=== PATIENT | male | born 1935 | race Caucasian/White ===

== ENCOUNTER 2019-08-10 08:01 | Emergency (ER) | payer OTHER, SELFPAY ==
[2019-08-10] VITALS (13 sets, daily range): BP systolic 74–208; BP diastolic 51–96; PULSE 42–55; RESP 8–20; TEMP 36.7; O2SAT 94–97; BMI 29.5
[2019-08-10 08:16] LABS: Glucose Point of Care 94 mg/dL (70-110)
--- NOTE | 2019-08-10 08:27 | ED_ITS ---
HPI - Syncope General: Chief Complaint: Syncope Stated Complaint: NEAR SYNCOPE Time Seen by Provider: 08/10/19 08:07 History of Present Illness: HPI narrative: 84-year-old male presents emergency room for near syncopal episode. Blood pressure is markedly elevated. 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 This morning he was giving himself a shot of insulin and suddenly felt lightheaded and dizzy and laid down with his head on his desk. All of these episodes happened while he was sitting. He denies any chest pain or dyspnea associated with him he not had any lateralizing symptoms no visual or speech symptoms they seem to last just a few seconds. He is not had any recent medication changes he does have a known history of coronary artery disease and he has previously had a stroke. MD complaint: almost passed out Onset (ago): minute(s) Duration of episode: 30 -: second(s) Prodromal symptoms: lightheaded Witnessed: No Context: at rest Injuries sustained associated with event: none Associated symptoms: Reports weakness; Deny abdominal pain, chest pain, fever(s) or nausea History: other (History of stroke known coronary artery disease he is on a beta- sallie) Treatments prior to arrival: none Review of Systems Const: Denies: fever(s), chills, body aches, change in appetite, fatigue or malaise ENMT: Denies: throat pain, ear or mastoid pain, nasal discharge or nasal congestion Card: Denies: chest pain, edema, dyspnea on exertion or orthopnea Resp: Denies: dyspnea, productive cough or non-productive cough GI: Denies: abdominal pain, nausea, vomiting, hematemesis, coffee ground emesis, diarrhea, constipation, bloating, hematochezia or melena : Denies: flank pain, dysuria, urinary frequency or urinary urgency Skin/Breast: Denies: rash or pruritus PFSH ED PFSH: Medical History (Updated 08/10/19 @ 12:27 by Milton Beach DO) Coronary artery disease CVA (cerebral vascular accident) Diabetes mellitus Hypertension Intermittent claudication Percutaneous transluminal coronary angioplasty (PTCA) within last 14 to 24 months Salivary gland calculus Social History (Updated 06/20/20 @ 08:31 by SIDNEY Cobos Smoking and tobacco status: former smoker Alcohol intake: former 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 Physical Exam Const: COMMON NORMALS: no acute distress GENERAL APPEARANCE: cooperative and comfortable ORIENTATION/CONSCIOUSNESS: Yes awake, Yes oriented to person, Yes oriented to place and Yes oriented to time HENMT: COMMON NORMALS: normocephalic, atraumatic, hearing grossly normal bilaterally, external ears normal, EAC's normal, TM's normal bilaterally, Normal nasal mucous membranes and turbinates present, moist oral mucous membranes and oropharynx normal HEAD & SCALP: normocephalic and atraumatic NOSE: Normal nasal mucous membranes and turbinates present EXTERNAL EAR: Yes external ears normal EXTERNAL AUDITORY CANAL: EAC's normal TYMPANIC MEMBRANE: TM's normal bilaterally Eye: COMMON NORMALS: Equal, round and reactive pupils present, EOMs intact bilaterally, conjunctivae normal and no scleral icterus CONJUNCTIVA: Yes conjunctivae normal PUPIL: Yes Equal, round and reactive pupils present Neck/C-Spine: COMMON NORMALS: full ROM, no lymphadenopathy, supple and no JVD Lymph: LYMPHATIC: no lymphadenopathy noted and no lymphedema noted Resp: COMMON NORMALS: normal respiratory effort, No retractions, No use of accessory muscles and clear to auscultation bilaterally AUSCULTATION: clear to auscultation bilaterally Cardio: COMMON NORMALS: no JVD, regular rhythm and No murmurs present (Cardio) RATE: bradycardic RHYTHM: regular rhythm GI: COMMON NORMALS: Soft to palpation and No hepatosplenomegaly present AUSCULTATION: Yes normoactive bowel sounds PALPATION: Yes Soft to palpation, No Tenderness to palpation present (GI), No Guarding due to palpation present (GI) and Yes No hepatosplenomegaly present Extremity: COMMON NORMALS: normal to inspection, capillary refill normal, no clubbing, cyanosis or edema, no calf tenderness and no pedal edema Neuro: SENSORIUM/ORIENTATION: Yes oriented to person, Yes oriented to place and Yes oriented to time Skin: COMMON NORMALS: no rashes or lesions noted GENERAL SKIN EXAM: no rashes or lesions noted Course Vital Signs: Vital signs: Vital Signs Temperature 98.0 F 08/10/19 08:08 Pulse Rate 47 L 08/10/19 12:51 Respiratory Rate 20 H 08/10/19 12:51 Blood Pressure 103/58 08/10/19 12:51 Pulse Oximetry 96 08/10/19 12:51 MDM - Syncope MDM Narrative: Medical decision making narrative: Patient is feeling better at this point reviewed his old chart we did give him some antihypertensives he actually got a little bit hypotensive for a time. He is extremely bradycardic patient relates that they said that that was a result of some denting that he had recently. 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 Lab Data: Labs: Lab Results 08/10/19 08/10/19 08/10/19 Range/Units 08:12 08:46 08:46 WBC 3.6 L (4.0-10.0) 10^3/ uL RBC 4.11 (4.1-5.3) 10^6/u L Hgb 11.0 L (11.7-16.6) g/dL Hct 35.0 L (42.0-52.0) % MCV 85.2 (80-94) fL MCH 26.8 L (28.0-34.0) pg MCHC 31.4 (30.0-36.0) g/dL RDW 15.0 (12.1-15.1) % Plt Count 213 (130-400) 10^3/c mm MPV 9.8 (7.4-10.4) fL Neut % (Auto) 56.5 % Lymph % (Auto) 24.8 % [place] % (Auto) 11.8 % Eos % (Auto) 5.8 % Baso % (Auto) 1.1 % Neut # (Auto) 2.1 (1.8-7.7) 10^3/u L Lymph # (Auto) 0.9 (0.8-4.8) 10^3/u L [place] # (Auto) 0.4 (0.2-0.9) 10^3/u L Eos # (Auto) 0.2 (0.0-0.8) 10^3/u L Baso # (Auto) 0.0 (0.0-0.1) 10^3/u L Nucleated RBC % (a uto) 0 % Nucleated RBCs # 0.0 /100WBC Sodium 140 (136-145) mmol/L Potassium 4.3 (3.5-5.1) mmol/L Chloride 105 (98-107) mmol/L Carbon Dioxide 23 (22-29) mmol/L Anion Gap 15.2 (5-19) BUN 24 H (8-23) mg/dL Creatinine 1.4 H (0.7-1.2) mg/dL Glucose 96 (65-115) mg/dL POC Glucose 94 (70-110) mg/dL Calculated Osmolal ity 283 L (285-295) mOsm/k g Calcium 9.7 (8.5-10.5) mg/dL Total Bilirubin 0.4 (0.15-1.2) mg/dL AST 10 (0-40) U/L ALT 6 (0-41) U/L Alkaline Phosphata se 54 (40-130) IU/L Troponin T Baselin e (0-15) ng/L Troponin T 120 Min [place] (0-15) ng/L Delta Troponin T (0-10) ABS# Total Protein 6.7 (6.6-8.7) g/dL Albumin 4.5 (3.5-5.2) g/dL Globulin 2.5 (1.3-4.6) g/dL Urine Color (Yellow) Urine Appearance (CLEAR) Urine pH (5-7) Ur Specific Gravit y (1.005-1.030) Urine Protein (Negative) Urine Glucose (UA) (Normal) Urine Ketones (Negative) Urine Blood (Negative) Urine Nitrate (Negative) Urine Bilirubin (NEGATIVE) Prot Sulfosalicyli c Acd (Negative) Urine Urobilinogen (Negative) mg/dL Ur Leukocyte Rita ase (Negative) Urine RBC (0-2) /hpf Urine WBC (0-5) /hpf Ur Squamous Epith Cells (0-5) Urine Bacteria (NONE) 08/10/19 08/10/19 08/10/19 Range/Units 08:46 09:15 10:54 WBC (4.0-10.0) 10^3/ uL RBC (4.1-5.3) 10^6/u L Hgb (11.7-16.6) g/dL Hct (42.0-52.0) % MCV (80-94) fL MCH (28.0-34.0) pg MCHC (30.0-36.0) g/dL RDW (12.1-15.1) % Plt Count (130-400) 10^3/c mm MPV (7.4-10.4) fL Neut % (Auto) % Lymph % (Auto) % [place] % (Auto) % Eos % (Auto) % Baso % (Auto) % Neut # (Auto) (1.8-7.7) 10^3/u L Lymph # (Auto) (0.8-4.8) 10^3/u L [place] # (Auto) (0.2-0.9) 10^3/u L Eos # (Auto) (0.0-0.8) 10^3/u L Baso # (Auto) (0.0-0.1) 10^3/u L Nucleated RBC % (a uto) % Nucleated RBCs # /100WBC Sodium (136-145) mmol/L Potassium (3.5-5.1) mmol/L Chloride (98-107) mmol/L Carbon Dioxide (22-29) mmol/L Anion Gap (5-19) BUN (8-23) mg/dL Creatinine (0.7-1.2) mg/dL Glucose (65-115) mg/dL POC Glucose (70-110) mg/dL Calculated Osmolal ity (285-295) mOsm/k g Calcium (8.5-10.5) mg/dL Total Bilirubin (0.15-1.2) mg/dL AST (0-40) U/L ALT (0-41) U/L Alkaline Phosphata se (40-130) IU/L Troponin T Baselin e 24 H (0-15) ng/L Troponin T 120 Min [place] 20.21 H (0-15) ng/L Delta Troponin T -3.79 L (0-10) ABS# Total Protein (6.6-8.7) g/dL Albumin (3.5-5.2) g/dL Globulin (1.3-4.6) g/dL Urine Color Yellow (Yellow) Urine Appearance Clear (CLEAR) Urine pH 7 (5-7) Ur Specific Gravit y 1.005 (1.005-1.030) Urine Protein Trace (Negative) Urine Glucose (UA) Norm (Normal) Urine Ketones Negative (Negative) Urine Blood Neg (Negative) Urine Nitrate Negative (Negative) Urine Bilirubin Neg (NEGATIVE) Prot Sulfosalicyli c Acd Negative (Negative) Urine Urobilinogen Norm (Negative) mg/dL Ur Leukocyte Rita ase Negative (Negative) Urine RBC None (0-2) /hpf Urine WBC None (0-5) /hpf Ur Squamous Epith Cells None (0-5) Urine Bacteria Trace (NONE) Discharge Plan Discharge Patient Disposition: Home, Self-Care Clinical Impression: Near syncope, Bradycardia, Coronary artery disease, Intermittent claudication, Diabetes mellitus, Hypertension Condition: Stable Prescriptions: New hydralazine 25 mg tablet 25 mg PO TID Qty: 30 RF: 0 Held carvedilol 6.25 mg Tablet 3.125 mg PO BID RF: 0 Hold Instructions: Resume on 08/24/19. Hold until instructed by your product manufacturing professional whether or not to resume No Action atorvastatin 40 mg Tablet See Rx Instructions .ROUTE .COMPLEX RF: 0 clopidogrel 75 mg Tablet 75 mg PO DAILY RF: 0 aspirin 81 mg Tablet,Delayed Release (Dr/Ec) 81 mg PO DAILY RF: 0 amlodipine 10 mg Tablet 10 mg PO DAILY RF: 0 albuterol sulfate 90 mcg/actuation Hfa Aerosol Inhaler 2 puff INHALATION Q6H PRN (Reason: Shortness Of Breath) RF: 0 glipizide 5 mg Tablet 5 mg PO BID RF: 0 insulin glulisine U-100 100 unit/mL Solution See Rx Instructions .ROUTE .COMPLEX RF: 0 hydrochlorothiazide 12.5 mg Tablet 12.5 mg PO DAILY RF: 0 Tylenol 325 mg Tablet 325 mg PO QID PRN (Reason: pain/headache) RF: 0 Discharge Orders: Discharge Order (Routine); Ordered 08/10/19 Ordered By: Milton Beach Referrals: [facility] [Primary Care Provider] - Discharge Diet: Usual diet Discharge Activity: Limit activity as instructed Activity Restrictions/Additional Instructions: Follow-up with your product manufacturing professional within the next 7 to 10 days to reevaluate her blood pressure and discuss the carvedilol, hold carvedilol until you see your product manufacturing professional. Discharge Date/Time: 08/10/19 12:53 Coding Level of Care Code ED Supervisor Roving Department for Chg Fwd Exam Comprehensive
--- NOTE | 2019-08-10 08:38 | CTR_ITS ---
PROCEDURE INFORMATION: Exam: CT Head Without Contrast Exam date and time: 08/10/2019 8:44 AM Age: 84 years old Clinical indication: Dizziness; Additional info: Near syncope TECHNIQUE: Imaging protocol: Computed tomography of the head without contrast. Radiation optimization: All CT scans at this facility use at least one of these dose optimization techniques: automated exposure control; mA and/or kV adjustment per patient size (includes targeted exams where dose is matched to clinical indication); or iterative reconstruction. COMPARISON: No relevant prior studies available. RADIATION DOSE METRICS: Total DLP (mGy-cm): 762.25 FINDINGS: Brain: Symmetric prominence of the cortical and cerebellar sulci. Small bilateral subdural hygromas. Small-vessel ischemic change, without an acute cortical infarct. No space-occupying lesion, mass effect, or intracranial hemorrhage. Ventricles: Age appropriate caliber of the ventricles. Bones/joints: No acute calvarial pathology prior Sinuses: No sinus fluid. Mastoid air cells: No mastoid effusion. Vasculature: Vascular and dural calcification. Soft tissues: Unremarkable soft tissues. CT/CT head wo con* [id number] IMPRESSION: Atrophy , without acute intracranial pathology . Radiation Dose CTDIVOL = (mGy): DLP = 762.25 (mGy-cm)
--- NOTE | 2019-08-10 08:38 | XRR_ITS ---
PROCEDURE INFORMATION: Exam: XR Chest, 1 View Exam date and time: 08/10/2019 9:05 AM Age: 84 years old Clinical indication: Cough and dyspnea; Additional info: Dyspnea/cough TECHNIQUE: Imaging protocol: XR of the chest Views: 1 view. COMPARISON: No relevant prior studies available. FINDINGS: Lungs: Emphysematous change and mild interstitial prominence. Pleural space: No significant pleural effusion. Heart/Mediastinum: No cardiomegaly. Vasculature: Calcification and ectasia of the thoracic aorta. Bones/joints: Osteopenia and degenerative change . XR/XR chest 1V portable [id number] IMPRESSION: Emphysematous change and mild interstitial prominence.
--- NOTE | 2019-08-10 08:38 | ECG_ITS ---
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 Measurements Intervals [place] Rate: 50 P: 91 ND: 177 QRS: -46 QRSD: 94 T: 68 QT: 416 QTc: 380 Interpretive Statements SINUS BRADYCARDIA LEFT ANTERIOR FASCICULAR BLOCK [QRS AXIS <= -45, QR IN I, RS IN II] No previous ECG available for comparison Electronically Signed On 08-10-2019 22:45:54 CDT by Sheba Lawson M.D. [id number]
[2019-08-10 08:55] LABS: Basophils % 1.1 %; Eosinophils # 0.2 10^3/uL (0.0-0.8); Eosinophils % 5.8 %; Lymphocytes # 0.9 10^3/uL (0.8-4.8); Lymphocytes % 24.8 %; Mean Corpuscular HGB Conc 31.4 g/dL (30.0-36.0); Mean Corpuscular Hemoglobin 26.8 pg (28.0-34.0); Mean Corpuscular Volume 85.2 fL (80-94); Mean Platelet Volume 9.8 fL (7.4-10.4); Monocytes # 0.4 10^3/uL (0.2-0.9); Monocytes % 11.8 %; Neutrophils # 2.1 10^3/uL (1.8-7.7); Neutrophils % 56.5 %; Nucleated Red Blood Cells % 0 %; Platelet Count 213 10^3/cmm (130-400); Red Blood Count 4.11 10^6/uL (4.1-5.3); White Blood Count 3.6 10^3/uL (4.0-10.0)
[2019-08-10 09:15] LABS: Alanine Aminotransferase 6 U/L (0-41); Albumin Level 4.5 g/dL (3.5-5.2); Alkaline Phosphatase 54 IU/L (40-130); Aspartate Amino Transferase 10 U/L (0-40); Chloride 105 mmol/L (98-107); Potassium 4.3 mmol/L (3.5-5.1); Sodium 140 mmol/L (136-145)
[2019-08-10 09:17] LABS: Troponin(5th) Baseline 24 ng/L (0-15)
[2019-08-10] MEDS: amlodipine 5 mg Tablet 10 MG PO (09:19)
[2019-08-10] MEDS: hyDRALAzine 20 mg/mL INJ 1 mL 10 MG IVP (09:19)
[2019-08-10 09:47] LABS: Add Urine Microscopic? YES; Bilirubin Urine Neg (NEGATIVE); Blood Urine Neg (Negative); Glucose Urine UA Norm (Normal); Ketones Urine Negative (Negative); Leukocyte Esterase Urine Negative (Negative); Nitrate Urine Negative (Negative); Protein Urine Trace (Negative); Specific Gravity, Urine 1.005 (1.005-1.030); Sulfosalicylic Acid Urine Negative (Negative); Urine Appearance Clear (CLEAR); Urine Color Yellow (Yellow); Urobilinogen Urine Norm (Negative); pH Urine 7 (5-7)
[2019-08-10 09:51] LABS: Anion Gap 15.2 (5-19); Blood Urea Nitrogen 24 mg/dL (8-23); Calcium 9.7 mg/dL (8.5-10.5); Carbon Dioxide 23 mmol/L (22-29); Globulin 2.5 g/dL (1.3-4.6); Glucose 96 mg/dL (65-115); Osmolality Calculated 283 mOsm/kg (285-295); Total Bilirubin 0.4 mg/dL (0.15-1.2); Total Protein 6.7 g/dL (6.6-8.7)
[2019-08-10 09:56] LABS: Add Urine Culture? No; Bacteria Urine TRACE
[2019-08-10] MEDS: cloNIDine 0.1 mg Tablet PO (10:15)
--- NOTE | 2019-08-10 10:38 | ECG_ITS ---
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 Measurements Intervals [place] Rate: 51 P: 31 WI: 176 QRS: -42 QRSD: 87 T: 63 QT: 423 QTc: 391 Interpretive Statements SINUS BRADYCARDIA MARKED LEFT AXIS DEVIATION [QRS AXIS < -30] Compared to ECG 08/10/2019 08:10:15 Left-axis deviation now present Left anterior fascicular block no longer present Electronically Signed On 08-10-2019 22:57:28 CDT by Sheba Lawson M.D. [id number]
[2019-08-10 11:17] LABS: Troponin 5 2HR 20.21 ng/L (0-15)
[2019-08-10] MEDS: sodium chloride 0.9% 500 ML 999 ML IV (11:18)
[2019-08-10 11:29] LABS: Troponin 5 2HR Delta -3.79 ABS# (0-10)
== END 2019-08-10 12:53 | disposition home or self-care (01) ==
PROVIDERS: Emergency Provider Family Medicine
DX: R55 Syncope and collapse (principal); R00.1 Bradycardia, unspecified; I25.10 Atherosclerotic heart disease of native coronary artery without angina pectoris; I73.9 Peripheral vascular disease, unspecified; E11.9 Type 2 diabetes mellitus without complications; I10 Essential (primary) hypertension; Z79.02 Long term (current) use of antithrombotics/antiplatelets; Z79.82 Long term (current) use of aspirin; Z79.4 Long term (current) use of insulin; Z86.73 Personal history of transient ischemic attack (TIA), and cerebral infarction without residual deficits; Z87.891 Personal history of nicotine dependence
CPT/HCPCS: 12345; 36415; 36416; 70450; 71045; 80053; 81001; 82962; 84484; 85025; 93005; 96374; 96375; 99284; J0360; J7030

== ENCOUNTER 2019-11-27 10:52 | Outpatient (CLI) | payer OTHER, SELFPAY ==
--- NOTE | 2019-11-27 11:02 | US_ITS ---
WS: [id number] ULTRASOUND RENAL TECHNIQUE: Ultrasound examination of both kidneys. CLINICAL INFORMATION: CHRONIC KIDNEY DZ STAGE 3 COMPARISON: Ultrasound and CT FINDINGS: Technically difficult examination. Bilateral renal cysts. Largest right renal cyst measures 3.3 x 3.3 x 2.8 cm in the mid right kidney. Largest renal cyst lef t kidney measures 3.2 x 3.7 x 5.5 CCM. RIGHT: Right kidney is normal in size and appearance. Echogenicity: Normal. Cortical thickness: 1.2 cm; Normal. Hydronephrosis: None. Perinephric fluid: None. Right kidney measures: 11.3 cm x 4.7 cm x 5.6 cm. LEFT: Left kidney is normal in size and appearance. Echogenicity: Normal. Cortical thickness: 1.1 cm; Normal. Hydronephrosis: None. Perinephric fluid: None. Right kidney measures Left kidney measures: 10.3 cm x 5.5 cm x 7.7 cm. Infrarenal abdominal aortic aneurysm measuring 5.4 x 5.7 cm AP by transverse. Recommend further evalu ation with CTA abdomen pelvis. Normal bladder. US/US renal BI* [id number] IMPRESSION: 1. Infrarenal abdominal aortic aneurysm measuring 5.4 x 5.7 CM. Recommend furt her evaluation with CTA abdomen pelvis. 2. No hydronephrosis in right kidney. 3. Bilateral renal cysts as described above.
== END 2019-11-27 10:53 | disposition home or self-care (01) ==
LOC: RAD 11:00
PROVIDERS: Visit Provider Internal Medicine Nephrology
DX: N18.30 Chronic kidney disease, stage 3 unspecified (principal); I71.4 Abdominal aortic aneurysm, without rupture; Q61.02 Congenital multiple renal cysts
CPT/HCPCS: 76770

== ENCOUNTER 2020-09-25 11:48 | Inpatient (IN) | payer OTHER, MEDICARE, SELFPAY ==
[2020-09-25] VITALS (13 sets, daily range): BP systolic 98–168; BP diastolic 43–90; PULSE 47–132; RESP 17–96; TEMP 38.1; O2SAT 90–100; BMI 29.4
--- NOTE | 2020-09-25 12:09 | W.ED.FEVER ---
HPI - Fever General: Chief Complaint: ER Hold Stated Complaint: HYPOTENSION/ AFIB/ TEMP Time Seen by Provider: 09/25/20 11:51 Source: patient History of Present Illness: HPI Narrative: Mr. Castorena is a 85-year-old gentleman with significant past medical history of hypertension, hyperlipidemia, diabetes, CAD status post PCI presents emergency department due to generalized medical complaint. Symptom onset was gradual approximately 8 days ago. He endorses cough which is occasionally been productive and nasal drip. Additionally he has had generalized malaise fatigue and muscle aches. He was seen by his primary care provider and tested negative for Covid however his symptoms have continued to worsen and now moderate to severe in intensity. Today he endorses feeling worse and so he tried to go to his primary care provider at the [place]. While driving he had an episode of confusion and had difficulty seeing the stoplight. He was found to have dysarthric speech, confusion, and blood pressure as low as 60 systolic and was subsequently referred to the emergency department. He endorses continued infectious symptoms but complete resolution of his neurologic complaints. The intensity of these were moderate to severe. He has not had frequent episodes in the past. He cannot think of any other specific exacerbating or relieving factors. He has been compliant with his medication regimen. Associated symptoms: Reports chills, confusion, nasal congestion and nausea; Deny abdominal pain, chest pain, extremity pain, headache(s) or vomiting Review of Systems General: Reports: 10 or more systems reviewed and unremarkable except in HPI and below Const: Reports: fever(s), chills, body aches, change in appetite, fatigue and malaise Eyes: Reports: change in vision (See HPI); Denies: eye discharge, eye redness, floaters or seeing flashes ENMT: Reports: nasal discharge and nasal congestion; Denies: throat pain Card: Reports: irregular heart rhythm and dyspnea on exertion; Denies: chest pain Resp: Reports: dyspnea and productive cough GI: Reports: nausea; Denies: abdominal pain or vomiting : Denies: difficulty urinating Musc: Denies: extremity pain, extremity swelling or joint swelling Skin/Breast: Denies: rash or pruritus Neuro: Reports: confusion, Slurred speech present and difficulty communicating thoughts; Denies: headache(s), numbness in extremities or weakness in extremities Endo: Denies: polyuria or polydipsia Cody/Lymph: Denies: easy bruising PFSH ED PFSH: Medical History Abdominal aortic aneurysm Coronary artery disease CVA (cerebral vascular accident) Diabetes mellitus Hypertension Intermittent claudication Percutaneous transluminal coronary angioplasty (PTCA) within last 14 to 24 months Salivary gland calculus Surgical History History of right common carotid artery stent placement History of tonsillectomy Family History Mother Polycystic kidney disease Brother CAD (coronary artery disease) Social History Smoking and tobacco status: former smoker Alcohol intake: former 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 Substance/Drug Use: never Lives independently: Yes Household members: family Marital status: / Current occupational status: retired Physical Exam Const: COMMON NORMALS: no acute distress and patient oriented x3 EXAM LIMITATIONS: no altered mental status GENERAL APPEARANCE: cooperative and comfortable ORIENTATION/CONSCIOUSNESS: Yes awake, Yes oriented to person, Yes oriented to place and Yes oriented to time; not confused HENMT: COMMON NORMALS: normocephalic, external ears normal, Normal external nose present and Normal nasal mucous membranes and turbinates present HEAD & SCALP: normocephalic NOSE: Normal external nose present and Normal nasal mucous membranes and turbinates present EXTERNAL EAR: Yes external ears normal MOUTH: Normal oral and palatal mucosa present, lip normal and tongue normal THROAT: posterior oropharynx normal Eye: COMMON NORMALS: Equal, round and reactive pupils present, EOMs intact bilaterally and conjunctivae normal CONJUNCTIVA: Yes conjunctivae normal PUPIL: Yes Equal, round and reactive pupils present Neck/C-Spine: COMMON NORMALS: no JVD Chest: COMMONS NORMALS: normal inspection of the chest Resp: COMMON NORMALS: normal respiratory effort AUSCULTATION: diminished lung sounds bilateral in the lower lung white Cardio: COMMON NORMALS: no JVD RHYTHM: abnormal rhythm (frequent PVCs) GI: COMMON NORMALS: Soft to palpation and non-tender PALPATION: Yes Soft to palpation Extremity: COMMON NORMALS: normal to inspection, capillary refill normal and no pedal edema Neuro: COMMON NORMALS: patient oriented x3, CN's II-XII intact bilaterally, moves all extremities, no focal motor deficits and no sensory deficits noted SENSORIUM/ORIENTATION: Yes oriented to person, Yes oriented to place and Yes oriented to time SPEECH: speech normal GAIT: Yes Normal gait present Skin: COMMON NORMALS: no rashes or lesions noted GENERAL SKIN EXAM: no rashes or lesions noted Course ED course: - Patient seen and evaluated at bedside. - air sampling and monitoring attached and IV access obtained - Initial evaluation notable for no acute distress, nontoxic appearance. There is no neurologic deficits appreciated on exam. Patient does have mildly decreased breath sounds but no melita respiratory distress. -Labs and imaging ordered and obtained -Labs notable for no leukocytosis, microcytic anemia present which appears similar to baseline and there is no obvious evidence of bleeding.. Limited historical records present however creatinine appears greater than baseline. No obvious other causes of reported symptoms or mental status change. CRP elevated however procalcitonin negative. - ED interpretation of chest x-ray with possible increased hazy opacities on the right. Head CT negative for acute intracranial hemorrhage. - Given clinical description of symptoms IV antibiotics were given for coverage of pneumonia - The patient presents with tachycardia, fever meeting 2/4 SIRS criteria with suspected source of infection. - Results of ED evaluation discussed with patient including need for inpatient evaluation of his condition. Patient was agreeable for admission. - Dr Guerra of the internal medicine hospitalist team was contacted and agreed to admit the patient. -Upon for serial reexamination of the patient overall patient's condition remained satisfactory. There was no recurrence of neurologic symptoms which may have been secondary to hypotension in the context of illness. -Subsequent to admission teleradiology contacted me regarding findings on CT abdomen and pelvis. These were passed on to Dr. Braun of the hospitalist team. Vital Signs: Vital signs: Vital Signs Temperature 97.7 F 09/26/20 14:13 Pulse Rate 82 09/26/20 14:13 Respiratory Rate 16 09/26/20 14:13 Blood Pressure 78/43 09/26/20 14:15 Pulse Oximetry 97 09/26/20 14:13 MDM - Fever Medical Records: Attestation: I reviewed the patient's medical records. Lab Data: Attestation: I reviewed the patient's lab results. Labs: Lab Results 09/25/20 09/25/20 09/25/20 Range/Units 11:35 11:35 11:35 WBC 6.7 (4.0-10.0) 10^3/ uL RBC 3.67 L (4.1-5.3) 10^6/u L Hgb 7.9 L (11.7-16.6) g/dL Hct 26.9 L (42.0-52.0) % MCV 73.3 L (80-94) fL MCH 21.5 L (28.0-34.0) pg MCHC 29.4 L (30.0-36.0) g/dL RDW 19.0 H (12.1-15.1) % Plt Count 291 (130-400) 10^3/c mm MPV 10.6 H (7.4-10.4) fL Neut % (Auto) 76.4 % Lymph % (Auto) 12.9 % Humphreys % (Auto) 8.5 % Eos % (Auto) 1.3 % Baso % (Auto) 0.6 % Neut # (Auto) 5.10 (1.8-7.7) 10^3/u L Lymph # (Auto) 0.9 (0.8-4.8) 10^3/u L Humphreys # (Auto) 0.6 (0.2-0.9) 10^3/u L Eos # (Auto) 0.1 (0.0-0.8) 10^3/u L Baso # (Auto) 0.0 (0.0-0.1) 10^3/u L Nucleated RBC % (a uto) 0 % Nucleated RBCs # 0.0 /100WBC Sodium 135 L (136-145) mmol/L Potassium 4.0 (3.5-5.1) mmol/L Chloride 101 (98-107) mmol/L Carbon Dioxide 18 L (22-29) mmol/L Anion Gap 20.0 H (5-19) BUN 42 H (8-23) mg/dL Creatinine 2.7 H (0.7-1.2) mg/dL GFR Calculation Not Reportable Glucose 67 (65-115) mg/dL POC Glucose (70-110) mg/dL Calculated Osmolal ity 289 (285-295) mOsm/k g Lactate (0.5-2.2) mmol/L Calcium 8.2 L (8.5-10.5) mg/dL Iron (59-158) ug/dL TIBC mcg/dl % Saturation (20-50) % Unsat Iron Binding (112-347) ug/dL Ferritin (30-400) ng/mL Total Bilirubin 0.3 (0.15-1.2) mg/dL Direct Bilirubin 0.20 (0.00-0.30) mg/d L AST 37 (0-40) U/L ALT 26 (0-41) U/L Alkaline Phosphata se 43 (40-130) IU/L C-Reactive Protein 160.5 H (0.0-4.9) mg/L Total Protein 5.5 L (6.6-8.7) g/dL Albumin 3.2 L (3.5-5.2) g/dL Globulin 2.3 (1.3-4.6) g/dL Procalcitonin 0.41 (0-0.5) ng/mL TSH 1.12 (0.27-4.20) uIU/ mL Serum Ketones (Negative) Nasal/Oral COVID-1 9 PCR SARS-CoV-2 Ag (Rap id) (Negative) 09/25/20 09/25/20 09/25/20 Range/Units 11:35 11:35 12:42 WBC (4.0-10.0) 10^3/ uL RBC (4.1-5.3) 10^6/u L Hgb (11.7-16.6) g/dL Hct (42.0-52.0) % MCV (80-94) fL MCH (28.0-34.0) pg MCHC (30.0-36.0) g/dL RDW (12.1-15.1) % Plt Count (130-400) 10^3/c mm MPV (7.4-10.4) fL Neut % (Auto) % Lymph % (Auto) % Humphreys % (Auto) % Eos % (Auto) % Baso % (Auto) % Neut # (Auto) (1.8-7.7) 10^3/u L Lymph # (Auto) (0.8-4.8) 10^3/u L Humphreys # (Auto) (0.2-0.9) 10^3/u L Eos # (Auto) (0.0-0.8) 10^3/u L Baso # (Auto) (0.0-0.1) 10^3/u L Nucleated RBC % (a uto) % Nucleated RBCs # /100WBC Sodium (136-145) mmol/L Potassium (3.5-5.1) mmol/L Chloride (98-107) mmol/L Carbon Dioxide (22-29) mmol/L Anion Gap (5-19) BUN (8-23) mg/dL Creatinine (0.7-1.2) mg/dL GFR Calculation Glucose (65-115) mg/dL POC Glucose 79 (70-110) mg/dL Calculated Osmolal ity (285-295) mOsm/k g Lactate (0.5-2.2) mmol/L Calcium (8.5-10.5) mg/dL Iron 8 L (59-158) ug/dL TIBC 224 mcg/dl % Saturation 3.5 L (20-50) % Unsat Iron Binding 216 (112-347) ug/dL Ferritin 71 (30-400) ng/mL Total Bilirubin (0.15-1.2) mg/dL Direct Bilirubin (0.00-0.30) mg/d L AST (0-40) U/L ALT (0-41) U/L Alkaline Phosphata se (40-130) IU/L C-Reactive Protein (0.0-4.9) mg/L Total Protein (6.6-8.7) g/dL Albumin (3.5-5.2) g/dL Globulin (1.3-4.6) g/dL Procalcitonin (0-0.5) ng/mL TSH (0.27-4.20) uIU/ mL Serum Ketones Negative (Negative) Nasal/Oral COVID-1 9 PCR SARS-CoV-2 Ag (Rap id) (Negative) 09/25/20 09/25/20 09/25/20 Range/Units 12:45 18:01 18:01 WBC (4.0-10.0) 10^3/ uL RBC (4.1-5.3) 10^6/u L Hgb (11.7-16.6) g/dL Hct (42.0-52.0) % MCV (80-94) fL MCH (28.0-34.0) pg MCHC (30.0-36.0) g/dL RDW (12.1-15.1) % Plt Count (130-400) 10^3/c mm MPV (7.4-10.4) fL Neut % (Auto) % Lymph % (Auto) % Humphreys % (Auto) % Eos % (Auto) % Baso % (Auto) % Neut # (Auto) (1.8-7.7) 10^3/u L Lymph # (Auto) (0.8-4.8) 10^3/u L Humphreys # (Auto) (0.2-0.9) 10^3/u L Eos # (Auto) (0.0-0.8) 10^3/u L Baso # (Auto) (0.0-0.1) 10^3/u L Nucleated RBC % (a uto) % Nucleated RBCs # /100WBC Sodium (136-145) mmol/L Potassium (3.5-5.1) mmol/L Chloride (98-107) mmol/L Carbon Dioxide (22-29) mmol/L Anion Gap (5-19) BUN (8-23) mg/dL Creatinine (0.7-1.2) mg/dL GFR Calculation Glucose (65-115) mg/dL POC Glucose (70-110) mg/dL Calculated Osmolal ity (285-295) mOsm/k g Lactate 1.2 (0.5-2.2) mmol/L Calcium (8.5-10.5) mg/dL Iron (59-158) ug/dL TIBC mcg/dl % Saturation (20-50) % Unsat Iron Binding (112-347) ug/dL Ferritin (30-400) ng/mL Total Bilirubin (0.15-1.2) mg/dL Direct Bilirubin (0.00-0.30) mg/d L AST (0-40) U/L ALT (0-41) U/L Alkaline Phosphata se (40-130) IU/L C-Reactive Protein (0.0-4.9) mg/L Total Protein (6.6-8.7) g/dL Albumin (3.5-5.2) g/dL Globulin (1.3-4.6) g/dL Procalcitonin (0-0.5) ng/mL TSH (0.27-4.20) uIU/ mL Serum Ketones (Negative) Nasal/Oral COVID-1 9 PCR Cancelled SARS-CoV-2 Ag (Rap id) Negative (Negative) Imaging Data^: CXR: Attestation: I personally reviewed and interpreted this imaging study as follows: My impression: Questionable increased right-sided opacities Radiologist's impression: No focal consolidation EKG Data^: EKG 1: Attestation: I personally reviewed and interpreted this EKG as follows: EKG interpretation date: 09/25/20 Prior EKG tracings: available for review Ischemic changes: non-specific ST-T wave changes Interpretation: Twelve-lead EKG shows a sinus rhythm with occasional premature complexes. Rate 124. CT interval 176. QRS duration 84. QTc 355. Nonspecific ST segment abnormalities. Interpretation: Sinus rhythm. Tachycardia. Discharge Plan Discharge Patient Disposition: Admitted As Inpatient Admit Provider: Pito Guerra Clinical Impression: Pneumonia, Sepsis Condition: Stable Coding Level of Care Code ED Crushing Foreman for Chg Fwd Exam Comprehensive
--- NOTE | 2020-09-25 12:10 | CT_ITS ---
WS: [id number] CT HEAD NONCONTRAST HISTORY: Stroke like symptoms-resolved TECHNIQUE: Contiguous axial imaging performed through the brain in 2.5 mm imaging. Bone and soft tiss ue windows. Sagittal and coronal reformats reviewed. All CT scans at [facility] use at le ast one of these dose optimization techniques: automated exposure control; mA and/or kV adjustment pe r patient size (includes targeted exams where dose is matched to clinical indication); or iterative r econstruction. DLP: 815.14 mGy.cm COMPARISON: None available. No acute intracranial hemorrhage, midline shift or mass effect. Mild bilateral symmetric atrophy and chronic microvascular ischemic disease. No prior infarct. Ventricles: Normal size with no hydrocephalus. Paranasal sinuses: Mucoperiosteal thickening in the RIGHT maxillary sinus. Mild mucoperiosteal thicke norma in the ethmoid air cells. Mastoid air cells: Well pneumatized. Calvarium and scalp: Skull is intact with no soft tissue edema or swelling. CT/CT head wo con* [id number] IMPRESSION: 1. No acute intracranial hemorrhage or edema. 2. Mild cerebral atrophy and chronic microvascular ischemic disease.
--- NOTE | 2020-09-25 12:11 | XRR_ITS ---
PROCEDURE INFORMATION: Exam: XR Chest Exam date and time: 09/25/2020 12:11 PM Age: 85 years old Clinical indication: Cough; Patient HX: Afib hypotension TECHNIQUE: Imaging protocol: XR of the chest. Views: 1 view. COMPARISON: CR XR chest 1V portable [id number] 08/10/2019 8:55 AM FINDINGS: Lungs: Unremarkable. No consolidation. Pleural spaces: Unremarkable. No pleural effusion. No pneumothorax. Heart/Mediastinum: Unremarkable. No cardiomegaly. Bones/joints: Unremarkable. There has been no interval change comparing to prior examination. XR/XR chest 1V [id number] IMPRESSION: No acute findings.
[2020-09-25 12:23] LABS: Basophils % 0.6 %; Eosinophils # 0.1 10^3/uL (0.0-0.8); Eosinophils % 1.3 %; Hematocrit 26.9 % (42.0-52.0); Hemoglobin 7.9 g/dL (11.7-16.6); Lymphocytes # 0.9 10^3/uL (0.8-4.8); Lymphocytes % 12.9 %; Mean Corpuscular HGB Conc 29.4 g/dL (30.0-36.0); Mean Corpuscular Hemoglobin 21.5 pg (28.0-34.0); Mean Corpuscular Volume 73.3 fL (80-94); Mean Platelet Volume 10.6 fL (7.4-10.4); Monocytes # 0.6 10^3/uL (0.2-0.9); Monocytes % 8.5 %; Neutrophils % 76.4 %; Nucleated Red Blood Cells % 0 %; Platelet Count 291 10^3/cmm (130-400); Red Blood Count 3.67 10^6/uL (4.1-5.3); White Blood Count 6.7 10^3/uL (4.0-10.0)
[2020-09-25 12:45] LABS: Procalcitonin 0.41 ng/mL (0-0.5); Thyroid Stimulating Hormone 1.12 uIU/mL (0.27-4.20)
[2020-09-25 12:48] LABS: Glucose Point of Care 79 mg/dL (70-110)
[2020-09-25 12:57] LABS: Blood Urea Nitrogen 42 mg/dL (8-23); C Reactive Protein 160.5 mg/L (0.0-4.9); Calcium 8.2 mg/dL (8.5-10.5); Carbon Dioxide 18 mmol/L (22-29); Chloride 101 mmol/L (98-107); Glucose 67 mg/dL (65-115); Osmolality Calculated 289 mOsm/kg (285-295); Sodium 135 mmol/L (136-145)
[2020-09-25] MEDS: sodium chloride 0.9% 500 ML IV (13:11)
[2020-09-25] MEDS: cefepime 2,000 MG in sodium chloride 0.9% (plus) 50 ML 100 MG IV (13:11)
[2020-09-25 13:18] LABS: Lactate (Lactic Acid level) 1.2 mmol/L (0.5-2.2)
[2020-09-25] MEDS: vancomycin 1,500 MG/300 ML PIGGYBACK 200 MG IV (13:36)
--- NOTE | 2020-09-25 13:47 | PC.NURSE ---
patient has refused covid testing. aware
--- NOTE | 2020-09-25 16:43 | PC.NURSE ---
family member has called and stated that he does not see eye to eye with the nurse. I talked to him one time and conversation was amicable. he has talked to several other staff members.
--- NOTE | 2020-09-25 18:27 | PM.HP ---
Providers/Chief Complaint Admitting Physician: Pito Guerra Primary Care Provider: [facility] Chief Complaint: HYPOTENSION/ AFIB/ TEMP History of Present Illness Pleasant 85-year-old gentleman with history of CAD, several coronary stents, PAD, with carotid artery stent, history of CVA, DM2, HTN, intermittent claudication, denies any past medical history of known lung disease, former smoker, presented due to 8-9 days of progressive malaise, chills, productive cough, does not know if any color change to sputum, dyspnea, low-grade fever. He is also having nonbloody, nonmelanotic diarrhea. Temp noted in ER, 100.5. Sinus tachycardia 107. With noted sepsis, suspected pulmonary origin. Chest x-ray unremarkable, however. Lactate is 1.2. Acute kidney injury with creatinine 2.7. Blood cultures collected, received 30 cc/kg fluid bolus, empirically started on cefepime, vancomycin. He is not vaccinated for COVID-19. Coronavirus done at PCPs office a week ago was negative, unknown type of test. He states the son that lives with him, his oldest, is also feeling unwell. CRP in ER is 160. UA is requested, not yet obtained. LFTs, COVID-19 testing requested. Discussing with him again with his nurse present, he is agreeable to proceed. He is currently requiring 4 L of oxygen by nasal cannula to maintain saturation in the 90s. Review of Systems Const: Reports: fever(s), chills, body aches and malaise Eyes: Denies: change in vision or eye redness ENMT: Denies: throat pain, oral sores or ear or mastoid pain Card: Reports: dyspnea on exertion; Denies: chest pain, edema or pre-syncope Resp: Reports: dyspnea and productive cough; Denies: change in phlegm color or hemoptysis GI: Reports: diarrhea; Denies: abdominal pain, nausea, vomiting, constipation, hematochezia or melena : Denies: flank pain, difficulty urinating, urinary frequency or hematuria Musc: Denies: back pain, joint swelling or joint redness Skin/Breast: Denies: rash, sores or new lesions Neuro: Denies: headache(s), numbness in extremities, weakness in extremities, dizziness, confusion or seizure-like activity Endo: Denies: polyuria or polydipsia Cody/Lymph: Denies: easy bleeding or purpura All/Imm: Denies: urticaria, throat swelling or tongue swelling Medications/Allergies Home Medications Medication Instructions Recorded Confirmed Last Taken Type acetaminophen [Tylenol] 325 mg PO QID PRN 08/10/19 09/25/20 Unknown History albuterol sulfate 2 puff INHALATION Q6H PRN 08/10/19 09/25/20 08/10/19 History amlodipine 10 mg PO DAILY 08/10/19 09/25/20 08/10/19 History aspirin 81 mg PO DAILY 08/10/19 09/25/20 09/25/20 History atorvastatin See Rx Instructions .ROUTE .COMPLEX 08/10/19 09/25/20 08/09/19 History carvedilol 6.25 mg PO BID 08/10/19 09/25/20 09/25/20 History clopidogrel 75 mg PO DAILY 08/10/19 09/25/20 09/25/20 History glipizide 5 mg PO DAILY 08/10/19 09/25/20 09/25/20 History insulin glulisine U-100 See Rx Instructions .ROUTE .COMPLEX 08/10/19 09/25/20 09/25/20 History amlodipine 2.5 mg PO DAILY 09/25/20 09/25/20 09/25/20 History benzonatate 100 mg PO TID 09/25/20 09/25/20 Unknown History cilostazol 100 mg PO BID 09/25/20 09/25/20 Unknown History hydralazine 25 mg PO DAILY 09/25/20 09/25/20 09/25/20 History meclizine 25 mg PO TID PRN 09/25/20 09/25/20 Unknown History valsartan 80 mg PO DAILY 09/25/20 09/25/20 09/25/20 History Allergies Allergy/AdvReac Type Severity Reaction Status Date / Time egg Allergy ADR-Flatule Verified 11/18/19 14:12 nce sulfamethoxazole Allergy Unknown Verified 11/18/19 14:12 [From Bactrim] trimethoprim [From Bactrim] Allergy Unknown Verified 11/18/19 14:12 PFSH Acute PFSH: Medical History (Updated 09/25/20 @ 19:18 by Pito Guerra MD) Abdominal aortic aneurysm Coronary artery disease CVA (cerebral vascular accident) Diabetes mellitus Hypertension Intermittent claudication Percutaneous transluminal coronary angioplasty (PTCA) within last 14 to 24 months Salivary gland calculus Surgical History (Updated 09/25/20 @ 18:45 by Pito Guerra MD) History of right common carotid artery stent placement History of tonsillectomy Family History Mother Polycystic kidney disease Brother CAD (coronary artery disease) Social History Smoking and tobacco status: former smoker Alcohol intake: former 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 Substance/Drug Use: never Lives independently: Yes Household members: family Marital status: / Current occupational status: retired Vitals/I&O/Wt Last Vital Signs Temp 100.5 F H 09/25/20 11:57 Pulse 115 H 09/25/20 18:00 Resp 26 H 09/25/20 18:00 BP 155/90 09/25/20 18:00 Pulse Ox 100 09/25/20 18:00 09/25/20 09/25/20 09/25/20 06:59 14:59 22:59 Intake Total 50 / 50 Balance 50 / 50 Weight last 48 hrs Weight 92.986 kg Physical Exam Narrative: EXAM NARRATIVE: Covered with multiple blankets. Const: COMMON NORMALS: no acute distress, patient oriented x3 and alert GENERAL APPEARANCE: cooperative; not comfortable (Chills) ORIENTATION/CONSCIOUSNESS: Yes awake HENMT: COMMON NORMALS: oropharynx normal Neck/C-Spine: COMMON NORMALS: no JVD Resp: COMMON NORMALS: normal respiratory effort and clear to auscultation bilaterally AUSCULTATION: clear to auscultation bilaterally Cardio: COMMON NORMALS: no JVD, regular rhythm, S1 normal heart sound present, S2 normal heart sound present and No murmurs present (Cardio) RHYTHM: regular rhythm HEART SOUNDS: S1 normal heart sound present and S2 normal heart sound present GI: COMMON NORMALS: Normal to inspection, nondistended, normoactive bowel sounds present, Soft to palpation and non-tender PALPATION: Yes Soft to palpation Extremity: COMMON NORMALS: no joint enlargement and no pedal edema Neuro: COMMON NORMALS: patient oriented x3 and moves all extremities Skin: COMMON NORMALS: no rashes or lesions noted GENERAL SKIN EXAM: no rashes or lesions noted Data : 09/25/20 11:35 09/25/20 11:35 Micro: Microbiology 09/25/20 12:59 Blood Culture - Preliminary Blood SPECIMEN COLLECTED 09/25/20 13:07 Blood Culture - Preliminary Blood SPECIMEN COLLECTED A&P Assessment and plan (1) Sepsis: Noted symptoms of presentation, with sinus tachycardia 107, tachypnea 26-29. With acute kidney injury, creatinine 2.7. Metabolic acidosis, bicarb 18, anion gap 20. Lactic acid 1.2. Due to symptoms of dyspnea, productive cough thought to be secondary to pneumonia, although chest x-ray really unremarkable. Empirically started on cefepime, vancomycin. With acute kidney injury UA is requested. Follow-up. With metabolic acidosis requested also serum ketones, follow-up urine ketones. Metabolic acidosis may be secondary to diarrhea. Possibly OCTAVIA on CKD. With fever, chills, malaise, generalized weakness, cough, diarrhea requested COVID-19. Rapid is negative. Follow blood cultures. Continue cefepime, Vanco. Status: Acute (2) OCTAVIA (acute kidney injury): Hold valsartan. Bladder scan appears to show about 500 cc. He so far has not yet urinated. Tells RN he is going to try to pee. For now declined straight cath. With sepsis, acute kidney injury on chronic kidney disease would like to exclude obstruction. Ultrasound no longer available this evening, will assess with CT renal stone protocol. Received fluid challenge in ER. Hold off additional fluids for now. Status: Acute (3) Hypoxia: Initially not requiring oxygen, currently requiring 4 L by nasal cannula to maintain saturation in the 90s. As discussed with him possible atypical or viral pneumonia. Does not appear to have focal consolidation on chest x-ray. Empirically covered with antibiotics as above. Rapid COVID-19 assessed and negative. PCR requested and pending. History of CAD. Assess TTE. Reports also productive cough, but does not know what kind of sputum he is producing. Not a current smoker, but used to smoke in the past. Denies of being aware of having COPD or emphysema. I do not hear that he sounds tight or wheezy. Possible underlying obstructive lung disease may benefit from evaluation after he is done with acute issues. Status: Acute Additional A&P Information Mild hyponatremia Elevated CRP Microcytic anemia: Check Hemoccult, iron studies. DM2: Continue insulin, consistent carb. SSI HTN: Continue carvedilol. Monitor blood pressure. Hold valsartan. For now hold amlodipine, hydralazine, but resume if blood pressure is elevated. CAD, history of stenting, PAD, carotid artery stenting: Continue aspirin, Plavix, statin, beta-sallie History of CVA CKD Noted prior abdominal aortic aneurysm, infrarenal, 3.9 cm in 2010 Attestations Medical Necessity Statement*: Place in observation for now secondary to sepsis requiring additional investigation regarding other possible source other than pulmonary, at the moment started on empiric therapy, with concomitant acute kidney injury on chronic kidney disease in a gentleman with underlying CAD and a number of additional comorbidities. Coding Level of Care Code Acute Tableau Developer for [facility] Fwd Diagnoses Sepsis A41.9 OCTAVIA (acute kidney injury) N17.9 Hypoxia R09.02
[2020-09-25 18:35] LABS: SARS Covid-2 Antigen Negative (Negative)
[2020-09-25 18:42] LABS: Alanine Aminotransferase 26 U/L (0-41); Albumin Level 3.2 g/dL (3.5-5.2); Alkaline Phosphatase 43 IU/L (40-130); Aspartate Amino Transferase 37 U/L (0-40); Globulin 2.3 g/dL (1.3-4.6); Total Bilirubin 0.3 mg/dL (0.15-1.2); Total Protein 5.5 g/dL (6.6-8.7)
--- NOTE | 2020-09-25 19:15 | CTR_ITS ---
PROCEDURE INFORMATION: Exam: CT Abdomen And Pelvis Without Contrast Exam date and time: 09/25/2020 7:15 PM Age: 85 years old Clinical indication: Other: Urinary retention; Additional info: Sepsis, luz on ckd, urinary retention, assess for hydro TECHNIQUE: Imaging protocol: Computed tomography of the abdomen and pelvis without contrast. Radiation optimization: All CT scans at this facility use at least one of these dose optimization techniques: automated exposure control; mA and/or kV adjustment per patient size (includes targeted exams where dose is matched to clinical indication); or iterative reconstruction. COMPARISON: US renal BI* [id number] 11/27/2019 11:20 AM RADIATION DOSE METRICS: Total DLP (mGy-cm): 1833.19 FINDINGS: Chest: Bilateral lower lobe parenchymal densities likely pneumonia. Hiatal hernia is present. Liver: Normal. No mass. Gallbladder and bile ducts: Normal. No calcified stones. No ductal dilation. Pancreas: Normal. No ductal dilation. Spleen: Normal. No splenomegaly. Adrenal glands: Normal. No mass. Kidneys and ureters: Multiple bilateral renal cyst. Largest is lower pole left kidney 34 mm x 40 mm. No hydronephrosis. Stomach and bowel: Unremarkable. No obstruction. No mucosal thickening. Appendix: No evidence of appendicitis. Intraperitoneal space: Unremarkable. No free air. No significant fluid collection. Vasculature: Calcified ectatic abdominal aorta with abdominal aortic aneurysm having AP measurement of 5.3 cm at the L4 level. Lymph nodes: Unremarkable. No enlarged lymph nodes. Urinary bladder: Unremarkable as visualized. Reproductive: Unremarkable as visualized. Bones/joints: Lumbar spine osteoarthritis. No acute fracture. Soft tissues: Unremarkable. CT/CT kidney stone [id number] IMPRESSION: 1. Calcified aorta with abdominal aortic aneurysm (5.3 cm). 2. Multiple bilateral renal cyst 3. Bilateral lower lobe pneumonia 4. Hiatal hernia Radiation Dose CTDIVOL = (mGy): DLP = 1833.19 (mGy-cm)
[2020-09-25 19:35] LABS: Ketone (Acetest) Serum Negative (Negative)
[2020-09-25 20:10] LABS: Ferritin 71 ng/mL (30-400); Iron 8 ug/dL (59-158); Percent Saturation 3.5 % (20-50); Total Iron Binding Capacity 224 mcg/dl; Unsaturated Iron Binding 216 ug/dL (112-347)
[2020-09-25] MEDS: sodium chloride 0.9% 250 ML 500 ML IV (20:34)
[2020-09-25] MEDS: enoxaparin 40 mg/0.4 mL Syringe SUBCUT (21:40)
[2020-09-25] MEDS: atorvastatin 40 mg Tablet 20 MG PO (21:40)
[2020-09-25] MEDS: benzonatate 100 mg Capsule PO (21:40)
[2020-09-25 23:52] LABS: Add Urine Microscopic? YES; Bilirubin Urine Neg (Negative); Blood Urine 3+ (Negative); Glucose Urine UA Norm (Normal); Ketones Urine 1+ (Negative); Leukocyte Esterase Urine Negative (Negative); Nitrate Urine Negative (Negative); Protein Urine 1+ (Negative); Specific Gravity, Urine 1.015 (1.005-1.030); Urine Appearance Clear (CLEAR); Urine Color Yellow (Yellow); Urobilinogen Urine Norm (Negative); pH Urine 5 (5-7)
[2020-09-25 23:53] LABS: Amorphous Sediment Urine 2+ /hpf; Bacteria Urine 1+ /hpf; Hyaline Casts Urine 0-4 /lpf; Squamous Epithelial Cell Urine 0-4 /hpf (0-5); WBC Urine 0-4 /hpf (0-5)
[2020-09-25 23:54] LABS: Add Urine Culture? No
[2020-09-26] VITALS (20 sets, daily range): BP systolic 78–123; BP diastolic 43–69; PULSE 65–115; RESP 16–30; TEMP 36.5–37.2; O2SAT 92–99; BMI 28.5
--- NOTE | 2020-09-26 00:11 | PC.NURSE ---
I assumed care of this patient at 09/26/20 0005.
--- NOTE | 2020-09-26 04:37 | PC.NURSE ---
patient had accidental bowel movement while in bed. Patient cleaned and linens changed. Patient requesting warmed blankets and was given. No other needs voiced at this time.
[2020-09-26 05:12] LABS: Basophils % 0.4 %; Eosinophils % 0.1 %; Lymphocytes # 0.8 10^3/uL (0.8-4.8); Lymphocytes % 10.4 %; Mean Corpuscular Hemoglobin 21.8 pg (28.0-34.0); Mean Corpuscular Volume 77.9 fL (80-94); Mean Platelet Volume 10.3 fL (7.4-10.4); Monocytes # 0.6 10^3/uL (0.2-0.9); Neutrophils # 6.34 10^3/uL (1.8-7.7); Neutrophils % 80.7 %; Nucleated Red Blood Cells % 0 %; Platelet Count 267 10^3/cmm (130-400); Red Blood Count 3.21 10^6/uL (4.1-5.3); Red Cell Distribution Width 19.4 % (12.1-15.1); White Blood Count 7.9 10^3/uL (4.0-10.0)
[2020-09-26 05:36] LABS: Alanine Aminotransferase 32 U/L (0-41); Albumin Level 3.2 g/dL (3.5-5.2); Alkaline Phosphatase 42 IU/L (40-130); Anion Gap 20.2 (5-19); Aspartate Amino Transferase 73 U/L (0-40); Blood Urea Nitrogen 40 mg/dL (8-23); Calcium 7.9 mg/dL (8.5-10.5); Carbon Dioxide 14 mmol/L (22-29); Chloride 107 mmol/L (98-107); Globulin 3.1 g/dL (1.3-4.6); Glucose 89 mg/dL (65-115); Osmolality Calculated 293 mOsm/kg (285-295); Potassium 4.2 mmol/L (3.5-5.1); Sodium 137 mmol/L (136-145); Total Bilirubin 0.4 mg/dL (0.15-1.2); Total Protein 6.3 g/dL (6.6-8.7)
[2020-09-26 08:24] LABS: Glucose Point of Care 99 mg/dL (70-110)
[2020-09-26] MEDS: aspirin 81 mg EC Tablet PO (08:44)
[2020-09-26] MEDS: benzonatate 100 mg Capsule PO ×3 (08:45→21:13)
[2020-09-26] MEDS: clopidogrel 75 mg Tablet PO (08:48)
[2020-09-26] MEDS: famotidine 20 mg Tablet PO ×2 (08:48→17:04)
[2020-09-26] MEDS: carvedilol 6.25 mg Tablet PO (09:37)
[2020-09-26] MEDS: cilostazol 100 mg Tablet PO ×2 (09:37→17:04)
[2020-09-26] MEDS: insulin glargine 100 units/1 mL 10 UNIT SUBCUT (09:40)
[2020-09-26 12:02] LABS: Glucose Point of Care 149 mg/dL (70-110)
[2020-09-26] MEDS: vancomycin 1,250 MG/250 ML PIGGYBACK 250 MG IV (14:22)
[2020-09-26] MEDS: sodium chloride 0.9% 500 ML 999 ML IV (14:51)
[2020-09-26 16:15] LABS: Hemoglobin 6.4 g/dL (11.7-16.6)
--- NOTE | 2020-09-26 16:25 | P.PN_ITS ---
Subjective Subjective: Interval history: He overall is feeling better. Chills have let up. He denies pain or discomfort. Incidentally blood pressure is noted low, although he did not appear to be bothered by it. Mean arterial pressure 52. Discussed with him. Discussed giving a bolus. Discussed also with him regarding anemia. Will recheck hemoglobin. Vitals/I&O/Wt Last Vital Signs Temp 97.7 F 09/26/20 14:13 Pulse 82 09/26/20 14:13 Resp 16 09/26/20 14:13 BP 93/48 09/26/20 15:32 Pulse Ox 97 09/26/20 14:13 09/26/20 09/26/20 09/26/20 06:59 14:59 22:59 Intake Total 354 / 354 750 / 1104 Balance 354 / 354 750 / 1104 Weight last 48 hrs Weight 92.986 kg Weight 92.986 kg Physical Exam Narrative: EXAM NARRATIVE: Covered with multiple blankets. Const: COMMON NORMALS: no acute distress, patient oriented x3 and alert GENERAL APPEARANCE: cooperative, comfortable and frail appearing ORIENTATION/CONSCIOUSNESS: Yes awake HENMT: COMMON NORMALS: oropharynx normal Neck/C-Spine: COMMON NORMALS: no JVD Resp: COMMON NORMALS: normal respiratory effort and clear to auscultation bilaterally AUSCULTATION: clear to auscultation bilaterally Cardio: COMMON NORMALS: no JVD, regular rhythm, S1 normal heart sound present, S2 normal heart sound present and No murmurs present (Cardio) RHYTHM: regular rhythm HEART SOUNDS: S1 normal heart sound present and S2 normal heart sound present GI: COMMON NORMALS: Normal to inspection, nondistended, normoactive bowel sounds present, Soft to palpation and non-tender PALPATION: Yes Soft to palpation Extremity: COMMON NORMALS: no joint enlargement and no pedal edema Neuro: COMMON NORMALS: patient oriented x3 and moves all extremities SENSORIUM/ORIENTATION: Yes alert Skin: COMMON NORMALS: no rashes or lesions noted GENERAL SKIN EXAM: no rashes or lesions noted Data : 09/26/20 15:37 09/26/20 04:50 Micro: Microbiology 09/25/20 12:59 Blood Culture - Preliminary Blood NEGATIVE TO DATE 09/25/20 13:07 Blood Culture - Preliminary Blood NEGATIVE TO DATE 09/25/20 23:02 Occult Blood (FIT) - Final Stool Routine Collection A&P Assessment and plan (1) Sepsis: Sepsis today with possible septic shock, mean arterial pressure down to 52. No beds available currently in ICU, however, he appears to responded well to 500 mL bolus. Last night received 30 mL/kg fluid resuscitation. Monitor blood pressures, repeat bolus as tolerating/needed. Hold carvedilol. Hold antihypertensives. Recheck hemoglobin also noted low 6.4. Requested 1 unit PRBC transfusion. With noted bilateral lower lobe pneumonia on abdominal CT. Continue empiric antibiotic coverage with cefepime, vancomycin. Rapid COVID-19 was negative. PCR pending. UA not suggestive of UTI. No obstruction/hydronephrosis noted on CT renal protocol. Serum ketones negative. Urine ketones 1+. I am not convinced that he has ketoacidosis with normal glucose, DM 2, however, continue insulin. Metabolic acidosis may be secondary to diarrhea. Possibly OCTAVIA on CKD. Stool studies requested, pending. Follow blood cultures. Check cardiac studies. Status: Acute (2) Anemia: Acute on chronic anemia, possibly also with delusional component. Hemoglobin down to 6.4. Transfuse 1 unit PRBC given blood pressure is also soft. History of CAD. Reassess. Negative Hemoccult. Noted iron deficiency anemia. Check reticulocyte count. Status: Acute (3) OCTAVIA (acute kidney injury): Mild improvement, creatinine down to 2.5. Hold valsartan. No obstruction noted on CT renal protocol. Received fluid challenge in ER. Boluses above for hypotension. Monitor blood pressure. Bilateral renal cysts. Should follow-up with nephrology after discharge. Status: Acute (4) Hypoxia: Bilateral pneumonia as above. Possibly atypical. Pending COVID-19 PCR. Continue antibiotics as above. Oxygen support. Pending TTE. Reports also productive cough, but does not know what kind of sputum he is producing. Not a current smoker, but used to smoke in the past. Denies of being aware of having COPD or emphysema. I do not hear that he sounds tight or wheezy. Possible underlying obstructive lung disease may benefit from evaluation after he is done with acute issues. Status: Acute Additional A&P Information Mild hyponatremia Elevated CRP Microcytic anemia: Check Hemoccult, iron studies. DM2: Continue insulin, consistent carb. SSI HTN: Hold carvedilol. Monitor blood pressure. Hold valsartan. For now hold amlodipine, hydralazine, but resume if blood pressure is elevated. CAD, history of stenting, PAD, carotid artery stenting: Continue aspirin, Plavix, statin, beta-sallie History of CVA CKD Noted prior abdominal aortic aneurysm, infrarenal, 3.9 cm in 2009. Discussed with him incidentally noted increased size of abdominal aortic aneurysm. Discussed with him to follow-up with primary provider, current size is 5.3 cm. Will need regular monitoring. He verbalized understanding. Hiatal hernia: Incidentally noted on CT Multiple bilateral renal cysts: Incidentally noted on CT Attestations Medical Necessity Statement*: Continue admission for assessment of management of sepsis, pneumonia, acute on chronic anemia, OCTAVIA. Coding Level of Care Code Acute Box Toe Cementer for livan Morales Diagnoses Sepsis A41.9 Anemia D64.9 OCTAVIA (acute kidney injury) N17.9 Hypoxia R09.02
[2020-09-26] MEDS: cefepime 1,000 MG in sodium chloride 0.9% (plus) 50 ML 100 MG IV (16:53)
[2020-09-26] MEDS: enoxaparin 40 mg/0.4 mL Syringe SUBCUT (17:04)
[2020-09-26 17:24] LABS: Glucose Point of Care 125 mg/dL (70-110)
--- NOTE | 2020-09-26 18:36 | ECG_ITS ---
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 Measurements Intervals [place] Rate: 82 P: 93 OR: 170 QRS: -43 QRSD: 97 T: 61 QT: 381 QTc: 448 Interpretive Statements SINUS RHYTHM WITH FREQUENT SUPRAVENTRICULAR PREMATURE COMPLEXES MARKED LEFT AXIS DEVIATION [QRS AXIS < -30] NONSPECIFIC ST & T-WAVE ABNORMALITY No previous ECG available for comparison Electronically Signed On 09-27-2020 12:23:07 CDT by Jason Rivas M.D. [id number]
[2020-09-26] MEDS: sodium chloride 0.9% (100 ml) 100 ML (18:37)
[2020-09-26 18:45] LABS: Hematocrit 21.6 % (42.0-52.0); Retic Production Index 0.32; Reticulocyte % 0.6 % (0.5-2.0)
--- NOTE | 2020-09-26 19:16 | USCV_ITS ---
Kwaku Castorena Age: 85 Gender: M : 1935 Exam Date: 09/26/2020 15:00 Ordering Phys: Pito Guerra MD Technologist: Amada Archibald Exam Location: [facility] [place] Indication: Hypoxia, History of CAd BP: 113 / 46 HR: Rhythm: Sinus Technical Quality: Very technically difficult study MEASUREMENTS (Male / Female) Normal Values 2D ECHO LV Chamber Size 5.5 cm RV Chamber Size 2.9 cm LVOT Diameter 2.0 cm LA Diameter 2.4 cm LA Width 4.1 cm LA Height 6.4 cm RA Width 3.9 cm RA Height 5.8 cm Aorta at Sinotubular Diameter 2.1 cm M-MODE LV Diastolic Diameter MM 6.4 cm 4.2 - 5.9 / 3.9 - 5.3 cm LV Systolic Diameter MM 4.6 cm LV Ejection Fraction MM Teich 53.4 % IVS Diastolic Thickness MM 1.3 cm 0.6 - 1.0 / 0.6 - 0.9 cm IVS Systolic Thickness MM 1.7 cm LVPW Diastolic Thickness MM 1.8 cm 0.6 - 1.0 / 0.6 - 0.9 cm LVPW Systolic Thickness MM 1.7 cm RV Diastolic Diameter MM 2.0 cm MV E Point Septal Separation 0.6 cm DOPPLER AV Peak Velocity 161.0 cm/s LVOT Peak Velocity 95.0 cm/s AV Area Cont Eq vti 1.9 cm squared AV Area Cont Eq pk 1.9 cm squared MV Area PHT 4.3 cm squared Mitral E to A Ratio 1.3 MV E' Velocity 51.8 cm/s Mitral E to MV E' Ratio 13.2 Mitral E to LV E' Lateral Ratio 11.0 Mitral E to LV E' Septal Ratio 16.8 TV Peak E Velocity 44.0 cm/s Right Atrial Pressure 15.0 mmHg PV Peak Velocity 78.0 cm/s RV Acceleration Time 0.1 s RV Ejection Time 0.3 s RV AcT/ET 0.4 FINDINGS Left Ventricle Normal left ventricular size. LV systolic function is borderline low with EF of 45-50%. Mild global hypokinesis. Diastolic function is abnormal Right Ventricle The right ventricle is normal in size and function. Right Atrium The right atrium is normal in size. Left Atrium The left atrium is dilated Mitral Valve Structurally normal mitral valve without significant stenosis or prolapse. There is no mitral regurgitation. Aortic Valve Structurally normal aortic valve without significant sclerosis or stenosis. There is no aortic regurgitation. Tricuspid Valve Structurally normal tricuspid valve without significant stenosis. Trace tricuspid regurgitation. Insufficient TR jet to calculate RVSP Pulmonic Valve Structurally normal pulmonic valve without significant stenosis. There is no pulmonic regurgitation. Pericardium Normal pericardium without effusion. Aorta Normal ascending aorta dimension. CONCLUSIONS LV systolic function is borderline low with EF of 45-50% Diastolic function is abnormal Left atrium is dilated Trace tricuspid regurgitation No comparison studies are available Jason Rivas MD (Electronically Signed) Final Date: 26 September 2020 20:42 S
[2020-09-26 19:37] LABS: Troponin(5th) Baseline 3556 ng/L (0-15)
[2020-09-26] MEDS: aspirin 325 mg Tablet PO (21:13)
[2020-09-26] MEDS: atorvastatin 40 mg Tablet PO (21:13)
[2020-09-26 22:06] LABS: Glucose Point of Care 138 mg/dL (70-110)
--- NOTE | 2020-09-26 22:23 | P.CONIM_ITS ---
Providers/Reason For Consult Consulting Physician/Specialty*: Jason Rivas MD/ Cardiology Reason for Consult*: Troponin elevation Requesting Physician: Dr Guerra Attending Physician: Pito Guerra Primary Care Provider: [facility] History of Present Illness History of Present Illness Kwaku Castorena is a 85 year old male with PMH of CAD, several coronary stents, PAD, with carotid artery stent, history of CVA, DM2, HTN, intermittent claudication, denies any past medical history of known lung disease, former smoker, presented with about 1 week symptoms of malaise, fatigue, productive cough, dyspnea and low-grade fever. He was also having diarrhea. He was febrile in the ER. Cardiology was consulted as his troponins were elevated to more than 3000. He denies any chest pain. Main complaint is significant shortness of breath. He is requiring 4 L of oxygen. Denies any orthopnea. His breathing gets worse when he tries to sit up. Echocardiogram performed today showed borderline reduced LV systolic function with EF of 45 to 50% and mild global hypokinesis. Patient also found to have severe anemia with hemoglobin of 6.4. Getting blood transfusion. Review of Systems Const: Reports: fever(s), chills, body aches and malaise Eyes: Denies: change in vision or eye redness ENMT: Denies: throat pain, oral sores or ear or mastoid pain Card: Reports: dyspnea on exertion; Denies: chest pain, edema or pre-syncope Resp: Reports: dyspnea and productive cough; Denies: change in phlegm color or hemoptysis GI: Reports: diarrhea; Denies: abdominal pain, nausea, vomiting, constipation, hematochezia or melena : Denies: flank pain, difficulty urinating, urinary frequency or hematuria Musc: Denies: back pain, joint swelling or joint redness Skin/Breast: Denies: rash, sores or new lesions Neuro: Denies: headache(s), numbness in extremities, weakness in extremities, dizziness, confusion or seizure-like activity Endo: Denies: polyuria or polydipsia Cody/Lymph: Denies: easy bleeding or purpura All/Imm: Denies: urticaria, throat swelling or tongue swelling Meds/Allergies Home Medications and Allergies Home Medications Medication Instructions Recorded Confirmed Last Taken Type acetaminophen [Tylenol] 325 mg PO QID PRN 08/10/19 09/25/20 Unknown History albuterol sulfate 2 puff INHALATION Q6H PRN 08/10/19 09/25/20 08/10/19 History amlodipine 10 mg PO DAILY 08/10/19 09/25/20 08/10/19 History aspirin 81 mg PO DAILY 08/10/19 09/25/20 09/25/20 History atorvastatin See Rx Instructions .ROUTE .COMPLEX 08/10/19 09/25/20 08/09/19 History carvedilol 6.25 mg PO BID 08/10/19 09/25/20 09/25/20 History clopidogrel 75 mg PO DAILY 08/10/19 09/25/20 09/25/20 History glipizide 5 mg PO DAILY 08/10/19 09/25/20 09/25/20 History insulin glulisine U-100 See Rx Instructions .ROUTE .COMPLEX 08/10/19 09/25/20 09/25/20 History amlodipine 2.5 mg PO DAILY 09/25/20 09/25/20 09/25/20 History benzonatate 100 mg PO TID 09/25/20 09/25/20 Unknown History cilostazol 100 mg PO BID 09/25/20 09/25/20 Unknown History hydralazine 25 mg PO DAILY 09/25/20 09/25/20 09/25/20 History meclizine 25 mg PO TID PRN 09/25/20 09/25/20 Unknown History valsartan 80 mg PO DAILY 09/25/20 09/25/20 09/25/20 History Allergies Allergy/AdvReac Type Severity Reaction Status Date / Time egg Allergy ADR-Flatule Verified 11/18/19 14:12 nce sulfamethoxazole Allergy Unknown Verified 11/18/19 14:12 [From Bactrim] trimethoprim [From Bactrim] Allergy Unknown Verified 11/18/19 14:12 Current Medications Current Medications Generic Name Dose Route Start Last Admin Trade Name Freq PRN Reason Stop Dose Admin Aspirin 325 mg 09/26/20 19:55 09/26/20 21:13 Aspirin 325 Mg Tablet PO 325 mg DAILY URIEL Administration Atorvastatin Calcium 40 mg 09/26/20 21:00 09/26/20 21:13 Atorvastatin 40 Mg Tablet PO 40 mg BEDTIME URIEL Administration Benzonatate 100 mg 09/25/20 21:00 09/26/20 21:13 Benzonatate 100 Mg Capsule PO 100 mg TID URIEL Administration Carvedilol 6.25 mg 09/26/20 09:00 09/26/20 09:37 Carvedilol 6.25 Mg Tablet PO 6.25 mg BID URIEL Administration Cilostazol 100 mg 09/26/20 09:00 09/26/20 17:04 Cilostazol 100 Mg Tablet PO 100 mg BID URIEL Administration Clopidogrel Bisulfate 75 mg 09/26/20 09:00 09/26/20 08:48 Clopidogrel 75 Mg Tablet PO 75 mg DAILY URIEL Administration Enoxaparin Sodium 40 mg 09/25/20 19:30 09/26/20 17:04 Enoxaparin 40 Mg/0.4 Ml Syringe SUBCUT 40 mg Q24H URIEL Administration Famotidine 20 mg 09/26/20 09:00 09/26/20 17:04 Famotidine 20 Mg Tablet PO 20 mg BID URIEL Administration Cefepime HCl 1,000 mg/ Sodium 50 mls @ 100 mls/hr 09/26/20 13:00 09/26/20 17:23 Chloride IV Infused Q24H URIEL Infusion Protocol Vancomycin/PEG/NADA/Lysine/Water 1,250 mg in 250 mls @ 250 mls/hr 09/26/20 14:00 09/26/20 15:22 Vancocin IV Infused Q36H URIEL Infusion Insulin Aspart 0 unit 09/26/20 08:00 09/26/20 17:15 Insulin Aspart 100 Unit/1 Ml SUBCUT Not Given [facility] Protocol Insulin Glargine 10 unit 09/26/20 09:00 09/26/20 09:40 Insulin Glargine 100 Units/1 Ml SUBCUT 10 unit DAILY URIEL Administration PFSH Acute PFSH: Medical History Abdominal aortic aneurysm Coronary artery disease CVA (cerebral vascular accident) Diabetes mellitus Hypertension Intermittent claudication Percutaneous transluminal coronary angioplasty (PTCA) within last 14 to 24 months Salivary gland calculus Surgical History History of right common carotid artery stent placement History of tonsillectomy Family History Mother Polycystic kidney disease Brother CAD (coronary artery disease) Social History Smoking and tobacco status: former smoker Alcohol intake: former 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 [] NECK: No jugular vein distension. [] HEENT: No cyanosis. No icterus. No pallor. [] HEART: Regular S1 and S2. No murmur, rub or gallop. [] LUNGS: Has mild wheezing bilaterally ABDOMEN: Soft, nontender and nondistended. Positive bowel sounds. No guarding, rebound or tenderness. [] CENTRAL NERVOUS SYSTEM: Grossly nonfocal. [] EXTREMITIES: Lower extremities with 1+ edema bilaterally. Pulses palpable in the lower extremities, both dorsalis pedis and posterior tibial. [] Data Micro: Micro: Microbiology 09/25/20 23:02 C.difficile Toxin B Gene (PCR) - Fin al Stool Routine Col lection 09/25/20 12:59 Blood Culture - Pr eliminary Blood NEGATIVE TO AVTAR E 09/25/20 13:07 Blood Culture - Pr eliminary Blood NEGATIVE TO AVTAR E 09/25/20 23:02 Occult Blood (FIT) - Final Stool Routine Col lection A&P Assessment and plan (1) Anemia: Status: Acute (2) OCTAVIA (acute kidney injury): Status: Acute (3) Sepsis: Status: Acute (4) Diabetes mellitus: Status: Acute (5) Hypertension: Status: Acute (6) Coronary artery disease: Status: Acute (7) Intermittent claudication: Status: Acute (8) Pneumonia: Status: Acute (9) Hypoxia: Status: Acute (10) Troponin level elevated: Status: Acute Patient has presented with respiratory distress. Also had low-grade fe vielka. Likely respiratory infection. Cardiology was consulted for troponin elevation which is significant. He is denying chest pain. Echocardiogram shows borderline low cardiac function. Likely demand ischemia in the setting of OCTAVIA and severe anemia. However given this degree of troponin elevation and prior significant coronary artery disease history, we will recommend nuclear stress test once his breathing improves. EKG does not show acute ST changes. We will hold off on anticoagulation at this time given hemoglobin of 6.4. Transfuse blood. Continue aspirin. Rapid covid test was negative, PCR pending Thank you for involving us with the care of this patient. We will continue to follow. Please call with questions. Coding Level of Care Code Acute Descriptive Catalog Librarian for g Fwd Diagnoses Anemia D64.9 OCTAVIA (acute kidney injury) N17.9 Sepsis A41.9 Diabetes mellitus E11.9 Hypertension I10 Coronary artery disease I25.10 Intermittent claudication I73.9 Pneumonia J18.9 Hypoxia R09.02 Troponin level elevated R77.8
--- NOTE | 2020-09-26 22:36 | ECG_ITS ---
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 Measurements Intervals [place] Rate: P: [place]: QRS: 0 QRSD: T: 0 QT: QTc: Interpretive Statements SINUS RHYTHM INDETERMINATE AXIS Compared to ECG 09/26/2020 20:03:56 Indeterminate axis now present Sinus rhythm no longer present Left-axis deviation no longer present T-wave abnormality no longer present Electronically Signed On 09-27-2020 12:21:15 CDT by Jason Rivas M.D. [id number]
[2020-09-27] VITALS (15 sets, daily range): BP systolic 94–131; BP diastolic 57–76; PULSE 67–117; RESP 17–98; TEMP 36.7–37.2; O2SAT 93–98
[2020-09-27] MEDS: sodium chloride 0.9% (100 ml) 100 ML 150 ML (03:08)
[2020-09-27 06:46] LABS: Glucose Point of Care 114 mg/dL (70-110)
[2020-09-27] MEDS: famotidine 20 mg Tablet PO ×2 (09:46→17:51)
[2020-09-27] MEDS: clopidogrel 75 mg Tablet PO (09:46)
[2020-09-27] MEDS: benzonatate 100 mg Capsule PO ×3 (09:46→21:25)
[2020-09-27] MEDS: aspirin 325 mg Tablet PO (09:46)
[2020-09-27] MEDS: cilostazol 100 mg Tablet PO ×2 (09:46→17:51)
[2020-09-27 10:19] LABS: Basophils # 0.1 10^3/uL (0.0-0.1); Basophils % 0.6 %; Eosinophils # 0.1 10^3/uL (0.0-0.8); Eosinophils % 0.9 %; Hematocrit 29.8 % (42.0-52.0); Hemoglobin 8.8 g/dL (11.7-16.6); Lymphocytes # 0.7 10^3/uL (0.8-4.8); Lymphocytes % 7.3 %; Mean Corpuscular HGB Conc 29.5 g/dL (30.0-36.0); Mean Corpuscular Hemoglobin 22.5 pg (28.0-34.0); Mean Corpuscular Volume 76.2 fL (80-94); Mean Platelet Volume 11.1 fL (7.4-10.4); Monocytes # 0.6 10^3/uL (0.2-0.9); Monocytes % 6.5 %; Neutrophils # 7.46 10^3/uL (1.8-7.7); Neutrophils % 84.1 %; Nucleated Red Blood Cells % 0 %; Platelet Count 300 10^3/cmm (130-400); Red Blood Count 3.91 10^6/uL (4.1-5.3); White Blood Count 8.9 10^3/uL (4.0-10.0)
[2020-09-27] MEDS: insulin glargine 100 units/1 mL 10 UNIT SUBCUT (10:20)
[2020-09-27] MEDS: cetylpyridinium Lozenge 1 EACH MUCOUS MEM ×2 (10:20→21:25)
--- NOTE | 2020-09-27 10:25 | P.PN_ITS ---
Subjective Subjective: Interval history: He had a rough night. He has been coughing quite a bit. Feels dyspneic. No chest pain. Denies breathing getting worse when laying back flat, or other laying flat was comfortable. No swelling. No new pain. Request for cough drops. No nausea or vomiting. So far no further stool. Vitals/I&O/Wt Last Vital Signs Temp 98.9 F 09/27/20 08:00 Pulse 78 09/27/20 08:09 Resp 18 09/27/20 08:09 BP 101/62 09/27/20 08:00 Pulse Ox 96 09/27/20 08:09 09/26/20 09/27/20 09/27/20 22:59 06:59 14:59 Intake Total 1020 / 1374 1000 / 2374 Output Total 0 / 0 Balance 1020 / 1374 1000 / 2374 Weight last 48 hrs Weight 92.442 kg Weight 92.986 kg Weight 92.986 kg Physical Exam Narrative: EXAM NARRATIVE: Sitting up at bedside. Coughing. Const: COMMON NORMALS: no acute distress, patient oriented x3 and alert GENERAL APPEARANCE: cooperative, comfortable and frail appearing ORIENTATION/CONSCIOUSNESS: Yes awake HENMT: COMMON NORMALS: oropharynx normal Neck/C-Spine: COMMON NORMALS: no JVD Resp: COMMON NORMALS: normal respiratory effort AUSCULTATION: diminished lung sounds Cardio: COMMON NORMALS: no JVD, regular rhythm, S1 normal heart sound present, S2 normal heart sound present and No murmurs present (Cardio) RHYTHM: regular rhythm HEART SOUNDS: S1 normal heart sound present and S2 normal heart sound present GI: COMMON NORMALS: Normal to inspection, nondistended, normoactive bowel sounds present, Soft to palpation and non-tender PALPATION: Yes Soft to palpation Extremity: COMMON NORMALS: no joint enlargement and no pedal edema Neuro: COMMON NORMALS: patient oriented x3 and moves all extremities SENSORIUM/ORIENTATION: Yes alert Skin: COMMON NORMALS: no rashes or lesions noted GENERAL SKIN EXAM: no rashes or lesions noted Data : 09/27/20 09:41 09/26/20 04:50 Micro: Microbiology 09/25/20 23:32 Legionella Urinary Antigen - Final Urine,Voided Bacterial Antigens - Final 09/25/20 23:02 C.difficile Toxin B Gene (PCR) - Final Stool Routine Collection 09/25/20 12:59 Blood Culture - Preliminary Blood NEGATIVE TO DATE 09/25/20 13:07 Blood Culture - Preliminary Blood NEGATIVE TO DATE A&P Assessment and plan (1) Hypoxia: Had a rough night with dyspnea, lots of cough. Sounds tight on exam. Discussed with him, discussed with cardiology. Does not appear to be fluid overloaded. No signs of orthopnea. Discussed with him results of echocardiogram with mild depression of EF, 45-50%. Does not appear to be in CHF exacerbation currently. We are suspecting most of this is pulmonary. Adding neb treatments. Budesonide. Mucinex. Cough drops, lozenges. Continue cefepime, vancomycin empirically for possible bacterial pneumonia. Sputum cultures requested. Urine bacterial antigens are negative. COVID-19 PCR is pending. Try to call and see if result from [place] could be accessed, but today on Monday the clinic is closed and our lab has no access to either the records or direct access to [facility] which is closed today as well. Will need to wait for final results of the test. Discussed with cardiology. He also remains chest pain-free. In the setting of acute kidney injury, troponin elevation will benefit from further investigation, but once he is feeling a bit better. Suspected multifactorial with underlying CAD, with demand ischemia secondary to sepsis on admission, with poor clearance with acute kidney injury. Discussed with nursing staff, for some reason the laboratory studies were not completed, they were not sure if there were technical difficulties. Requested for the ordered labs to be drawn. Sounds like he may have underlying obstructive lung disease may benefit from evaluation with pulmonary function testing after he is done with acute issues. Status: Acute (2) Sepsis: Sepsis resolved. So far remains afebrile. No leukocytosis. Tachycardia resolved. Chills resolved. Currently dealing with respiratory symptoms. Episode of hypotension yesterday responded well to small fluid bolus. Antihypertensives held including beta-sallie. Today blood pressures are better. With noted bilateral lower lobe pneumonia on abdominal CT. Continue empiric antibiotic coverage with cefepime, vancomycin. Rapid COVID-19 was negative. PCR pending. UA not suggestive of UTI. No obstruction/hydronephrosis noted on CT renal protocol. Serum ketones negative. Urine ketones 1+. I am not convinced that he has ketoacidosis with normal glucose, DM 2, however, continue insulin. Metabolic acidosis may be secondary to diarrhea. Possibly OCTAVIA on CKD. Stool studies requested, pending. Follow blood cultures. Check cardiac studies. Status: Acute (3) Anemia: Hemoglobin responded well to PRBC transfusion from 6.4 appropriately up to 8.8 after 2 units. Acute on chronic anemia, possibly also with delusional component. Hemoglobin down to 6.4. Transfuse 1 unit PRBC given blood pressure is also soft. History of CAD. Reassess. Negative Hemoccult. Noted iron deficiency anemia. RPI suggestive of hypoproliferation. Possibly combination also with anemia chronic disease, anemia of renal disease. May benefit from iron supplementation once he is recovering from acute infection. Subsequently follow-up with nephrology. Further assessments in case concerns of bone marrow dysfunction. Status: Acute (4) OCTAVIA (acute kidney injury): Son confirms he has chronic kidney disease. Appears to be OCTAVIA on CKD. Creatinine has been showing gradual improvement. This morning's labs are pending. Hold valsartan. No obstruction noted on CT renal protocol. Received fluid challenge at presentation. Anemia. Would benefit from iron supplementation once recovering from acute infection. Bilateral renal cysts. Should follow-up with nephrology after discharge. Status: Acute Additional A&P Information Mild hyponatremia Elevated CRP DM2: Continue insulin, consistent carb. SSI HTN: Hold carvedilol. Hold valsartan. For now hold amlodipine, hydralazine, but resume if blood pressure is elevated. CAD, history of stenting, PAD, carotid artery stenting: Continue aspirin, Plavix, statin, beta-sallie History of CVA CKD Noted prior abdominal aortic aneurysm, infrarenal, 3.9 cm in 2009. Discussed with him incidentally noted increased size of abdominal aortic aneurysm. Discussed with him to follow-up with primary provider, current size is 5.3 cm. Will need regular monitoring. He verbalized understanding. Hiatal hernia: Incidentally noted on CT Multiple bilateral renal cysts: Incidentally noted on CT Attestations Medical Necessity Statement*: Continue admission for assessment management of pneumonia, hypoxia with possible underlying undiagnosed obstructive lung disease. 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
[2020-09-27 11:36] LABS: Alanine Aminotransferase 37 U/L (0-41); Albumin Level 3.4 g/dL (3.5-5.2); Alkaline Phosphatase 61 IU/L (40-130); Anion Gap 20.9 (5-19); Aspartate Amino Transferase 81 U/L (0-40); Blood Urea Nitrogen 40 mg/dL (8-23); Calcium 8.1 mg/dL (8.5-10.5); Carbon Dioxide 14 mmol/L (22-29); Chloride 106 mmol/L (98-107); Globulin 3.2 g/dL (1.3-4.6); Glucose 120 mg/dL (65-115); Osmolality Calculated 295 mOsm/kg (285-295); Potassium 3.9 mmol/L (3.5-5.1); Sodium 137 mmol/L (136-145); Total Bilirubin 0.7 mg/dL (0.15-1.2); Total Protein 6.6 g/dL (6.6-8.7)
[2020-09-27 12:30] LABS: Glucose Point of Care 179 mg/dL (70-110)
[2020-09-27] MEDS: guaiFENesin 600 mg Tablet 1200 MG PO ×2 (13:28→17:51)
[2020-09-27 15:12] LABS: Troponin T (5th) Once 4130 ng/L (0-15)
--- NOTE | 2020-09-27 15:36 | ECG_ITS ---
[facility] Test Date: 2020-09-27 Pat Name: Kwaku Castorena Department: Room: 278 Gender: Male Visc[employer] Department Worker: : [id number] Requested By: Pito Guerra Order Number: [id number] Charbel MD: Jason Rivas M.D. Measurements Intervals [place] Rate: 116 P: 56 [place]: 151 QRS: -44 QRSD: 94 T: 89 QT: 316 QTc: 440 Interpretive Statements SINUS TACHYCARDIA WITH OCCASIONAL SUPRAVENTRICULAR PREMATURE COMPLEXES MARKED LEFT AXIS DEVIATION [QRS AXIS < -30] POSSIBLE RIGHT VENTRICULAR CONDUCTION DELAY [RSR (QR) IN V1/V2] SEPTAL MYOCARDIAL INFARCTION [40+ ms Q WAVE IN V1/V2], PROBABLY OLD Compared to ECG 09/27/2020 03:13:55 Left-axis deviation now present Myocardial infarct finding now present Sinus rhythm no longer present Indeterminate axis no longer present Electronically Signed On 09-28-2020 17:38:14 CDT by Jason Rivas M.D. [id number]
[2020-09-27] MEDS: ipratropium-albuterol 3 mL Neb INHALATION ×2 (15:48→20:01)
[2020-09-27 16:08] LABS: NT Pro B Type Natriuretic Pept 13460 pg/mL (0-450)
[2020-09-27 17:18] LABS: Glucose Point of Care 144 mg/dL (70-110)
--- NOTE | 2020-09-27 18:17 | XRR_ITS ---
PROCEDURE INFORMATION: Exam: XR Chest Exam date and time: 09/27/2020 6:17 PM Age: 85 years old Clinical indication: Dyspnea TECHNIQUE: Imaging protocol: XR of the chest. Views: 1 view. COMPARISON: CR XR chest 2V* [id number] 09/25/2020 12:11 PM FINDINGS: Lungs: Chronic interstitial markings and scarring are seen in the lower and mid lungs. Atelectasis versus pneumonia infiltrates at the right lung base. Blunting of the right costophrenic angle may be a small effusion versus scarring. Pleural spaces: No pneumothoraces. Heart/Mediastinum: A rounded density projecting over the cardiac silhouette is most likely a moderate hiatal hernia. The cardiac silhouette is normal. There is atherosclerotic calcification in the aortic arch. Bones/joints: Severe degenerative changes at the right shoulder. XR/XR chest 1V portable [id number] IMPRESSION: Possible pneumonia infiltrates at the right lung base with a small effusion. Probable moderate hiatal hernia.
[2020-09-27] MEDS: enoxaparin 100 mg/mL Syringe 90 MG SUBCUT (18:21)
--- NOTE | 2020-09-27 19:37 | CTR_ITS ---
PROCEDURE INFORMATION: Exam: CTA Chest With Contrast Exam date and time: 09/27/2020 7:37 PM Age: 85 years old Clinical indication: Cough and shortness of breath; Additional info: Dyspnea, cough, new hypoxia, tachycardia, trop elevation TECHNIQUE: Imaging protocol: Computed tomographic angiography of the chest with contrast. 3D rendering (Not supervised by radiologist): MIP and/or 3D reconstructed images were created by the technologist. Radiation optimization: All CT scans at this facility use at least one of these dose optimization techniques: automated exposure control; mA and/or kV adjustment per patient size (includes targeted exams where dose is matched to clinical indication); or iterative reconstruction. Contrast material: VISI 320; Contrast volume: 81 ml; Contrast route: INTRAVENOUS (IV); COMPARISON: CR (CHEST, ) 09/27/2020 6:31 PM RADIATION DOSE METRICS: Total DLP (mGy-cm): 648.35 FINDINGS: Pulmonary arteries: Normal. No pulmonary emboli. Aorta: Unremarkable. No aortic aneurysm. No aortic dissection. Lungs: Pneumonia consolidation at both lung bases, right greater than left. Pleural spaces: Moderate bilateral pleural effusions. Heart: Unremarkable. No cardiomegaly. No pericardial effusion. Mediastinal space: There is a moderate hiatal hernia. Lymph nodes: Unremarkable. No enlarged lymph nodes. Bones/joints: Degenerative changes at both shoulders, right greater than left. Soft tissues: Unremarkable. CT/CT angio chest PE protcl [id number] IMPRESSION: Bilateral pneumonia, right greater than left with bilateral pleural effusions. Moderate hiatal hernia. Radiation Dose CTDIVOL = (mGy): DLP = 648.35 (mGy-cm)
[2020-09-27 19:52] LABS: Quest SARS-CoV-2 RNA NOT DETECTED (NOT DETECTED)
[2020-09-27] MEDS: budesonide 0.5 mg/2 mL Neb INHALATION (20:01)
--- NOTE | 2020-09-27 20:34 | PM.PN ---
Subjective Subjective: Interval history: Patient says that he feels more short of breath. He is on 3 L oxygen saturating well. His troponin trended up significantly and is more than 4000 now. Denies any chest pain. NT proBNP was checked today and is more than 13,000. Vitals/I&O/Wt Last Vital Signs Temp 98.9 F 09/27/20 16:00 Pulse 114 H 09/27/20 20:06 Resp 26 H 09/27/20 20:02 BP 101/57 09/27/20 16:00 Pulse Ox 93 09/27/20 20:02 09/27/20 09/27/20 09/27/20 06:59 14:59 22:59 Intake Total 1000 / 2374 480 / 480 0 / 480 Output Total 0 / 0 450 / 450 Balance 1000 / 2374 480 / 480 -450 / 30 Weight last 48 hrs Weight 203 lb 12.8 oz Weight 205 lb Physical Exam Narrative: EXAM NARRATIVE: GENERAL: Patient is alert, awake and oriented x3. [] NECK: No jugular vein distension. [] HEENT: No cyanosis. No icterus. No pallor. [] HEART: Tachycardic, regular S1 and S2. No murmur, rub or gallop. [] LUNGS: Has mild wheezing bilaterally ABDOMEN: Soft, nontender and nondistended. Positive bowel sounds. No guarding, rebound or tenderness. [] CENTRAL NERVOUS SYSTEM: Grossly nonfocal. [] EXTREMITIES: Lower extremities with 1+ edema bilaterally. Pulses palpable in the lower extremities, both dorsalis pedis and posterior tibial. [] Data : 09/27/20 09:41 09/27/20 09:41 Micro: Microbiology 09/27/20 11:40 Gram Stain - Final Sputum - Expectorated Sputum 09/25/20 23:02 Enteric Pathogens (PCR) - Final Stool Routine Collection Parasite Antigen Panel - Final C.difficile Toxin B Gene (PCR) - Final 09/25/20 23:32 Legionella Urinary Antigen - Final Urine,Voided Bacterial Antigens - Final A&P Assessment and plan (1) Anemia: Status: Acute (2) OCTAVIA (acute kidney injury): Status: Acute (3) Sepsis: Status: Acute (4) Diabetes mellitus: Status: Acute (5) Hypertension: Status: Acute (6) Coronary artery disease: Status: Acute (7) Intermittent claudication: Status: Acute (8) Pneumonia: Status: Acute (9) Hypoxia: Status: Acute (10) Troponin level elevated: Status: Acute Patient has presented with respiratory distress. Also had low-grade fever. Likely respiratory infection however cannot rule out myocarditis/ACS/PE. Cardiology was consulted for troponin elevation which is significant. He is denying chest pain. Echocardiogram shows borderline low cardiac function. Likely demand ischemia in the setting of OCTAVIA and severe anemia. EKG not showing acute changes. Given very high troponin elevation, he may need coronary angiography. He has his outpatient boot repairer in [place]. He initially wanted to be transferred there however due to lack of bed availability he will stay here. Will discuss his condition with his primary boot repairer. We will recommend performing CTA to rule out PE. He will need diuresis. Continue to monitor renal function. Hemoglobin appropriately increased after blood transfusion yesterday. Can be started on anticoagulation with Lovenox empirically. Continue aspirin. Rapid covid test was negative, PCR pending. Transfer to [facility] if possible Thank you for involving us with the care of this patient. We will continue to follow. Please call with questions. Attestations Medical Necessity Statement*: Care expected to cross 2 midnights. 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
[2020-09-27] MEDS: iodixanol 320 mg/mL 100mL Btl IV (20:36)
[2020-09-27] MEDS: trazodone 50 mg Tablet PO (21:25)
[2020-09-27] MEDS: atorvastatin 40 mg Tablet PO (21:25)
--- NOTE | 2020-09-27 22:22 | PC.NURSE ---
Patient confused upon arrival from [facility]. Patient refusing to have a gown on and has his street clothes on. Patient will not leave telemetry monitoring in place. Son at bedside presently. Medications given as ordered to include Trazadone to help with sleep. Son reports patient has not slept in 3 days.
[2020-09-27] MEDS: guaiFENesin-dextromethorphan UDC 10 mL 5 ML PO (22:41)
--- NOTE | 2020-09-27 22:43 | PC.NURSE ---
Patient remains confused with persistent cough. Son has left for the evening. Bed alarm is set for safety. Administered Robitussin DM as ordered per Dr Hinton. Patient expressed thanks. Aide in with patient at this time for distraction.
--- NOTE | 2020-09-27 23:55 | PC.NURSE ---
Patient continues to be confused. Attempting to get out of bed to find his shoes because he says I am leaving . Provided redirection, reassurance and comfort to patient. Patient lied back in the bed. Covered his feet for warmth. Patient continues with persistent cough. Patient unable to rest post Trazadone administration due to cough. Dr Hinton has been made aware of patient condition. No new orders at this time. Bed alarm set.
[2020-09-28] VITALS (17 sets, daily range): BP systolic 101–142; BP diastolic 66–86; PULSE 85–129; RESP 18–32; TEMP 36.6–36.7; O2SAT 86–96
--- NOTE | 2020-09-28 00:46 | PC.NURSE ---
Bed alarm going off. In to see patient. Found patient lying in bed with his shoes on his feet and clothing placed in bag by the door. He informed me that his feet were cold. Covered patient's feet with several blankets however he would not allow me to remove his shoes. Patient allowed me to spot check his SpO2 (93% on RA) and BP (117/79). Patient refuses to wear telemetry and have nasal cannula placed in his nose. Patient stated, I am breathing just fine. Patient agreeable at this moment to remain in bed and wait for his son [place] to return. Patient is unsure of time of day. Patient wants to go home now.
[2020-09-28] MEDS: LORazepam 2 mg/mL INJ 1 mL 0.5 MG IVP (02:03)
--- NOTE | 2020-09-28 02:25 | PC.NURSE ---
Patient attempting to get out of bed. Assisted patient to the bathroom. When done patient wanted to leave his room and go home. Persuaded patient to return to bed. Patient refusing to remove his shoes. Refused to have telemetry placed. Patient very impulsive. Informed Dr Hinton of patient behavior and to include the administration of Trazadone 50mg PO when patient arrived to floor. Also informed doctor that patient has not slept in 3 day per patient's son [place] . Received onetime order of Ativan 0.5mg IVP which was given as ordered. Patient currently resting with eyes closed, appears to be snoring but remains restless and fidgety. Will continue to monitor.
[2020-09-28] MEDS: vancomycin 1,250 MG/250 ML PIGGYBACK 250 MG IV (03:19)
--- NOTE | 2020-09-28 03:24 | PC.NURSE ---
Patient resting with eyes closed. Patient is very restless. Persistent cough continues. Patient is remaining in bed at this time. Bed alarm remains set.
[2020-09-28] MEDS: enoxaparin 100 mg/mL Syringe 90 MG SUBCUT ×2 (05:31→18:38)
--- NOTE | 2020-09-28 06:10 | PC.NURSE ---
Shift Note Frequent safety and comfort rounds continue. Orders and/or nursing care completed as indicated. Patient monitored for response to intervention and treatment(s). Education provided includes need for sleep and Ativan. Patient and/or financial services representative verbalized understanding however does have s/s of possible dementia and confusion. Patient extremely impulsive and wanting to go home all night. Would not leave telemetry, NC or other monitoring in place. Difficult to redirect to place and time. Dr Hinton was kept informed of patient behavior. Patient is currently wearing his telemetry, NC and resting with eyes closed. Appears to be snoring but remain very restless. Persistent cough not allowing for restful sleep. Will continue to monitor.
[2020-09-28 06:23] LABS: Glucose Point of Care 140 mg/dL (70-110)
[2020-09-28] MEDS: budesonide 0.5 mg/2 mL Neb INHALATION ×2 (07:23→20:49)
[2020-09-28] MEDS: ipratropium-albuterol 3 mL Neb INHALATION ×4 (07:23→20:49)
[2020-09-28 07:42] LABS: Basophils # 0.1 10^3/uL (0.0-0.1); Basophils % 0.7 %; Eosinophils # 0.1 10^3/uL (0.0-0.8); Eosinophils % 0.8 %; Hematocrit 24.9 % (42.0-52.0); Hemoglobin 7.7 g/dL (11.7-16.6); Lymphocytes # 0.8 10^3/uL (0.8-4.8); Lymphocytes % 10.8 %; Mean Corpuscular HGB Conc 30.9 g/dL (30.0-36.0); Mean Corpuscular Hemoglobin 23.1 pg (28.0-34.0); Mean Corpuscular Volume 74.6 fL (80-94); Monocytes # 0.6 10^3/uL (0.2-0.9); Monocytes % 8.6 %; Neutrophils # 5.58 10^3/uL (1.8-7.7); Neutrophils % 78.5 %; Nucleated Red Blood Cells % 0 %; Platelet Count 307 10^3/cmm (130-400); Red Blood Count 3.34 10^6/uL (4.1-5.3); Red Cell Distribution Width 19.4 % (12.1-15.1); White Blood Count 7.1 10^3/uL (4.0-10.0)
[2020-09-28 08:08] LABS: Alanine Aminotransferase 28 U/L (0-41); Albumin Level 2.9 g/dL (3.5-5.2); Alkaline Phosphatase 45 IU/L (40-130); Aspartate Amino Transferase 47 U/L (0-40); Blood Urea Nitrogen 35 mg/dL (8-23); Carbon Dioxide 17 mmol/L (22-29); Chloride 109 mmol/L (98-107); Glucose 120 mg/dL (65-115); Osmolality Calculated 295 mOsm/kg (285-295); Sodium 138 mmol/L (136-145); Total Bilirubin 0.4 mg/dL (0.15-1.2); Total Protein 5.9 g/dL (6.6-8.7)
[2020-09-28] MEDS: guaiFENesin 600 mg Tablet 1200 MG PO (08:59)
[2020-09-28] MEDS: cilostazol 100 mg Tablet PO ×2 (09:00→18:38)
[2020-09-28] MEDS: clopidogrel 75 mg Tablet PO (09:00)
[2020-09-28] MEDS: insulin glargine 100 units/1 mL 10 UNIT SUBCUT (09:00)
[2020-09-28] MEDS: benzonatate 100 mg Capsule PO ×3 (09:00→19:24)
[2020-09-28] MEDS: OLANZapine 5 mg ODT PO (09:00)
[2020-09-28] MEDS: famotidine 20 mg Tablet PO ×2 (09:00→18:38)
[2020-09-28] MEDS: aspirin 325 mg Tablet PO (09:00)
--- NOTE | 2020-09-28 09:15 | PC.NURSE ---
Dr Rivas at bedside for assessment and discussion of care, Verbal instructions to give lasix 20mg IVP BID
[2020-09-28] MEDS: FUROsemide 10 mg/mL SDV 2mL 20 MG IVP ×2 (09:31→19:24)
--- NOTE | 2020-09-28 09:53 | PC.CHAP ---
Pastoral Care Encounter/Spiritual Assessment Type of Contact [] Declined tile ditcher visit [] Patient/Family/Request visit [] Outpatient visit [] Follow-up visit [] Physician referral [] Code/Alert [] Routine visit [] Staff referral [] Actively dying [] Patient sleeping [] Family support [] [] Out of room [] Palliative care [] [] Receiving care in room [] Pre-surgical visit [] Trauma [] Long length of stay [] ICU visit [] Other: Relational/Emotional Strength [] Patient feels connected with others/family/visitors/staff [] Distress [] Loneliness/isolation [] Abandonment Spirituality of Patient [] Person of [place] [] Attends Advent of their [place] [] Believes in Prayer [] Reads Bible or Jew materials [] There are Spiritual issues to be addressed Digital Sales Assistant Interventions [x] Prayer [] Active listening [] Non-anxious presence [] Spiritual/emotional support [] Crisis/trauma care [] Spiritual counseling [] Bereavement support [] Provided bereavement packet [] Provided Bible/devotional materials [] Provided toy/stuffed animal, coloring book to patient or family member [] Provided Communion [] Anointing/[place] [] Salvation [x] Completed spiritual assessment [] Other: Impact on Illness or Injury [] Angry [] Fearful [] Anxious [] Often cries [] Exhaustion [] Unable to work [] Unable to attend jewish [] Unable to walk/stand [] Unable to read [] Unable to drive [] Unable to eat/drink [] Unable to sleep [] Unable to be with family [] Patient intubated [] Other: Summary Time spent with patient
--- NOTE | 2020-09-28 12:16 | PM.PN ---
Subjective Subjective: Interval history: Kwaku reports he feels okay. Son is present during the interview. He reports his father is confused, and not able to rest well. Is asking that we do something about it as is his sister. Patient himself denies any chest discomfort or shortness of breath currently. Medications: Reviewed: Yes Vitals/I&O/Wt Last Vital Signs Temp 98.3 F 09/27/20 21:03 Pulse 101 H 09/28/20 11:29 Resp 20 H 09/28/20 11:29 BP 128/66 09/28/20 09:50 Pulse Ox 90 09/28/20 11:29 09/27/20 09/28/20 09/28/20 22:59 06:59 14:59 Intake Total 50 / 530 250.0 / 780.0 Output Total 450 / 450 Balance -400 / 80 250.0 / 330.0 Weight last 48 hrs Weight 95.98 kg Weight 92.442 kg Weight 92.986 kg Physical Exam Narrative: EXAM NARRATIVE: General exam no apparent distress Neck supple no lymphadenopathy or thyromegaly Cardiovascular regular rate and rhythm without murmur Lungs clear but with diminished breath sounds at the bases. Abdomen is soft with positive bowel sounds Extremities no cyanosis clubbing or edema Data : 09/28/20 07:35 09/28/20 07:35 Micro: Microbiology 09/27/20 11:40 Gram Stain - Final Sputum - Expectorated Sputum Sputum Culture - Preliminary 09/25/20 23:02 Enteric Pathogens (PCR) - Final Stool Routine Collection Parasite Antigen Panel - Final C.difficile Toxin B Gene (PCR) - Final 09/25/20 23:32 Legionella Urinary Antigen - Final Urine,Voided Bacterial Antigens - Final A&P Assessment and plan (1) Hypoxia: Multifactorial, secondary to pneumonia as well as acute systolic heart failure. Echocardiogram demonstrated EF 45 to 50% Currently on cefepime and vancomycin Covid PCR is negative CTA did not demonstrate pulmonary embolism. Bilateral pleural effusions were noted consistent with heart failure. Check MRSA PCR. Status: Acute (2) Sepsis: Sepsis resolved. Secondary to bilateral lower lobe pneumonia. Antibiotics as above. Blood cultures negative to date. Status: Acute (3) Anemia: Hemoglobin responded well to PRBC transfusion from 6.4 appropriately up to 8.8 after 2 units. Consistent with iron deficiency anemia Stool Hemoccult negative Consider follow-up as an outpatient. Status: Acute (4) OCTAVIA (acute kidney injury): Proposed and chronic kidney disease ARB held No obstruction on CT renal protocol Overall improving Status: Acute Additional A&P Information Acute systolic heart failure. Cardiology to start gently diuresing today. Pneumonia. See notations under hypoxia. Hyponatremia, resolved Delirium. Still present. Patient unable to rest. Zyprexa 5 mg p.o. x1. TSH, CT head no overall concerns. Check B12. Type 2 diabetes. Sliding scale insulin. Hypertension holding carvedilol and valsartan Coronary artery disease with elevated troponin. Cardiology consulted. Continue Plavix, aspirin, statin, beta-sallie. Will need angiogram. Timing is under question. On full dose anticoagulation. History of CVA Abdominal aortic aneurysm. Will need outpatient follow-up. Family aware. Attestations Medical Necessity Statement*: Needs continued hospitalization for IV antibiotics secondary to pneumonia as well as investigation of elevated troponin. 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
[2020-09-28 14:09] LABS: Vitamin B12 299 pg/mL (232-1245)
[2020-09-28 17:28] LABS: Glucose Point of Care 139 mg/dL (70-110)
--- NOTE | 2020-09-28 18:14 | PM.PN ---
Subjective Subjective: Interval history: Patient is doing better today. Breathing has improved. He underwent CTA of chest that showed there was no PE, he had bilateral pneumonia and pleural effusions. Denies chest pain. Still short of breath Vitals/I&O/Wt Last Vital Signs Temp 98.3 F 09/27/20 21:03 Pulse 112 H 09/28/20 17:18 Resp 22 H 09/28/20 17:11 BP 142/82 09/28/20 17:02 Pulse Ox 92 09/28/20 17:11 09/28/20 09/28/20 09/28/20 06:59 14:59 22:59 Intake Total 250.0 / 780.0 50 / 50 Balance 250.0 / 330.0 50 / 50 Weight last 48 hrs Weight 211 lb 9.6 oz Weight 203 lb 12.8 oz Physical Exam Narrative: EXAM NARRATIVE: GENERAL: Patient is alert, awake and oriented x3. [] NECK: No jugular vein distension. [] HEENT: No cyanosis. No icterus. No pallor. [] HEART: Tachycardic, regular S1 and S2. No murmur, rub or gallop. [] LUNGS: Has mild wheezing bilaterally ABDOMEN: Soft, nontender and nondistended. Positive bowel sounds. No guarding, rebound or tenderness. [] CENTRAL NERVOUS SYSTEM: Grossly nonfocal. [] EXTREMITIES: Lower extremities with 1+ edema bilaterally. Pulses palpable in the lower extremities, both dorsalis pedis and posterior tibial. [] Data : 09/28/20 07:35 09/28/20 07:35 Micro: Microbiology 09/27/20 11:40 Gram Stain - Final Sputum - Expectorated Sputum Sputum Culture - Preliminary 09/25/20 23:02 Enteric Pathogens (PCR) - Final Stool Routine Collection Parasite Antigen Panel - Final C.difficile Toxin B Gene (PCR) - Final A&P Assessment and plan (1) Anemia: Status: Acute (2) OCTAVIA (acute kidney injury): Status: Acute (3) Sepsis: Status: Acute (4) Diabetes mellitus: Status: Acute (5) Hypertension: Status: Acute (6) Coronary artery disease: Status: Acute (7) Intermittent claudication: Status: Acute (8) Pneumonia: Status: Acute (9) Hypoxia: Status: Acute (10) Troponin level elevated: Status: Acute Patient has presented with respiratory distress. Also had low-grade fever. Likely respiratory infection however cannot rule out myocarditis/ACS/PE. Cardiology was consulted for troponin elevation which is significant. He is denying chest pain. Echocardiogram shows borderline low cardiac function. Likely demand ischemia in the setting of OCTAVIA and severe anemia. EKG not showing acute changes. Given very high troponin elevation, he may need coronary angiography. He has his outpatient insurance plan specialist in [place]. He initially wanted to be transferred there however due to lack of bed availability he will stay here. Will discuss his condition with his primary insurance plan specialist. CT was performed that ruled out PE. However he does have infection that he is being treated with antibiotics with. He is volume overloaded. We will put him on diuretics with Lasix 20 mg IV twice daily. Hemoglobin dropped today again. Will monitor closely. On Lovenox Continue aspirin. COVID testing was negative Thank you for involving us with the care of this patient. We will continue to follow. Please call with questions. Attestations Medical Necessity Statement*: Care expected to cross 2 midnights. Coding Level of Care Code Acute Grounds Restoration Specialist for [facility]en Diagnoses Anemia D64.9 OCTAVIA (acute kidney injury) N17.9 Sepsis A41.9 Diabetes mellitus E11.9 Hypertension I10 Coronary artery disease I25.10 Intermittent claudication I73.9 Pneumonia J18.9 Hypoxia R09.02 Troponin level elevated R77.8
--- NOTE | 2020-09-28 18:19 | PC.NURSE ---
Addendum entered by Licha Carcamo RN 09/28/20 18:23: Unable to keep telemetry monitoring or o2 in place this shift patient removes just moments after placing Original Note: Shift Note Frequent safety and comfort rounds continue. Orders and/or nursing care completed as indicated. Patient monitored for response to intervention and treatment(s). Education provided includes new medications to aid in rest. Patient and/or sales representative canvas products son verbalized understanding of medications. Will continue to monitor. patient has remained alert to self this shift getting up out of bed with out assistance to use the restroom patient has remained safe and bed alarm is in place.
[2020-09-28] MEDS: guaiFENesin 600 mg Tablet PO (18:38)
[2020-09-28] MEDS: atorvastatin 40 mg Tablet PO (19:24)
--- NOTE | 2020-09-28 20:10 | ECG_ITS ---
[facility] Test Date: 2020-09-28 Pat Name: Kwaku Castorena Department: Room: 103 Gender: Male Package Crimper: : [id number] Requested By: Pito Guerra Order Number: [id number] Char[place] MD: Jason Rivas M.D. Measurements Intervals [place] Rate: 126 P: IA: QRS: -28 QRSD: 102 T: 92 QT: 312 QTc: 453 Interpretive Statements ATRIAL FIBRILLATION WITH RAPID VENTRICULAR RESPONSE BORDERLINE LEFT AXIS DEVIATION [QRS AXIS < -20] NONSPECIFIC ST & T-WAVE ABNORMALITY Compared to ECG 09/27/2020 17:38:30 T-wave abnormality now present Sinus tachycardia no longer present Myocardial infarct finding no longer present Electronically Signed On 09-28-2020 23:48:26 CDT by Jason Rivas M.D. [email or web address] [id number]
--- NOTE | 2020-09-28 20:23 | PC.NURSE ---
Addendum entered by Justine Castorena RN 09/28/20 20:53: Dr. Rivas ordered 12-lead EKG as well. Original Note: Son of patient was frequently coming to nurse asking why the patient's heart rate is so high. Patient's heart rate is ST 120s-130s when resting. When getting up to bathroom, patient becomes short of breath and heart rate goes up 150s-160s. Patient was refusing tele all day today and continually pulled it off when it was put on per day shift nurse. Will attempt to keep tele on as much as patient will tolerate/allow. Dr. Rivas notified and ordered CBC and 25mg PO Metoprolol. Dr. Rivas notified that son is asking for troponin to be checked. Troponin ordered.
[2020-09-28 20:26] LABS: Glucose Point of Care 141 mg/dL (70-110)
[2020-09-28] MEDS: metoprolol tartrate 25 mg Tablet PO ×2 (20:42→21:43)
[2020-09-28 20:48] LABS: Basophils # 0.1 10^3/uL (0.0-0.1); Basophils % 0.7 %; Eosinophils # 0.1 10^3/uL (0.0-0.8); Eosinophils % 1.6 %; Hematocrit 27.9 % (42.0-52.0); Hemoglobin 8.1 g/dL (11.7-16.6); Lymphocytes # 0.8 10^3/uL (0.8-4.8); Lymphocytes % 10.9 %; Mean Corpuscular Hemoglobin 22.6 pg (28.0-34.0); Mean Corpuscular Volume 77.7 fL (80-94); Mean Platelet Volume 10.4 fL (7.4-10.4); Monocytes # 0.6 10^3/uL (0.2-0.9); Monocytes % 8.9 %; Neutrophils # 5.43 10^3/uL (1.8-7.7); Neutrophils % 77.2 %; Nucleated Red Blood Cells % 0 %; Platelet Count 341 10^3/cmm (130-400); Red Blood Count 3.59 10^6/uL (4.1-5.3); Red Cell Distribution Width 19.8 % (12.1-15.1)
[2020-09-28 21:22] LABS: Troponin T (5th) Once 5343 ng/L (0-15)
--- NOTE | 2020-09-28 21:23 | PC.NURSE ---
Addendum entered by Justine Castorena RN 09/28/20 21:28: Ordered to give another 25 mg of Metoprolol PO. Addendum entered by Justine Castorena RN 09/28/20 21:24: Also notified of EKG results. Original Note: Dr. Rivas notified of troponin of 5343 and hemoglobin of 8.1.
[2020-09-28] MEDS: trazodone 50 mg Tablet PO (23:53)
[2020-09-29] VITALS (18 sets, daily range): BP systolic 100–146; BP diastolic 45–92; PULSE 77–117; RESP 16–25; TEMP 36.7–38.2; O2SAT 88–96
--- NOTE | 2020-09-29 00:22 | PC.NURSE ---
Addendum entered by Justine Castorena RN 09/29/20 00:22: Patient placed closer to nurse's station. Frequent rounding on patient. Original Note: Patient is confused. Bed alarm is set.
--- NOTE | 2020-09-29 01:15 | PC.NURSE ---
Patient is confused. Patient keeps stating to me, give me the kennedy. Patient gets angry because I do not have a kennedy to give him. Patient continually trying to get out of bed, pulling oxygen out, pulling telemetry wires off, wanting to go home, cussing at staff, restless, and agitated. Dr. De Anda notified. Ativan 0.5 mg IV q6hr PRN ordered.
[2020-09-29] MEDS: LORazepam 2 mg/mL INJ 1 mL 0.5 MG IVP (01:27)
[2020-09-29 04:37] LABS: Basophils % 0.7 %; Eosinophils # 0.1 10^3/uL (0.0-0.8); Hematocrit 25.8 % (42.0-52.0); Hemoglobin 7.8 g/dL (11.7-16.6); Lymphocytes # 0.8 10^3/uL (0.8-4.8); Lymphocytes % 13.7 %; Mean Corpuscular HGB Conc 30.2 g/dL (30.0-36.0); Mean Corpuscular Hemoglobin 22.3 pg (28.0-34.0); Mean Corpuscular Volume 73.9 fL (80-94); Mean Platelet Volume 10.5 fL (7.4-10.4); Monocytes # 0.7 10^3/uL (0.2-0.9); Neutrophils # 4.14 10^3/uL (1.8-7.7); Neutrophils % 72.1 %; Nucleated Red Blood Cells % 0 %; Platelet Count 354 10^3/cmm (130-400); Red Blood Count 3.49 10^6/uL (4.1-5.3); Red Cell Distribution Width 19.5 % (12.1-15.1); White Blood Count 5.8 10^3/uL (4.0-10.0)
[2020-09-29 04:56] LABS: Alanine Aminotransferase 26 U/L (0-41); Alkaline Phosphatase 48 IU/L (40-130); Anion Gap 19.6 (5-19); Aspartate Amino Transferase 37 U/L (0-40); Blood Urea Nitrogen 26 mg/dL (8-23); Calcium 8.2 mg/dL (8.5-10.5); Carbon Dioxide 16 mmol/L (22-29); Chloride 107 mmol/L (98-107); Globulin 3.1 g/dL (1.3-4.6); Glucose 124 mg/dL (65-115); Osmolality Calculated 294 mOsm/kg (285-295); Potassium 3.6 mmol/L (3.5-5.1); Sodium 139 mmol/L (136-145); Total Bilirubin 0.5 mg/dL (0.15-1.2); Total Protein 6.1 g/dL (6.6-8.7)
[2020-09-29] MEDS: enoxaparin 100 mg/mL Syringe 90 MG SUBCUT ×2 (05:20→17:58)
[2020-09-29] MEDS: metoprolol tartrate 1 mg/1 mL SDV 5 mL 5 MG IVP (05:20)
--- NOTE | 2020-09-29 05:24 | PC.NURSE ---
Addendum entered by Justine Castorena RN 09/29/20 06:21: Dr. De Anda notified of the below and ordered IV Tylenol x1 for temp of 100.7. Temp rechecked and was 99.8. Dr. De Anda notified and ordered not to give IV Tylenol. Addendum entered by Justine Castorena RN 09/29/20 05:30: When trying to help patient out of bed to get to bedside commode, patient stated to nurse, while making a fist I'm gonna hit you where you don't wanna be hit. Original Note: Patient became combative. Two RNs at bedside. Patient was assisted to bedside commode. Patient became angry when attempting to help balance patient to prevent fall. Patient stated don't touch me. Patient's ambulation is very wobbly. Patient pulled telemetry wires off. When attempting to put them back on, patient made a fist and said get that shit off of me. Patient is talking when no one is in room. Patient does not follow commands. Patient has fever of 100.7. Dr. De Anda notified. I do not feel it is safe to patient PO medications at this time due to his inability to follow commands/directions. I also do not feel that it is safe to give patient rectal medications at this time due to combativeness. Attempt to put cold washcloths on patient and patient took them off.
--- NOTE | 2020-09-29 05:31 | PC.NURSE ---
Dr. Rivas notified of heart rate continuing 120s-130s. When patient coughs, heart rate jumps up to 150s. Notified that I do not feel comfortable giving PO medications at this time due to confusion and inability to follow commands and combativeness. Ordered to give 5 mg Metoprolol IV now and again in one hour if heart rate not improved.
--- NOTE | 2020-09-29 06:07 | PC.NURSE ---
Patient's heart rate is improved. Heart rate is currently ranging 90 to 110.
[2020-09-29 06:51] LABS: Glucose Point of Care 138 mg/dL (70-110)
--- NOTE | 2020-09-29 07:31 | P.PN_ITS ---
Subjective Subjective: Interval history: Patient has delirium and is confused. Denies any chest pain or shortness of breath. He is in A. fib with RVR and heart rate Denies any chest pain or shortness of breath. He had a fevere of 100.7 yesterday. Vitals/I&O/Wt Last Vital Signs Temp 99.8 F H 09/29/20 06:14 Pulse 107 H 09/29/20 06:14 Resp 20 H 09/29/20 06:08 BP 145/88 09/29/20 06:08 Pulse Ox 90 09/29/20 04:00 09/28/20 09/29/20 09/29/20 22:59 06:59 14:59 Intake Total 50 / 50 300 / 350 Balance 50 / 50 300 / 350 Weight last 48 hrs Weight 194 lb Weight 211 lb 9.6 oz Physical Exam Narrative: EXAM NARRATIVE: GENERAL: Patient is confused NECK: No jugular vein distension. [] HEENT: No cyanosis. No icterus. No pallor. [] HEART: Tachycardic, regular S1 and S2. No murmur, rub or gallop. [] LUNGS: Has mild wheezing bilaterally ABDOMEN: Soft, nontender and nondistended. Positive bowel sounds. No guarding, rebound or tenderness. [] CENTRAL NERVOUS SYSTEM: Grossly nonfocal. [] EXTREMITIES: Lower extremities with 1+ edema bilaterally. Pulses palpable in the lower extremities, both dorsalis pedis and posterior tibial. [] Data : 09/30/20 04:54 09/30/20 04:54 Micro: Microbiology 09/27/20 11:40 Gram Stain - Final Sputum - Expectorated Sputum Sputum Culture - Preliminary A&P Assessment and plan (1) Anemia: Status: Acute (2) OCTAVIA (acute kidney injury): Status: Acute (3) Sepsis: Status: Acute (4) Diabetes mellitus: Status: Acute (5) Hypertension: Status: Acute (6) Coronary artery disease: Status: Acute (7) Intermittent claudication: Status: Acute (8) Pneumonia: Status: Acute (9) Hypoxia: Status: Acute (10) Troponin level elevated: Status: Acute (11) Atrial fibrillation with RVR: Status: Acute Patient has presented with respiratory distress. Also had low-grade fever. Likely respiratory infection however cannot rule out myocarditis/ACS/PE. Cardiology was consulted for troponin elevation which is significant. He is denying chest pain. Echocardiogram shows borderline low cardiac function. Differential diagnosis for severe troponin elevation include myocarditis/late presentation of [place] or demand ischemia in the setting of infection. Once patient's kidney function normalizes and his mentation improves, we will proceed with coronary angiogram to rule out significant coronary artery disease. He has multiple stents put in the past. We had started him on Lasix 20 mg IV twice daily. Creatinine is improving. Hemoglobin staying stable. Continue Lovenox. His abdominal aortic aneurysm is at 5.3 cm. For A. fib heart rate controlled, we will initiate metoprolol 50 mg twice daily. Continue aspirin. COVID testing was negative Thank you for involving us with the care of this patient. We will continue to follow. Please call with questions. Attestations Medical Necessity Statement*: Care expected to cross 2 midnights. Coding Level of Care Code Acute Hot Mill Worker for g Fwd Diagnoses Anemia D64.9 OCTAVIA (acute kidney injury) N17.9 Sepsis A41.9 Diabetes mellitus E11.9 Hypertension I10 Coronary artery disease I25.10 Intermittent claudication I73.9 Pneumonia J18.9 Hypoxia R09.02 Troponin level elevated R77.8 Atrial fibrillation with RVR I48.91
[2020-09-29] MEDS: budesonide 0.5 mg/2 mL Neb INHALATION ×2 (07:51→19:28)
[2020-09-29] MEDS: ipratropium-albuterol 3 mL Neb INHALATION ×5 (07:51→23:43)
[2020-09-29] MEDS: benzonatate 100 mg Capsule PO (09:33)
[2020-09-29] MEDS: aspirin 325 mg Tablet PO (09:33)
[2020-09-29] MEDS: acetaminophen 325 mg Tablet PO (09:33)
[2020-09-29] MEDS: clopidogrel 75 mg Tablet PO (09:33)
[2020-09-29] MEDS: famotidine 20 mg Tablet PO ×2 (09:33→17:52)
[2020-09-29] MEDS: OLANZapine 5 mg TABLET 2.5 MG PO (09:33)
[2020-09-29] MEDS: guaiFENesin 600 mg Tablet PO (09:33)
[2020-09-29] MEDS: cilostazol 100 mg Tablet PO ×2 (09:34→17:52)
[2020-09-29] MEDS: insulin glargine 100 units/1 mL 10 UNIT SUBCUT (09:34)
[2020-09-29] MEDS: FUROsemide 10 mg/mL SDV 2mL 20 MG IVP ×2 (09:35→21:16)
--- NOTE | 2020-09-29 10:21 | PC.NURSE ---
Shift Note Frequent safety and comfort rounds continue. Orders and/or nursing care completed as indicated. Patient monitored for response to intervention and treatment(s). Education provided includes[oxygen safety and heart monitor]. Patient has difficulty coprehending and has disconnected himself from the monitor x 3 and removed oxygen teice since my arrival on the unit. ]. Will continue to monitor.
[2020-09-29] MEDS: metoprolol tartrate 50 mg Tablet PO ×2 (10:58→21:15)
[2020-09-29 11:20] LABS: Glucose Point of Care 166 mg/dL (70-110)
--- NOTE | 2020-09-29 11:30 | PC.NURSE ---
Bladder scan complete. 240-[address] Harkins notified of result.
--- NOTE | 2020-09-29 13:48 | PC.SOCIAL ---
IMM UPDATE Gave patient's daughter, who was at bedside, IMM update. Provided copy of pg 2. Verbalized understanding. Initialed, dated, timed and placed in chart.
--- NOTE | 2020-09-29 14:30 | PC.NURSE ---
Lab contacted regarding pending vancomycin trough.
--- NOTE | 2020-09-29 14:31 | P.PN_ITS ---
Subjective Subjective: Interval history: Kwaku was confused this morning. Apparently he did fairly well after the Zyprexa yesterday. Medications: Reviewed: Yes Vitals/I&O/Wt Last Vital Signs Temp 98.2 F 09/29/20 08:00 Pulse 91 09/29/20 13:20 Resp 16 09/29/20 13:20 BP 100/45 09/29/20 13:20 Pulse Ox 94 09/29/20 13:20 09/28/20 09/29/20 09/29/20 22:59 06:59 14:59 Intake Total 50 / 50 300 / 350 Balance 50 / 50 300 / 350 Weight last 48 hrs Weight 87.997 kg Weight 95.98 kg Physical Exam Narrative: EXAM NARRATIVE: General exam no apparent distress, confused, T-max 100.7 Neck supple no lymphadenopathy or thyromegaly Cardiovascular regular rate and rhythm without murmur Lungs clear but with diminished breath sounds at the bases. Abdomen is soft with positive bowel sounds Extremities no cyanosis clubbing or edema Data : 09/29/20 04:15 09/29/20 04:15 Micro: Microbiology 09/27/20 11:40 Gram Stain - Final Sputum - Expectorated Sputum Sputum Culture - Final A&P Assessment and plan (1) Hypoxia: Multifactorial, secondary to pneumonia as well as acute systolic heart failure. Echocardiogram demonstrated EF 45 to 50% Currently on cefepime and vancomycin Covid PCR is negative CTA did not demonstrate pulmonary embolism. Bilateral pleural effusions were noted consistent with heart failure. MRSA PCR is pending. Oxygen requirement has decreased significantly. Status: Acute (2) Sepsis: Sepsis resolved. Secondary to bilateral lower lobe pneumonia. Antibiotics as above. Blood cultures negative to date. Status: Acute (3) Anemia: Hemoglobin responded well to PRBC transfusion from 6.4 appropriately up to 8.8 after 2 units. Consistent with iron deficiency anemia Stool Hemoccult negative Consider follow-up as an outpatient. Status: Acute (4) OCTAVIA (acute kidney injury): Underlying chronic kidney disease ARB held Renal function improving No obstruction on CT renal protocol Status: Acute Additional A&P Information Acute systolic heart failure. Improved compensation today Pneumonia. See notations under hypoxia. Hyponatremia, resolved Delirium. B12 was normal. TSH, CT head no overall concerns. Zyprexa 2.5 mg now, then 5 mg at night Type 2 diabetes. Sliding scale insulin. Hypertension holding carvedilol and valsartan Coronary artery disease with elevated troponin. Cardiology consulted. Continue Plavix, aspirin, statin, beta-sallie. Will need angiogram. Timing is under question. On full dose anticoagulation. History of CVA Abdominal aortic aneurysm. Will need outpatient follow-up. Family aware. Attestations Medical Necessity Statement*: Needs continued hospitalization, for pneumonia for IV antibiotics. Coding Level of Care Code Acute Electrician Telephone for [facility] Fwd Diagnoses Hypoxia R09.02 Sepsis A41.9 Anemia D64.9 OCTAVIA (acute kidney injury) N17.9
[2020-09-29 14:52] LABS: Vancomycin Trough 11.7 ug/mL (10-15)
--- NOTE | 2020-09-29 15:00 | PC.NURSE ---
Pharmacy called regarding need vancomycin ivpb dose.
[2020-09-29 16:38] LABS: Glucose Point of Care 128 mg/dL (70-110)
[2020-09-29] MEDS: vancomycin 1,250 MG/250 ML PIGGYBACK 250 MG IV (16:42)
[2020-09-29] MEDS: cefepime 1,000 MG in sodium chloride 0.9% (plus) 100 ML 200 MG IV (17:54)
[2020-09-29] MEDS: OLANZapine 5 mg ODT PO (21:15)
[2020-09-29] MEDS: atorvastatin 40 mg Tablet PO (21:15)
[2020-09-30] VITALS (18 sets, daily range): BP systolic 112–145; BP diastolic 47–87; PULSE 69–116; RESP 14–24; TEMP 36.6–37.6; O2SAT 89–95
[2020-09-30] MEDS: ipratropium-albuterol 3 mL Neb INHALATION ×5 (03:59→21:48)
[2020-09-30 05:09] LABS: Basophils # 0.1 10^3/uL (0.0-0.1); Basophils % 0.8 %; Eosinophils # 0.1 10^3/uL (0.0-0.8); Eosinophils % 2.2 %; Hematocrit 27.9 % (42.0-52.0); Hemoglobin 8.3 g/dL (11.7-16.6); Lymphocytes # 0.7 10^3/uL (0.8-4.8); Lymphocytes % 11.7 %; Mean Corpuscular HGB Conc 29.7 g/dL (30.0-36.0); Mean Corpuscular Hemoglobin 22.1 pg (28.0-34.0); Mean Corpuscular Volume 74.4 fL (80-94); Mean Platelet Volume 10.2 fL (7.4-10.4); Monocytes # 0.5 10^3/uL (0.2-0.9); Monocytes % 9.1 %; Neutrophils # 4.46 10^3/uL (1.8-7.7); Neutrophils % 75.4 %; Nucleated Red Blood Cells % 0 %; Platelet Count 410 10^3/cmm (130-400); Red Blood Count 3.75 10^6/uL (4.1-5.3); White Blood Count 5.9 10^3/uL (4.0-10.0)
[2020-09-30] MEDS: enoxaparin 100 mg/mL Syringe 90 MG SUBCUT ×2 (05:41→17:13)
[2020-09-30 05:56] LABS: Anion Gap 20.5 (5-19); Blood Urea Nitrogen 25 mg/dL (8-23); Calcium 8.6 mg/dL (8.5-10.5); Carbon Dioxide 15 mmol/L (22-29); Chloride 111 mmol/L (98-107); Glucose 104 mg/dL (65-115); Osmolality Calculated 301 mOsm/kg (285-295); Potassium 3.5 mmol/L (3.5-5.1); Sodium 143 mmol/L (136-145)
[2020-09-30 05:57] LABS: Glucose Point of Care 120 mg/dL (70-110)
--- NOTE | 2020-09-30 06:24 | PC.NURSE ---
Shift Note Frequent safety and comfort rounds continue. Orders and/or nursing care completed as indicated. Patient monitored for response to intervention and treatment(s). Education provided includes oxygen safety and the importance of wearing oxygen. Patient and/or outbound sales representative needed constant reinforcement. Will continue to monitor.
[2020-09-30] MEDS: budesonide 0.5 mg/2 mL Neb INHALATION ×2 (07:41→21:48)
--- NOTE | 2020-09-30 09:24 | XR_ITS ---
WS: [id number] Portable AP upright chest, 09/30/2020 Clinical Data: follow up pneumonia Comparison: Portable chest, 09/27/2020. Findings: The bilateral patchy opacities in the lower lobes have cleared slightly. The upper lobes ar e clear. No nodules, masses or effusions are seen. The aortic arch and descending aorta show tortuosi ty. The heart size is normal. Monitor leads are on the chest wall. XR/XR chest 1V portable [id number] Impression: Slight clearing of bilateral patchy lower lobe pulmonary opacities.
--- NOTE | 2020-09-30 10:24 | P.PN_ITS ---
Subjective Subjective: Interval history: Patient is doing much better today. He is still confused. Heart rates have improved and are less than 100. Vitals/I&O/Wt Last Vital Signs Temp 99.6 F 09/30/20 08:11 Pulse 103 H 09/30/20 08:11 Resp 23 H 09/30/20 08:11 BP 138/47 09/30/20 08:11 Pulse Ox 90 09/30/20 08:11 09/29/20 09/30/20 09/30/20 22:59 06:59 14:59 Intake Total 350 / 710 Output Total 900 / 1280 Balance 350 / 330 -900 / -570 Weight last 48 hrs Weight 195 lb 1.6 oz Weight 194 lb Physical Exam Narrative: EXAM NARRATIVE: GENERAL: Patient is confused NECK: No jugular vein distension. [] HEENT: No cyanosis. No icterus. No pallor. [] HEART: Tachycardic, regular S1 and S2. No murmur, rub or gallop. [] LUNGS: Has mild wheezing bilaterally ABDOMEN: Soft, nontender and nondistended. Positive bowel sounds. No guarding, rebound or tenderness. [] CENTRAL NERVOUS SYSTEM: Grossly nonfocal. [] EXTREMITIES: Lower extremities with 1+ edema bilaterally. Pulses palpable in the lower extremities, both dorsalis pedis and posterior tibial. [] Data : 09/30/20 04:54 09/30/20 04:54 Micro: Microbiology 09/28/20 17:20 MRSA Culture - Final Nose 09/27/20 11:40 Gram Stain - Final Sputum - Expectorated Sputum Sputum Culture - Final A&P Assessment and plan (1) Anemia: Status: Acute (2) OCTAVIA (acute kidney injury): Status: Acute (3) Sepsis: Status: Acute (4) Diabetes mellitus: Status: Acute (5) Hypertension: Status: Acute (6) Coronary artery disease: Status: Acute (7) Intermittent claudication: Status: Acute (8) Pneumonia: Status: Acute (9) Hypoxia: Status: Acute (10) Troponin level elevated: Status: Acute (11) Atrial fibrillation with RVR: Status: Acute Patient had presented with respiratory symptoms however significant troponin elevation likely secondary to Myocarditis or late presentation of [place]. PE was ruled out. Demand ischemia in setting of infection could also be a possibility however troponin levels went above 5000. As patient's creatinine has improved now and his mentation is better today, We will proceed with coronary angiogram tomorrow to assess coronary arteries. He will need anesthesia support. Continue Lasix. Hemoglobin staying stable. Continue Lovenox. His abdominal aortic aneurysm is at 5.3 cm. For A. fib heart rate controlled, We have uptitrated metoprolol to 100 mg twice daily Continue aspirin. COVID testing was negative Thank you for involving us with the care of this patient. We will continue to follow. Please call with questions. Attestations Medical Necessity Statement*: Care expected to cross 2 midnights. Coding Level of Care Code Acute Catalytic Case Operator for g Fwd Diagnoses Anemia D64.9 OCTAVIA (acute kidney injury) N17.9 Sepsis A41.9 Diabetes mellitus E11.9 Hypertension I10 Coronary artery disease I25.10 Intermittent claudication I73.9 Pneumonia J18.9 Hypoxia R09.02 Troponin level elevated R77.8 Atrial fibrillation with RVR I48.91
[2020-09-30] MEDS: aspirin 325 mg Tablet PO (10:32)
[2020-09-30] MEDS: metoprolol tartrate 50 mg Tablet 100 MG PO ×2 (10:32→20:42)
[2020-09-30] MEDS: clopidogrel 75 mg Tablet PO (10:32)
[2020-09-30] MEDS: potassium chloride ER 20 mEq Tablet 40 MEQ PO (10:32)
[2020-09-30] MEDS: cilostazol 100 mg Tablet PO ×2 (10:33→17:14)
[2020-09-30] MEDS: famotidine 20 mg Tablet PO ×2 (10:33→17:13)
[2020-09-30] MEDS: FUROsemide 10 mg/mL SDV 2mL 20 MG IVP ×2 (10:33→20:42)
--- NOTE | 2020-09-30 10:40 | PC.CHAP ---
Pastoral Care Encounter/Spiritual Assessment Type of Contact [] Declined oss architect visit [] Patient/Family/Request visit [] Outpatient visit [] Follow-up visit [] Physician referral [] Code/Alert [x] Routine visit [] Staff referral [] Actively dying [] Patient sleeping [] Family support [] [] Out of room [] Palliative care [] [] Receiving care in room [] Pre-surgical visit [] Trauma [] Long length of stay [] ICU visit [] Other: Relational/Emotional Strength [] Patient feels connected with others/family/visitors/staff [] Distress [] Loneliness/isolation [] Abandonment Spirituality of Patient [] Person of Rhona [] Attends Baptism of their [place]ona [] Believes in Prayer [] Reads Bible or Confucianist materials [] There are Spiritual issues to be addressed Hospice Chaplain Interventions [x] Prayer [] Active listening [] Non-anxious presence [] Spiritual/emotional support [] Crisis/trauma care [] Spiritual counseling [] Bereavement support [] Provided bereavement packet [] Provided Bible/devotional materials [] Provided toy/stuffed animal, coloring book to patient or family member [] Provided Communion [] Anointing/[place] [] Salvation [x] Completed spiritual assessment [] Other: Impact on Illness or Injury [] Angry [] Fearful [] Anxious [] Often cries [] Exhaustion [] Unable to work [] Unable to attend baptist [] Unable to walk/stand [] Unable to read [] Unable to drive [] Unable to eat/drink [] Unable to sleep [] Unable to be with family [] Patient intubated [] Other: Summary Time spent with patient
--- NOTE | 2020-09-30 11:46 | P.PN_ITS ---
Subjective Subjective: Interval history: Follow-up Estelita is sleepy this morning but I can awaken him. He appears somewhat confused extends without difficulty. He denies any headache or neck pain. Medications: Reviewed: Yes Vitals/I&O/Wt Last Vital Signs Temp 99.6 F 09/30/20 08:11 Pulse 103 H 09/30/20 08:11 Resp 23 H 09/30/20 08:11 BP 138/47 09/30/20 08:11 Pulse Ox 90 09/30/20 08:11 09/29/20 09/30/20 09/30/20 22:59 06:59 14:59 Intake Total 350 / 710 Output Total 900 / 1280 Balance 350 / 330 -900 / -570 Weight last 48 hrs Weight 88.496 kg Weight 87.997 kg Physical Exam Narrative: EXAM NARRATIVE: General exam no apparent distress, awakens and can communicate. Neck supple no lymphadenopathy or thyromegaly Cardiovascular regular rate and rhythm without murmur Lungs clear but with diminished breath sounds at the bases. Abdomen is soft with positive bowel sounds Extremities no cyanosis clubbing or edema Data : 09/30/20 04:54 09/30/20 04:54 Micro: Microbiology 09/28/20 17:20 MRSA Culture - Final Nose 09/27/20 11:40 Gram Stain - Final Sputum - Expectorated Sputum Sputum Culture - Final A&P Assessment and plan (1) Hypoxia: Multifactorial, secondary to pneumonia as well as acute systolic heart failure. Echocardiogram demonstrated EF 45 to 50% Currently on cefepime and vancomycin Covid PCR is negative. Will discontinue vancomycin CTA did not demonstrate pulmonary embolism. Bilateral pleural effusions were noted consistent with heart failure. Chest x-ray reviewed and lower lobe infiltrate somewhat cleared. Requiring minimal oxygen currently. Status: Acute (2) Sepsis: Sepsis resolved. Secondary to bilateral lower lobe pneumonia. Antibiotics as above. Blood cultures negative to date. Status: Acute (3) Anemia: Hemoglobin responded well to PRBC transfusion from 6.4 appropriately up to 8.8 after 2 units. Consistent with iron deficiency anemia Stool Hemoccult negative Consider follow-up as an outpatient. Status: Acute (4) OCTAVIA (acute kidney injury): Underlying chronic kidney disease ARB held Renal function improved No obstruction on CT renal protocol Status: Acute Additional A&P Information Acute systolic heart failure. Appears improved Pneumonia. See notations under hypoxia. Hyponatremia, resolved Delirium. B12 was normal. TSH, CT head no overall concerns. Change Zyprexa to 2.5 mg at night as needed. I have hopes that this is clearing. Reorient today. Up with physical therapy. Initiate feeding. Speech therapy if needed. Type 2 diabetes. Sliding scale insulin. Hypertension holding carvedilol and valsartan Coronary artery disease with elevated troponin. Cardiology consulted. Continue Plavix, aspirin, statin, beta-sallie. Will need angiogram. Timing is under question. On full dose anticoagulation. History of CVA Abdominal aortic aneurysm. Will need outpatient follow-up. Family aware. Attestations Medical Necessity Statement*: Needs continued hospitalization for IV antibiotics related to pneumonia. May also need investigation of low ejection fraction, elevated troponin. Coding Level of Care Code Acute Peer Financial Counselor for [facility] Fwd Diagnoses Hypoxia R09.02 Sepsis A41.9 Anemia D64.9 OCTAVIA (acute kidney injury) N17.9
[2020-09-30 11:53] LABS: Glucose Point of Care 145 mg/dL (70-110)
--- NOTE | 2020-09-30 15:34 | PC.NUTR ---
Nutrition consult: Dr. Harkins requested RD to assess pt today during AM rounds, however when attempted this afternoon, was unable to obtain much information from pt due to repeated coughing. Pt seemed unable to complete sentence without coughing fit. Notified MD. Noted Glucerna with meals already in place in diet order. Requested nurse to let RD know of further meal preferences if obtained. 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 Notified nurse Licha. See full RD assessment for further details.
[2020-09-30] MEDS: cefepime 1,000 MG in sodium chloride 0.9% (plus) 100 ML 200 MG IV (17:12)
[2020-09-30 18:39] LABS: Glucose Point of Care 170 mg/dL (70-110)
[2020-09-30 18:49] LABS: Glucose Point of Care 184 mg/dL (70-110)
[2020-09-30] MEDS: atorvastatin 40 mg Tablet PO (20:43)
[2020-09-30 21:46] LABS: Glucose Point of Care 164 mg/dL (70-110)
[2020-10-01] VITALS (35 sets, daily range): BP systolic 108–157; BP diastolic 63–92; PULSE 64–99; RESP 12–25; TEMP 36.7–36.9; O2SAT 90–93
[2020-10-01] MEDS: ipratropium-albuterol 3 mL Neb INHALATION ×5 (02:00→21:45)
[2020-10-01 04:50] LABS: Basophils # 0.1 10^3/uL (0.0-0.1); Basophils % 1.1 %; Eosinophils # 0.2 10^3/uL (0.0-0.8); Eosinophils % 3.9 %; Hematocrit 27.1 % (42.0-52.0); Lymphocytes # 0.8 10^3/uL (0.8-4.8); Lymphocytes % 14.9 %; Mean Corpuscular HGB Conc 29.5 g/dL (30.0-36.0); Mean Corpuscular Volume 74.7 fL (80-94); Mean Platelet Volume 10.2 fL (7.4-10.4); Monocytes # 0.4 10^3/uL (0.2-0.9); Monocytes % 7.1 %; Neutrophils # 4.07 10^3/uL (1.8-7.7); Neutrophils % 72.5 %; Nucleated Red Blood Cells % 0 %; Platelet Count 453 10^3/cmm (130-400); Red Blood Count 3.63 10^6/uL (4.1-5.3); Red Cell Distribution Width 20.3 % (12.1-15.1); White Blood Count 5.6 10^3/uL (4.0-10.0)
[2020-10-01 05:09] LABS: Alanine Aminotransferase 26 U/L (0-41); Alkaline Phosphatase 49 IU/L (40-130); Anion Gap 17.7 (5-19); Aspartate Amino Transferase 30 U/L (0-40); Blood Urea Nitrogen 29 mg/dL (8-23); Calcium 8.9 mg/dL (8.5-10.5); Carbon Dioxide 17 mmol/L (22-29); Chloride 112 mmol/L (98-107); Globulin 3.5 g/dL (1.3-4.6); Glucose 157 mg/dL (65-115); Osmolality Calculated 305 mOsm/kg (285-295); Potassium 3.7 mmol/L (3.5-5.1); Sodium 143 mmol/L (136-145); Total Bilirubin 0.4 mg/dL (0.15-1.2); Total Protein 6.5 g/dL (6.6-8.7)
[2020-10-01 06:24] LABS: Glucose Point of Care 162 mg/dL (70-110)
[2020-10-01] MEDS: budesonide 0.5 mg/2 mL Neb INHALATION ×2 (08:11→21:45)
--- NOTE | 2020-10-01 09:35 | PM.PN ---
Subjective Subjective: Interval history: Patient underwent coronary angiogram today that showed severely calcified proximal to mid LAD significant stenosis. This likely is significant however it is a moderate-sized artery. Also has relatively small OM branch that has a subtotal occlusion that seems chronic. Patient is feeling better today. His heart rate is well controlled. Denies any chest pain or significant shortness of breath. Vitals/I&O/Wt Last Vital Signs Temp 98.0 F 10/01/20 07:50 Pulse 70 10/01/20 08:20 Resp 18 10/01/20 08:15 BP 122/74 10/01/20 07:50 Pulse Ox 92 10/01/20 08:15 09/30/20 10/01/20 10/01/20 22:59 06:59 14:59 Intake Total 120 / 120 Output Total 600 / 1150 Balance 120 / -430 -600 / -1030 Weight last 48 hrs Weight 193 lb 8 oz Weight 195 lb 1.6 oz Physical Exam Narrative: EXAM NARRATIVE: GENERAL: Patient is confused NECK: No jugular vein distension. [] HEENT: No cyanosis. No icterus. No pallor. [] HEART: Tachycardic, regular S1 and S2. No murmur, rub or gallop. [] LUNGS: Has mild wheezing bilaterally ABDOMEN: Soft, nontender and nondistended. Positive bowel sounds. No guarding, rebound or tenderness. [] CENTRAL NERVOUS SYSTEM: Grossly nonfocal. [] EXTREMITIES: Lower extremities with 1+ edema bilaterally. Pulses palpable in the lower extremities, both dorsalis pedis and posterior tibial. [] Data : 10/02/20 04:34 10/02/20 04:34 Micro: Microbiology 09/25/20 12:59 Blood Culture - Final Blood NO GROWTH AFTER 5 DAYS 09/25/20 13:07 Blood Culture - Final Blood NO GROWTH AFTER 5 DAYS A&P Assessment and plan (1) Anemia: Status: Acute (2) OCTAVIA (acute kidney injury): Status: Acute (3) Sepsis: Status: Acute (4) Diabetes mellitus: Status: Acute (5) Hypertension: Status: Acute (6) Coronary artery disease: Status: Acute (7) Intermittent claudication: Status: Acute (8) Pneumonia: Status: Acute (9) Hypoxia: Status: Acute (10) Troponin level elevated: Status: Acute (11) Atrial fibrillation with RVR: Status: Acute Patient had presented with respiratory symptoms however significant troponin elevation. Troponins went above 5000. Coronary angiogram was performed today that showed severely calcified proximal to mid LAD significant stenosis however it is a moderate sized vessel. Patient also has a relatively small OM branch that has subtotal occlusion and appears chronic. His troponin elevation of more than 5000 is not explained by his coronary artery disease which is chronic. At this time as he is not having active symptoms of chest pain, will medically treat his CAD. 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 Hemoglobin staying stable. His abdominal aortic aneurysm is at 5.3 cm. Atrial fibrillation is rate controlled now. Will need discussion with family to see if we need to continue with anticoagulation for stroke prevention. However his bleeding risk will be higher. If anticoagulation is decided, will keep him on NOAC plus Plavix and discontinue other antiplatelet agents. COVID testing was negative Thank you for involving us with the care of this patient. We will continue to follow. Please call with questions. Attestations Medical Necessity Statement*: Care expected to cross 2 midnights. Coding Level of Care Code Acute Supervisor Fiber Locking for Yolanda Morales Diagnoses Anemia D64.9 OCTAVIA (acute kidney injury) N17.9 Sepsis A41.9 Diabetes mellitus E11.9 Hypertension I10 Coronary artery disease I25.10 Intermittent claudication I73.9 Pneumonia J18.9 Hypoxia R09.02 Troponin level elevated R77.8 Atrial fibrillation with RVR I48.91
[2020-10-01] MEDS: sodium chloride 0.9% 1,000 ML 50 ML IV (10:34)
[2020-10-01] MEDS: diphenhydrAMINE 50 mg Capsule PO (10:35)
[2020-10-01] MEDS: aspirin 325 mg Tablet PO (10:36)
[2020-10-01] MEDS: cilostazol 100 mg Tablet PO ×2 (10:36→17:07)
[2020-10-01] MEDS: famotidine 20 mg Tablet PO ×2 (10:36→17:07)
[2020-10-01] MEDS: metoprolol tartrate 50 mg Tablet 100 MG PO ×2 (10:36→21:14)
[2020-10-01] MEDS: clopidogrel 75 mg Tablet PO (10:36)
--- NOTE | 2020-10-01 11:19 | W.PM.OPSUD ---
Surgery/Procedure H&P Update DATE OF PROCEDURE: October 01, 2020 DATE H&P PERFORMED: 09/26/20 H&P UPDATE INFORMATION: I have reviewed H&P completed within last 30 days, I have examined patient prior to procedure and No changes to prior documentation PREOP DIAGNOSIS: NSTEMI/ Troponin elevation PRIMARY INDICATION FOR PROCEDURE: NSTEMI PLANNED PROCEDURE: Operation Date: 10/01/20 12:00 Proposed Procedures p Cardiac Catheterization(Left) - Jason Rivas M.D Possible percutaneous coronary intervention PATIENT REASSESSED PRIOR TO SEDATION, WITH NO CHANGE NOTED: Yes PHYSICAL EXAM: alert, oriented x 3, clear to auscultation bilaterally and regular rate & rhythm (Patient in rate controlled atrial fibrillation) AIRWAY EVAL/ANESTHESIA PLAN: normal airway, ASA III, Monitored Anesthesia, Local Anesthesia, Risks, benefits & alternatives of sedation and/or procedure discussed and Patient agrees to continue as planned
--- NOTE | 2020-10-01 11:23 | PC.SOCIAL ---
IMM UPDATE Gave patient IMM update, provided him copy of pg 2 of IMM. Called his daughter, Lilian and gave her verbal IMM update via phone, she verbalized understanding. Initialed, dated, timed and placed in chart.
--- NOTE | 2020-10-01 11:34 | XACV_ITS ---
Exam Room: [facility] Ht: 178 cm Wt: 88 kg BSA: 2.11 m2 Gender: Male : 1935 Any Known Allergies: Other Exam Priority: Routine Procedure(s): Procedure Description: Diagnostic procedure Procedure Description: Coronary Angiography Diagnostic Cath Status: Elective Diagnostic Findings * Right Coronary Artery has no disease. Small non dominant vessel. * Proximal Left Anterior Descending to Mid Left Anterior Descending: significant 80% stenosis, CRISTIAN: 3 flow. Heavily calcified lesion. Large sized diagonal artery has a patent prior stent. * Left circumflex artery is a large, dominant vessel. CIRC AV: 60% stenosis, CRISTIAN: 3 flow. * Third Obtuse Marginal Branch Segment: subtotal occlusion, CRISTIAN: 3 flow. Small to medium sized vessel. * Left Main has no disease. * Coronary angiography shows left dominance. Conclusions 1. Severe proximal to mid LAD stenosis. Medium sized vessel. 2. Sub-total occlusion of a small to medium sized OM 3 vessel. Recommendations * Patient has heavily calcified proximal to mid LAD stenosis. After discussion with the family and patient, medical therapy has been decided for now as arthrectomy will be high risk and he has decided to proceed with medical therpy. * Dual antiplatelet agents. * Statin therapy. * Outpatient cardiology follow up in 1 month. Interventional RX Recommendation: medical therapy and/or counseling Diagnostic RX Recommendation: medical therapy and/or counseling Pressures Phase:Rest AO : 144 / 82 ( 110 ) @ 11:18:00 AM 138 / 72 ( 102 ) @ 11:21:00 AM Clinical Evaluation EBL: 5mL-10mL Procedural Details Pre-Procedure Time Out. Identified patient by full name and date of as verbalized by the patient/guarantor. Does the consent match the physician's order: Yes. Accurate & Complete Informed Consent: Yes. Inpatient/Outpatient History & Physical on Chart: Yes. If H&P is completed, is and addenduem needed: No; If yes, is the addendum complete: N/A. Visualize and Verify Site with Patient/Guarantor: N/A. Relevant Radiology Images available: Yes. Pre-op teaching completed and patient verbalized understanding. The risks, benefits, and alternatives of sedation and/or procedure were discussed by physician. The patient agrees to continue. Procedure started. [facility] Clinical Fraility Score: 6: Moderately Frail. Director Speech Language Indications: ACS <= 24 hours. Chest Pain Symptom Assessment: Typical Angina Symptoms. Correct patient, site and procedure confirmed by cath team. Current diagnosis: NSTEMI. PERRLA. Strong, equal hand dentist bilaterally. Lungs clear x 5 lobes. IV Site on Arrival: 18 gauge in the left forearm. IV Fluids: 0.9% NaCl at KVO. 0 mL infused prior to starch factory laborer. Pre Procedural Pulses: bilateral dorsalis pedis was Doppled. Pre Procedural Pulses: bilateral posterior tibial was Doppled. Pre Procedural Pulses: right radial was 2+. Oxygen started at 2liters/min via nasal canula. right groin was prepped with chloroprep then draped in the usual sterile fashion. right radial was prepped with chloroprep then draped in the usual sterile fashion. Physician notified. Baseline sample Acquired. HR: 98 BPM. Physician arrived. Current Diagnosis : NSTEMI. Physician scrubbed in. Immediate Pre-Procedure Time Out. Correct Patient: Yes; Correct Procedure: Yes; Correct Site: Yes; Correct Patient Position: Yes; Correct Supplies: Yes; Dried Flammable Prep: Yes; Blood Products Available: N/A;. Lidocaine 1% infiltrated to the right radial. Arterial access obtained. A 5 liberian TIG catheter in over wire. wire out. contrast hand injected through the catheter. Inventory is TR Glidewire Angled Stiff Shaft .035 260cm. glidewire inserted through the catheter. catheter unable to advance. Dr. Rivas switching to femoral access. TR band placed. Hemostasis obtained. A TR Band was successful obtaining hemostatsis at the Right Radial artery insertion site. Lidocaine 1% infiltrated to the right groin. Arterial access obtained with micropuncture set. Inventory is JJ Standard Exchange J-Tip Guidewire .035 135cm. A 5 liberian JL4 catheter in over the exchange wire. Multiple views taken of left coronary artery. Catheter removed over the exchange wire. A 5 liberian JR4 catheter in over wire. Multiple views taken of right coronary artery. Catheter removed over the exchange wire. A Manual Compression was successful obtaining hemostatsis at the Right Femoral artery insertion site. Sheath(s) removed and manual pressure held until hemostasis was achieved. Sterile 4x4 and Op-site applied to the puncture site. No oozing or hematoma noted. Post sheath removal instructions were given and the patient verbalized understanding. Physician scrubbed out. Post Procedure: Pulses reassessed and unchanged. PERRLA. Strong, equal hand dentist bilaterally. No VTE prophylaxis required. Contrast type used: Omnipaque 300 mgI/mL, 500 mL bottle. Medication's Wasted: Nitro = 49.8 mg. Medication's Wasted: Lidocaine 1% = 12 mL. Medication's Wasted: Heparin = 1000 units. Medication's Wasted: Other = Fentanyl 50 mcg. Total IV fluids: 59 mL. Post-op diagnosis: CAD. Complications: None. Estimated blood loss: 5mL-10mL. Procedure completed. Patient transferred by bed to 1st floor. Vital chart was stopped. Access Site Site: Right Radial artery Sheath Size: 6 Fr Hemostasis Method: TR Band Hemostasis Success: Successful Site: Right Femoral artery Sheath Size: 6 Fr Hemostasis Method: Manual Compression Hemostasis Success: Successful Procedure Medications Start: 11:42 AM Stop: 11:42 AM Medication: Versed 1 mg and Fentanyl 25 mcg Amount: 1 Route: I.V. Start: 11:53 AM Stop: 11:53 AM Medication: Nitrogylcerin Amount: 200 mcg Route: I.A. Start: 12:12 PM Stop: 12:12 PM Medication: Versed Amount: 0.5 mg Route: I.V. Start: 12:21 PM Stop: 12:21 PM Medication: Versed Amount: 0.5 mg Route: I.V. Start: 12:24 PM Stop: 12:24 PM Medication: Fentanyl Amount: 25 mcg Route: I.V. I, the attending physician, have reviewed and verified all procedure medications. Yes, all medications given per verbal order History/Risk Factors Hypertension: Yes Dyslipidemia: No Peripheral Arterial Disease (PAD): Yes Myocardial Infarction (ME): No Obesity: No Renal Disease: No Prior Interventions PCI: Yes CABG: No Valve Surgery: No Report Signatures Finalized by Jason Rivas MD on 10/16/2020 03:10 PM
[2020-10-01] MEDS: sodium chloride 0.9% 1,000 ML 75 ML IV (13:00)
[2020-10-01 13:21] LABS: Glucose Point of Care 147 mg/dL (70-110)
--- NOTE | 2020-10-01 14:10 | PC.NURSE ---
return from cardiac skilled laborer at 1255.drowsy but easily awakened.afib at controlled rate on monitor.right wrist with tr band on and inflated.right hand is warm to touch and with brisk capillary refill.palpable radial pulse noted distal to tr band.no hematoma noted.right groin with drsg dry and intact(sheath had been pulled in skilled laborer,since no heparin was given).no hematoma noted.right leg is warm to touch and with brisk capillary refill.palpable dp pulse noted.instructed in activity restrictions s/p radial and femoral artery procedures...will observe closely,as pt is still a bit confused.bed motion alarm set.
--- NOTE | 2020-10-01 14:59 | PM.PN ---
Subjective Subjective: Interval history: Kwaku was alert this morning, and much less confused. From my understanding he is currently had his angiogram, and had a significantly calcified system and no intervention was able to be performed. Medications: Reviewed: Yes Vitals/I&O/Wt Last Vital Signs Temp 98.0 F 10/01/20 07:50 Pulse 93 10/01/20 14:36 Resp 18 10/01/20 14:29 BP 122/74 10/01/20 07:50 Pulse Ox 92 10/01/20 14:29 09/30/20 10/01/20 10/01/20 22:59 06:59 14:59 Intake Total 120 / 120 Output Total 600 / 1150 Balance 120 / -430 -600 / -1030 Weight last 48 hrs Weight 87.77 kg Weight 88.496 kg Physical Exam Narrative: EXAM NARRATIVE: General exam no apparent distress, alert and oriented Neck supple no lymphadenopathy or thyromegaly Cardiovascular regular rate and rhythm without murmur Lungs clear but with diminished breath sounds at the bases. Abdomen is soft with positive bowel sounds Extremities no cyanosis clubbing or edema Data : 10/01/20 04:27 10/01/20 04:27 Micro: Microbiology 09/25/20 12:59 Blood Culture - Final Blood NO GROWTH AFTER 5 DAYS 09/25/20 13:07 Blood Culture - Final Blood NO GROWTH AFTER 5 DAYS A&P Assessment and plan (1) Hypoxia: Multifactorial, secondary to pneumonia as well as acute systolic heart failure. Echocardiogram demonstrated EF 45 to 50% Currently on cefepime and vancomycin. MRSA PCR was negative so vancomycin discontinued Covid PCR is negative. CTA did not demonstrate pulmonary embolism. Bilateral pleural effusions were noted consistent with heart failure. Chest x-ray reviewed and lower lobe infiltrate somewhat cleared. Requiring minimal oxygen currently. Status: Acute (2) Sepsis: Sepsis resolved. Secondary to bilateral lower lobe pneumonia. Antibiotics as above. Blood cultures negative to date. Status: Acute (3) Anemia: Hemoglobin responded well to PRBC transfusion from 6.4 appropriately up to 8.8 after 2 units. Consistent with iron deficiency anemia Stool Hemoccult negative Consider follow-up as an outpatient. Status: Acute (4) OCTAVIA (acute kidney injury): Underlying chronic kidney disease ARB held Renal function improved No obstruction on CT renal protocol Status: Acute Additional A&P Information Acute systolic heart failure. Appears improved Pneumonia. See notations under hypoxia. Hyponatremia, resolved Delirium. B12 was normal. TSH, CT head no overall concerns. Change Zyprexa to 2.5 mg at night as needed. I have hopes that this is clearing. Reorient today. Up with physical therapy. Initiate feeding. Speech therapy if needed. Type 2 diabetes. Sliding scale insulin. Hypertension holding carvedilol and valsartan Coronary artery disease with elevated troponin. Cardiology consulted. Continue Plavix, aspirin, statin, beta-sallie. Angiogram was performed today. LAD, OM with significant stenosis and calcification. Medical mgmt recommended. History of CVA Abdominal aortic aneurysm. Will need outpatient follow-up. Family aware. Attestations Medical Necessity Statement*: Needs continued hospitalization for IV antibiotics secondary to pneumonia. Coding Level of Care Code Acute Industrial Hygiene Engineer for g Carmen Diagnoses Hypoxia R09.02 Sepsis A41.9 Anemia D64.9 OCTAVIA (acute kidney injury) N17.9
[2020-10-01 16:54] LABS: Glucose Point of Care 186 mg/dL (70-110)
[2020-10-01] MEDS: cefepime 1,000 MG in sodium chloride 0.9% (plus) 100 ML 200 MG IV (17:07)
[2020-10-01] MEDS: cetylpyridinium Lozenge 1 EACH MUCOUS MEM (18:00)
--- NOTE | 2020-10-01 19:36 | PC.NURSE ---
Shift Note right radial tr band was slowly deflated and finally dc'd at 1600.no hematoma noted.right hand remains warm and dry and with palpable pulse.site dressed with 2x2 gauze and opsite.pt is less confused than yesterday..still searches for some words. Frequent safety and comfort rounds continue. Orders and/or nursing care completed as indicated. Patient monitored for response to intervention and treatment(s). Education provided includes[pre and post cardiac cath instructions]. Patient and/or security systems sales representative [[email or web address]]. Will continue to monitor.
[2020-10-01 20:39] LABS: Glucose Point of Care 169 mg/dL (70-110)
[2020-10-01] MEDS: ALPRAZolam 0.5 mg Tablet 0.25 MG PO (21:15)
[2020-10-01] MEDS: temazepam 15 mg Capsule PO (21:15)
[2020-10-01] MEDS: atorvastatin 40 mg Tablet PO (21:15)
[2020-10-02] VITALS (11 sets, daily range): BP systolic 117–140; BP diastolic 82–83; PULSE 72–113; RESP 16–22; TEMP 36.6–37; O2SAT 90–92
[2020-10-02] MEDS: ipratropium-albuterol 3 mL Neb INHALATION ×3 (04:04→14:08)
[2020-10-02 04:59] LABS: Basophils # 0.1 10^3/uL (0.0-0.1); Basophils % 0.9 %; Eosinophils # 0.2 10^3/uL (0.0-0.8); Eosinophils % 4.2 %; Hematocrit 27.3 % (42.0-52.0); Lymphocytes # 0.8 10^3/uL (0.8-4.8); Lymphocytes % 15.1 %; Mean Corpuscular HGB Conc 29.3 g/dL (30.0-36.0); Mean Corpuscular Hemoglobin 22.5 pg (28.0-34.0); Mean Corpuscular Volume 76.9 fL (80-94); Mean Platelet Volume 10.3 fL (7.4-10.4); Monocytes # 0.5 10^3/uL (0.2-0.9); Monocytes % 8.2 %; Neutrophils # 3.89 10^3/uL (1.8-7.7); Neutrophils % 70.9 %; Nucleated Red Blood Cells % 0 %; Platelet Count 427 10^3/cmm (130-400); Red Blood Count 3.55 10^6/uL (4.1-5.3); Red Cell Distribution Width 20.3 % (12.1-15.1); White Blood Count 5.5 10^3/uL (4.0-10.0)
[2020-10-02] MEDS: enoxaparin 100 mg/mL Syringe 90 MG SUBCUT (05:07)
[2020-10-02 05:19] LABS: Anion Gap 15.9 (5-19); Blood Urea Nitrogen 24 mg/dL (8-23); Calcium 8.7 mg/dL (8.5-10.5); Carbon Dioxide 17 mmol/L (22-29); Chloride 112 mmol/L (98-107); Glucose 159 mg/dL (65-115); Osmolality Calculated 299 mOsm/kg (285-295); Potassium 3.9 mmol/L (3.5-5.1); Sodium 141 mmol/L (136-145)
[2020-10-02 05:32] LABS: Creatinine Clr Calc Pharmacy 45.9038
--- NOTE | 2020-10-02 06:15 | PC.NURSE ---
Shift Note Frequent safety and respiratory rounds continue. Orders completed as indicated. Patient monitored pre and post treatments throughout shift. Patient tolerated treatments appropriately. Condition did not change. Patient educated on treatment and medications. Will continue to monitor patient progress.
[2020-10-02 07:21] LABS: Glucose Point of Care 175 mg/dL (70-110)
[2020-10-02] MEDS: budesonide 0.5 mg/2 mL Neb INHALATION (07:53)
[2020-10-02] MEDS: cilostazol 100 mg Tablet PO (08:07)
[2020-10-02] MEDS: aspirin 81 mg EC Tablet PO (08:07)
[2020-10-02] MEDS: clopidogrel 75 mg Tablet PO (08:08)
[2020-10-02] MEDS: metoprolol tartrate 50 mg Tablet 100 MG PO (08:08)
[2020-10-02] MEDS: famotidine 20 mg Tablet PO (08:08)
--- NOTE | 2020-10-02 09:23 | PM.PN ---
Subjective Subjective: Interval history: Patient is doing well. no compalints of chest pain, shortness of breath or palpitations. Vitals/I&O/Wt Last Vital Signs Temp 97.9 F 10/02/20 08:03 Pulse 113 H 10/02/20 08:03 Resp 22 H 10/02/20 08:03 BP 117/82 10/02/20 08:03 Pulse Ox 92 10/02/20 08:03 10/01/20 10/02/20 10/02/20 22:59 06:59 14:59 Intake Total 340 / 340 1000 / 1340 Output Total 350 / 350 Balance 340 / 340 650 / 990 Weight last 48 hrs Weight 198 lb 6.4 oz Weight 193 lb 8 oz Physical Exam Narrative: EXAM NARRATIVE: GENERAL: Patient is confused NECK: No jugular vein distension. [] HEENT: No cyanosis. No icterus. No pallor. [] HEART: Tachycardic, regular S1 and S2. No murmur, rub or gallop. [] LUNGS: Has mild wheezing bilaterally ABDOMEN: Soft, nontender and nondistended. Positive bowel sounds. No guarding, rebound or tenderness. [] CENTRAL NERVOUS SYSTEM: Grossly nonfocal. [] EXTREMITIES: Lower extremities with 1+ edema bilaterally. Pulses palpable in the lower extremities, both dorsalis pedis and posterior tibial. [] Data : 10/02/20 04:34 10/02/20 04:34 A&P Assessment and plan (1) Anemia: Status: Acute (2) OCTAVIA (acute kidney injury): Status: Resolved (3) Sepsis: Status: Resolved (4) Diabetes mellitus: Status: Acute (5) Hypertension: Status: Acute (6) Coronary artery disease: Status: Acute (7) Intermittent claudication: Status: Acute (8) Pneumonia: Status: Acute (9) Hypoxia: Status: Resolved (10) Troponin level elevated: Status: Resolved (11) Atrial fibrillation with RVR: Status: Resolved Patient had presented with respiratory symptoms however significant troponin elevation. Troponins went above 5000. Coronary angiogram was performed yesterday that showed severely calcified proximal to mid LAD significant stenosis however it is a moderate sized vessel. Patient also has a relatively small OM branch that has subtotal occlusion and appears chronic. His troponin elevation of more than 5000 is not explained by his coronary artery disease which is chronic. At this time as he is not having active symptoms of chest pain, will medically treat his CAD. 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 Hemoglobin staying stable. His creatinine is stable His abdominal aortic aneurysm is at 5.3 cm. Atrial fibrillation is rate controlled now. Will need discussion with family to see if we need to continue with anticoagulation for stroke prevention. However his bleeding risk will be higher. COVID testing was negative Thank you for involving us with the care of this patient. Patient is stable to be discharged from cardiology standpoint. Please call with questions. Attestations Medical Necessity Statement*: Care expected to cross 2 midnights. Coding Level of Care Code Acute Director Of Business Services for [employer] Fwd Diagnoses Anemia D64.9 OCTAVIA (acute kidney injury) N17.9 Sepsis A41.9 Diabetes mellitus E11.9 Hypertension I10 Coronary artery disease I25.10 Intermittent claudication I73.9 Pneumonia J18.9 Hypoxia R09.02 Troponin level elevated R77.8 Atrial fibrillation with RVR I48.91
[2020-10-02 11:13] LABS: Glucose Point of Care 149 mg/dL (70-110)
--- NOTE | 2020-10-02 13:28 | P.DS_ITS ---
Discharge Providers Date of Admission: 09/26/20 17:13 Date of Discharge: October 02, 2020 Attending Provider at Admission: Pito Guerra Attending Provider at Discharge: Lux Harkins MD Diagnoses at Discharge Discharge Diagnosis (1) Anemia: Status: Acute (2) OCTAVIA (acute kidney injury): Status: Acute (3) Sepsis: Status: Acute (4) Diabetes mellitus: Status: Acute (5) Hypertension: Status: Acute (6) Coronary artery disease: Status: Acute (7) Intermittent claudication: Status: Acute (8) Pneumonia: Status: Acute (9) Hypoxia: Status: Acute (10) Troponin level elevated: Status: Acute (11) Atrial fibrillation with RVR: Status: Acute Reason for Visit Reason for Visit: HYPOTENSION/ AFIB/ TEMP Hospital Course Hospital Course Kwaku is an 85-year-old white male who presented on September 25 to the hospital, with atrial fibrillation elevated temperature and hypotension. He was diagnosed with sepsis and placed on cefepime and vancomycin. He was given oxygen. Secondary to his acute kidney injury many of his blood pressure medications were held. Troponin was found to be significantly elevated. Ejection fraction found to be approximately 45 to 50% with global hypokinesis. He was also noted to be anemic, but had a negative stool Hemoccult. He received a blood transfusion. With treatment for pneumonia and the patient gradually stabilized. Significant confusion was present at first which gradually improved. TSH B12 and CT had demonstrated no concerning findings. Medication adjustment occurred for atrial fibrillation. Hypotension and acute kidney injury resolved. On October 01, he was stable enough for angiogram. Please see report for full details. From my u nderstanding LAD and circumflex had some significant stenosis but were heavily calcified and intervention was not performed secondary to risk. Medical management was recommended which was discussed with the family who agreed. By the the patient's confusion was better, although some mild deficits persisted. He was able to ambulate with minimal assist. He was on room air oxygen. Heart rate was controlled with current medications. 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 He may need were further work-up of his anemia. He will be placed on Protonix 40 mg daily. Laboratory should be obtained at his next visit, next week in 3 to 5 days with his primary care provider. I discussed anticoagulation with his daughter. Secondary to bleeding risks she wished to not have him anticoagulated, but continue Plavix and aspirin. Physical Exam Narrative: EXAM NARRATIVE: General exam no apparent distress Neck is supple no lymphadenopathy or thyromegaly Cardiovascular regular in rhythm without murmur Lungs clear Abdomen is soft, positive bowel sounds Extremities no cyanosis clubbing or edema Discharge Data Data Completed and Pending: Completed Studies During Hospitalization Category Date Time Status CT angio chest PE protcl [id number] Stat Cat Scan 09/27/20 19:[address] head wo con* 7 0450 Urgent Cat Scan 09/25/20 12:[address] kidney stone 7 4176 Routine Cat Scan 09/25/20 19:15 Completed XR chest 1V 29007 Urgent Exams 09/25/20 12:11 Completed XR chest 1V irene ble [id number] Routine Exams 09/30/20 09:24 Completed XR chest 1V irene ble [id number] Stat Exams 09/27/20 18:17 Completed CV. echo complete * [id number] Routine Ultrasound 09/26/20 19:16 Completed Pending at discharge Category Date Time Status [employer] HEAD T[employer]ER request for service Routin e Exams 10/01/20 11:34 Taken Labs from last 24 hours 10/02/20 10/02/20 10/02/20 11:10 06:26 04:34 WBC RBC Hgb Hct MCV MCH MCHC RDW Plt Count MPV Neut % (Auto) Lymph % (Auto) [place] % (Auto) Eos % (Auto) Baso % (Auto) Neut # (Auto) Lymph # (Auto) [place] # (Auto) Eos # (Auto) Baso # (Auto) Nucleated RBC % (a uto) Nucleated RBCs # Sodium 141 Potassium 3.9 Chloride 112 H Carbon Dioxide 17 L Anion Gap 15.9 BUN 24 H Creatinine 1.4 H GFR Calculation Not Reportable Glucose 159 H POC Glucose 149 H 175 H Calculated Osmolal ity 299 H Calcium 8.7 10/02/20 10/01/20 10/01/20 04:34 20:08 16:46 WBC 5.5 RBC 3.55 L Hgb 8.0 L Hct 27.3 L MCV 76.9 L MCH 22.5 L MCHC 29.3 L RDW 20.3 H Plt Count 427 H MPV 10.3 Neut % (Auto) 70.9 Lymph % (Auto) 15.1 [place] % (Auto) 8.2 Eos % (Auto) 4.2 Baso % (Auto) 0.9 Neut # (Auto) 3.89 Lymph # (Auto) 0.8 [place] # (Auto) 0.5 Eos # (Auto) 0.2 Baso # (Auto) 0.1 Nucleated RBC % (a uto) 0 Nucleated RBCs # 0.0 Sodium Potassium Chloride Carbon Dioxide Anion Gap BUN Creatinine GFR Calculation Glucose POC Glucose 169 H 186 H Calculated Osmolal ity Calcium Vitals: Last Vital Signs Temp 97.9 F 10/02/20 08:03 Pulse 113 H 10/02/20 08:03 Resp 22 H 10/02/20 08:03 BP 117/82 10/02/20 08:03 Pulse Ox 92 10/02/20 08:03 Discharge Plan Discharge Patient Disposition: Home Condition: Stable Prescriptions: New metoprolol tartrate 50 mg Tablet 100 mg PO BID@0900,2100 Qty: 120 RF: 0 amoxicillin-pot clavulanate [Augmentin] 875-125 mg tablet 1 tab PO BID Qty: 6 RF: 0 pantoprazole [Protonix] 40 mg tablet,delayed release (DR/EC) 40 mg PO DAILY Qty: 30 RF: 0 furosemide [Lasix] 20 mg tablet 20 mg PO QAM Qty: 30 RF: 0 Continued atorvastatin 40 mg Tablet See Rx Instructions .ROUTE .COMPLEX RF: 0 clopidogrel 75 mg Tablet 75 mg PO DAILY RF: 0 aspirin 81 mg Tablet,Delayed Release (Dr/Ec) 81 mg PO DAILY RF: 0 albuterol sulfate 90 mcg/actuation Hfa Aerosol Inhaler 2 puff INHALATION Q6H PRN (Reason: Shortness Of Breath) RF: 0 glipizide 5 mg Tablet 5 mg PO DAILY RF: 0 insulin glulisine U-100 100 unit/mL Solution See Rx Instructions .ROUTE .COMPLEX RF: 0 acetaminophen [Tylenol] 325 mg Tablet 325 mg PO QID PRN (Reason: pain/headache) RF: 0 cilostazol 100 mg Tablet 100 mg PO BID RF: 0 Discontinued carvedilol 6.25 mg Tablet 6.25 mg PO BID RF: 0 Hold Instructions: Resume on 08/24/19. 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 operator whether or not to resume amlodipine 10 mg Tablet 10 mg PO DAILY RF: 0 benzonatate 100 mg Capsule 100 mg PO TID RF: 0 valsartan 160 mg Tablet 80 mg PO DAILY RF: 0 hydralazine 25 mg tablet 25 mg PO DAILY RF: 0 meclizine 25 mg Tablet,Chewable 25 mg PO TID PRN (Reason: MOTION SICKNESS/DIZZINESS) RF: 0 amlodipine 2.5 mg Tablet 2.5 mg PO DAILY RF: 0 Discharge Orders: Discharge Order (Routine); Ordered 10/02/20 Ordered By: Lux Harkins Discharge Diet: Cardiac and Diabetic Discharge Activity: Increase activity as tolerated Patient Instructions: Left Heart Catheterization (DC), Opioid Safety Activity Restrictions/Additional Instructions: Take all medicine as prescribed Follow-up with physician at [facility] [place] next week, cardiology they are within 1 to 2 weeks. CBC and BMP on follow-up next week. Discharge Attestations Time Spent in Discharge Care*: greater than 30 min Quality Metrics Clinical Quality Measures During this hospital stay, did patient experience: None Coding Level of Care Code Acute Chg FW DC note Diagnoses Anemia D64.9 OCTAVIA (acute kidney injury) N17.9 Sepsis A41.9 Diabetes mellitus E11.9 Hypertension I10 Coronary artery disease I25.10 Intermittent claudication I73.9 Pneumonia J18.9 Hypoxia R09.02 Troponin level elevated R77.8 Atrial fibrillation with RVR I48.91
--- NOTE | 2020-10-02 16:26 | PC.NURSE ---
Discharge Note Patient discharged to [home] via [ambulatory] accompanied by [daughter]. 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 Mobile pharmacy medications and/or prescriptions provided. ([facility]) Belongings/home medications returned.
--- NOTE | 2020-10-06 11:55 | PC.SOCIAL ---
discharge hospital follow up call. Patient picked up new medications and is taking as prescribed. Pt is aware of discontinued medications and has stopped those as directed. Patient has appointment with PCP next week and has contact cardiology for an appointment.
== END 2020-10-02 16:27 | disposition home or self-care (01) | DRG 871 ==
LOC: ER 12:43 → ER IP 23:13 → MEDSURG 09-26 11:59 → CSU 09-27 20:16
PROVIDERS: Internal Medicine; Admitting Provider Internal Medicine; Emergency Provider Emergency Medicine; Visit Provider Internal Medicine
DX: A41.9 Sepsis, unspecified organism (principal); J18.9 Pneumonia, unspecified organism; I50.21 Acute systolic (congestive) heart failure; N17.9 Acute kidney failure, unspecified; E87.1 Hypo-osmolality and hyponatremia; I13.0 Hypertensive heart and chronic kidney disease with heart failure and stage 1 through stage 4 chronic kidney disease, or unspecified chronic kidney disease; E78.5 Hyperlipidemia, unspecified; I25.10 Atherosclerotic heart disease of native coronary artery without angina pectoris; E11.22 Type 2 diabetes mellitus with diabetic chronic kidney disease; I73.9 Peripheral vascular disease, unspecified; R09.02 Hypoxemia; N18.9 Chronic kidney disease, unspecified; D50.9 Iron deficiency anemia, unspecified; Z20.822 Contact with and (suspected) exposure to COVID-19; I71.4 Abdominal aortic aneurysm, without rupture; K44.9 Diaphragmatic hernia without obstruction or gangrene; N28.1 Cyst of kidney, acquired; R77.8 Other specified abnormalities of plasma proteins; Z86.73 Personal history of transient ischemic attack (TIA), and cerebral infarction without residual deficits; Z95.5 Presence of coronary angioplasty implant and graft; Z90.49 Acquired absence of other specified parts of digestive tract; Z81.1 Family history of alcohol abuse and dependence; Z79.4 Long term (current) use of insulin; Z82.49 Family history of ischemic heart disease and other diseases of the circulatory system; Z87.891 Personal history of nicotine dependence; Z84.89 Family history of other specified conditions; Z88.2 Allergy status to sulfonamides; Z79.82 Long term (current) use of aspirin
CPT/HCPCS: 36415; 36416; 36430; 51798; 70450; 71045; 71275; 74176; 80048; 80053; 80076; 80202; 81001; 82009; 82274; 82607; 82728; 82962; 83540; 83550; 83605; 83880; 84145; 84443; 84484; 85014; 85018; 85025; 85045; 86140; 86403; 86850; 86900; 86920; 87040; 87070; 87205; 87426; 87449; 87493; 87506; 87635; 87641; 93005; 93306; 93454; 94640; 94664; 96365; 96367; 96372; 97116; 97161; 97530; 99285; C1769; C1887; C1894; G0378; J0692; J1644; J1650; J1815 ×2; J1940; J2060; J2250; J3010; J3370; J3490; J7030; J7040; J7050; J7626; P9016; Q0163; Q9967

== ENCOUNTER 2020-10-15 10:15 | Inpatient (IN) | payer OTHER, MEDICARE, SELFPAY ==
[2020-10-15] VITALS (28 sets, daily range): BP systolic 82–152; BP diastolic 44–84; PULSE 68–129; RESP 16–36; TEMP 35.8–37.1; O2SAT 91–100; BMI 27.8
--- NOTE | 2020-10-15 | XRR_ITS ---
PROCEDURE INFORMATION: Exam: XR Chest Exam date and time: 10/15/2020 12:00 AM Age: 85 years old Clinical indication: Device placement; Ett placement (vent status); Additional info: Post intubation TECHNIQUE: Imaging protocol: XR of the chest. Views: 1 view. COMPARISON: CR XR chest 1V portable [id number] 10/15/2020 3:13 PM FINDINGS: Tubes, catheters and devices: Endotracheal tube 5-6 cm above veronika. Enteric tube in the thoracic esophagus. Distal tip above esophageal hiatus. Lungs: Right upper lobe pneumonia with improved lung volumes after the invasion. Background emphysema. Pleural spaces: Unremarkable. No pleural effusion. No pneumothorax. Heart/Mediastinum: Unremarkable. No cardiomegaly. Bones/joints: Unremarkable. XR/XR chest 1V portable [id number] IMPRESSION: 1. Satisfactory endotracheal tube position. 2. Enteric tube malpositioned in the thoracic esophagus. Advancement of 15-20 cm recommended. 3. Right upper lobe pneumonia.
--- NOTE | 2020-10-15 10:41 | XR_ITS ---
WS: [id number] Exam: XR chest 1V portable [id number] Date/Time of Exam: 10/15/2020 10:41 AM Reason For Exam: sob Comparison 09/30/2020 Diffuse groundglass infiltrate in the right lung. There may be some atelectasis in the left lower lob e. Small right pleural effusion is seen. No pneumothorax. Heart size is normal. The mediastinum is no t widened. Regional bony structures are intact. XR/XR chest 1V portable [id number] IMPRESSION: 1. Diffuse groundglass infiltrate seen in the right lung. 2. Probable subsegmental atelectasis in the left lower lobe medially. 3. Small right-sided pleural effusion.
--- NOTE | 2020-10-15 10:43 | ECG_ITS ---
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
[2020-10-15 10:58] LABS: Basophils # 0.1 10^3/uL (0.0-0.1); Basophils % 1.2 %; Eosinophils # 0.1 10^3/uL (0.0-0.8); Eosinophils % 1.2 %; Hematocrit 28.6 % (42.0-52.0); Hemoglobin 8.8 g/dL (11.7-16.6); Lymphocytes # 0.8 10^3/uL (0.8-4.8); Mean Corpuscular HGB Conc 30.8 g/dL (30.0-36.0); Mean Corpuscular Hemoglobin 22.8 pg (28.0-34.0); Mean Corpuscular Volume 74.1 fl (80-94); Mean Platelet Volume 9.9 fL (7.4-10.4); Monocytes # 0.6 10^3/uL (0.2-0.9); Monocytes % 11.3 %; Neutrophils # 3.46 10^3/uL (1.8-7.7); Neutrophils % 70.1 %; Nucleated Red Blood Cells % 0 %; Platelet Count 322 10^3/cmm (130-400); Red Blood Count 3.86 10^6/uL (4.1-5.3); Red Cell Distribution Width 21.9 % (12.1-15.1); White Blood Count 4.9 10^3/uL (4.0-10.0)
[2020-10-15 11:18] LABS: Troponin(5th) Baseline 103 ng/L (0-15)
[2020-10-15 11:19] LABS: Alanine Aminotransferase 23 U/L (0-41); Albumin Level 3.1 g/dL (3.5-5.2); Alkaline Phosphatase 62 IU/L (40-130); Anion Gap 17.9 (5-19); Aspartate Amino Transferase 25 U/L (0-40); Blood Urea Nitrogen 23 mg/dL (8-23); Calcium 8.4 mg/dL (8.5-10.5); Carbon Dioxide 20 mmol/L (22-29); Chloride 100 mmol/L (98-107); Globulin 3.1 g/dL (1.3-4.6); Glucose 179 mg/dL (65-115); NT Pro B Type Natriuretic Pept 9392 pg/mL (0-450); Osmolality Calculated 286 mOsm/kg (285-295); Potassium 3.9 mmol/L (3.5-5.1); Sodium 134 mmol/L (136-145); Total Bilirubin 0.6 mg/dL (0.15-1.2); Total Protein 6.2 g/dL (6.6-8.7)
--- NOTE | 2020-10-15 11:43 | CT_ITS ---
WS: [id number] CT CHEST WITHOUT INTRAVENOUS CONTRAST HISTORY: Possible pneumonia, worsening. TECHNIQUE: Contiguous 5 mm axial imaging performed on the thorax. Coronal and sagittal reformats are submitted. All CT scans at [facility] use at least one of these dose optimization techniq ues: automated exposure control; mA and/or kV adjustment per patient size (includes targeted exams wh ere dose is matched to clinical indication); or iterative reconstruction. CONTRAST: None DLP: 967.92 mGy.cm COMPARISON: 09/27/2020 Lungs and central airway: Hyperexpanded lungs with changes of emphysema. Moderate progression of grou ndglass attenuation in the upper lungs bilaterally. Very dense consolidation in the lower lobes bilat erally, greater on the RIGHT than the LEFT. Consolidation may have slightly improved. No pneumothorax . Pleura: Small RIGHT pleural effusion. Heart and pericardium: Normal size heart. Extensive coronary artery atherosclerosis. No pericardial e ffusion. Mediastinum and shay: Numerous mediastinal and hilar lymph nodes. These lymph nodes contain central c alcifications. Probably reactive adenopathy. Vessels: Extensive atherosclerosis aorta. No aneurysm. Dilated pulmonary artery. Chest wall and lower neck: No soft tissue masses. Upper abdomen: Large hiatal hernia. 50% of the stomach is intrathoracic. Normal size liver. Bilateral renal cystic masses. Atherosclerosis within the suprarenal aorta. Incompletely visualized dilatation of the suprarenal aorta. Aneurysm has been previously described. Any change in size of this aneurysm since 2008 cannot be confirmed on this examination. Osseous structures: No destructive process. CT/CT chest wo con [id number] IMPRESSION: 1. Progression of groundglass opacifications in the upper lung white bilatera lly. 2. Continued bilateral lower lobe consolidations with minimal improvement sinc e 09/27/2020. 3. Chronic emphysema. 4. Large hiatal hernia. 5. Reactive lymphadenopathy. 6. Extensive atherosclerosis thoracic aorta. 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 7. Bilateral renal cysts.
[2020-10-15 11:50] LABS: Lactic Sepsis W/Reflex 1.1 mmol/L (0.5-2.2)
--- NOTE | 2020-10-15 12:11 | W.ED.GENADLT ---
HPI - General Adult General: Chief complaint: Shortness of Breath/Dyspnea Stated complaint: PNEUMONIA Time Seen by Provider: 10/15/20 10:44 History of Present Illness: HPI narrative: Patient is a 85-year-old male with a history of A. fib, CAD, who was recently admitted at the hospital for bilateral pneumonia in setting of afib with RVR and hypotension. Patient was discharged from hospital. Earlier today, patient went to the [facility] was found to be hypoxemic to 88%. Patient was noted to have pneumonia. Because patient did not have any records at the [facility], patient was transferred to our emergency room for evaluation. Patient denies any fever/chills, shortness of breath, nausea, vomiting, diarrhea,. Onset:09/25 Duration:ongoing Location:home Severity:moderate Review of Systems Narrative: Constitutional: No fever, no chills. HEENT: No vision changes CV: No chest pain, no palpitations PULM: no cough, no dyspnea. GI: No abdominal pain, no N/V/D. : No dysuria MSKEL: No muscle pain SKIN: No new rashes, no lesions. NEURO: No headache, no focal weakness. 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 Lives independently: Yes Household members: family Marital status: / Current occupational status: retired Physical Exam Narrative: EXAM NARRATIVE: Head: Atraumatic Eyes: PERRL, conjunctiva without injection ENT: Mucous membrane moist NECK: Supple, ROM intact LUNGS: Coarse breath sound sb/l CV: RRR ABDOMEN: Soft, nontender in all quadrants EXTREMITY: Normal ROM SKIN: No rash or erythema NEURO: Awake and alert, no focal motor deficits PSYCH: Normal mood and affect Procedures Central Line Placement Left Femoral: Time Out Performed: Yes Patient Placed on Monitor/Pulse Ox: Yes MD Prep: mask, gown and gloves (7) Central Line Prep: Povidone-Iodine 1% Ultrasound Used for Placement: Yes Central Line Lumen Inserted: triple Post Procedure: sutured in place, good blood return, all ports aspirated, flushed, capped and sterile dressing applied Patient Tolerated Procedure: well Complications: none Intubation Time out performed: Yes sedative: Ketamine Mg Given: 100 paralytic: Vecuronium Mg Given: 10 Laryngoscope: Hunter ET Tube Size: 8 ET Tube Uncuffed: No Tube Secured Depth (cm): 24 Tube Secured Location: lips Tube Placement Confirmation: visualized tube passing through cords Patient Tolerated Procedure: well Intubation Complications: none Course Vital Signs: Vital signs: Vital Signs Temperature 97.1 F L 10/16/20 03:45 Pulse Rate 75 10/16/20 05:38 Respiratory Rate 20 H 10/16/20 05:54 Blood Pressure 141/64 10/16/20 04:15 Pulse Oximetry 94 10/16/20 05:54 MDM - General Adult MDM Narrative: Medical decision making narrative: 85-year-old male with history of b/l bilateral pneumonia, chronic NSTEMI atrial fibrillation not on anticoagulation presented to emergency room with concerns of hypoxemia at the [facility]. Today's imaging is consistent with worsening pneumonia compared to prior study. Patient received Vanco and cefepime in the emergency room. Satting at 92% on 6 L NC. Admitted to hospital for further evaluation of improving pneumonia. S/p vancomycin and cefepime. Disposition: Admission At 3 PM, patient became extremely agitated with elevated heart rate in the 130s. Patient reports difficulty breathing and chest tightness. She was eventually placed on BiPAP given gradual decrease in O2 sat. Eventually, patient was noted to have a soft blood pressure of 70/40 and O2 sat of 90% on BIPAP around 4 PM. Decision was then made to proceed to intubation. Patient was started on peripheral nor epi for blood pressure prior to intubation. BP stable post intubation. Central line placed sterilely in the L fem. Case discussed with patient's family members including SHANIA Castorena and . Patient will be admitted to the ICU Lab Data: Labs: Lab Results 10/15/20 10/15/20 10/15/20 Range/Units 10:10 10:10 10:10 WBC 4.9 (4.0-10.0) 10^3/ uL RBC 3.86 L (4.1-5.3) 10^6/u L Hgb 8.8 L (11.7-16.6) g/dL Hct 28.6 L (42.0-52.0) % MCV 74.1 L (80-94) fl MCH 22.8 L (28.0-34.0) pg MCHC 30.8 (30.0-36.0) g/dL RDW 21.9 H (12.1-15.1) % Plt Count 322 (130-400) 10^3/c mm MPV 9.9 (7.4-10.4) fL Neut % (Auto) 70.1 % Lymph % (Auto) 16.0 % [place] % (Auto) 11.3 % Eos % (Auto) 1.2 % Baso % (Auto) 1.2 % Reticulocyte % (Au to) (0.5-2.0) % Neut # (Auto) 3.46 (1.8-7.7) 10^3/u L Lymph # (Auto) 0.8 (0.8-4.8) 10^3/u L [place] # (Auto) 0.6 (0.2-0.9) 10^3/u L Eos # (Auto) 0.1 (0.0-0.8) 10^3/u L Baso # (Auto) 0.1 (0.0-0.1) 10^3/u L Nucleated RBC % (a uto) 0 % Nucleated RBCs # 0.0 /100WBC D-Dimer (0-0.59) ug/mIFE U Specimen Type Sample Site ABG pH (7.35-7.45) ABG pCO2 (35-45) mmHg ABG pO2 (80.0-100.0) mmH g ABG HCO3 (22-26) mmol/L ABG O2 Saturation ABG Base Excess (-2.0-2.0) mmol/ L Glenn Test A-a O2 Gradient (5-10) mmHg Hematocrit (42-52) % Hgb O2 Saturation (95-100) % Carboxyhemoglobin (0.4-20.1) %THgb Methemoglobin (0.4-1.5) % Total Hemoglobin (14-18) g/dL Ionized Calcium (1.1-1.4) mmol/L O2 Delivery Device FiO2 % Tidal Volume PEEP cmH20 Service Desk Associate ID Sodium 134 L (136-145) mmol/L Potassium 3.9 (3.5-5.1) mmol/L Chloride 100 (98-107) mmol/L Carbon Dioxide 20 L (22-29) mmol/L Anion Gap 17.9 (5-19) BUN 23 (8-23) mg/dL Creatinine 1.6 H (0.7-1.2) mg/dL GFR Calculation Not Reportable Glucose 179 H (65-115) mg/dL POC Glucose (70-110) mg/dL Calculated Osmolal ity 286 (285-295) mOsm/k g Lactic Acid (0.5-2.2) mmol/L Lactate (0.5-2.2) mmol/L Calcium 8.4 L (8.5-10.5) mg/dL Magnesium (1.7-2.3) mg/dL Iron (59-158) ug/dL Ferritin (30-400) ng/mL Total Bilirubin 0.6 (0.15-1.2) mg/dL AST 25 (0-40) U/L ALT 23 (0-41) U/L Alkaline Phosphata se 62 (40-130) IU/L Troponin T Baselin e 103 H* (0-15) ng/L Troponin T 120 Min [place] (0-15) ng/L Delta Troponin T (0-10) ABS# Troponin T Hi Sens 6Hr (0-15) ng/L Troponin T Hi Sens 6Hr Delta (0-12) ng/L C-Reactive Protein (0.0-4.9) mg/L NT-Pro-B Natriuret Pep 9392 H (0-450) pg/mL Total Protein 6.2 L (6.6-8.7) g/dL Albumin 3.1 L (3.5-5.2) g/dL Globulin 3.1 (1.3-4.6) g/dL Procalcitonin (0-0.5) ng/mL SARS-CoV-2 Ag (Rap id) (Negative) 10/15/20 10/15/20 10/15/20 Range/Units 10:10 10:10 10:10 WBC (4.0-10.0) 10^3/ uL RBC (4.1-5.3) 10^6/u L Hgb (11.7-16.6) g/dL Hct (42.0-52.0) % MCV (80-94) fl MCH (28.0-34.0) pg MCHC (30.0-36.0) g/dL RDW (12.1-15.1) % Plt Count (130-400) 10^3/c mm MPV (7.4-10.4) fL Neut % (Auto) % Lymph % (Auto) % [place] % (Auto) % Eos % (Auto) % Baso % (Auto) % Reticulocyte % (Au to) 0.8 (0.5-2.0) % Neut # (Auto) (1.8-7.7) 10^3/u L Lymph # (Auto) (0.8-4.8) 10^3/u L [place] # (Auto) (0.2-0.9) 10^3/u L Eos # (Auto) (0.0-0.8) 10^3/u L Baso # (Auto) (0.0-0.1) 10^3/u L Nucleated RBC % (a uto) % Nucleated RBCs # /100WBC D-Dimer (0-0.59) ug/mIFE U Specimen Type Sample Site ABG pH (7.35-7.45) ABG pCO2 (35-45) mmHg ABG pO2 (80.0-100.0) mmH g ABG HCO3 (22-26) mmol/L ABG O2 Saturation ABG Base Excess (-2.0-2.0) mmol/ L Glenn Test A-a O2 Gradient (5-10) mmHg Hematocrit (42-52) % Hgb O2 Saturation (95-100) % Carboxyhemoglobin (0.4-20.1) %THgb Methemoglobin (0.4-1.5) % Total Hemoglobin (14-18) g/dL Ionized Calcium (1.1-1.4) mmol/L O2 Delivery Device FiO2 % Tidal Volume PEEP cmH20 Service Desk Associate ID Sodium (136-145) mmol/L Potassium (3.5-5.1) mmol/L Chloride (98-107) mmol/L Carbon Dioxide (22-29) mmol/L Anion Gap (5-19) BUN (8-23) mg/dL Creatinine (0.7-1.2) mg/dL GFR Calculation Glucose (65-115) mg/dL POC Glucose (70-110) mg/dL Calculated Osmolal ity (285-295) mOsm/k g Lactic Acid (0.5-2.2) mmol/L Lactate (0.5-2.2) mmol/L Calcium (8.5-10.5) mg/dL Magnesium (1.7-2.3) mg/dL Iron 12 L (59-158) ug/dL Ferritin 95 (30-400) ng/mL Total Bilirubin (0.15-1.2) mg/dL AST (0-40) U/L ALT (0-41) U/L Alkaline Phosphata se (40-130) IU/L Troponin T Baselin e (0-15) ng/L Troponin T 120 Min [place] (0-15) ng/L Delta Troponin T (0-10) ABS# Troponin T Hi Sens 6Hr (0-15) ng/L Troponin T Hi Sens 6Hr Delta (0-12) ng/L C-Reactive Protein 96.0 H (0.0-4.9) mg/L NT-Pro-B Natriuret Pep (0-450) pg/mL Total Protein (6.6-8.7) g/dL Albumin (3.5-5.2) g/dL Globulin (1.3-4.6) g/dL Procalcitonin 0.18 (0-0.5) ng/mL SARS-CoV-2 Ag (Rap id) (Negative) 10/15/20 10/15/20 10/15/20 Range/Units 11:20 12:40 13:03 WBC (4.0-10.0) 10^3/ uL RBC (4.1-5.3) 10^6/u L Hgb (11.7-16.6) g/dL Hct (42.0-52.0) % MCV (80-94) fl MCH (28.0-34.0) pg MCHC (30.0-36.0) g/dL RDW (12.1-15.1) % Plt Count (130-400) 10^3/c mm MPV (7.4-10.4) fL Neut % (Auto) % Lymph % (Auto) % [place] % (Auto) % Eos % (Auto) % Baso % (Auto) % Reticulocyte % (Au to) (0.5-2.0) % Neut # (Auto) (1.8-7.7) 10^3/u L Lymph # (Auto) (0.8-4.8) 10^3/u L [place] # (Auto) (0.2-0.9) 10^3/u L Eos # (Auto) (0.0-0.8) 10^3/u L Baso # (Auto) (0.0-0.1) 10^3/u L Nucleated RBC % (a uto) % Nucleated RBCs # /100WBC D-Dimer (0-0.59) ug/mIFE U Specimen Type Arterial Sample Site Radial, left ABG pH 7.48 H (7.35-7.45) ABG pCO2 30.2 L (35-45) mmHg ABG pO2 55.9 L (80.0-100.0) mmH g ABG HCO3 22.4 (22-26) mmol/L ABG O2 Saturation ABG Base Excess -0.7 (-2.0-2.0) mmol/ L Glenn Test Pos A-a O2 Gradient (5-10) mmHg Hematocrit 25.1 L (42-52) % Hgb O2 Saturation (95-100) % Carboxyhemoglobin (0.4-20.1) %THgb Methemoglobin (0.4-1.5) % Total Hemoglobin (14-18) g/dL Ionized Calcium (1.1-1.4) mmol/L O2 Delivery Device Nc FiO2 36.0 % Tidal Volume PEEP cmH20 Service Desk Associate ID Cak Sodium (136-145) mmol/L Potassium (3.5-5.1) mmol/L Chloride (98-107) mmol/L Carbon Dioxide (22-29) mmol/L Anion Gap (5-19) BUN (8-23) mg/dL Creatinine (0.7-1.2) mg/dL GFR Calculation Glucose (65-115) mg/dL POC Glucose (70-110) mg/dL Calculated Osmolal ity (285-295) mOsm/k g Lactic Acid 1.1 (0.5-2.2) mmol/L Lactate (0.5-2.2) mmol/L Calcium (8.5-10.5) mg/dL Magnesium (1.7-2.3) mg/dL Iron (59-158) ug/dL Ferritin (30-400) ng/mL Total Bilirubin (0.15-1.2) mg/dL AST (0-40) U/L ALT (0-41) U/L Alkaline Phosphata se (40-130) IU/L Troponin T Baselin e (0-15) ng/L Troponin T 120 Min [place] 83.99 H (0-15) ng/L Delta Troponin T -19.01 L (0-10) ABS# Troponin T Hi Sens 6Hr (0-15) ng/L Troponin T Hi Sens 6Hr Delta (0-12) ng/L C-Reactive Protein (0.0-4.9) mg/L NT-Pro-B Natriuret Pep (0-450) pg/mL Total Protein (6.6-8.7) g/dL Albumin (3.5-5.2) g/dL Globulin (1.3-4.6) g/dL Procalcitonin (0-0.5) ng/mL SARS-CoV-2 Ag (Rap id) (Negative) 10/15/20 10/15/20 10/15/20 Range/Units 13:14 15:06 15:49 WBC (4.0-10.0) 10^3/ uL RBC (4.1-5.3) 10^6/u L Hgb (11.7-16.6) g/dL Hct (42.0-52.0) % MCV (80-94) fl MCH (28.0-34.0) pg MCHC (30.0-36.0) g/dL RDW (12.1-15.1) % Plt Count (130-400) 10^3/c mm MPV (7.4-10.4) fL Neut % (Auto) % Lymph % (Auto) % [place] % (Auto) % Eos % (Auto) % Baso % (Auto) % Reticulocyte % (Au to) (0.5-2.0) % Neut # (Auto) (1.8-7.7) 10^3/u L Lymph # (Auto) (0.8-4.8) 10^3/u L [place] # (Auto) (0.2-0.9) 10^3/u L Eos # (Auto) (0.0-0.8) 10^3/u L Baso # (Auto) (0.0-0.1) 10^3/u L Nucleated RBC % (a uto) % Nucleated RBCs # /100WBC D-Dimer (0-0.59) ug/mIFE U Specimen Type Arterial Sample Site Radial, left ABG pH 7.46 H (7.35-7.45) ABG pCO2 28.7 L (35-45) mmHg ABG pO2 58.2 L (80.0-100.0) mmH g ABG HCO3 20.3 L (22-26) mmol/L ABG O2 Saturation ABG Base Excess -2.9 L (-2.0-2.0) mmol/ L Glenn Test Pos A-a O2 Gradient (5-10) mmHg Hematocrit 27.6 L (42-52) % Hgb O2 Saturation (95-100) % Carboxyhemoglobin (0.4-20.1) %THgb Methemoglobin (0.4-1.5) % Total Hemoglobin (14-18) g/dL Ionized Calcium (1.1-1.4) mmol/L O2 Delivery Device Bipap FiO2 60.0 % Tidal Volume PEEP cmH20 Service Desk Associate ID Cak Sodium (136-145) mmol/L Potassium (3.5-5.1) mmol/L Chloride (98-107) mmol/L Carbon Dioxide (22-29) mmol/L Anion Gap (5-19) BUN (8-23) mg/dL Creatinine (0.7-1.2) mg/dL GFR Calculation Glucose (65-115) mg/dL POC Glucose 130 H (70-110) mg/dL Calculated Osmolal ity (285-295) mOsm/k g Lactic Acid (0.5-2.2) mmol/L Lactate (0.5-2.2) mmol/L Calcium (8.5-10.5) mg/dL Magnesium (1.7-2.3) mg/dL Iron (59-158) ug/dL Ferritin (30-400) ng/mL Total Bilirubin (0.15-1.2) mg/dL AST (0-40) U/L ALT (0-41) U/L Alkaline Phosphata se (40-130) IU/L Troponin T Baselin e (0-15) ng/L Troponin T 120 Min [place] (0-15) ng/L Delta Troponin T (0-10) ABS# Troponin T Hi Sens 6Hr (0-15) ng/L Troponin T Hi Sens 6Hr Delta (0-12) ng/L C-Reactive Protein (0.0-4.9) mg/L NT-Pro-B Natriuret Pep (0-450) pg/mL Total Protein (6.6-8.7) g/dL Albumin (3.5-5.2) g/dL Globulin (1.3-4.6) g/dL Procalcitonin (0-0.5) ng/mL SARS-CoV-2 Ag (Rap id) Negative (Negative) 10/15/20 10/15/20 10/15/20 Range/Units 18:19 18:30 18:30 WBC (4.0-10.0) 10^3/ uL RBC (4.1-5.3) 10^6/u L Hgb (11.7-16.6) g/dL Hct (42.0-52.0) % MCV (80-94) fl MCH (28.0-34.0) pg MCHC (30.0-36.0) g/dL RDW (12.1-15.1) % Plt Count (130-400) 10^3/c mm MPV (7.4-10.4) fL Neut % (Auto) % Lymph % (Auto) % [place] % (Auto) % Eos % (Auto) % Baso % (Auto) % Reticulocyte % (Au to) (0.5-2.0) % Neut # (Auto) (1.8-7.7) 10^3/u L Lymph # (Auto) (0.8-4.8) 10^3/u L [place] # (Auto) (0.2-0.9) 10^3/u L Eos # (Auto) (0.0-0.8) 10^3/u L Baso # (Auto) (0.0-0.1) 10^3/u L Nucleated RBC % (a uto) % Nucleated RBCs # /100WBC D-Dimer 3.69 H (0-0.59) ug/mIFE U Specimen Type Arterial Sample Site Radial, left ABG pH 7.30 L (7.35-7.45) ABG pCO2 41.8 (35-45) mmHg ABG pO2 96.6 (80.0-100.0) mmH g ABG HCO3 20.5 L (22-26) mmol/L ABG O2 Saturation 95.6 ABG Base Excess -5.5 L (-2.0-2.0) mmol/ L Glenn Test Pos A-a O2 Gradient 54.8 H (5-10) mmHg Hematocrit 29.1 L (42-52) % Hgb O2 Saturation 93.9 L (95-100) % Carboxyhemoglobin 1.1 (0.4-20.1) %THgb Methemoglobin 0.7 (0.4-1.5) % Total Hemoglobin 9.5 L (14-18) g/dL Ionized Calcium 1.2 (1.1-1.4) mmol/L O2 Delivery Device Vent FiO2 80.0 % Tidal Volume 0.50 PEEP 10.0 cmH20 Service Desk Associate ID Cak Sodium 139.0 (136-145) mmol/L Potassium 3.8 (3.5-5.1) mmol/L Chloride (98-107) mmol/L Carbon Dioxide (22-29) mmol/L Anion Gap (5-19) BUN (8-23) mg/dL Creatinine (0.7-1.2) mg/dL GFR Calculation Glucose 237.0 H (65-115) mg/dL POC Glucose (70-110) mg/dL Calculated Osmolal ity (285-295) mOsm/k g Lactic Acid (0.5-2.2) mmol/L Lactate (0.5-2.2) mmol/L Calcium (8.5-10.5) mg/dL Magnesium (1.7-2.3) mg/dL Iron (59-158) ug/dL Ferritin (30-400) ng/mL Total Bilirubin (0.15-1.2) mg/dL AST (0-40) U/L ALT (0-41) U/L Alkaline Phosphata se (40-130) IU/L Troponin T Baselin e (0-15) ng/L Troponin T 120 Min [place] (0-15) ng/L Delta Troponin T (0-10) ABS# Troponin T Hi Sens 6Hr 126.9 H (0-15) ng/L Troponin T Hi Sens 6Hr Delta 42.91 H* (0-12) ng/L C-Reactive Protein (0.0-4.9) mg/L NT-Pro-B Natriuret Pep (0-450) pg/mL Total Protein (6.6-8.7) g/dL Albumin (3.5-5.2) g/dL Globulin (1.3-4.6) g/dL Procalcitonin (0-0.5) ng/mL SARS-CoV-2 Ag (Rap id) (Negative) 10/15/20 10/15/20 10/15/20 Range/Units 18:30 18:30 18:45 WBC (4.0-10.0) 10^3/ uL RBC (4.1-5.3) 10^6/u L Hgb (11.7-16.6) g/dL Hct (42.0-52.0) % MCV (80-94) fl MCH (28.0-34.0) pg MCHC (30.0-36.0) g/dL RDW (12.1-15.1) % Plt Count (130-400) 10^3/c mm MPV (7.4-10.4) fL Neut % (Auto) % Lymph % (Auto) % [place] % (Auto) % Eos % (Auto) % Baso % (Auto) % Reticulocyte % (Au to) (0.5-2.0) % Neut # (Auto) (1.8-7.7) 10^3/u L Lymph # (Auto) (0.8-4.8) 10^3/u L [place] # (Auto) (0.2-0.9) 10^3/u L Eos # (Auto) (0.0-0.8) 10^3/u L Baso # (Auto) (0.0-0.1) 10^3/u L Nucleated RBC % (a uto) % Nucleated RBCs # /100WBC D-Dimer (0-0.59) ug/mIFE U Specimen Type Sample Site ABG pH (7.35-7.45) ABG pCO2 (35-45) mmHg ABG pO2 (80.0-100.0) mmH g ABG HCO3 (22-26) mmol/L ABG O2 Saturation ABG Base Excess (-2.0-2.0) mmol/ L Glenn Test A-a O2 Gradient (5-10) mmHg Hematocrit (42-52) % Hgb O2 Saturation (95-100) % Carboxyhemoglobin (0.4-20.1) %THgb Methemoglobin (0.4-1.5) % Total Hemoglobin (14-18) g/dL Ionized Calcium (1.1-1.4) mmol/L O2 Delivery Device FiO2 % Tidal Volume PEEP cmH20 Service Desk Associate ID Sodium 135 L (136-145) mmol/L Potassium 3.6 (3.5-5.1) mmol/L Chloride 101 (98-107) mmol/L Carbon Dioxide 18 L (22-29) mmol/L Anion Gap 19.6 H (5-19) BUN 25 H (8-23) mg/dL Creatinine 1.6 H (0.7-1.2) mg/dL GFR Calculation Not Reportable Glucose 233 H (65-115) mg/dL POC Glucose (70-110) mg/dL Calculated Osmolal ity 292 (285-295) mOsm/k g Lactic Acid (0.5-2.2) mmol/L Lactate 1.0 (0.5-2.2) mmol/L Calcium 8.0 L (8.5-10.5) mg/dL Magnesium 1.7 (1.7-2.3) mg/dL Iron (59-158) ug/dL Ferritin (30-400) ng/mL Total Bilirubin 0.5 (0.15-1.2) mg/dL AST 24 (0-40) U/L ALT 22 (0-41) U/L Alkaline Phosphata se 57 (40-130) IU/L Troponin T Baselin e (0-15) ng/L Troponin T 120 Min [place] (0-15) ng/L Delta Troponin T (0-10) ABS# Troponin T Hi Sens 6Hr (0-15) ng/L Troponin T Hi Sens 6Hr Delta (0-12) ng/L C-Reactive Protein 112.6 H (0.0-4.9) mg/L NT-Pro-B Natriuret Pep 8568 H (0-450) pg/mL Total Protein 6.6 (6.6-8.7) g/dL Albumin 3.0 L (3.5-5.2) g/dL Globulin 3.6 (1.3-4.6) g/dL Procalcitonin 0.39 (0-0.5) ng/mL SARS-CoV-2 Ag (Rap id) (Negative) 10/15/20 Range/Units 19:01 WBC 7.0 (4.0-10.0) 10^3/ uL RBC 3.81 L (4.1-5.3) 10^6/u L Hgb 8.6 L (11.7-16.6) g/dL Hct 29.0 L (42.0-52.0) % MCV 76.1 L (80-94) fl MCH 22.6 L (28.0-34.0) pg MCHC 29.7 L (30.0-36.0) g/dL RDW 21.5 H (12.1-15.1) % Plt Count 294 (130-400) 10^3/c mm MPV 10.2 (7.4-10.4) fL Neut % (Auto) 91.7 % Lymph % (Auto) 3.7 % [place] % (Auto) 3.6 % Eos % (Auto) 0.0 % Baso % (Auto) 0.7 % Reticulocyte % (Au to) (0.5-2.0) % Neut # (Auto) 6.43 (1.8-7.7) 10^3/u L Lymph # (Auto) 0.3 L (0.8-4.8) 10^3/u L [place] # (Auto) 0.3 (0.2-0.9) 10^3/u L Eos # (Auto) 0.0 (0.0-0.8) 10^3/u L Baso # (Auto) 0.1 (0.0-0.1) 10^3/u L Nucleated RBC % (a uto) 0 % Nucleated RBCs # 0.0 /100WBC D-Dimer (0-0.59) ug/mIFE U Specimen Type Sample Site ABG pH (7.35-7.45) ABG pCO2 (35-45) mmHg ABG pO2 (80.0-100.0) mmH g ABG HCO3 (22-26) mmol/L ABG O2 Saturation ABG Base Excess (-2.0-2.0) mmol/ L Glenn Test A-a O2 Gradient (5-10) mmHg Hematocrit (42-52) % Hgb O2 Saturation (95-100) % Carboxyhemoglobin (0.4-20.1) %THgb Methemoglobin (0.4-1.5) % Total Hemoglobin (14-18) g/dL Ionized Calcium (1.1-1.4) mmol/L O2 Delivery Device FiO2 % Tidal Volume PEEP cmH20 Service Desk Associate ID Sodium (136-145) mmol/L Potassium (3.5-5.1) mmol/L Chloride (98-107) mmol/L Carbon Dioxide (22-29) mmol/L Anion Gap (5-19) BUN (8-23) mg/dL Creatinine (0.7-1.2) mg/dL GFR Calculation Glucose (65-115) mg/dL POC Glucose (70-110) mg/dL Calculated Osmolal ity (285-295) mOsm/k g Lactic Acid (0.5-2.2) mmol/L Lactate (0.5-2.2) mmol/L Calcium (8.5-10.5) mg/dL Magnesium (1.7-2.3) mg/dL Iron (59-158) ug/dL Ferritin (30-400) ng/mL Total Bilirubin (0.15-1.2) mg/dL AST (0-40) U/L ALT (0-41) U/L Alkaline Phosphata se (40-130) IU/L Troponin T Baselin e (0-15) ng/L Troponin T 120 Min [place] (0-15) ng/L Delta Troponin T (0-10) ABS# Troponin T Hi Sens 6Hr (0-15) ng/L Troponin T Hi Sens 6Hr Delta (0-12) ng/L C-Reactive Protein (0.0-4.9) mg/L NT-Pro-B Natriuret Pep (0-450) pg/mL Total Protein (6.6-8.7) g/dL Albumin (3.5-5.2) g/dL Globulin (1.3-4.6) g/dL Procalcitonin (0-0.5) ng/mL SARS-CoV-2 Ag (Rap id) (Negative) Imaging Data^: Other Imaging: Radiologist's impression: [address] [id number] ReportSigned Patient: Kwaku Castorena #: [id number]: 1935cct#:[id number]/Sex: 85 / MADM Date: 10/15/20Loc: ERRoom/Bed:Attending Dr: Ordering Provider/Ordering MD: Joseph Perez Date of Service: 10/15/20 Procedure(s): XR chest 1V portable [id number] Accession Number(s): [id number] Report Number: [id number] WS: [id number] Exam: XR chest 1V portable [id number] Date/Time of Exam: 10/15/2020 10:41 AM Reason For Exam: sob Comparison 09/30/2020 Diffuse groundglass infiltrate in the right lung. There may be some atelectasis in the left lower lobe. Small right pleural effusion is seen. No pneumothorax. Heart size is normal. The mediastinum is not widened. Regional bony structures are intact. XR/XR chest 1V portable [id number] IMPRESSION: 1. Diffuse groundglass infiltrate seen in the right lung. 2. Probable subsegmental atelectasis in the left lower lobe medially. 3. Small right-sided pleural effusion. Dictated By:Almodovarigned By:Juani Hicks Date/Time:10/15/20 1055DD/ 1052 Critical Care Time Critical Care Time: Critical Care Time: Yes Total Critical Care Time: 40 Attestation: Given the high probability of imminent or life threatening deterioration of the patient?s condition without intervention, the patient was immediately assessed by myself and the nurse, and cardiac monitoring initiated. The patient was also placed on oxygen and continuous pulse oximetry initiated. During the course of the patient?s stay, I spent a considerable amount of time at the bedside performing serial re-evaluations of the patient?s hemodynamic and clinical status because of the recognized potential threat to life or limb in this condition. Clinical management of this patient involved high complexity decision making to assess, manipulate, and support vital organ system failure. I then had a chance to review all of the available laboratory and radiographic studies obtained today, and I also reviewed old records available to me at the time. Sequential vital signs were obtained. Critical care time noted below was time spent engaged in work directly related to the individual patient?s care, not including time performing procedures; however it does include time spent at the immediate bedside or elsewhere on the floor or unit. TOTAL CRITICAL CARE TIME ELAPSED: in excess of 30 minutes. 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
[2020-10-15] MEDS: cefepime 1,000 MG in sodium chloride 0.9% (plus) 50 ML 100 MG IV ×2 (12:36→23:45)
--- NOTE | 2020-10-15 12:43 | ECG_ITS ---
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: : 1935 Requested By: Joseph Perez Order Number: [id number] Charbel MD: RADHA BURKETT Measurements Intervals [place] Rate: 85 P: UT: QRS: -41 QRSD: 104 T: 65 QT: 391 QTc: 467 Interpretive Statements Sinus rhythm with PACs LEFT AXIS DEVIATION [QRS AXIS < -30] NONSPECIFIC T-WAVE ABNORMALITY Compared to ECG 10/15/2020 10:56:05 No significant changes Electronically Signed On 10-15-2020 22:22:06 CDT by RADHA BURKETT [email or web address] Directnorth sunflower medical centerGreenlight Biosciencesmercy health clermont hospitalBlue Chip Surgical Center [id number]
[2020-10-15 13:02] LABS: Troponin 5 2HR 83.99 ng/L (0-15)
[2020-10-15 13:09] LABS: Procalcitonin 0.18 ng/mL (0-0.5)
[2020-10-15 13:14] LABS: ABG PCO2 30.2 mmHg (35-45); ABG PH Result 7.48 (7.35-7.45); Arterial Blood Gas Hematocrit 25.1 % (42-52); Base Excess ABG -0.7 mmol/L (-2.0-2.0); Blood Gas Allen Test Pos; Blood Gas Operator Identificat CAK; Blood Gas Sample Site Radial, left; Blood Gas Sample Type Arterial; HCO3 ABG 22.4 mmol/L (22-26); Oxygen Device NC; PO2 ABG 55.9 mmHg (80.0-100.0)
--- NOTE | 2020-10-15 13:18 | PM.HP ---
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 Patient tells me that he was discharged in the hospital for his pneumonia, he was placed on antibiotic therapy, he has not felt any better, has shortness of breath with exertion, nonproductive cough, no fevers, chills, does feel weak, and fatigued, no calf pain, no calf swelling, but does report intermittent bloody cough. Has not received Covid vaccines, no known exposure to COVID-19, denies ever testing positive for Covid. Denies smoking, he tells me that he was seeing his [place] physician for hospital follow-up, and was found to be hypoxic requiring up to 5 L, so he was sent to [facility] for further evaluation. At [facility] ER, he was found to be hypoxic requiring up to 6 L of oxygen, chest x-ray showed new infiltrates, concerns for new pneumonia, hospitalist team was called for admission. Review of Systems Const: Reports: body aches, fatigue and malaise; Denies: fever(s) or chills Eyes: Denies: change in vision or blurry vision ENMT: Denies: throat pain or nasal congestion Card: Denies: chest pain, palpitations, irregular heart rhythm, edema, lightheadedness, syncope, orthopnea or leg pain with exertion Resp: Reports: dyspnea and non-productive cough; Denies: productive cough or wheezing GI: Denies: abdominal pain, nausea, vomiting, hematemesis, diarrhea, constipation, hematochezia or melena : Denies: flank pain, difficulty urinating, dysuria, urinary frequency or urinary urgency Musc: Denies: neck pain or back pain Skin/Breast: Denies: rash Neuro: Denies: headache(s), dizziness or vertigo Endo: Denies: polyuria or polydipsia Medications/Allergies Home Medications Medication Instructions Recorded Confirmed Last Taken Type acetaminophen [Tylenol] 325 mg PO QID PRN 08/10/19 09/25/20 Unknown History albuterol sulfate 2 puff INHALATION Q6H PRN 08/10/19 09/25/20 08/10/19 History aspirin 81 mg PO DAILY 08/10/19 09/25/20 09/25/20 History atorvastatin See Rx Instructions .ROUTE .COMPLEX 08/10/19 09/25/20 08/09/19 History clopidogrel 75 mg PO DAILY 08/10/19 09/25/20 09/25/20 History glipizide 5 mg PO DAILY 08/10/19 09/25/20 09/25/20 History insulin glulisine U-100 See Rx Instructions .ROUTE .COMPLEX 08/10/19 09/25/20 09/25/20 History cilostazol 100 mg PO BID 09/25/20 09/25/20 Unknown History amoxicillin-pot clavulanate 1 tab PO BID #6 tab 10/02/20 Unknown Rx [Augmentin] furosemide [Lasix] 20 mg PO QAM #30 tab 10/02/20 Unknown Rx metoprolol tartrate 100 mg PO BID@0900,2100 #120 tab 10/02/20 Unknown Rx pantoprazole [Protonix] 40 mg PO DAILY #30 tab 10/02/20 Unknown Rx Allergies Allergy/AdvReac Type Severity Reaction Status Date / Time egg Allergy ADR-Flatule Verified 11/18/19 14:12 nce sulfamethoxazole Allergy Unknown Verified 11/18/19 14:12 [From Bactrim] trimethoprim [From Bactrim] Allergy Unknown Verified 11/18/19 14:12 PFSH Acute PFSH: Medical History Abdominal aortic aneurysm Coronary artery disease CVA (cerebral vascular accident) Diabetes mellitus Hypertension Intermittent claudication Percutaneous transluminal coronary angioplasty (PTCA) within last 14 to 24 months Salivary gland calculus Surgical History History of right common carotid artery stent placement History of tonsillectomy Family History Mother Polycystic kidney disease Brother CAD (coronary artery disease) Social History Smoking and tobacco status: former smoker Alcohol intake: former 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 Lives independently: Yes Household members: family Marital status: / Current occupational status: retired Vitals/I&O/Wt Last Vital Signs Temp 98.2 F 10/15/20 10:27 Pulse 90 10/15/20 12:37 Resp 20 H 10/15/20 12:37 BP 128/73 10/15/20 12:37 Pulse Ox 91 10/15/20 12:37 Weight last 48 hrs Weight 87.997 kg Physical Exam Const: COMMON NORMALS: no acute distress and patient oriented x3 Eye: COMMON NORMALS: Equal, round and reactive pupils present and EOMs intact bilaterally GENERAL EYE: appearance normal, both eyes and all related structures PUPIL: Yes Equal, round and reactive pupils present Neck/C-Spine: COMMON NORMALS: full ROM and no lymphadenopathy THYROID: Thyroid normal Lymph: LYMPHATIC: no lymphadenopathy noted Resp: COMMON NORMALS: normal respiratory effort, No retractions and No use of accessory muscles AUSCULTATION: crackles Cardio: COMMON NORMALS: regular rate, S1 normal heart sound present, S2 normal heart sound present, No gallops present (Cardio), No clicks present (Cardio) and No murmurs present (Cardio) RATE: regular rate RHYTHM: abnormal rhythm irregularly irregular HEART SOUNDS: S1 normal heart sound present and S2 normal heart sound present GI: COMMON NORMALS: Normal to inspection, nondistended, normoactive bowel sounds present, Soft to palpation and non-tender Extremity: COMMON NORMALS: normal to inspection, full ROM and no pedal edema Neuro: COMMON NORMALS: patient oriented x3, CN's II-XII intact bilaterally, moves all extremities and no focal motor deficits Psych: COMMON NORMALS: mental status grossly normal, Normal thought process present and cooperative THOUGHT PROCESS: Normal thought process present Data : 10/15/20 10:10 10/15/20 10:10 Micro: Microbiology 10/15/20 12:40 Blood Culture - Preliminary Blood SPECIMEN COLLECTED 10/15/20 11:20 Blood Culture - Preliminary Blood SPECIMEN COLLECTED A&P Assessment and plan (1) Acute respiratory failure with hypoxia: -Highly suspicious for aspiration pneumonia, aspiration pneumonitis -Certainly healthcare associated pneumonia is a possibility given his recent hospitalization -Covid PUI, has not received Covid vaccines, no known exposure, on last admission tested negative -CT of the chest progression of groundglass opacification in the upper lungs white bilaterally, continued bilateral lower lobe consolidations, reactive lymphadenopathy, chronic emphysema -Does have complaints of bloody cough, is on aspirin and Plavix, certainly there is a possibility of pulmonary emboli although unlikely -BNP is elevated 9392, but improved from 13,000 during last hospital admission, -White blood cell count 4.9, pro-Wilmer 0.18, ABG pH 7.48, PCO2 30.2, PO2 55.9, on 36% FiO2 Plan: -Covid PUI, isolation procedures, rapid Covid, Covid PCR -Aspiration precautions, consult speech therapy -Broad-spectrum antibiotic therapy, vancomycin, cefepime -Follow blood cultures, urine bacterial antigens, sputum cultures -Continue oxygen therapy, albuterol, budesonide - Incentive spirometer, flutter valve -Decadron -Vitamin C, zinc, vitamin D -Fluid restrictions 1500 cc, Lasix 40 mg IV daily, monitor urine output, monitor creatinine, monitor potassium -Order bilateral lower extremity ultrasounds, will consider VQ scan, creatinine 1.6 - full code, however he wants to have a trial of CPR and intubation, however if it is not successful or prolonged, he wants to remain comfortable -SCDs for DVT prophylaxis, anticoagulation contraindicated given his anemia, and bleeding risk Status: Acute (2) Anemia: Etiology of anemia uncertain, Hemoccult on last admission was negative, B12 folate was unremarkable Hemoglobin improved 8.8 Hemoccult stool, iron studies, Carafate, Protonix 40 twice daily Status: Acute (3) Pneumonia: Status: Acute (4) Diabetes mellitus: Lantus 10 units every morning Low-dose sliding scale Status: Acute (5) Hypertension: Status: Acute (6) Coronary artery disease: Status: Acute (7) Percutaneous transluminal coronary angioplasty (PTCA) within last 14 to 24 months: Status: Acute (8) Atrial fibrillation: Currently rate controlled, anticoagulation contraindicated given anemia, Status: Acute (9) Chronic kidney disease: Creatinine improved to 1.6 Status: Acute (10) NSTEMI (non-ST elevated myocardial infarction): -Baseline troponin 103, improved from 3556 on 09/26 -EKG shows no acute ST-T wave changes, A. 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
[2020-10-15] MEDS: vancomycin 1,000 MG in sodium chloride 0.9% 250 ML 250 MG IV (13:36)
[2020-10-15 13:50] LABS: Reticulocyte % 0.8 % (0.5-2.0)
[2020-10-15 14:00] LABS: LAB Peripheral Smear Sent for Review
[2020-10-15 14:04] LABS: Ferritin 95 ng/mL (30-400); Iron 12 ug/dL (59-158)
[2020-10-15 14:15] LABS: SARS Covid-2 Antigen Negative (Negative)
[2020-10-15 15:11] LABS: Glucose Point of Care 130 mg/dL (70-110)
--- NOTE | 2020-10-15 15:18 | XR_ITS ---
WS: [id number] Exam: XR chest 1V portable [id number] Date/Time of Exam: 10/15/2020 3:18 PM Reason For Exam: RESPIRATORY DISTRESS Comparison with previous exam performed on the same day at 1043 hours. There are infiltrates in the upper and lower lobes of the right lung. Infiltrates have worsened since the earlier study on the same day. There are also mild infiltrates in the lateral left lung. Heart s ize is normal. No pneumothorax. Pleural thickening at the right costophrenic angle. The mediastinum i s not widened. XR/XR chest 1V portable [id number] IMPRESSION: 1. Increasing infiltrates in the upper and lower lobes of the right lung and al so the lateral left lung when compared to the earlier study on the same day.
[2020-10-15] MEDS: ipratropium-albuterol 3 mL Neb INHALATION ×2 (15:29→15:38)
[2020-10-15] MEDS: LORazepam 2 mg/mL INJ 1 mL 0.5 MG IVP ×2 (15:30→15:31)
--- NOTE | 2020-10-15 15:49 | CTR_ITS ---
PROCEDURE INFORMATION: Exam: CTA Chest With Contrast Exam date and time: 10/15/2020 3:49 PM Age: 85 years old Clinical indication: Shortness of breath; Additional info: Sudden desaturations TECHNIQUE: Imaging protocol: Computed tomographic angiography of the chest with contrast. 3D rendering (Not supervised by radiologist): MIP and/or 3D reconstructed images were created by the technologist. Radiation optimization: All CT scans at this facility use at least one of these dose optimization techniques: automated exposure control; mA and/or kV adjustment per patient size (includes targeted exams where dose is matched to clinical indication); or iterative reconstruction. Contrast material: VISI 320; Contrast volume: 71 ml; Contrast route: INTRAVENOUS (IV); COMPARISON: CT angio chest PE protcl [id number] 09/27/2020 8:26 PM RADIATION DOSE METRICS: Total DLP (mGy-cm): 600.33 FINDINGS: Tubes, catheters and devices: Mid tracheal positioning of the endotracheal tube. The 8 tear tube terminates in the distal thoracic esophagus. Pulmonary arteries: Normal. No pulmonary emboli. Aorta: Unremarkable. No aortic aneurysm. No aortic dissection. Lungs: Bilateral airspace consolidations are present most significant in the posterior right upper lobe and throughout the right lower lobe. Secretions in the right mainstem bronchus. Pleural spaces: Small volume bilateral pleural effusions greater on right than left. Negative for pneumothorax. Heart: Unremarkable. No cardiomegaly. No pericardial effusion. Mediastinal space: Large hiatal hernia. Lymph nodes: Unremarkable. No enlarged lymph nodes. Bones/joints: Unremarkable. No acute fracture. Soft tissues: Unremarkable. CT/CT angio chest PE protcl [id number] IMPRESSION: 1. Negative for pulmonary embolism. 2. Extensive bilateral pneumonia. 3. Large hiatal hernia. 4. Enteric tube terminates at the GE junction region above diaphragm at the level of the hernia. Radiation Dose CTDIVOL = (mGy): DLP = 600.33 (mGy-cm)
[2020-10-15 16:00] LABS: ABG PCO2 28.7 mmHg (35-45); ABG PH Result 7.46 (7.35-7.45); Arterial Blood Gas Hematocrit 27.6 % (42-52); Base Excess ABG -2.9 mmol/L (-2.0-2.0); Blood Gas Allen Test Pos; Blood Gas Operator Identificat CAK; Blood Gas Sample Site Radial, left; Blood Gas Sample Type Arterial; HCO3 ABG 20.3 mmol/L (22-26); Oxygen Device BIPAP; PO2 ABG 58.2 mmHg (80.0-100.0)
[2020-10-15] MEDS: vecuronium 10 mg SDV IVP (16:30)
[2020-10-15] MEDS: fentaNYL 50 mcg/mL INJ 2mL 100 MCG IVP (16:39)
--- NOTE | 2020-10-15 16:46 | PC.NURSE ---
IVP ketamine 100mg was administered to pt by ED physician.
--- NOTE | 2020-10-15 16:47 | PC.NURSE ---
intubation note: timeout completed at 1629, ED physician, RN *2, RT*2 in room. Pt given ordered meds. Pt intubated successfully at 1632 with 8.0 ETT, 24cm at lip.
--- NOTE | 2020-10-15 17:03 | ECG_ITS ---
[facility] Test Date: 2020-10-15 Pat Name: Kwaku Castorena Department: Room: [facility] Gender: Male Brand Director: : 1935 Requested By: Jonathan Blake Order Number: [id number] Charbel MD: Stefanie Nelson M.D. Measurements Intervals [place] Rate: 117 P: 56 ND: 165 QRS: -50 QRSD: 92 T: 92 QT: 301 QTc: 421 Interpretive Statements SINUS TACHYCARDIA LEFT AXIS DEVIATION [QRS AXIS < -30] NONSPECIFIC ST & T-WAVE ABNORMALITY INTERPRETATION BASED ON A DEFAULT AGE OF 40 YEARS Compared to ECG 10/15/2020 12:33:26 Sinus rhythm no longer present T-wave abnormality still present Electronically Signed On 10-16-2020 13:05:19 CDT by Stefanie Nelson M.D. [id number] f
--- NOTE | 2020-10-15 17:03 | USR_ITS ---
PROCEDURE INFORMATION: Exam: US Duplex Lower Extremity Veins, Bilateral Exam date and time: 10/15/2020 5:03 PM Age: 85 years old Clinical indication: Swelling (edema) of limb; Lower extremity, bilateral; Additional info: Evaluate for dvt TECHNIQUE: Imaging protocol: Real-time duplex ultrasound of the extremities with 2-D cochran scale, color Doppler flow and spectral waveform analysis with image documentation. Complete exam focused on the bilateral lower extremity veins. COMPARISON: US renal BI* [id number] 11/27/2019 11:20 AM FINDINGS: Right deep veins: Unremarkable. The common femoral, femoral, proximal profunda femoral and popliteal veins are patent without thrombus. Normal Doppler waveforms. Normal compressibility and/or augmentation response. Right superficial veins: Saphenofemoral junction is patent without thrombus. Left deep veins: Unremarkable. The common femoral, femoral, proximal profunda femoral and popliteal veins are patent without thrombus. Normal Doppler waveforms. Normal compressibility and/or augmentation response. Left superficial veins: Saphenofemoral junction is patent without thrombus. Soft tissues: Unremarkable. US/[place] [id number] IMPRESSION: No evidence of lower extremity deep vein thrombosis.
[2020-10-15] MEDS: FUROsemide 10 mg/mL SDV 4mL 40 MG IVP (17:05)
[2020-10-15 18:30] LABS: ABG PCO2 41.8 mmHg (35-45); Alveolar-Arterial Oxygen Gradi 54.8 mmHg (5-10); Arterial Blood Gas Hematocrit 29.1 % (42-52); Base Excess ABG -5.5 mmol/L (-2.0-2.0); Blood Gas Allen Test Pos; Blood Gas Operator Identificat CAK; Blood Gas Sample Site Radial, left; Blood Gas Sample Type Arterial; Carboxyhemoglobin 1.1 %THgb (0.4-20.1); HCO3 ABG 20.5 mmol/L (22-26); HGB O2 Sat 93.9 % (95-100); Ionized Calcium Level - ABG 1.2 mmol/L (1.1-1.4); Methemoglobin 0.7 % (0.4-1.5); Oxygen Device VENT; Oxygen Saturation ABG 95.6; PO2 ABG 96.6 mmHg (80.0-100.0); Potassium Level - ABG 3.8 mmol/L (3.5-5.0); Total Hemoglobin 9.5 g/dL (14-18)
[2020-10-15] MEDS: propofol 1,000 MG/100 ML INJ 2.64 MG IV (18:31)
[2020-10-15 19:06] LABS: Basophils # 0.1 10^3/uL (0.0-0.1); Basophils % 0.7 %; Hemoglobin 8.6 g/dL (11.7-16.6); Lymphocytes # 0.3 10^3/uL (0.8-4.8); Lymphocytes % 3.7 %; Mean Corpuscular HGB Conc 29.7 g/dL (30.0-36.0); Mean Corpuscular Hemoglobin 22.6 pg (28.0-34.0); Mean Corpuscular Volume 76.1 fl (80-94); Mean Platelet Volume 10.2 fL (7.4-10.4); Monocytes # 0.3 10^3/uL (0.2-0.9); Monocytes % 3.6 %; Neutrophils # 6.43 10^3/uL (1.8-7.7); Neutrophils % 91.7 %; Nucleated Red Blood Cells % 0 %; Platelet Count 294 10^3/cmm (130-400); Red Blood Count 3.81 10^6/uL (4.1-5.3); Red Cell Distribution Width 21.5 % (12.1-15.1)
[2020-10-15 19:12] LABS: D Dimer 3.69 ug/mIFEU (0-0.59)
[2020-10-15 19:15] LABS: Troponin 5 6HR 126.9 ng/L (0-15)
[2020-10-15 19:18] LABS: Troponin 5 6HR Delta 42.91 ng/L (0-12)
--- NOTE | 2020-10-15 19:22 | PC.NURSE ---
Vent Setting: CMV with Tidal Volume of 500; FiO2 80%; Peep 10; Rate 16
--- NOTE | 2020-10-15 19:31 | PC.NURSE ---
Rt called for transport
[2020-10-15 19:50] LABS: Alanine Aminotransferase 22 U/L (0-41); Alkaline Phosphatase 57 IU/L (40-130); Anion Gap 19.6 (5-19); Aspartate Amino Transferase 24 U/L (0-40); Blood Urea Nitrogen 25 mg/dL (8-23); C Reactive Protein 112.6 mg/L (0.0-4.9); Carbon Dioxide 18 mmol/L (22-29); Chloride 101 mmol/L (98-107); Globulin 3.6 g/dL (1.3-4.6); Glucose 233 mg/dL (65-115); Magnesium 1.7 mg/dL (1.7-2.3); Osmolality Calculated 292 mOsm/kg (285-295); Potassium 3.6 mmol/L (3.5-5.1); Sodium 135 mmol/L (136-145); Total Bilirubin 0.5 mg/dL (0.15-1.2); Total Protein 6.6 g/dL (6.6-8.7)
[2020-10-15 19:57] LABS: Procalcitonin 0.39 ng/mL (0-0.5)
[2020-10-15 20:19] LABS: NT Pro B Type Natriuretic Pept 8568 pg/mL (0-450)
[2020-10-15] MEDS: iodixanol 320 mg/mL 100mL Btl IV (20:25)
[2020-10-15 21:03] LABS: Glucose Point of Care 258 mg/dL (70-110)
[2020-10-15] MEDS: dexamethasone 10 mg/mL INJ 6 MG IVP (21:31)
[2020-10-15] MEDS: bumetanide 0.25 mg/mL SDV 4 mL 1 MG IV (21:31)
[2020-10-15] MEDS: levofloxacin-dextrose 5 % 750 MG/150 ML PREMIX 100 MG IV (21:31)
[2020-10-15] MEDS: pantoprazole 40 mg SDV IVP (21:31)
[2020-10-15] MEDS: sodium bicarbonate 8.4% 1 mEq/mL 50mL Syr 50 MEQ IVP (21:35)
[2020-10-15 21:43] LABS: ABG PH Result 7.33 (7.35-7.45); Arterial Blood Gas Hematocrit 28.8 % (42-52); Base Excess ABG -5.8 mmol/L (-2.0-2.0); Blood Gas Allen Test Pos; Blood Gas Sample Type Arterial; HCO3 ABG 19.5 mmol/L (22-26); HGB O2 Sat 97.4 % (95-100); Ionized Calcium Level - ABG 1.2 mmol/L (1.1-1.4); Methemoglobin 0.6 % (0.4-1.5); Potassium Level - ABG 3.2 mmol/L (3.5-5.0); Total Hemoglobin 9.4 g/dL (14-18)
[2020-10-15 21:45] LABS: Alveolar-Arterial Oxygen Gradi 33.6 mmHg (5-10); Blood Gas Operator Identificat JB; Blood Gas Sample Site Brachial, right; Oxygen Device VENT
--- NOTE | 2020-10-15 22:25 | XRR_ITS ---
PROCEDURE INFORMATION: Exam: XR Chest Exam date and time: 10/15/2020 10:25 PM Age: 85 years old Clinical indication: Device placement; Ng tube; Additional info: Og tube placement TECHNIQUE: Imaging protocol: XR of the chest. Views: 1 view. COMPARISON: CR XR chest 1V portable [id number] 10/15/2020 4:58 PM FINDINGS: Tubes, catheters and devices: No change in position of the endotracheal tube. The enteric tube is coiling in the lower mediastinum, likely within the hiatal hernia. Lungs: Patchy airspace disease in the lungs. Background emphysema. Pleural spaces: Unremarkable. No pleural effusion. No pneumothorax. Heart/Mediastinum: Unremarkable. No cardiomegaly. Bones/joints: Unremarkable. XR/XR chest 1V portable [id number] IMPRESSION: Enteric tube coils within hiatal hernia.
[2020-10-15] MEDS: propofol 1,000 MG/100 ML INJ 15.84 MG IV (23:28)
[2020-10-16] VITALS (100 sets, daily range): BP systolic 71–155; BP diastolic 42–81; PULSE 53–91; RESP 16–20; TEMP 36–36.4; O2SAT 91–98
[2020-10-16] MEDS: propofol 1,000 MG/100 ML INJ 15.84 MG IV ×3 (05:50→18:12)
--- NOTE | 2020-10-16 06:00 | USCV_ITS ---
Kwaku Castorena Age: 85 Gender: M : 1935 Exam Date: 10/16/2020 06:05 Ordering Phys: Jonathan Blake MD Technologist: Madhuri Arango [place] [facility] [place]B BP: 117 / 56 HR: 95 Rhythm: Sinus Technical Quality: Technically difficult study MEASUREMENTS (Male / Female) Normal Values 2D ECHO LV Diastolic Diameter PLAX 3.9 cm 4.2 - 5.9 / 3.9 - 5.3 cm LV Systolic Diameter PLAX 2.6 cm LV Chamber Size 3.9 cm IVS Diastolic Thickness 1.7 cm 0.6 - 1.0 / 0.6 - 0.9 cm IVS Systolic Thickness 1.9 cm LVPW Diastolic Thickness 1.4 cm 0.6 - 1.0 / 0.6 - 0.9 cm LVPW Systolic Thickness 1.5 cm RV Chamber Size 3.2 cm LVOT Diameter 2.0 cm LV Ejection Fraction 2D Teich 60.4 % LA Diameter 3.7 cm LA Width 4.2 cm LA Height 5.7 cm RA Width 4.1 cm RA Height 4.2 cm M-MODE Aortic Annulus Diameter 3.2 cm LA Ao Ratio MM 1.2 MV E Point Septal Separation 0.8 cm FINDINGS Left Ventricle Limited echo performed to assess LV systolic function. LV systolic function is borderline normal with EF of 50%. Mild hypokinesis of anteroseptal wall is noted. Right Ventricle The right ventricle is normal in size and function. Right Atrium The right atrium is normal in size. Left Atrium The left atrium is dilated Mitral Valve Structurally normal mitral valve. There is no mitral regurgitation. Aortic Valve Thickened aortic valve. There is no aortic regurgitation. Tricuspid Valve Structurally normal tricuspid valve without significant regurgitation. Pulmonary artery systolic pressure is normal. Pulmonic Valve Not well visualized. Pericardium Normal pericardium without effusion. Aorta Normal ascending aorta dimension. CONCLUSIONS Limited echocardiogram performed to assess LV systolic function. LV systolic function is borderline normal with EF of 50%. Mild hypokinesis of anteroseptal wall is noted. No significant valvular heart disease is present. Compared to prior echocardiogram from 09/26/2020, no significant changes are noted. Jason Rivas MD (Electronically Signed) Final Date: 16 October 2020 18:39 S
--- NOTE | 2020-10-16 06:35 | PC.NURSE ---
Shift Note Frequent safety and comfort rounds continue. Orders and/or nursing care completed as indicated. Patient monitored for response to intervention and treatment(s). Education provided includes[]. 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 Patient transferred from ER after shift change. Patient was intubated with pressor support. Ventilator managed by RT. GTT's titrated per protocol. Spoke with son after patient arrived to floor, provided update, he verbalized understanding and asked to be called with any changes. Will continue to monitor.
[2020-10-16 07:46] LABS: Glucose Point of Care 345 mg/dL (70-110)
[2020-10-16] MEDS: pantoprazole 40 mg SDV IVP ×2 (08:02→19:55)
[2020-10-16] MEDS: cefepime 2,000 MG in sodium chloride 0.9% (plus) 50 ML 100 MG IV ×2 (09:08→19:55)
[2020-10-16] MEDS: bumetanide 0.25 mg/mL SDV 4 mL 1 MG IV (09:10)
[2020-10-16 09:36] LABS: Basophils % 0.2 %; Eosinophils % 0.2 %; Hematocrit 26.1 % (42.0-52.0); Hemoglobin 7.9 g/dL (11.7-16.6); Lymphocytes # 0.3 10^3/uL (0.8-4.8); Lymphocytes % 6.1 %; Mean Corpuscular HGB Conc 30.3 g/dL (30.0-36.0); Mean Corpuscular Hemoglobin 22.8 pg (28.0-34.0); Mean Corpuscular Volume 75.2 fl (80-94); Mean Platelet Volume 10.4 fL (7.4-10.4); Monocytes # 0.2 10^3/uL (0.2-0.9); Monocytes % 3.6 %; Neutrophils # 4.96 10^3/uL (1.8-7.7); Neutrophils % 89.5 %; Nucleated Red Blood Cells % 0 %; Platelet Count 278 10^3/cmm (130-400); Red Blood Count 3.47 10^6/uL (4.1-5.3); Red Cell Distribution Width 21.3 % (12.1-15.1); White Blood Count 5.5 10^3/uL (4.0-10.0)
[2020-10-16] MEDS: budesonide 0.5 mg/2 mL Neb INHALATION ×2 (09:42→21:05)
[2020-10-16 09:55] LABS: Lactate (Lactic Acid level) 1.3 mmol/L (0.5-2.2)
[2020-10-16 09:57] LABS: D Dimer 13.79 ug/mIFEU (0-0.59)
[2020-10-16 10:02] LABS: Creatine Phosphokinase 122 U/L (39-308); NT Pro B Type Natriuretic Pept 8481 pg/mL (0-450)
[2020-10-16 10:13] LABS: Troponin(5th) Baseline 108 ng/L (0-15)
[2020-10-16 10:29] LABS: Alanine Aminotransferase 18 U/L (0-41); Albumin Level 2.8 g/dL (3.5-5.2); Alkaline Phosphatase 53 IU/L (40-130); Anion Gap 19.7 (5-19); Aspartate Amino Transferase 16 U/L (0-40); Blood Urea Nitrogen 35 mg/dL (8-23); Calcium 8.1 mg/dL (8.5-10.5); Carbon Dioxide 19 mmol/L (22-29); Chloride 99 mmol/L (98-107); Globulin 3.3 g/dL (1.3-4.6); Glucose 311 mg/dL (65-115); Magnesium 1.9 mg/dL (1.7-2.3); Osmolality Calculated 298 mOsm/kg (285-295); Phosphorus 3.8 mg/dL (2.5-4.5); Potassium 3.7 mmol/L (3.5-5.1); Sodium 134 mmol/L (136-145); Total Bilirubin 0.4 mg/dL (0.15-1.2); Total Protein 6.1 g/dL (6.6-8.7)
[2020-10-16 12:14] LABS: Troponin 5 2HR 103.5 ng/L (0-15)
[2020-10-16 12:15] LABS: Troponin 5 2HR Delta -4.5 ABS# (0-10)
[2020-10-16] MEDS: aspirin 300 mg Supp PR (12:23)
[2020-10-16] MEDS: vancomycin 1,500 MG/300 ML PIGGYBACK 200 MG IV (12:23)
--- NOTE | 2020-10-16 12:26 | PC.OT ---
OT evaluation held due to patient's status, will attempt after no longer sedated.
[2020-10-16 12:38] LABS: Glucose Point of Care 300 mg/dL (70-110)
--- NOTE | 2020-10-16 13:52 | ECG_ITS ---
[facility] Test Date: 2020-10-16 Pat Name: Kwaku Castorena Department: Room: ICU08 Gender: Male [employer]: : 1935 Requested By: Jonathan Blake Order Number: [id number] Charbel MD: Jason Rivas M.D. Measurements Intervals [place] Rate: 61 P: 83 GA: 176 QRS: -57 QRSD: 88 T: 76 QT: 418 QTc: 423 Interpretive Statements SINUS RHYTHM LEFT AXIS DEVIATION [QRS AXIS < -30] NONSPECIFIC T-WAVE ABNORMALITY Compared to ECG 10/15/2020 16:45:12 Sinus tachycardia no longer present T-wave abnormality still present Electronically Signed On 10-16-2020 18:02:44 CDT by Jason Rivas M.D. [id number]
[2020-10-16 14:21] LABS: Hematocrit 26.1 % (42.0-52.0); Hemoglobin 7.6 g/dL (11.7-16.6)
--- NOTE | 2020-10-16 15:02 | PM.PN ---
Subjective Subjective: Interval history: Patient was seen this morning, nurse at bedside, remains afebrile overnight, off pressors, on 40% FiO2, normotensive, normal sinus rhythm, urine output 1100 cc, O2 sats greater than 90%, intubated, sedated Vitals/I&O/Wt Last Vital Signs Temp 97.1 F L 10/16/20 12:00 Pulse 68 10/16/20 14:00 Resp 20 H 10/16/20 12:00 BP 141/64 10/16/20 12:00 Pulse Ox 94 10/16/20 05:54 10/16/20 10/16/20 10/16/20 06:59 14:59 22:59 Intake Total 481.643 / 667.560 374.435 / 374.435 Output Total 175 / 925 175 / 175 Balance 306.643 / -257.440 199.435 / 199.435 Weight last 48 hrs Weight 92.578 kg Weight 87.997 kg Physical Exam Narrative: EXAM NARRATIVE: Intubated, sedated, Const: COMMON NORMALS: no acute distress Resp: COMMON NORMALS: normal respiratory effort, No retractions, No use of accessory muscles and clear to auscultation bilaterally AUSCULTATION: clear to auscultation bilaterally Cardio: COMMON NORMALS: regular rate, regular rhythm, S1 normal heart sound present and S2 normal heart sound present RATE: regular rate RHYTHM: regular rhythm HEART SOUNDS: S1 normal heart sound present and S2 normal heart sound present GI: COMMON NORMALS: Normal to inspection, nondistended, normoactive bowel sounds present, Soft to palpation and non-tender PALPATION: Yes Soft to palpation Extremity: COMMON NORMALS: no pedal edema Skin: NARRATIVE SKIN EXAM: Right femoral line in place Urinary Catheter Management^: Kellogg: Cath Placed During This Visit: yes Reason for Continuing Indwelling Catheter: Accurate Measurement of Urinary Output in Critically Ill Patients Urinary Catheter Date of Insertion: 10/15/20 Urinary Catheter Time of Insertion: 17:06 Data : 10/16/20 14:02 10/16/20 09:00 Micro: Microbiology 10/15/20 12:40 Blood Culture - Preliminary Blood NEGATIVE TO DATE 10/15/20 11:20 Blood Culture - Preliminary Blood NEGATIVE TO DATE 10/15/20 13:14 MRSA Culture - Final Nose 10/15/20 19:37 Gram Stain - Final Sputum - Endotracheal Tube Aspirate 10/15/20 00:40 Bacterial Antigens - Final Urine,Voided A&P Assessment and plan (1) Acute respiratory failure with hypoxia: -Secondary to multifocal pneumonia, likely healthcare associated ammonia, acute systolic and diastolic CHF -But also high suspicion for aspiration pneumonia, aspiration pneumonitis, given large hiatal hernia -Given his sudden decline in the emergency room yesterday, underwent a CT angiogram of the chest to evaluate for pulmonary embolism which was unremarkable, certainly acute flash pulmonary edema remains a possibility, and possible fungal infection -Patient does have CAD, NSTEMI, known disease in LAD left circumflex, managed medically on aspirin and Plavix, -Covid PUI, has not received Covid vaccines, no known exposure, on last admission tested negative -CT of the chest progression of groundglass opacification in the upper lungs white bilaterally, continued bilateral lower lobe consolidations, reactive lymphadenopathy, chronic emphysema -CT angiogram negative for pulmonary embolism, extensive bilateral pneumonia, large hiatal hernia -BNP is elevated 9392, but improved from 13,000 during last hospital admission, has received diuretic therapy, echocardiogram from September 26 showed an EF of 45 to 50%, abnormal diastolic dysfunction, left atrium was dilated Plan: -Admit to ICU -Continue intubation, mechanical ventilation, minimize tidal volume, minimize FiO2, optimize PEEP -Fentanyl and propofol for sedation -Multiple attempts were made to place nasogastric tube, however getting past the hiatal hernia has been proven to be difficult, hold off for now -Covid PUI, isolation procedures, rapid Covid, Covid PCR -Aspiration precautions, consult speech therapy -Broad-spectrum antibiotic therapy, vancomycin, cefepime, Levaquin -Follow blood cultures, urine bacterial antigens, sputum cultures, fungal studies -Can consider bronchoscopy -Hemoglobin 7.6, has CAD, transfuse 1 unit PRBC, monitor hemoglobin -Continue oxygen therapy, albuterol, budesonide - Incentive spirometer, flutter valve -Decadron -Vitamin C, zinc, vitamin D -Fluid restrictions 1500 cc, Bumex 1 mg every 12 hours on hold, creatinine up to 1.9, monitor urine output, monitor creatinine, monitor potassium -Given NSTEMI, baseline troponin 108, 6-hour 126.9, delta 126.9, continue aspirin, statin, Plavix, follow echocardiogram, consult cardiology, hold off on anticoagulation due to his history of bleeding, on last admission he required 2 units of PRBC, for hemoglobin 6.4, seem like iron deficiency anemia secondary to slow GI bleed - full code, however he wants to have a trial of CPR and intubation, however if it is not successful or prolonged, he wants to remain comfortable -Protonix for GI prophylaxis -SCDs for DVT prophylaxis, anticoagulation contraindicated given his anemia, and bleeding risk Status: Acute (2) Anemia: Etiology of anemia likely slow GI bleed, Hemoccult on last admission was negative, B12 folate was unremarkable Hemoglobin improved 7.6, will give 1 unit PRBC Hemoccult stool, Carafate, Protonix 40 twice daily Status: Acute (3) Pneumonia: Status: Acute (4) Diabetes mellitus: Low-dose sliding scale Status: Acute (5) Hypertension: Status: Acute (6) Coronary artery disease: Status: Acute (7) Percutaneous transluminal coronary angioplasty (PTCA) within last 14 to 24 months: Status: Acute (8) Atrial fibrillation: Currently rate controlled, anticoagulation contraindicated given anemia, Status: Acute (9) Chronic kidney disease: Creatinine improved to 1.6 Status: Acute (10) NSTEMI (non-ST elevated myocardial infarction): -Baseline troponin 103, 6-hour 126 improved from 3556 on 09/26 -EKG shows no acute ST-T wave changes, A. fib -No complaints of chest pain -Likely elevated troponin from prior cath, and not amenable lesion in LAD and left circumflex -No chest pain complaints -Continue aspirin, statin, Plavix, echo, cardiology on consult -Continue telemetry monitoring Status: Acute (11) Acute exacerbation of CHF (congestive heart failure): Status: Acute (12) Systolic and diastolic CHF, acute on chronic: Status: Acute Attestations Medical Necessity Statement*: Patient requires hospitalization for acute respiratory failure secondary to bilateral pneumonia, acute CHF exacerbation, with anemia, increasing OCTAVIA, intubated, mechanical ventilation Coding Level of Care Code 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
--- NOTE | 2020-10-16 15:51 | PC.NUTR ---
Tube feeding recommendations: If extubation within 1-3 days not expected, recommend enteral nutrition to meet nutritional needs if consistent with pt's goals of care. Recommend Glucerna 1.2, beginning at 10 ml/hr, increasing by 10 ml/hr q 8 hours to goal rate of 40 ml/hr with 100 ml H2O flushes q 4 hours to provide 1152 kcal, 58 g protein, and 1373 ml H2O. Propofol at current rate providing 418 kcal/day. CKD stage unclear per chart. If renal function worsens, would suggest Nepro instead, at goal rate of 25 ml/hr with 150 ml H2O flushes q 4 hrs to provide 1080 kcal, 49 g protein, 1335 ml H2O. See full RD assessment for further details.
[2020-10-16 16:24] LABS: Coronavirus Test Green County Not Detected
[2020-10-16] MEDS: sodium chloride 0.9% 250 ML 10 ML IV (16:38)
[2020-10-16 17:19] LABS: Glucose Point of Care 222 mg/dL (70-110)
[2020-10-16 17:30] LABS: Troponin 5 6HR 98.15 ng/L (0-15)
--- NOTE | 2020-10-16 17:32 | P.CONIM_ITS ---
Providers/Reason For Consult Consulting Physician/Specialty*: Jason Rivas MD/Cardiology Reason for Consult*: Congestive heart failure Requesting Physician: Dr Blake Attending Physician: Jonathan Blake MD History of Present Illness History of Present Illness 85 year old male with PMH of CAD, several coronary stents, PAD, with carotid artery stent, history of CVA, DM2, HTN, intermittent claudication, denies any past medical history of known lung disease, former smoker, presented with respiratory failure. Secondary to pneumonia. Also was found to have pulmonary edema. Getting diuresed. He is currently intubated and sedated. On his last visit to the hospital he underwent coronary angiogram that showed severe, heavily calcified proximal to mid LAD stenosis however was a medium sized vessel and given his severe anemia and high risk of procedure requiring arthrectomy, patient and family decided medical therapy. Echocardiogram performed during this admission reveals borderline normal EF of 50% which is unchanged from before. EKG does not reveal significant ischemic changes. Baseline troponin of 108 that trended up to 126 at 6 hours. Review of Systems General: Reports: ROS unobtainable due to medical condition Meds/Allergies Home Medications and Allergies Home Medications Medication Instructions Recorded Confirmed Last Taken Type acetaminophen [Tylenol] 325 mg PO QID PRN 08/10/19 10/15/20 Unknown History albuterol sulfate 2 puff INHALATION Q6H PRN MDD SEE 08/10/19 10/15/20 08/10/19 History PHARMACY COMMENT aspirin 81 mg PO DAILY 08/10/19 10/15/20 10/15/20 History atorvastatin 40 mg PO BEDTIME 08/10/19 10/15/20 10/14/20 History clopidogrel 75 mg PO DAILY 08/10/19 10/15/20 10/15/20 History glipizide 5 mg PO BID 08/10/19 10/15/20 10/15/20 History insulin glulisine U-100 See Rx Instructions .ROUTE .COMPLEX 08/10/19 10/15/20 10/15/20 History cilostazol 100 mg PO BID 09/25/20 10/15/20 10/15/20 History metoprolol tartrate 100 mg PO BID@0900,2100 #120 tab 10/02/20 10/15/20 10/15/20 Rx pantoprazole [Protonix] 40 mg PO DAILY #30 tab 10/02/20 10/15/20 10/15/20 Rx furosemide [Lasix] 20 mg PO DAILY 10/15/20 10/15/20 10/15/20 History Allergies Allergy/AdvReac Type Severity Reaction Status Date / Time egg Allergy ADR-Flatule Verified 11/18/19 14:12 nce sulfamethoxazole Allergy Unknown Verified 11/18/19 14:12 [From Bactrim] trimethoprim [From Bactrim] Allergy Unknown Verified 11/18/19 14:12 Current Medications Current Medications Generic Name Dose Route Start Last Admin Trade Name Freq PRN Reason Stop Dose Admin Ascorbic Acid 500 mg 10/15/20 19:53 10/16/20 16:43 Ascorbic Acid 500 Mg Tablet PO Not Given BID URIEL Aspirin 300 mg 10/16/20 11:30 10/16/20 12:23 Aspirin 300 Mg Supp FL 300 mg DAILY URIEL Administration Atorvastatin Calcium 40 mg 10/16/20 09:00 10/16/20 12:48 Atorvastatin 40 Mg Tablet PO Not Given DAILY URIEL Budesonide 0.5 mg 10/15/20 20:00 10/16/20 09:42 Budesonide 0.5 Mg/2 Ml Neb INHALATION 0.5 mg BID.RESPIRATORY URIEL Administration Bumetanide 1 mg 10/15/20 21:00 10/16/20 09:10 Bumetanide 0.25 Mg/Ml Sdv 4 Ml IV 1 mg Q12H URIEL Administration Cilostazol 100 mg 10/15/20 19:53 10/16/20 16:44 Cilostazol 100 Mg Tablet PO Not Given BID URIEL Clopidogrel Bisulfate 75 mg 10/16/20 09:00 10/16/20 12:50 Clopidogrel 75 Mg Tablet PO Not Given DAILY URIEL Dexamethasone 6 mg 10/15/20 19:53 10/15/20 21:31 Dexamethasone 10 Mg/Ml Inj IVP 6 mg Q24H URIEL Administration Propofol 1,000 mg in 100 mls @ 0 mls/hr 10/15/20 16:15 10/16/20 12:06 Diprivan IV 30 mcg/kg/min .Q0M URIEL 15.84 mls/hr Administration Protocol Per Protocol Fentanyl 1,000 mcg/ Sodium 100 mls @ 0 mls/hr 10/15/20 16:15 10/15/20 19:21 Chloride IV 25 mcg/hr .Q0M URIEL 2.5 mls/hr Titration Protocol Per Protocol Norepinephrine Bitartrate 4 mg 254 mls @ 0 mls/hr 10/15/20 16:30 10/16/20 13:11 / Dextrose IV 3 mcg/min .Q0M URIEL 11.43 mls/hr Titration Protocol Per Protocol Vancomycin/PEG/NADA/Lysine/Water 1,500 mg in 300 mls @ 200 mls/hr 10/16/20 13:00 10/16/20 13:55 Vancocin IV Infused Q24H URIEL Infusion Cefepime HCl 2,000 mg/ Sodium 50 mls @ 100 mls/hr 10/16/20 08:30 10/16/20 10:00 Chloride IV Infused Q12H URIEL Infusion Protocol Sodium Chloride 250 mls @ 10 mls/hr 10/16/20 15:45 10/16/20 16:38 Sodium Chloride 0.9% IV 10 mls/hr .Q24H URIEL Administration Insulin Aspart 0 unit 10/15/20 19:53 10/16/20 17:19 Insulin Aspart 100 Unit/1 Ml SUBCUT 6 unit TIDWM URIEL Administration Protocol Metoprolol Tartrate 100 mg 10/15/20 21:00 10/16/20 12:50 Metoprolol Tartrate 50 Mg Tablet PO Not Given BID@0900,2100 URIEL Pantoprazole Sodium 40 mg 10/15/20 20:00 10/16/20 08:02 Pantoprazole 40 Mg Sdv IVP 40 mg Q12H URIEL Administration Sucralfate 1 gm 10/15/20 19:53 10/16/20 16:43 Sucralfate 1 Gm Tablet PO Not Given BIDAC URIEL Vitamin D 1,000 unit 10/16/20 09:00 10/16/20 12:49 Cholecalciferol (Vitamin D3) 1,000 Unit Tablet PO Not Given DAILY URIEL Zinc Gluconate 50 mg 10/16/20 09:00 10/16/20 12:53 Zinc Gluconate 50 Mg Tablet PO Not Given DAILY URIEL PFSH Acute PFSH: Medical History Abdominal aortic aneurysm Coronary artery disease CVA (cerebral vascular accident) Diabetes mellitus Hypertension Intermittent claudication Percutaneous transluminal coronary angioplasty (PTCA) within last 14 to 24 months Salivary gland calculus Surgical History History of right common carotid artery stent placement History of tonsillectomy Family History Mother Polycystic kidney disease Brother CAD (coronary artery disease) Social History Smoking and tobacco status: former smoker Alcohol intake: former 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 Lives independently: Yes Household members: family Marital status: / Current occupational status: retired Vitals/I&O/Wt Last Vital Signs Temp 97.4 F L 10/16/20 17:06 Pulse 88 10/16/20 17:06 Resp 18 10/16/20 17:06 BP 105/53 10/16/20 17:06 Pulse Ox 96 10/16/20 16:00 10/16/20 10/16/20 10/16/20 06:59 14:59 22:59 Intake Total 481.643 / 667.560 674.435 / 674.435 0 / 674.435 Output Total 175 / 925 175 / 175 Balance 306.643 / -257.440 499.435 / 499.435 0 / 499.435 Weight last 48 hrs Weight 204 lb 1.6 oz Weight 194 lb Physical Exam Narrative: EXAM NARRATIVE: GENERAL: Patient is intubated and sedated NECK: No jugular vein distension. [] HEENT: No cyanosis. No icterus. No pallor. [] HEART: Regular S1 and S2. No murmur, rub or gallop. [] LUNGS: Clear to auscultate bilaterally. [] ABDOMEN: Soft, nontender and nondistended. Positive bowel sounds. No guarding, rebound or tenderness. [] CENTRAL NERVOUS SYSTEM: Grossly nonfocal. [] EXTREMITIES: Lower extremities with 1+ edema bilaterally. Pulses palpable in the lower extremities, both dorsalis pedis and posterior tibial. [] Urinary Catheter Management^: Kellogg: Cath Placed During This Visit: yes Reason for Continuing Indwelling Catheter: Accurate Measurement of Urinary Output in Critically Ill Patients Urinary Catheter Date of Insertion: 10/15/20 Urinary Catheter Time of Insertion: 17:06 Data Micro: Micro: Microbiology 10/15/20 12:40 Blood Culture - Pr eliminary Blood NEGATIVE TO AVTAR E 10/15/20 11:20 Blood Culture - Pr eliminary Blood NEGATIVE TO AVTAR E 10/15/20 13:14 MRSA Culture - Fin al Nose 10/15/20 19:37 Gram Stain - Final Sputum - Endotrac heal Tube Aspirate 10/15/20 00:40 Bacterial Antigens - Final Urine,Voided A&P Assessment and plan (1) Acute exacerbation of CHF (congestive heart failure): Status: Acute (2) Acute hypoxemic respiratory failure: Status: Acute (3) Chronic kidney disease: Status: Acute (4) Atrial fibrillation: Status: Acute (5) Acute respiratory failure with hypoxia: Status: Acute (6) Anemia: Status: Acute (7) Diabetes mellitus: Status: Acute (8) Hypertension: Status: Acute (9) Coronary artery disease: Status: Acute (10) Troponin level elevated: Status: Acute Patient is with acute respiratory failure likely secondary to pneumonia. He also has congestive heart failure. However EF has not dropped on echocardiogram. Troponin elevation is likely secondary to demand ischemia. He has known severe LAD stenosis however it is a medium sized vessel and heavily calcified artery, decision was to continue medical therapy. Continue medical therapy. No plan for invasive procedure at this time as no evidence of significant change on echo. Normal sinus rhythm right now. Has a history of A. fib however was not started on anticoagulation secondary to severe anemia. Continue gentle diuresis at this time. Monitor creatinine. Monitor I&O's. Continue aspirin. Thank you for involving us with care of this patient. We will continue to follow. Please call with questions. 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
[2020-10-16] MEDS: sodium chloride 0.9% 250 ML IV (19:29)
[2020-10-16] MEDS: dexamethasone 10 mg/mL INJ 6 MG IVP (19:56)
[2020-10-16 20:56] LABS: Hematocrit 28.1 % (42.0-52.0); Hemoglobin 8.6 g/dL (11.7-16.6)
--- NOTE | 2020-10-16 21:27 | PC.NURSE ---
Addendum entered by Suzie Hickman RN 10/17/20 06:20: Patient alert, cooperative, calm and following commands this morning, enjoying the weather channel. Addendum entered by Suzie Hickman RN 10/17/20 01:20: Appox 01:05 Dr. De Anda called after reviewing CT head, no acute stroke at this time noted. Morning labs drawn early to follow up on electrolytes per MD request. Patient symptoms have returned to baseline, able to open both eyes, left eye no longer deviated upwards, equal shellfish shucker and touch sensations. Called Kennedy olivas, per request and provided update. Addendum entered by Suzie Hickman RN 10/17/20 00:38: 23:20 Patient became bradycardic HR 40's bpm, Gtt's titrated per protocol and decrease propofol. Heart rate increased into the 80's. Approx 23:34 patient awaken and able to follow commands, when opening eyes, left eye deviated up with drooping of eyelid. Dr. De Anda notified, see new orders. Called Kennedy olivas and provided update on patient changes, he requested a call back after CT head results are dictated. Original Note: Shift Note Frequent safety and comfort rounds continue. Orders and/or nursing care completed as indicated. Patient monitored for response to intervention and treatment(s). Education provided includes[]. Patient and/or customer assistance representative [ResponseToTeaching]. Spoke with Kennedy olivas, provided patient update and answered all questions, including visiting hours and limit on visitors which was first verified by warehouse production worker on most recent protocol. Bedside rounding with Dr. Blake, see new order. Ventilator managed by RT. GTT's titrated per protocol. Will continue to monitor.
[2020-10-17] VITALS (73 sets, daily range): BP systolic 96–185; BP diastolic 49–92; PULSE 55–128; RESP 16–35; TEMP 36.7–36.9; O2SAT 90–955
--- NOTE | 2020-10-17 | CTR_ITS ---
PROCEDURE INFORMATION: Exam: CT Head Without Contrast Exam date and time: 10/17/2020 12:00 AM Age: 85 years old Clinical indication: Weakness, facial; Additional info: Poss CVA TECHNIQUE: Imaging protocol: Computed tomography of the head without contrast. Radiation optimization: All CT scans at this facility use at least one of these dose optimization techniques: automated exposure control; mA and/or kV adjustment per patient size (includes targeted exams where dose is matched to clinical indication); or iterative reconstruction. COMPARISON: CT head wo con* [id number] 09/25/2020 3:43 PM RADIATION DOSE METRICS: Total DLP (mGy-cm): 785.34 FINDINGS: Brain: There is no CT evidence for acute ischemia, mass or hemorrhage. No extra-axial fluid collection, midline shift or hydrocephalus. Generalized sulcal widening and ventricular enlargement are age related changes due to white matter volume loss. Cerebral ventricles: No ventriculomegaly. Paranasal sinuses: Mucosal thickening in the right maxillary sinus. No fluid levels. Mastoid air cells: Mastoid sinuses and middle ear spaces are clear. Bones/joints: Unremarkable. No acute fracture. Soft tissues: Unremarkable. CT/CT head wo con* [id number] IMPRESSION: 1. No acute intracranial findings. 2. Atrophy Radiation Dose CTDIVOL = (mGy): DLP = 785.34 (mGy-cm)
[2020-10-17] MEDS: propofol 1,000 MG/100 ML INJ 7.92 MG IV (00:19)
--- NOTE | 2020-10-17 00:33 | ECG_ITS ---
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 Measurements Intervals [place] Rate: 78 P: 62 HI: 189 QRS: -58 QRSD: 98 T: 97 QT: 395 QTc: 451 Interpretive Statements SINUS RHYTHM WITH OCCASIONAL SUPRAVENTRICULAR PREMATURE COMPLEXES LEFT AXIS DEVIATION [QRS AXIS < -30] INCOMPLETE RIGHT BUNDLE BRANCH BLOCK [90+ ms QRS DURATION, TERMINAL R IN V1/V2, 40+ ms S IN I/aVL/V4/V5/V6] NONSPECIFIC T-WAVE ABNORMALITY Compared to ECG 10/16/2020 15:54:09 Incomplete right bundle-branch block now present T-wave abnormality still present Electronically Signed On 10-17-2020 22:06:04 CDT by Jason Rivas M.D. [id number]
[2020-10-17 01:37] LABS: Basophils % 0.2 %; Hematocrit 28.1 % (42.0-52.0); Hemoglobin 8.5 g/dL (11.7-16.6); Lymphocytes # 0.4 10^3/uL (0.8-4.8); Lymphocytes % 4.1 %; Mean Corpuscular HGB Conc 30.2 g/dL (30.0-36.0); Mean Corpuscular Hemoglobin 23.6 pg (28.0-34.0); Mean Corpuscular Volume 78.1 fl (80-94); Mean Platelet Volume 10.3 fL (7.4-10.4); Monocytes # 0.4 10^3/uL (0.2-0.9); Monocytes % 4.1 %; Neutrophils # 7.91 10^3/uL (1.8-7.7); Neutrophils % 91.1 %; Nucleated Red Blood Cells % 0 %; Platelet Count 242 10^3/cmm (130-400); Red Cell Distribution Width 21.5 % (12.1-15.1); White Blood Count 8.7 10^3/uL (4.0-10.0)
[2020-10-17 01:58] LABS: INR 1.29 (0.8-1.2)
[2020-10-17 02:07] LABS: Alanine Aminotransferase 16 U/L (0-41); Albumin Level 2.8 g/dL (3.5-5.2); Alkaline Phosphatase 52 IU/L (40-130); Anion Gap 18.9 (5-19); Aspartate Amino Transferase 12 U/L (0-40); Blood Urea Nitrogen 38 mg/dL (8-23); C Reactive Protein 85.2 mg/L (0.0-4.9); Calcium 8.2 mg/dL (8.5-10.5); Carbon Dioxide 21 mmol/L (22-29); Chloride 102 mmol/L (98-107); Globulin 2.8 g/dL (1.3-4.6); Glucose 156 mg/dL (65-115); Osmolality Calculated 298 mOsm/kg (285-295); Phosphorus 5.2 mg/dL (2.5-4.5); Potassium 3.9 mmol/L (3.5-5.1); Sodium 138 mmol/L (136-145); Total Bilirubin 0.4 mg/dL (0.15-1.2); Total Protein 5.6 g/dL (6.6-8.7)
[2020-10-17 02:10] LABS: Lactate (Lactic Acid level) 0.9 mmol/L (0.5-2.2)
[2020-10-17 02:19] LABS: NT Pro B Type Natriuretic Pept 4802 pg/mL (0-450); Procalcitonin 2.35 ng/mL (0-0.5)
[2020-10-17 02:30] LABS: Creatine Phosphokinase 178 U/L (39-308)
[2020-10-17 02:45] LABS: Ferritin 114 ng/mL (30-400)
--- NOTE | 2020-10-17 04:24 | USR_ITS ---
PROCEDURE INFORMATION: Exam: US Retroperitoneal; Complete; Kidneys and Bladder Exam date and time: 10/17/2020 4:24 AM Age: 85 years old Clinical indication: Abnormal findings; Abnormal lab test; Abnormal kidney function lab tests; Additional info: Macario TECHNIQUE: Imaging protocol: Real-time ultrasound of the retroperitoneum with image documentation. Complete exam focused on the kidneys and bladder. COMPARISON: CT kidney stone [id number] 09/25/2020 7:39 PM FINDINGS: Right kidney: The right kidney measures 10.84 cm in length. The right kidney is normal in size and echogenicity. There is a 1.0 cm echogenicity in the right renal pelvis consistent with a nonobstructing calculus. Multiple benign simple cysts are present in the right kidney measuring up to 2.8 cm in diameter. No hydronephrosis. Left kidney: The left kidney measures 12.0 cm in length. The left kidney is normal in size. Multiple benign cysts are present in the left kidney measuring up to 3.6 cm in diameter. There is no hydronephrosis or left renal calculus.. Aorta: There is a distal abdominal aortic aneurysm measuring 5.4 cm in maximum diameter and a length of 6.0 cm. Urinary bladder: Unremarkable. US/US renal BI* [id number] IMPRESSION: 1. Bilateral benign renal cysts. 2. There is a 1 cm nonobstructing calculus in the midportion of the right kidney. 3. Infrarenal abdominal aortic aneurysm measuring 5.4 cm in diameter.
[2020-10-17 05:43] LABS: ABG PCO2 42.2 mmHg (35-45); ABG PH Result 7.32 (7.35-7.45); Base Excess ABG -4.2 mmol/L (-2.0-2.0); Blood Gas Operator Identificat JB; Blood Gas Sample Site Brachial, right; Blood Gas Sample Type Arterial; HCO3 ABG 21.8 mmol/L (22-26); Oxygen Device VENT; PO2 ABG 91.2 mmHg (80.0-100.0)
[2020-10-17] MEDS: sodium chloride 0.9% 1,000 ML 100 ML IV (06:00)
[2020-10-17 07:25] LABS: Potassium, Radom Urine 40 mmol/L; Urine Creatinine 127 mg/dL (39-259)
[2020-10-17 08:03] LABS: Glucose Point of Care 180 mg/dL (70-110)
[2020-10-17] MEDS: pantoprazole 40 mg SDV IVP ×2 (08:14→21:53)
[2020-10-17] MEDS: cefepime 2,000 MG in sodium chloride 0.9% (plus) 50 ML 100 MG IV (08:14)
[2020-10-17] MEDS: aspirin 300 mg Supp PR (08:15)
[2020-10-17 08:25] LABS: Creatinine Urine, Random 130 mg/dL (39-259); Microalbum Creatinine Ratio Ur 31 mg/dL (0-20); Microalbumin Random Urine 4 ug/dL (0-20)
[2020-10-17] MEDS: sodium bicarbonate 8.4% 1 mEq/mL 50mL Syr 50 MEQ IVP (08:44)
[2020-10-17] MEDS: budesonide 0.5 mg/2 mL Neb INHALATION ×2 (09:09→20:31)
[2020-10-17 09:43] LABS: Urine Random Chloride < 10 mmol/L; Urine Random Sodium < 10 mmol/L
--- NOTE | 2020-10-17 10:08 | PM.CONSULT ---
Providers/Reason For Consult Consulting Physician/Specialty*: Nephro Reason for Consult*: Acute Kidney Injury Attending Physician: Jonathan Blake MD History of Present Illness History of Present Illness Thanks for consultation. Today I reviewed Mr Castorena for OCTAVIA. He was recently discharged on 10/02 for pneumonia, receiving treatment with Vanco and Cefepime, complicated by Afib with RVR. He subsequently made a progressive improvement and was subsequently discharged. He then presented again 2 days ago with increasing shortness of breath and was found to be hypoxic and was subsequently transferred to our hospital. Over the course of the first day of hospitalization, he became progressively more hypoxic and subsequently required intubation and mechanical ventilation. He is currently intubated at this time. CT scan with IV contrast demonstrated multifocal pneumonia. He is currently on combination antibiotic therapy with vancomycin, Levaquin, cefepime. He did receive intravenous diuretics over the last few days, as creatinine is drifting up, he is now receiving some normal saline. He was hemodynamically labile over the last few days and did require vasopressor agents. Levophed was tapered off at 7:00 this morning. The lowest recorded blood pressure following hospitalization was 79/42 was seen on 10/16 at 3:30 AM. Clinically he is improving now to a point where it is likely he will be extubated this afternoon. His FiO2 has come down to 40% and he has a PEEP of 6. His blood pressure looks more robust. He does have chronic kidney disease, baseline creatinine appears to be 1.3-1.6 mg/dL. On admission it was 1.6 and has drifted up to 2.2 mg/dL today. Kellogg catheter is in. Urine output is reasonable, he made 500 mL of clear krishna urine over the last 24 hours. Limited echocardiogram demonstrates LV systolic function is borderline normal with EF of 50%. Mild hypokinesis of anteroseptal wall is noted. Review of Systems General: Reports: ROS unobtainable due to medical condition Meds/Allergies Home Medications and Allergies Home Medications Medication Instructions Recorded Confirmed Last Taken Type acetaminophen [Tylenol] 325 mg PO QID PRN 08/10/19 10/15/20 Unknown History albuterol sulfate 2 puff INHALATION Q6H PRN MDD SEE 08/10/19 10/15/20 08/10/19 History PHARMACY COMMENT aspirin 81 mg PO DAILY 08/10/19 10/15/20 10/15/20 History atorvastatin 40 mg PO BEDTIME 08/10/19 10/15/20 10/14/20 History clopidogrel 75 mg PO DAILY 08/10/19 10/15/20 10/15/20 History glipizide 5 mg PO BID 08/10/19 10/15/20 10/15/20 History insulin glulisine U-100 See Rx Instructions .ROUTE .COMPLEX 08/10/19 10/15/20 10/15/20 History cilostazol 100 mg PO BID 09/25/20 10/15/20 10/15/20 History metoprolol tartrate 100 mg PO BID@0900,2100 #120 tab 10/02/20 10/15/20 10/15/20 Rx pantoprazole [Protonix] 40 mg PO DAILY #30 tab 10/02/20 10/15/20 10/15/20 Rx furosemide [Lasix] 20 mg PO DAILY 10/15/20 10/15/20 10/15/20 History Allergies Allergy/AdvReac Type Severity Reaction Status Date / Time egg Allergy ADR-Flatule Verified 11/18/19 14:12 nce sulfamethoxazole Allergy Unknown Verified 11/18/19 14:12 [From Bactrim] trimethoprim [From Bactrim] Allergy Unknown Verified 11/18/19 14:12 Current Medications Current Medications Generic Name Dose Route Start Last Admin Trade Name Freq PRN Reason Stop Dose Admin Ascorbic Acid 500 mg 10/15/20 19:53 10/17/20 09:50 Ascorbic Acid 500 Mg Tablet PO Not Given BID URIEL Aspirin 300 mg 10/16/20 11:30 10/17/20 08:15 Aspirin 300 Mg Supp [place] 300 mg DAILY URIEL Administration Atorvastatin Calcium 40 mg 10/16/20 09:00 10/17/20 09:51 Atorvastatin 40 Mg Tablet PO Not Given DAILY URIEL Budesonide 0.5 mg 10/15/20 20:00 10/17/20 09:09 Budesonide 0.5 Mg/2 Ml Neb INHALATION 0.5 mg BID.RESPIRATORY URIEL Administration Bumetanide 1 mg 10/15/20 21:00 10/16/20 09:10 Bumetanide 0.25 Mg/Ml Sdv 4 Ml IV 1 mg Q12H URIEL Administration Cilostazol 100 mg 10/15/20 19:53 10/17/20 09:51 Cilostazol 100 Mg Tablet PO Not Given BID URIEL Clopidogrel Bisulfate 75 mg 10/16/20 09:00 10/17/20 09:51 Clopidogrel 75 Mg Tablet PO Not Given DAILY URIEL Dexamethasone 6 mg 10/15/20 19:53 10/16/20 19:56 Dexamethasone 10 Mg/Ml Inj IVP 6 mg Q24H URIEL Administration Propofol 1,000 mg in 100 mls @ 0 mls/hr 10/15/20 16:15 10/17/20 06:23 Diprivan IV 5 mcg/kg/min .Q0M URIEL 2.64 mls/hr Titration Protocol Per Protocol Fentanyl 1,000 mcg/ Sodium 100 mls @ 0 mls/hr 10/15/20 16:15 10/17/20 06:01 Chloride IV 100 mcg/hr .Q0M URIEL 10 mls/hr Administration Protocol Per Protocol Norepinephrine Bitartrate 4 mg 254 mls @ 0 mls/hr 10/15/20 16:30 10/16/20 23:06 / Dextrose IV 2 mcg/min .Q0M URIEL 7.62 mls/hr Titration Protocol Per Protocol Vancomycin/PEG/NADA/Lysine/Water 1,500 mg in 300 mls @ 200 mls/hr 10/16/20 13:00 10/16/20 13:55 Vancocin IV Infused Q24H URIEL Infusion Cefepime HCl 2,000 mg/ Sodium 50 mls @ 100 mls/hr 10/16/20 08:30 10/17/20 08:47 Chloride IV Infused Q12H URIEL Infusion Protocol Sodium Chloride 250 mls @ 10 mls/hr 10/16/20 15:45 10/16/20 16:38 Sodium Chloride 0.9% IV 10 mls/hr .Q24H URIEL Administration Sodium Chloride 1,000 mls @ 100 mls/hr 10/17/20 04:30 10/17/20 06:00 Sodium Chloride 0.9% IV 10/17/20 14:29 100 mls/hr .Q10H URIEL Administration Insulin Aspart 0 unit 10/15/20 19:53 10/17/20 08:14 Insulin Aspart 100 Unit/1 Ml SUBCUT 2 unit TIDWM URIEL Administration Protocol Metoprolol Tartrate 100 mg 10/15/20 21:00 10/16/20 12:50 Metoprolol Tartrate 50 Mg Tablet PO Not Given BID@0900,2100 URIEL Pantoprazole Sodium 40 mg 10/15/20 20:00 10/17/20 08:14 Pantoprazole 40 Mg Sdv IVP 40 mg Q12H URIEL Administration Sucralfate 1 gm 10/15/20 19:53 10/17/20 06:25 Sucralfate 1 Gm Tablet PO Not Given BIDAC URIEL Vitamin D 1,000 unit 10/16/20 09:00 10/17/20 09:51 Cholecalciferol (Vitamin D3) 1,000 Unit Tablet PO Not Given DAILY URIEL Zinc Gluconate 50 mg 10/16/20 09:00 10/17/20 09:52 Zinc Gluconate 50 Mg Tablet PO Not Given DAILY URIEL PFSH Acute PFSH: Medical History Abdominal aortic aneurysm Coronary artery disease CVA (cerebral vascular accident) Diabetes mellitus Hypertension Intermittent claudication Percutaneous transluminal coronary angioplasty (PTCA) within last 14 to 24 months Salivary gland calculus Surgical History History of right common carotid artery stent placement History of tonsillectomy Family History Mother Polycystic kidney disease Brother CAD (coronary artery disease) Social History Smoking and tobacco status: former smoker Alcohol intake: former 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 Lives independently: Yes Household members: family Marital status: / Current occupational status: retired Vitals/I&O/Wt Last Vital Signs Temp 96.8 F L 10/16/20 23:45 Pulse 65 10/17/20 09:10 Resp 26 H 10/17/20 09:10 BP 131/58 10/17/20 09:00 Pulse Ox 97 10/17/20 09:10 10/16/20 10/17/20 10/17/20 22:59 06:59 14:59 Intake Total 836.911 / 1511.346 255.186 / 1766.532 50 / 50 Output Total 375 / 550 525 / 1075 Balance 461.911 / 961.346 -269.814 / 691.532 50 / 50 Weight last 48 hrs Weight 91.444 kg Weight 92.578 kg Weight 87.997 kg Physical Exam Narrative: EXAM NARRATIVE: Constitutional: Intubated and vented HEENT: Wet mucosa, no jvp, non icteric Lungs: Bilaterally clear/diminshed CVS: S1 S2, no murmurs Abdo: Soft, BS ok Ext 4: Minimal edema, peripheral perfusion with no cyanosis Neurological: Grossly non-focal Urinary Catheter Management^: Kellogg: Cath Placed During This Visit: yes Reason for Continuing Indwelling Catheter: Accurate Measurement of Urinary Output in Critically Ill Patients Urinary Catheter Date of Insertion: 10/15/20 Urinary Catheter Time of Insertion: 17:06 Data Micro: Micro: Microbiology 10/15/20 19:37 Gram Stain - Final Sputum - Endotrac heal Tube Aspirate Sputum Culture - P reliminary 10/15/20 12:40 Blood Culture - Pr eliminary Blood NEGATIVE TO AVTAR E 10/15/20 11:20 Blood Culture - Pr eliminary Blood NEGATIVE TO AVTAR E 10/15/20 13:14 MRSA Culture - Fin al Nose 10/15/20 00:40 Bacterial Antigens - Final Urine,Voided A&P Additional A&P Information 1. Acute nonoliguric kidney injury on stage III chronic kidney disease Differential here does include prerenal azotemia, hypotensive and hypoxic associated ischemic ATN, contrast nephropathy. Hemodynamics are now robust, of course the contrast injury is now older. Receiving gentle IV fluid. Limited work-up to include urinalysis, fractional excretion of sodium, uric acid, TSH, CPK. Daily renal panel Strict I's and O's Dose medication for GFR less than 30 At this time no indication for renal replacement therapy, continue to monitor closely. 2. Vent dependent respiratory failure Secondary to multifocal pneumonia as seen on CT scan Currently on combination antibiotic therapy with vancomycin, Levaquin and cefepime Dose Vanco to keep levels less than 19 Weaning from the vent per ICU team Respiratory toilet etc. 3. Chemistry Mild acidosis seen on labs this morning otherwise the chemistry looks well balanced. 4. Hemodynamics Hemodynamics now appears stable Close monitoring the ICU Joseph Bose MD Nephrology [phone] Patient seen and examined via telemedicine, with the assistance of the bedside RN > 25 min spent in evaluation and mgmt of patient Coding Level of Care Code Acute Journeyman Electrician Pv Installer for Yolanda Morales
[2020-10-17 11:20] LABS: Add Urine Microscopic? YES; Bilirubin Urine Neg (Negative); Blood Urine 2+ (Negative); Glucose Urine UA Norm (Normal); Ketones Urine Negative (Negative); Leukocyte Esterase Urine 2+ (Negative); Nitrate Urine Negative (Negative); Protein Urine Neg (Negative); Urine Appearance Clear (CLEAR); Urine Color Yellow (Yellow); Urobilinogen Urine Norm (Negative); pH Urine 5 (5-7)
[2020-10-17] MEDS: levofloxacin-dextrose 5 % 750 MG/150 ML PREMIX 100 MG IV (11:23)
[2020-10-17 11:24] LABS: Glucose Point of Care 132 mg/dL (70-110)
[2020-10-17 11:26] LABS: WBC Urine 15-25 /hpf (0-5)
[2020-10-17 11:27] LABS: Add Urine Culture? Yes; Bacteria Urine 1+ /hpf
[2020-10-17 11:36] LABS: Urine Creatinine 122 mg/dL (39-259)
[2020-10-17 11:40] LABS: Urine Random Sodium 18 mmol/L
[2020-10-17] MEDS: vancomycin 1,500 MG/300 ML PIGGYBACK 200 MG IV (13:00)
[2020-10-17 13:33] LABS: Eosinophil Urine No Eosinophils Seen; Urine Eosinophil Count 0 (0-0)
[2020-10-17 14:36] LABS: Basophils % 0.5 %; Eosinophils % 0.5 %; Hematocrit 27.6 % (42.0-52.0); Hemoglobin 8.3 g/dL (11.7-16.6); Lymphocytes # 0.7 10^3/uL (0.8-4.8); Lymphocytes % 7.8 %; Mean Corpuscular HGB Conc 30.1 g/dL (30.0-36.0); Mean Corpuscular Hemoglobin 23.4 pg (28.0-34.0); Mean Corpuscular Volume 77.7 fl (80-94); Monocytes # 0.5 10^3/uL (0.2-0.9); Monocytes % 5.6 %; Neutrophils # 7.17 10^3/uL (1.8-7.7); Neutrophils % 85.1 %; Nucleated Red Blood Cells % 0 %; Platelet Count 211 10^3/cmm (130-400); Red Blood Count 3.55 10^6/uL (4.1-5.3); Red Cell Distribution Width 21.7 % (12.1-15.1); White Blood Count 8.4 10^3/uL (4.0-10.0)
[2020-10-17 14:59] LABS: Alanine Aminotransferase 15 U/L (0-41); Albumin Level 2.8 g/dL (3.5-5.2); Alkaline Phosphatase 46 IU/L (40-130); Aspartate Amino Transferase 17 U/L (0-40); Blood Urea Nitrogen 44 mg/dL (8-23); Carbon Dioxide 24 mmol/L (22-29); Chloride 103 mmol/L (98-107); Glucose 121 mg/dL (65-115); Osmolality Calculated 300 mOsm/kg (285-295); Sodium 139 mmol/L (136-145); Total Bilirubin 0.3 mg/dL (0.15-1.2); Total Protein 5.8 g/dL (6.6-8.7)
[2020-10-17 15:07] LABS: Creatine Phosphokinase 291 U/L (39-308); Thyroid Stimulating Hormone 1.51 uIU/mL (0.27-4.20); Uric Acid 7.5 mg/dL (3.4-7.0)
--- NOTE | 2020-10-17 15:25 | P.PN_ITS ---
Subjective Subjective: Interval history: Patient was seen this morning, he is on minimal sedation, able to follow simple commands, afebrile overnight, remains off pressors, he did have 900 cc urine output in the last 24 hours, creatinine up to 2.2, afebrile overnight, on 40% FiO2, good tidal volumes, Early in the afternoon, patient's creatinine went up to 2.4, continues to have minimal urine output over the last few hours, patient is at risk of dialysis, however he is doing well on the ventilator, good tidal volumes, minimize minimal PEEP, minimal FiO2, will do a spontaneous breathing trial, likely extubate patient in the afternoon Vitals/I&O/Wt Last Vital Signs Temp 98.2 F 10/17/20 12:00 Pulse 88 10/17/20 14:00 Resp 18 10/17/20 12:00 BP 127/65 10/17/20 12:00 Pulse Ox 95 10/17/20 12:00 10/17/20 10/17/20 10/17/20 06:59 14:59 22:59 Intake Total 255.186 / 1766.532 500 / 500 Output Total 525 / 1075 Balance -269.814 / 691.532 500 / 500 Weight last 48 hrs Weight 92.079 kg Weight 91.444 kg Weight 92.578 kg Physical Exam Narrative: EXAM NARRATIVE: Intubated, sedated, does follow some commands on the ventilator Resp: COMMON NORMALS: normal respiratory effort, No retractions, No use of accessory muscles and clear to auscultation bilaterally AUSCULTATION: clear to auscultation bilaterally Cardio: COMMON NORMALS: regular rate, regular rhythm, S1 normal heart sound present and S2 normal heart sound present RATE: regular rate RHYTHM: regular rhythm HEART SOUNDS: S1 normal heart sound present and S2 normal heart sound present GI: COMMON NORMALS: Normal to inspection, nondistended, normoactive bowel sounds present, Soft to palpation, non-tender and No hepatosplenomegaly present PALPATION: Yes Soft to palpation and Yes No hepatosplenomegaly present : OTHER: Right femoral line in place Extremity: COMMON NORMALS: no pedal edema Urinary Catheter Management^: Kellogg: Cath Placed During This Visit: yes Reason for Continuing Indwelling Catheter: Accurate Measurement of Urinary Output in Critically Ill Patients Urinary Catheter Date of Insertion: 10/15/20 Urinary Catheter Time of Insertion: 17:06 Data : 10/17/20 14:17 10/17/20 14:17 Micro: Microbiology 10/15/20 19:37 Gram Stain - Final Sputum - Endotracheal Tube Aspirate Sputum Culture - Preliminary 10/15/20 12:40 Blood Culture - Preliminary Blood NEGATIVE TO DATE 10/15/20 11:20 Blood Culture - Preliminary Blood NEGATIVE TO DATE 10/15/20 13:14 MRSA Culture - Final Nose A&P Assessment and plan (1) Acute respiratory failure with hypoxia: -Secondary to multifocal pneumonia, likely healthcare associated ammonia, acute systolic and diastolic CHF -But also high suspicion for aspiration pneumonia, aspiration pneumonitis, given large hiatal hernia -Given his sudden decline in the emergency room yesterday, underwent a CT angiogram of the chest to evaluate for pulmonary embolism which was unremarkable, certainly acute flash pulmonary edema remains a possibility, and possible fungal infection -Patient does have CAD, NSTEMI, known disease in LAD left circumflex, managed medically on aspirin and Plavix, -Covid PCR negative, has not received Covid vaccines, no known exposure, on last admission tested negative -CT of the chest progression of groundglass opacification in the upper lungs white bilaterally, continued bilateral lower lobe consolidations, reactive lymphadenopathy, chronic emphysema -CT angiogram negative for pulmonary embolism, extensive bilateral pneumonia, large hiatal hernia -BNP is elevated 9392, but improved from 13,000 during last hospital admission, has received diuretic therapy, echocardiogram from September 26 showed an EF of 45 to 50%, abnormal diastolic dysfunction, left atrium was dilated -Repeat echocardiogram shows an EF of 50%, mild hypokinesis of anteroseptal wall Plan: -Admit to ICU -Continue intubation, mechanical ventilation, minimize tidal volume, minimize FiO2, optimize PEEP -Fentanyl and propofol for sedation -Off pressors -We will do a spontaneous breathing trial today, if all parameters are met, will extubate this afternoon -Multiple attempts were made to place nasogastric tube, however getting past the hiatal hernia has been proven to be difficult, hold off for now -Aspiration precautions, consult speech therapy -Broad-spectrum antibiotic therapy, vancomycin, cefepime, Levaquin -Follow blood cultures, urine bacterial antigens, sputum cultures, fungal larry dies -Can consider bronchoscopy -Hemoglobin 8.3, has CAD, status post 1 unit PRBC transfuse if hemoglobin less than 8, monitor hemoglobin -Continue oxygen therapy, albuterol, budesonide - Incentive spirometer, flutter valve -Stop Decadron -Vitamin C, zinc, vitamin D - diuretics on hold -OCTAVIA on CKD, multifactorial from sepsis, diuretics, contrast. Nephrology on consult, anuric for the last 8 hours, creatinine 2.4, no other significant electrolyte abnormalities, might require CRRT -Given NSTEMI, baseline troponin 108, 6-hour 126.9, delta 126.9, continue aspirin, statin, Plavix, echocardiograms above, consult cardiology, hold off on anticoagulation due to his history of bleeding, on last admission he required 2 units of PRBC, for hemoglobin 6.4, seem like iron deficiency anemia secondary to slow GI bleed - full code, however he wants to have a trial of CPR and intubation, however if it is not successful or prolonged, he wants to remain comfortable -Protonix for GI prophylaxis -SCDs for DVT prophylaxis, anticoagulation contraindicated given his anemia, and bleeding risk Status: Acute (2) Anemia: Etiology of anemia likely slow GI bleed, Hemoccult on last admission was negative, B12 folate was unremarkable Hemoglobin improved 8.3 status post 1 unit PRBC Hemoccult stool, Carafate, Protonix 40 twice daily Status: Acute (3) Pneumonia: Status: Acute (4) Diabetes mellitus: Low-dose sliding scale Status: Acute (5) Hypertension: Status: Acute (6) Coronary artery disease: Status: Acute (7) Percutaneous transluminal coronary angioplasty (PTCA) within last 14 to 24 months: Status: Acute (8) Atrial fibrillation: Currently rate controlled, anticoagulation contraindicated given anemia, Status: Acute (9) Chronic kidney disease: Creatinine improved to 1.6 Status: Acute (10) NSTEMI (non-ST elevated myocardial infarction): -Baseline troponin 103, 6-hour 126 improved from 3556 on 09/26 -EKG shows no acute ST-T wave changes, A. fib -No complaints of chest pain -Likely elevated troponin from prior cath, and not amenable lesion in LAD and left circumflex -No chest pain complaints -Continue aspirin, statin, Plavix, echo as above, cardiology on consult -Continue telemetry monitoring Status: Acute (11) Acute exacerbation of CHF (congestive heart failure): Status: Acute (12) Systolic and diastolic CHF, acute on chronic: Status: Acute (13) Acute kidney injury superimposed on CKD: Status: Acute Attestations Medical Necessity Statement*: Patient requires hospitalization for acute respiratory failure secondary to multifocal pneumonia, sepsis, now with acute renal failure, NSTEMI Coding Level of Care Code Acute Expediter for [facility] Diagnoses Acute respiratory failure with hypoxia J96.01 Anemia D64.9 Pneumonia J18.9 Diabetes mellitus E11.9 Hypertension I10 Coronary artery disease I25.10 Percutaneous transluminal coronary angioplasty (PTCA) within last 14 to 24 months Z98.61 Atrial fibrillation I48.91 Chronic kidney disease N18.9 NSTEMI (non-ST elevated myocardial infarction) I21.4 Acute exacerbation of CHF (congestive heart failure) I50.9 Systolic and diastolic CHF, acute on chronic I50.43 Acute kidney injury superimposed on CKD N17.9; N18.9
--- NOTE | 2020-10-17 16:38 | PC.RESP ---
extubated pt extubated and placed on 4lpm nc tolerated well
[2020-10-17] MEDS: sodium chloride 0.9% 250 ML 10 ML IV (16:44)
[2020-10-17 17:33] LABS: Glucose Point of Care 105 mg/dL (70-110)
--- NOTE | 2020-10-17 17:49 | PC.NURSE ---
Shift Note Frequent safety and comfort rounds continue. Orders and/or nursing care completed as indicated. Patient monitored for response to intervention and treatment(s). Education provided includes[treatment plan]. Patient and/or account manager sales representative [receptive to learning]. Will continue to monitor. Pt extubated at approximately 1620. Patient is alert and talking. Says he has trouble finding words and stutters but that is normal for him. Will continue to monitor.
--- NOTE | 2020-10-17 18:54 | ECG_ITS ---
[facility] Test Date: 2020-10-17 Pat Name: Kwaku Castorena Department: Room: ICU08 Gender: Male Senior Facilities Manager: : [id number] Requested By: Jonathan Blake Order Number: [id number] Charbel MD: Jason Rivas M.D. Measurements Intervals [place] Rate: 120 P: 43 [place]: 180 QRS: -45 QRSD: 89 T: 94 QT: 290 QTc: 410 Interpretive Statements SINUS TACHYCARDIA POSSIBLE RIGHT VENTRICULAR CONDUCTION DELAY [RSR (QR) IN V1/V2] LEFT ANTERIOR FASCICULAR BLOCK [QRS AXIS <= -45, QR IN I, RS IN II] NONSPECIFIC ST & T-WAVE ABNORMALITY Compared to ECG 10/16/2020 23:24:39 Left anterior fascicular block now present Sinus rhythm no longer present Left-axis deviation no longer present Incomplete right bundle-branch block no longer present T-wave abnormality still present Electronically Signed On 10-18-2020 19:47:39 CDT by Jason Rivas M.D. [email or web address]
--- NOTE | 2020-10-17 18:54 | PC.NURSE ---
Increased heart rate of 120s. Dr. Blake on floor and noted. EKG ordered. If a-fib Dr. Blake wants amiodarone gtt started. Will pass on in report to oncoming nurse.
--- NOTE | 2020-10-17 20:48 | PM.PN ---
Subjective Subjective: Interval history: Patient is overall doing well. He still intubated. His creatinine has worsened. Can hold Bumex for now. Vitals/I&O/Wt Last Vital Signs Temp 98.1 F 10/17/20 16:00 Pulse 122 H 10/17/20 20:30 Resp 24 H 10/17/20 20:30 BP 146/82 10/17/20 16:00 Pulse Ox 955 H 10/17/20 20:30 10/17/20 10/17/20 10/17/20 06:59 14:59 22:59 Intake Total 255.186 / 1766.532 500 / 500 1367.62 / 1867.62 Output Total 525 / 1075 500 / 500 Balance -269.814 / 691.532 500 / 500 867.62 / 1367.62 Weight last 48 hrs Weight 203 lb Weight 201 lb 9.6 oz Weight 204 lb 1.6 oz Physical Exam Narrative: EXAM NARRATIVE: GENERAL: Patient is intubated and sedated NECK: No jugular vein distension. [] HEENT: No cyanosis. No icterus. No pallor. [] HEART: Regular S1 and S2. No murmur, rub or gallop. [] LUNGS: Clear to auscultate bilaterally. [] ABDOMEN: Soft, nontender and nondistended. Positive bowel sounds. No guarding, rebound or tenderness. [] CENTRAL NERVOUS SYSTEM: Grossly nonfocal. [] EXTREMITIES: Lower extremities with 1+ edema bilaterally. Pulses palpable in the lower extremities, both dorsalis pedis and posterior tibial. [] Urinary Catheter Management^: Kellogg: Cath Placed During This Visit: yes Reason for Continuing Indwelling Catheter: Accurate Measurement of Urinary Output in Critically Ill Patients Urinary Catheter Date of Insertion: 10/15/20 Urinary Catheter Time of Insertion: 17:06 Data : 10/18/20 03:57 10/18/20 03:57 Micro: Microbiology 10/15/20 19:37 Gram Stain - Final Sputum - Endotracheal Tube Aspirate Sputum Culture - Preliminary A&P Assessment and plan (1) Acute exacerbation of CHF (congestive heart failure): Status: Acute (2) Acute hypoxemic respiratory failure: Status: Acute (3) Chronic kidney disease: Status: Acute (4) Atrial fibrillation: Status: Acute (5) Acute respiratory failure with hypoxia: Status: Acute (6) Anemia: Status: Acute (7) Diabetes mellitus: Status: Acute (8) Hypertension: Status: Acute (9) Coronary artery disease: Status: Acute (10) Troponin level elevated: Status: Acute Patient is with acute respiratory failure likely secondary to pneumonia. He also has congestive heart failure. However EF has not dropped on echocardiogram. Troponin elevation is likely secondary to demand ischemia. He has known severe LAD stenosis however it is a medium sized vessel and heavily calcified artery, decision was to continue medical therapy. Continue medical therapy. No plan for invasive procedure at this time as no evidence of significant change on echo. Given worsening of creatinine, hold off Bumex for today. Will reassess later. Normal sinus rhythm right now. Has a history of A. fib however was not started on anticoagulation secondary to severe anemia. Continue aspirin. Thank you for involving us with care of this patient. We will continue to follow. Please call with questions. Attestations Medical Necessity Statement*: Care expected to cross 2 midnights. Coding Level of Care Code Acute Community Support Specialist for Yolanda Morales Diagnoses Acute exacerbation of CHF (congestive heart failure) I50.9 Acute hypoxemic respiratory failure J96.01 Chronic kidney disease N18.9 Atrial fibrillation I48.91 Acute respiratory failure with hypoxia J96.01 Anemia D64.9 Diabetes mellitus E11.9 Hypertension I10 Coronary artery disease I25.10 Troponin level elevated R77.8
[2020-10-17] MEDS: metoprolol tartrate 25 mg Tablet PO (21:53)
[2020-10-17 22:42] LABS: Glucose Point of Care 121 mg/dL (70-110)
[2020-10-18] VITALS (28 sets, daily range): BP systolic 91–189; BP diastolic 52–105; PULSE 80–135; RESP 19–40; TEMP 36.6–37.2; O2SAT 86–97
[2020-10-18] MEDS: acetaminophen 325 mg Tablet 650 MG PO ×2 (02:54→10:01)
[2020-10-18 04:29] LABS: Basophils # 0.1 10^3/uL (0.0-0.1); Basophils % 0.6 %; Eosinophils # 0.1 10^3/uL (0.0-0.8); Eosinophils % 1.5 %; Hematocrit 27.4 % (42.0-52.0); Hemoglobin 8.4 g/dL (11.7-16.6); Lymphocytes # 0.4 10^3/uL (0.8-4.8); Lymphocytes % 5.3 %; Mean Corpuscular HGB Conc 30.7 g/dL (30.0-36.0); Mean Corpuscular Hemoglobin 23.5 pg (28.0-34.0); Mean Corpuscular Volume 76.8 fl (80-94); Mean Platelet Volume 10.7 fL (7.4-10.4); Monocytes # 0.5 10^3/uL (0.2-0.9); Neutrophils # 6.85 10^3/uL (1.8-7.7); Neutrophils % 86.1 %; Nucleated Red Blood Cells % 0.3 %; Platelet Count 217 10^3/cmm (130-400); Red Blood Count 3.57 10^6/uL (4.1-5.3); Red Cell Distribution Width 21.7 % (12.1-15.1)
[2020-10-18 04:48] LABS: Alanine Aminotransferase 13 U/L (0-41); Albumin Level 2.6 g/dL (3.5-5.2); Alkaline Phosphatase 48 IU/L (40-130); Anion Gap 16.5 (5-19); Aspartate Amino Transferase 18 U/L (0-40); Blood Urea Nitrogen 42 mg/dL (8-23); C Reactive Protein 95.1 mg/L (0.0-4.9); Calcium 8.1 mg/dL (8.5-10.5); Carbon Dioxide 20 mmol/L (22-29); Chloride 101 mmol/L (98-107); Globulin 3.1 g/dL (1.3-4.6); Glucose 150 mg/dL (65-115); Lactate (Lactic Acid level) 1.8 mmol/L (0.5-2.2); Magnesium 1.8 mg/dL (1.7-2.3); Osmolality Calculated 291 mOsm/kg (285-295); Phosphorus 2.5 mg/dL (2.5-4.5); Potassium 3.5 mmol/L (3.5-5.1); Sodium 134 mmol/L (136-145); Total Bilirubin 0.5 mg/dL (0.15-1.2); Total Protein 5.7 g/dL (6.6-8.7)
[2020-10-18 04:54] LABS: INR 1.37 (0.8-1.2)
--- NOTE | 2020-10-18 04:54 | PC.NURSE ---
Shift Note Frequent safety and comfort rounds continue. Orders and/or nursing care completed as indicated. Patient monitored for response to intervention and treatment(s). Education provided includes orientation, medications with side effects, oxygen, fall safety. Patient and/or outbound telemarketing representative verbalized understanding but patient requires repeated education due to confusion and anxiety. Patient not able to rest well throughout night, very anxious with several attempts to get out of bed, able to settle down and he tried to nap without success. At shift change patient was sinus tach with high heart rate, MD was notified, order received and heart rate improved. Patient required 5L NC to keep SpOx >90%. Will continue to monitor.
[2020-10-18 05:00] LABS: NT Pro B Type Natriuretic Pept 5027 pg/mL (0-450); Procalcitonin 1.21 ng/mL (0-0.5)
[2020-10-18 05:11] LABS: Creatine Phosphokinase 252 U/L (39-308); Ferritin 134 ng/mL (30-400)
--- NOTE | 2020-10-18 08:08 | PC.OT ---
Occupational therapy evaluation held yesterday 10/17/2020 as, per nursing, patient scheduled for extubation and would be more appropriate for evaluation following extubation
[2020-10-18 08:40] LABS: Glucose Point of Care 176 mg/dL (70-110)
[2020-10-18] MEDS: cefepime 1,000 MG in sodium chloride 0.9% (plus) 50 ML 100 MG IV (08:51)
[2020-10-18] MEDS: ascorbic acid 500 mg Tablet PO ×2 (08:52→16:42)
[2020-10-18] MEDS: sucralfate 1 gm Tablet PO ×2 (08:52→16:42)
[2020-10-18] MEDS: atorvastatin 40 mg Tablet PO (08:52)
[2020-10-18] MEDS: clopidogrel 75 mg Tablet PO (08:52)
[2020-10-18] MEDS: zinc gluconate 50 mg Tablet PO (08:52)
[2020-10-18] MEDS: aspirin 81 mg EC Tablet PO (08:52)
[2020-10-18] MEDS: CLONazepam 0.5 mg Tablet PO ×2 (08:52→16:42)
[2020-10-18] MEDS: cilostazol 100 mg Tablet PO ×2 (08:53→16:42)
[2020-10-18] MEDS: cholecalciferol (vitamin D3) 1,000 unit Tablet 1000 UNIT PO (08:53)
[2020-10-18] MEDS: pantoprazole 40 mg SDV IVP ×2 (08:53→20:43)
[2020-10-18] MEDS: metoprolol tartrate 25 mg Tablet PO (08:54)
[2020-10-18] MEDS: budesonide 0.5 mg/2 mL Neb INHALATION (09:29)
--- NOTE | 2020-10-18 10:02 | PM.PN ---
Subjective Subjective: Interval history: Mr. Castorena is awake, alert. Extubated nicely yesterday. Urine output was poor yesterday, however, picked up overnight. His only complaint is of discomfort on the bed. He is having some anxiety this associated with his tachypnea but when he calms down so does his breathing. From a volume perspective he looks good. He sips of water with his medications this morning, speech and swallow evaluation is pending Vitals/I&O/Wt Last Vital Signs Temp 98.5 F 10/18/20 08:00 Pulse 107 H 10/18/20 09:31 Resp 36 H 10/18/20 09:31 BP 176/90 10/18/20 09:00 Pulse Ox 93 10/18/20 09:31 10/17/20 10/18/20 10/18/20 22:59 06:59 14:59 Intake Total 1717.62 / 2277.818 500 / 2777.818 240 / 240 Output Total 500 / 500 450 / 950 Balance 1217.62 / 1777.818 50 / 1827.818 240 / 240 Weight last 48 hrs Weight 92.079 kg Weight 91.444 kg Physical Exam Narrative: EXAM NARRATIVE: Constitutional: Awake, alert HEENT: Wet mucosa, no jvp, non icteric Lungs: Bilaterally clear/diminshed CVS: S1 S2, no murmurs Abdo: Soft, BS ok Ext 4: Minimal edema, peripheral perfusion with no cyanosis Neurological: Grossly non-focal Urinary Catheter Management^: Kellogg: Cath Placed During This Visit: yes Reason for Continuing Indwelling Catheter: Accurate Measurement of Urinary Output in Critically Ill Patients Urinary Catheter Date of Insertion: 10/15/20 Urinary Catheter Time of Insertion: 17:06 Data : 10/18/20 03:57 10/18/20 03:57 Micro: Microbiology 10/15/20 19:37 Gram Stain - Final Sputum - Endotracheal Tube Aspirate Sputum Culture - Preliminary A&P Additional A&P Information 1. Acute nonoliguric kidney injury on stage III chronic kidney disease Differential here does include prerenal azotemia, hypotensive and hypoxic associated ischemic ATN, contrast nephropathy. Creatinine a little better and urine now picking up Clinically euvolemic, oral intake will be encouraged. If UO drop s we can resume some ivf for him Daily renal panel Strict I's and O's Dose medication for GFR less than 30 At this time no indication for renal replacement therapy, continue to monitor closely. 2. Vent dependent respiratory failure s/p extubation on 10/17 Secondary to multifocal pneumonia as seen on CT scan Currently on combination antibiotic therapy with vancomycin, Levaquin and cefepime Dose Vanco to keep levels less than 19 Weaning from the vent per ICU team Respiratory toilet etc. 3. Chemistry Minor aberration, monitor for now 4. Hemodynamics Hemodynamics now appears stable Close monitoring the ICU Joseph Bose MD Nephrology [phone] Patient seen and examined via telemedicine, with the assistance of the bedside RN > 25 min spent in evaluation and mgmt of patient Attestations Medical Necessity Statement*: eval for OCTAVIA Coding Level of Care Code Acute It Communications Specialist for Yolanda Morales
--- NOTE | 2020-10-18 11:04 | P.PN_ITS ---
Subjective Subjective: Interval history: Patient is extubated now. Denies any chest pain or shortness of breath. Echocardiogram showed borderline normal LV systolic function. Telemetry shows intermittent atrial fibrillation with RVR however now is in normal sinus rhythm. Vitals/I&O/Wt Last Vital Signs Temp 98.5 F 10/18/20 08:00 Pulse 107 H 10/18/20 09:31 Resp 36 H 10/18/20 09:31 BP 176/90 10/18/20 09:00 Pulse Ox 93 10/18/20 09:31 10/17/20 10/18/20 10/18/20 22:59 06:59 14:59 Intake Total 1717.62 / 2277.818 500 / 2777.818 697.667 / 697.667 Output Total 500 / 500 450 / 950 Balance 1217.62 / 1777.818 50 / 1827.818 697.667 / 697.667 Weight last 48 hrs Weight 203 lb Weight 201 lb 9.6 oz Physical Exam Narrative: EXAM NARRATIVE: GENERAL: Patient is intubated and sedated NECK: No jugular vein distension. [] HEENT: No cyanosis. No icterus. No pallor. [] HEART: Regular S1 and S2. No murmur, rub or gallop. [] LUNGS: Clear to auscultate bilaterally. [] ABDOMEN: Soft, nontender and nondistended. Positive bowel sounds. No guarding, rebound or tenderness. [] CENTRAL NERVOUS SYSTEM: Grossly nonfocal. [] EXTREMITIES: Lower extremities with 1+ edema bilaterally. Pulses palpable in the lower extremities, both dorsalis pedis and posterior tibial. [] Urinary Catheter Management^: Kellogg: Cath Placed During This Visit: yes Reason for Continuing Indwelling Catheter: Accurate Measurement of Urinary Output in Critically Ill Patients Urinary Catheter Date of Insertion: 10/15/20 Urinary Catheter Time of Insertion: 17:06 Data : 10/18/20 03:57 10/18/20 03:57 Micro: Microbiology 10/17/20 10:20 Urine Culture - Preliminary Urine,Clean Catch 10/15/20 19:37 Gram Stain - Final Sputum - Endotracheal Tube Aspirate Sputum Culture - Preliminary A&P Assessment and plan (1) Acute exacerbation of CHF (congestive heart failure): Status: Acute (2) Acute hypoxemic respiratory failure: Status: Acute (3) Chronic kidney disease: Status: Acute (4) Atrial fibrillation: Status: Acute (5) Acute respiratory failure with hypoxia: Status: Acute (6) Anemia: Status: Acute (7) Diabetes mellitus: Status: Acute (8) Hypertension: Status: Acute (9) Coronary artery disease: Status: Acute (10) Troponin level elevated: Status: Acute Patient is with acute respiratory failure likely secondary to pneumonia. He also has congestive heart failure. However EF has not dropped on echocardiogram. Troponin elevation is likely secondary to demand ischemia. He has known severe LAD stenosis however it is a medium sized vessel and heavily calcified artery, decision was to continue medical therapy. Continue medical therapy. No plan for invasive procedure at this time as no evidence of significant change on echo. Continue holding diuretics. Creatinine has started improving. Patient is currently in normal sinus rhythm however on review of telemetry he had goes into atrial fibrillation with RVR intermittently. We will conservatively manage at this time. Continue aspirin. Patient's family is contemplating hospice care. Thank you for involving us with care of this patient. We will continue to follow. Please call with questions. Attestations Medical Necessity Statement*: Care expected to cross 2 midnights. Coding Level of Care Code Acute Video Recorder Mechanic for Yolanda Morales Diagnoses Acute exacerbation of CHF (congestive heart failure) I50.9 Acute hypoxemic respiratory failure J96.01 Chronic kidney disease N18.9 Atrial fibrillation I48.91 Acute respiratory failure with hypoxia J96.01 Anemia D64.9 Diabetes mellitus E11.9 Hypertension I10 Coronary artery disease I25.10 Troponin level elevated R77.8
[2020-10-18 11:52] LABS: Glucose Point of Care 159 mg/dL (70-110)
[2020-10-18 13:14] LABS: Vancomycin Trough 19.1 ug/mL (10-15)
--- NOTE | 2020-10-18 13:23 | PM.PN ---
Subjective Subjective: Interval history: Yesterday afternoon, patient was successfully extubated, on 2-3 L nasal cannula, was alert to person, to place, not to time following commands, he did have intermittent episodes of atrial fibrillation, This morning, patient is alert to person, place, not to time, he follows commands, on 2 to 3 L nasal cannula, currently normal sinus rhythm, oxygen saturations are greater than 90%, afebrile overnight, patient tells me that he feels short of breath, was a bit tachypneic, he denies feel anxious, no chest pain, no palpitations, no nausea, no vomiting I had discussion with patient's son, and daughter in the family waiting room, patient's family does not want him to suffer, does not want to have aggressive interventions, they understand that patient has been in and out of the hospital for the last year, and they do not want a revolving door of admissions, they understand he has chronic medical problems, and they do not want any further aggressive testing or aggressive interventions -I discussed how he has CAD, disease in the LAD and left circumflex, managed with aspirin Plavix, currently there is concern for NSTEMI, however the recent echocardiogram shows no reduction in the EF compared to prior -He has sepsis secondary to multifocal pneumonia, I am highly suspicious for aspiration events, -We will have speech therapy see him, however family do want him to have a good quality of life, and if he wants to eat anything according to family members they will let him eat -Anemia, patient's family is concerned about his recurrent anemia, I advised that if likely multifactorial from bone marrow suppression from his sepsis, and a significant component related to a slow GI bleed related to the aspirin and Plavix, however in order to provide definitive evidence he would require an EGD and/or colonoscopy and/or capsule endoscopy and/or a bone marrow biopsy. However patient's family does not want aggressive interventions, they understand that these procedures do carry significant risks given his CAD as above, and that getting an answer although would put their mind at ease, it would be associate with significant risks at this time, but they understand that it might not change his overall prognosis -I discussed hospice, and patient's family are receptive to the option of hospice, however they want to discuss it with their father Vitals/I&O/Wt Last Vital Signs Temp 98.8 F 10/18/20 12:00 Pulse 101 H 10/18/20 12:00 Resp 24 H 10/18/20 12:00 BP 115/57 10/18/20 12:00 Pulse Ox 92 10/18/20 12:00 10/17/20 10/18/20 10/18/20 22:59 06:59 14:59 Intake Total 1717.62 / 2277.818 500 / 2777.818 697.667 / 697.667 Output Total 500 / 500 450 / 950 Balance 1217.62 / 1777.818 50 / 1827.818 697.667 / 697.667 Weight last 48 hrs Weight 92.079 kg Weight 91.444 kg Physical Exam Const: COMMON NORMALS: no acute distress ORIENTATION/CONSCIOUSNESS: Yes awake, Yes oriented to person and Yes oriented to place; not oriented to time Resp: COMMON NORMALS: normal respiratory effort, No retractions, No use of accessory muscles and clear to auscultation bilaterally AUSCULTATION: clear to auscultation bilaterally Cardio: COMMON NORMALS: regular rate, regular rhythm, S1 normal heart sound present and S2 normal heart sound present RATE: regular rate RHYTHM: regular rhythm HEART SOUNDS: S1 normal heart sound present and S2 normal heart sound present GI: COMMON NORMALS: Normal to inspection, nondistended, normoactive bowel sounds present, Soft to palpation and non-tender PALPATION: Yes Soft to palpation Extremity: COMMON NORMALS: no pedal edema Neuro: SENSORIUM/ORIENTATION: Yes oriented to person, Yes oriented to place and No oriented to time Urinary Catheter Management^: Kellogg: Cath Placed During This Visit: yes Reason for Continuing Indwelling Catheter: Accurate Measurement of Urinary Output in Critically Ill Patients Urinary Catheter Date of Insertion: 10/15/20 Urinary Catheter Time of Insertion: 17:06 Data : 10/18/20 03:57 10/18/20 03:57 Micro: Microbiology 10/15/20 19:37 Gram Stain - Final Sputum - Endotracheal Tube Aspirate Sputum Culture - Final 10/17/20 10:20 Urine Culture - Preliminary Urine,Clean Catch A&P Assessment and plan (1) Acute respiratory failure with hypoxia: -Secondary to multifocal pneumonia, likely healthcare associated ammonia, acute systolic and diastolic CHF -But also high suspicion for aspiration pneumonia, aspiration pneumonitis, given large hiatal hernia -Given his sudden decline in the emergency room yesterday, underwent a CT angiogram of the chest to evaluate for pulmonary embolism which was unremarkable, certainly acute flash pulmonary edema remains a possibility, and possible fungal infection -Patient does have CAD, NSTEMI, known disease in LAD left circumflex, managed medically on aspirin and Plavix, -Covid PCR negative, has not received Covid vaccines, no known exposure, on last admission tested negative -CT of the chest progression of groundglass opacification in the upper lungs white bilaterally, continued bilateral lower lobe consolidations, reactive lymphadenopathy, chronic emphysema -CT angiogram negative for pulmonary embolism, extensive bilateral pneumonia, large hiatal hernia -BNP is elevated 5027, but improved from 13,000 during last hospital admission, has received diuretic therapy, echocardiogram from September 26 showed an EF of 45 to 50%, abnormal diastolic dysfunction, left atrium was dilated -Repeat echocardiogram shows an EF of 50%, mild hypokinesis of anteroseptal wall Plan: -We will consider de-escalating on ICU this afternoon -Continue nasal cannula, BiPAP as needed -Off pressors -Start Medrol 25 mg twice daily for atrial fibrillation -Continue aspirin, Plavix -Aspiration precautions, consult speech therapy, dysphagia diet for now -Broad-spectrum antibiotic therapy, vancomycin, cefepime, Levaquin -Follow blood cultures, urine bacterial antigens, sputum cultures, fungal studies -Hemoglobin 8.4, has CAD, status post 1 unit PRBC transfuse if hemoglobin less than 8, monitor hemoglobin -Continue oxygen therapy, albuterol, budesonide - Incentive spirometer, flutter valve -Vitamin C, zinc, vitamin D - diuretics on hold, does not look fluid overloaded -OCTAVIA on CKD, multifactorial from sepsis, diuretics, contrast. Nephrology on consult, +2.9 L, urine output 950, creatinine 2.2, no other significant electrolyte abnormalities, continue to monitor renal function -Given NSTEMI, baseline troponin 108, 6-hour 126.9, delta 126.9, continue aspirin, statin, Plavix, echocardiograms above, consult cardiology, hold off on anticoagulation due to his history of bleeding, on last admission he required 2 units of PRBC, for hemoglobin 6.4, seem like iron deficiency anemia secondary to slow GI bleed -Start Klonopin for anxiety -Morphine for pain - full code, however he wants to have a trial of CPR and intubation, however if it is not successful or prolonged, he wants to remain comfortable -Protonix for GI prophylaxis -SCDs for DVT prophylaxis, anticoagulation contraindicated given his anemia, and bleeding risk Plan for today monitor urine output, monitor respiratory status, continue antibiotics, monitor urine output, consult speech therapy, Status: Acute (2) Anemia: Etiology of anemia likely slow GI bleed, Hemoccult on last admission was negative, B12 folate was unremarkable Hemoglobin improved 8.3 status post 1 unit PRBC Hemoccult stool, Carafate, Protonix 40 twice daily Status: Acute (3) Pneumonia: Status: Acute (4) Diabetes mellitus: Low-dose sliding scale Status: Acute (5) Hypertension: Status: Acute (6) Coronary artery disease: Status: Acute (7) Percutaneous transluminal coronary angioplasty (PTCA) within last 14 to 24 months: Status: Acute (8) Atrial fibrillation: Currently rate with maternal 25 twice daily, anticoagulation contraindicated given anemia, Status: Acute (9) Chronic kidney disease: Creatinine improved to 1.6 Status: Acute (10) NSTEMI (non-ST elevated myocardial infarction): -Baseline troponin 103, 6-hour 126 improved from 3556 on 09/26 -EKG shows no acute ST-T wave changes, A. fib -No complaints of chest pain -Likely elevated troponin from prior cath, and not amenable lesion in LAD and left circumflex -No chest pain complaints -Continue aspirin, statin, Plavix, echo as above, cardiology on consult -Continue telemetry monitoring Status: Acute (11) Acute exacerbation of CHF (congestive heart failure): Status: Acute (12) Systolic and diastolic CHF, acute on chronic: Status: Acute (13) Acute kidney injury superimposed on CKD: Status: Acute Attestations Medical Necessity Statement*: Patient requires hospitalization for acute respiratory failure secondary to multifocal pneumonia Coding Level of Care Code Acute Siderographer for [facility] Diagnoses Acute respiratory failure with hypoxia J96.01 Anemia D64.9 Pneumonia J18.9 Diabetes mellitus E11.9 Hypertension I10 Coronary artery disease I25.10 Percutaneous transluminal coronary angioplasty (PTCA) within last 14 to 24 months Z98.61 Atrial fibrillation I48.91 Chronic kidney disease N18.9 NSTEMI (non-ST elevated myocardial infarction) I21.4 Acute exacerbation of CHF (congestive heart failure) I50.9 Systolic and diastolic CHF, acute on chronic I50.43 Acute kidney injury superimposed on CKD N17.9; N18.9
[2020-10-18] MEDS: vancomycin 1,500 MG/300 ML PIGGYBACK 200 MG IV (13:50)
[2020-10-18] MEDS: morphine 4 mg/mL SDV 1 mL 1 MG IVP ×2 (14:13→17:18)
--- NOTE | 2020-10-18 15:05 | PC.SOCIAL ---
IMM update IMM updated with son, [place]. Verbalized an understanding. Initialled, dated, timed, and placed in chart.
[2020-10-18 17:47] LABS: Glucose Point of Care 153 mg/dL (70-110)
[2020-10-18] MEDS: dilTIAZem 30 mg Tablet PO (17:48)
--- NOTE | 2020-10-18 18:29 | PC.NURSE ---
Shift Note Frequent safety and comfort rounds continue. Orders and/or nursing care completed as indicated. Patient monitored for response to intervention and treatment(s). Education provided includes medication and treatment plan. Pt needs reinforcement almost constantly, family verbalizes understanding. Started on PO cardizem d/t afib and increase HR, morphine and ativan PRN for pain and agitation. Severe anxiety noted at times, pt educated on proper breathing techniques. Pt has been up to chair and back to bed several times with assist x2. C/o pain to buttocks, reddened area noted to both side of buttocks. Did not eat dinner and ate very little lunch. PO fluid intake moderate. Adequate UOP. R fenoral CVL, CDI. Will continue to monitor.
[2020-10-18] MEDS: LORazepam 2 mg/mL INJ 1 mL 1 MG IVP (21:33)
--- NOTE | 2020-10-18 23:17 | XRR_ITS ---
PROCEDURE INFORMATION: Exam: XR Chest Exam date and time: 10/18/2020 11:17 PM Age: 85 years old Clinical indication: Shortness of breath; Patient HX: Worsening hypoxia. ; Additional info: Desaturating TECHNIQUE: Imaging protocol: XR of the chest. Views: 1 view. COMPARISON: CR (CHEST, ) 10/15/2020 10:39 PM FINDINGS: Tubes, catheters and devices: Interval removal of endotracheal tube. Interval removal of enteric tube. Lungs: Emphysematous lung changes. Coarsened reticular interstitial lung changes diffusely. No focal airspace disease identified. Pleural spaces: Unremarkable. No pleural effusion. No pneumothorax. Heart/Mediastinum: Probable large hiatal hernia. Bones/joints: Demineralized bones. XR/XR chest 1V portable [id number] IMPRESSION: Emphysema and interstitial lung changes stable from prior.
[2020-10-19] VITALS (27 sets, daily range): BP systolic 84–115; BP diastolic 48–98; PULSE 79–136; RESP 18–39; TEMP 36.4–37.2; O2SAT 82–94; BMI 29.1
[2020-10-19] MEDS: dilTIAZem 30 mg Tablet PO (00:57)
[2020-10-19] MEDS: morphine 4 mg/mL SDV 1 mL 1 MG IVP (00:59)
[2020-10-19 01:23] LABS: Glucose Point of Care 195 mg/dL (70-110)
[2020-10-19] MEDS: bumetanide 0.25 mg/mL SDV 4 mL 1 MG IV ×2 (01:24→13:25)
--- NOTE | 2020-10-19 03:06 | PC.RESP ---
Addendum entered and electronically signed by Ebonie Silveira, RT 10/19/20 03:37: wrong pt Original Note: repeat cxr done due to spo2 desaturation increased fio2 to 90% dr. Garcia called to bedside at 0209. Called dr. garcia back to bedside at 0300 for spo2 decrease into 78%. placed fio2 to 100%. Pt had chest tube placed at 2230
[2020-10-19] MEDS: dexmedetomidine 400 MCG in sodium chloride 0.9% (100 ml) 100 ML IV (04:14)
[2020-10-19] MEDS: dilTIAZem 30 mg Tablet 60 MG PO ×4 (04:16→23:46)
[2020-10-19 04:58] LABS: Basophils # 0.1 10^3/uL (0.0-0.1); Basophils % 0.7 %; Eosinophils # 0.1 10^3/uL (0.0-0.8); Eosinophils % 1.1 %; Hematocrit 27.8 % (42.0-52.0); Hemoglobin 8.4 g/dL (11.7-16.6); Lymphocytes # 0.5 10^3/uL (0.8-4.8); Lymphocytes % 5.1 %; Mean Corpuscular HGB Conc 30.2 g/dL (30.0-36.0); Mean Corpuscular Hemoglobin 23.1 pg (28.0-34.0); Mean Corpuscular Volume 76.4 fl (80-94); Mean Platelet Volume 10.5 fL (7.4-10.4); Monocytes # 0.7 10^3/uL (0.2-0.9); Monocytes % 7.6 %; Neutrophils # 7.43 10^3/uL (1.8-7.7); Neutrophils % 84.9 %; Nucleated Red Blood Cells % 0 %; Platelet Count 207 10^3/cmm (130-400); Red Blood Count 3.64 10^6/uL (4.1-5.3); White Blood Count 8.8 10^3/uL (4.0-10.0)
[2020-10-19 05:26] LABS: Lactate (Lactic Acid level) 1.1 mmol/L (0.5-2.2)
[2020-10-19 05:28] LABS: Alanine Aminotransferase 11 U/L (0-41); Albumin Level 2.7 g/dL (3.5-5.2); Alkaline Phosphatase 56 IU/L (40-130); Anion Gap 20.3 (5-19); Aspartate Amino Transferase 21 U/L (0-40); Blood Urea Nitrogen 33 mg/dL (8-23); C Reactive Protein 218.5 mg/L (0.0-4.9); Calcium 8.6 mg/dL (8.5-10.5); Carbon Dioxide 17 mmol/L (22-29); Chloride 100 mmol/L (98-107); Globulin 3.3 g/dL (1.3-4.6); Glucose 178 mg/dL (65-115); Magnesium 1.8 mg/dL (1.7-2.3); Osmolality Calculated 290 mOsm/kg (285-295); Phosphorus 2.8 mg/dL (2.5-4.5); Potassium 3.3 mmol/L (3.5-5.1); Sodium 134 mmol/L (136-145); Total Bilirubin 0.7 mg/dL (0.15-1.2)
[2020-10-19 05:29] LABS: NT Pro B Type Natriuretic Pept 16961 pg/mL (0-450); Procalcitonin 0.84 ng/mL (0-0.5)
[2020-10-19 05:40] LABS: Creatine Phosphokinase 161 U/L (39-308); Ferritin 228 ng/mL (30-400)
[2020-10-19 06:05] LABS: INR 1.38 (0.8-1.2)
--- NOTE | 2020-10-19 07:00 | PC.NURSE ---
Frequent safety and comfort rounds continue. Orders and/or nursing care completed as indicated. Patient monitored for response to intervention and treatment(s). Education provided includes[]. Patient and/or tax representative [ResponseToTeaching]. Will continue to monitor. The patient was very anxious during the shift. Oxygen saturation for him dropped as low as 85-86%, while on nasal cannula at 6 liters. The heart rate initially was around 115-118, but early on it started hovering between 130-144 bpm. During the shift there was twice when 10 mg of cardizem was given to try and lower the heart rate, but both times the rate only dropped by about 10 beats. After cardizem, 1 mg of Ativan was given, and this caused the patient to become drowsy and fall asleep briefly, which brought the patient's heart rate down to about 118 bpm. After three more cycles of blood pressure, there was a brief hypotensive episode. Once the ativan wore off, the patient awoke and became anxious again. Heart rate rohini to the 140's. The physician was contacted again and this time an order was put in to start the patient on a Cardizem drip. After the the cardizem was titrated to the max amount, 15 mg, heart rate only dropped down by a few beats. Morphine was given which caused the patient to sleep and the heart rate was once again about [address] De Anda was on the unit and witnessed that the cardizem was not doing the job, so an order for 15 mg of cardizem IV push was put in, along with a precedex drip. Towards the end of the shift the patient began to mellow, and the heart rate slowly decreased. After the nasal cannula failed to provide the oxygenation that was needed, at the beginning of shift, RT switched him to a HiFlO nasal cannula at 8 liters. This kept the patient's oxygenation between 88-92%.
--- NOTE | 2020-10-19 07:00 | XRR_ITS ---
PROCEDURE INFORMATION: Exam: XR Chest Exam date and time: 10/19/2020 7:00 AM Age: 85 years old Clinical indication: Dyspnea; Additional info: SOB TECHNIQUE: Imaging protocol: XR of the chest. Views: 1 view. COMPARISON: CR XR chest 1V portable [id number] 10/18/2020 11:22 PM FINDINGS: Tubes, catheters and devices: There is an endotracheal tube with its tip 3.4 cm above the veronika. There is an NG tube projecting along expected course of the esophagus with its tip and sidehole off the bottom of the image. There is a left central venous line with its tip in the SVC. There is a right chest tube its tip directed towards the apex and sidehole within the chest cavity. Lungs: Diffuse pulmonary edema throughout both lungs and probable consolidation at the lung bases. Pleural spaces: There is a probable large left pleural effusion. There is a trace right lateral pneumothorax. Heart/Mediastinum: Unremarkable. No cardiomegaly. 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 Degenerative changes throughout the spine and left shoulder. XR/XR chest 1V portable [id number] IMPRESSION: Support lines and tubes as described above. Diffuse pulmonary edema and consolidation at the lung bases. Trace right pneumothorax with chest tube in place.
[2020-10-19] MEDS: sucralfate 1 gm Tablet PO ×2 (07:02→17:41)
--- NOTE | 2020-10-19 07:16 | XRR_ITS ---
PROCEDURE INFORMATION: Exam: XR Chest Exam date and time: 10/19/2020 7:16 AM Age: 85 years old Clinical indication: Shortness of breath; Additional info: SOB TECHNIQUE: Imaging protocol: XR of the chest. Views: 1 view. COMPARISON: CR (CHEST, ) 10/19/2020 3:28 AM FINDINGS: Lungs: There are diffuse bilateral interstitial pulmonary infiltrates which have significantly improved since the previous chest radiograph. Pleural spaces: Small pleural effusion blunts the right costophrenic angle. No obvious pneumothorax. Heart/Mediastinum: Unremarkable. No cardiomegaly. Bones/joints: Unremarkable. XR/XR chest 1V portable [id number] IMPRESSION: 1. Improving bilateral interstitial pulmonary infiltrates. 2. Small right pleural effusion. No pneumothorax.
[2020-10-19 07:51] LABS: Glucose Point of Care 199 mg/dL (70-110)
[2020-10-19] MEDS: pantoprazole 40 mg SDV IVP ×2 (08:03→20:45)
[2020-10-19] MEDS: cefepime 1,000 MG in sodium chloride 0.9% (plus) 50 ML 100 MG IV (08:04)
--- NOTE | 2020-10-19 08:37 | PC.CHAP ---
Pastoral Care Encounter/Spiritual Assessment Type of Contact [] Declined resident associate visit [] Patient/Family/Request visit [] Outpatient visit [] Follow-up visit [] Physician referral [] Code/Alert [x] Routine visit [] Staff referral [] Actively dying [] Patient sleeping [] Family support [] [] Out of room [] Palliative care [] [] Receiving care in room [] Pre-surgical visit [] Trauma [] Long length of stay [x] ICU visit [] Other: Relational/Emotional Strength [] Patient feels connected with others/family/visitors/staff [] Distress [] Loneliness/isolation [] Abandonment Spirituality of Patient [] Person of [place] [] Attends [employer] of their [place] [] Believes in Prayer [] Reads Bible or Gnosticism materials [] There are Spiritual issues to be addressed [employer] Interventions [x] Prayer [] Active listening [] Non-anxious presence [] Spiritual/emotional support [] Crisis/trauma care [] Spiritual counseling [] Bereavement support [] Provided bereavement packet [] Provided Bible/devotional materials [] Provided toy/stuffed animal, coloring book to patient or family member [] Provided Communion [] Anointing/[place] [] Salvation [x] Completed spiritual assessment [] Other: Impact on Illness or Injury [] Angry [] Fearful [] Anxious [] Often cries [] Exhaustion [] Unable to work [] Unable to attend scientologist [] Unable to walk/stand [] Unable to read [] Unable to drive [] Unable to eat/drink [] Unable to sleep [] Unable to be with family [] Patient intubated [] Other: Summary Time spent with patient
[2020-10-19] MEDS: budesonide 0.5 mg/2 mL Neb INHALATION ×2 (09:03→20:19)
[2020-10-19] MEDS: atorvastatin 40 mg Tablet PO (09:49)
[2020-10-19] MEDS: zinc gluconate 50 mg Tablet PO (09:49)
[2020-10-19] MEDS: clopidogrel 75 mg Tablet PO (09:49)
[2020-10-19] MEDS: aspirin 81 mg EC Tablet PO (09:49)
[2020-10-19] MEDS: cholecalciferol (vitamin D3) 1,000 unit Tablet 1000 UNIT PO (09:49)
[2020-10-19] MEDS: ascorbic acid 500 mg Tablet PO ×2 (09:49→17:42)
--- NOTE | 2020-10-19 10:31 | P.PN_ITS ---
Subjective Subjective: Interval history: No new issues today. He feels comfortable. Eating and drinking. Hemodynamics reviewed, remained stable. Minimal extremity edema no other hypervolemic symptoms. Passing urine without obstruction. Vitals/I&O/Wt Last Vital Signs Temp 98.9 F 10/19/20 07:53 Pulse 90 10/19/20 09:04 Resp 25 H 10/19/20 09:04 BP 102/77 10/19/20 08:00 Pulse Ox 91 10/19/20 09:04 10/18/20 10/19/20 10/19/20 22:59 06:59 14:59 Intake Total 420 / 1117.667 Output Total 1200 / 1200 Balance -780 / -82.333 Weight last 48 hrs Weight 92.079 kg Physical Exam Narrative: EXAM NARRATIVE: Constitutional: Awake, alert HEENT: Wet mucosa, no jvp, non icteric Lungs: Bilaterally clear/diminshed CVS: S1 S2, no murmurs Abdo: Soft, BS ok Ext 4: Minimal edema, peripheral perfusion with no cyanosis Neurological: Grossly non-focal Urinary Catheter Management^: Kellogg: Cath Placed During This Visit: yes Reason for Continuing Indwelling Catheter: Accurate Measurement of Urinary Output in Critically Ill Patients Urinary Catheter Date of Insertion: 10/15/20 Urinary Catheter Time of Insertion: 17:06 Data : 10/19/20 04:30 10/19/20 04:30 Micro: Microbiology 10/17/20 10:20 Urine Culture - Final Urine,Clean Catch 10/15/20 19:37 Gram Stain - Final Sputum - Endotracheal Tube Aspirate Sputum Culture - Final A&P Additional A&P Information 1. Acute nonoliguric kidney injury on stage III chronic kidney disease Differential here does include prerenal azotemia, hypotensive and hypoxic associated ischemic ATN, contrast nephropathy. Creatinine a little better and urine now picking up Clinically euvolemic, oral intake will be encouraged. Daily renal panel Strict I's and O's Dose medication for GFR less than 30 2. Vent dependent respiratory failure s/p extubation on 10/17 Secondary to multifocal pneumonia as seen on CT scan Currently on combination antibiotic therapy with vancomycin, Levaquin and cefepime Dose Vanco to keep levels less than 19 Weaning from the vent per ICU team Respiratory toilet etc. 3. Chemistry Minor aberration, low K and acidosis noted, will replace with K-citrate 4. Hemodynamics Hemodynamics now appears stable, intermittent Afib with RVR Close monitoring the ICU Joseph Bose MD Nephrology [phone] Patient seen and examined via telemedicine, with the assistance of the bedside RN > 25 min spent in evaluation and mgmt of patient Attestations Medical Necessity Statement*: Eval for OCT[facility] Coding Level of Care Code Acute Military Equipment Specialist for Nahung Carmen
[2020-10-19] MEDS: potassium bicarb 25 mEq Tablet PO ×2 (10:57→17:43)
[2020-10-19] MEDS: potassium chloride ER 20 mEq Tablet 40 MEQ PO (10:57)
[2020-10-19] MEDS: levofloxacin-dextrose 5 % 750 MG/150 ML PREMIX 100 MG IV (12:31)
[2020-10-19 12:40] LABS: Glucose Point of Care 183 mg/dL (70-110)
[2020-10-19] MEDS: vancomycin 1,500 MG/300 ML PIGGYBACK 200 MG IV (13:25)
--- NOTE | 2020-10-19 15:32 | PC.OT ---
OT NOTE: PATIENT NURSE REPORTS NOT ON COMFORT CARE AT THIS TIME. PATIENT OFFERED ADLS THIS AFTERNOON BY O.T. AND DECLINES AT THIS TIME. AGREEABLE TO ATTEMPT TOMORROW.
--- NOTE | 2020-10-19 16:55 | P.PN_ITS ---
Subjective Subjective: Interval history: 85-year-old male with history of atrial fibrillation not on anticoagulation due to risk for bleeding, CKD, history of ischemic cardiomyopathy, coronary disease admitted for pneumonia. The patient was intubated and extubated on October 17. He has been placed on Cardizem drip due to A. fib. He has also required Levophed for blood pressure. Family discussion regarding goals of cares occurred over the week. His history is complicated with his history of anemia GI bleed as well as significant heart history. Today Cardizem drip was discontinued. He was also taken off Levophed. He has no complaints that he expresses Vitals/I&O/Wt Last Vital Signs Temp 98.9 F 10/19/20 12:00 Pulse 93 10/19/20 14:00 Resp 25 H 10/19/20 12:00 BP 102/77 10/19/20 12:00 Pulse Ox 91 10/19/20 12:00 10/19/20 10/19/20 10/19/20 06:59 14:59 22:59 Intake Total 102.633 / 102.633 Balance 102.633 / 102.633 Weight last 48 hrs Weight 203 lb Physical Exam Const: COMMON NORMALS: patient oriented x3 HENMT: COMMON NORMALS: normocephalic HEAD & SCALP: normocephalic Resp: COMMON NORMALS: No retractions and No use of accessory muscles Cardio: COMMON NORMALS: regular rate RATE: regular rate RHYTHM: abnormal rhythm GI: COMMON NORMALS: Soft to palpation and non-tender PALPATION: Yes Soft to palpation Extremity: GENERAL: Yes normal exam except as noted Neuro: COMMON NORMALS: patient oriented x3 Skin: COMMON NORMALS: no rashes or lesions noted GENERAL SKIN EXAM: no rashes or lesions noted Urinary Catheter Management^: Kellogg: Cath Placed During This Visit: yes Reason for Continuing Indwelling Catheter: Accurate Measurement of Urinary Output in Critically Ill Patients Urinary Catheter Date of Insertion: 10/15/20 Urinary Catheter Time of Insertion: 17:06 Data : 10/19/20 04:30 10/19/20 04:30 Micro: Microbiology 10/17/20 10:20 Urine Culture - Final Urine,Clean Catch A&P Assessment and plan (1) Pneumonia: Status: Acute (2) Anemia: Status: Acute (3) Acute respiratory failure with hypoxia: Status: Acute (4) Atrial fibrillation: Status: Acute (5) Chronic kidney disease: Status: Acute (6) NSTEMI (non-ST elevated myocardial infarction): Status: Acute (7) Systolic and diastolic CHF, acute on chronic: Status: Acute (8) Acute kidney injury superimposed on CKD: Status: Acute Additional A&P Information #Acute respiratory failure #HCAP #septic shock --Required mechanical ventilation, now extubated --Covid test negative, CTA negative for PE --Concern for possible flash pulmonary edema versus and fungal infection --Continue broad-spectrum antibiotics --Off Levophed --Echocardiogram September 26 showed ejection fraction 45 to 50% with abnormal diastolic dysfunction. Repeat ejection fraction 50% #afib with RVR --Off Cardizem drip. Metoprolol ordered #NSTEMI --Due to bleeding history anticoagulation held off. Previous admission required blood transfusion. #anemia #GI bleed --Continue PPI monitor serial H&H #Diabetes -Fingerstick blood sugar sliding scale insulin #acute on chronic kidney disease --Renally dose medications, serial labs DVT:SCD Disposition: Likely transfer out of the ICU tomorrow Attestations Medical Necessity Statement*: Kwaku Webber Raffaele's hospital stay will require greater than 2 midnights for pneumonia Coding Level of Care Code Acute Entry Level Administrative Assistant for [facility] Fwd Diagnoses Pneumonia J18.9 Anemia D64.9 Acute respiratory failure with hypoxia J96.01 Atrial fibrillation I48.91 Chronic kidney disease N18.9 NSTEMI (non-ST elevated myocardial infarction) I21.4 Systolic and diastolic CHF, acute on chronic I50.43 Acute kidney injury superimposed on CKD N17.9; N18.9
--- NOTE | 2020-10-19 17:34 | PC.NUTR ---
Nutrition follow up: Only 10% of 1 meal consumed since admission per chart review. Recommend to encourage po intakes of meals/fluids and assist at meals as needed, given almost no po intake since admission per chart review. Will add Nepro with meals for additional kcal/protein given poor intakes. See full RD assessment for further details.
[2020-10-19 17:39] LABS: Glucose Point of Care 155 mg/dL (70-110)
--- NOTE | 2020-10-19 19:34 | PM.PN ---
Subjective Subjective: Interval history: Patient is feeling better. Denies any chest pain. Intermittently goes into A. fib with RVR. Cardizem drip stopped. Has been extubated Vitals/I&O/Wt Last Vital Signs Temp 98.9 F 10/19/20 12:00 Pulse 106 H 10/19/20 17:00 Resp 32 H 10/19/20 17:00 BP 96/72 10/19/20 17:00 Pulse Ox 92 10/19/20 17:00 10/19/20 10/19/20 10/19/20 06:59 14:59 22:59 Intake Total 102.633 / 102.633 Balance 102.633 / 102.633 Weight last 48 hrs Weight 203 lb Physical Exam Narrative: EXAM NARRATIVE: GENERAL: Patient is alert NECK: No jugular vein distension. [] HEENT: No cyanosis. No icterus. No pallor. [] HEART: Regular S1 and S2. No murmur, rub or gallop. [] LUNGS: Clear to auscultate bilaterally. [] ABDOMEN: Soft, nontender and nondistended. Positive bowel sounds. No guarding, rebound or tenderness. [] CENTRAL NERVOUS SYSTEM: Grossly nonfocal. [] EXTREMITIES: Lower extremities with 1+ edema bilaterally. Pulses palpable in the lower extremities, both dorsalis pedis and posterior tibial. [] Urinary Catheter Management^: Kellogg: Cath Placed During This Visit: yes Reason for Continuing Indwelling Catheter: Accurate Measurement of Urinary Output in Critically Ill Patients Urinary Catheter Date of Insertion: 10/15/20 Urinary Catheter Time of Insertion: 17:06 Data : 10/21/20 02:45 10/21/20 02:45 Micro: Microbiology 10/17/20 10:20 Urine Culture - Final Urine,Clean Catch A&P Assessment and plan (1) Acute exacerbation of CHF (congestive heart failure): Status: Acute (2) Acute hypoxemic respiratory failure: Status: Acute (3) Chronic kidney disease: Status: Acute (4) Atrial fibrillation: Status: Acute (5) Acute respiratory failure with hypoxia: Status: Acute (6) Anemia: Status: Acute (7) Diabetes mellitus: Status: Acute (8) Hypertension: Status: Acute (9) Coronary artery disease: Status: Acute (10) Troponin level elevated: Status: Acute Patient is with acute respiratory failure likely secondary to pneumonia. He also has congestive heart failure. However EF has not dropped on echocardiogram. Troponin elevation is likely secondary to demand ischemia. He has known severe LAD stenosis however it is a medium sized vessel and heavily calcified artery, decision was to continue medical therapy. Continue medical therapy. No plan for invasive procedure at this time as no evidence of significant change on echo. Continue bumex. Creatinine has started improving and is 1.8 today. Patient is currently in normal sinus rhythm however on review of telemetry he had goes into atrial fibrillation with RVR intermittently. Off cardizem gtt. Continue metoprolol Continue aspirin. Patient's family is contemplating hospice care. Thank you for involving us with care of this patient. We will continue to follow. Please call with questions. Attestations Medical Necessity Statement*: Care expected to cross 2 midnights. Coding Level of Care Code Acute Licensed Funeral Director for Yolanda Morales Diagnoses Acute exacerbation of CHF (congestive heart failure) I50.9 Acute hypoxemic respiratory failure J96.01 Chronic kidney disease N18.9 Atrial fibrillation I48.91 Acute respiratory failure with hypoxia J96.01 Anemia D64.9 Diabetes mellitus E11.9 Hypertension I10 Coronary artery disease I25.10 Troponin level elevated R77.8
[2020-10-19 21:46] LABS: Glucose Point of Care 140 mg/dL (70-110)
[2020-10-20] VITALS (18 sets, daily range): BP systolic 89–168; BP diastolic 55–88; PULSE 74–114; RESP 18–27; TEMP 36.3–37.2; O2SAT 90–96
[2020-10-20] MEDS: bumetanide 0.25 mg/mL SDV 4 mL 1 MG IV ×2 (00:59→13:38)
[2020-10-20] MEDS: dilTIAZem 30 mg Tablet 60 MG PO ×4 (05:06→23:43)
[2020-10-20] MEDS: sucralfate 1 gm Tablet PO ×2 (06:00→18:09)
[2020-10-20 06:06] LABS: Basophils # 0.1 10^3/uL (0.0-0.1); Basophils % 0.8 %; Eosinophils # 0.4 10^3/uL (0.0-0.8); Eosinophils % 5.6 %; Hemoglobin 8.4 g/dL (11.7-16.6); Lymphocytes # 0.4 10^3/uL (0.8-4.8); Lymphocytes % 6.5 %; Mean Corpuscular HGB Conc 31.1 g/dL (30.0-36.0); Mean Corpuscular Hemoglobin 23.8 pg (28.0-34.0); Mean Corpuscular Volume 76.5 fl (80-94); Mean Platelet Volume 10.5 fL (7.4-10.4); Monocytes # 0.5 10^3/uL (0.2-0.9); Monocytes % 7.8 %; Neutrophils # 5.19 10^3/uL (1.8-7.7); Neutrophils % 78.8 %; Nucleated Red Blood Cells % 0 %; Platelet Count 218 10^3/cmm (130-400); Red Blood Count 3.53 10^6/uL (4.1-5.3); Red Cell Distribution Width 22.5 % (12.1-15.1); White Blood Count 6.6 10^3/uL (4.0-10.0)
[2020-10-20 06:22] LABS: Alanine Aminotransferase 12 U/L (0-41); Albumin Level 2.6 g/dL (3.5-5.2); Alkaline Phosphatase 53 IU/L (40-130); Anion Gap 17.5 (5-19); Aspartate Amino Transferase 21 U/L (0-40); Blood Urea Nitrogen 31 mg/dL (8-23); Calcium 8.4 mg/dL (8.5-10.5); Carbon Dioxide 22 mmol/L (22-29); Chloride 104 mmol/L (98-107); Globulin 3.2 g/dL (1.3-4.6); Glucose 170 mg/dL (65-115); Osmolality Calculated 301 mOsm/kg (285-295); Potassium 3.5 mmol/L (3.5-5.1); Sodium 140 mmol/L (136-145); Total Bilirubin 0.6 mg/dL (0.15-1.2); Total Protein 5.8 g/dL (6.6-8.7)
--- NOTE | 2020-10-20 07:14 | P.PN_ITS ---
Subjective Subjective: Interval history: feels better. good uop, remains in NSR Medications: Reviewed: Yes Medication Review Details: Current Medications Acetaminophen (Acetaminophen 325 Mg Tablet) 650 mg PO Q6H PRN PRN Reason: Mild/Mod Pain Or Temp >/= 101 Last Admin: 10/18/20 10:01 Dose: 650 mg Documented by: Albuterol Sulfate (Albuterol 8 Gm Mdi) 2 puff INHALATION Q4H.RESPIRATORY PRN PRN Reason: SHORTNESS OF BREATH Ascorbic Acid (Ascorbic Acid 500 Mg Tablet) 500 mg PO BID [facility] Last Admin: 10/19/20 17:42 Dose: 500 mg Documented by: Aspirin (Aspirin 81 Mg Ec Tablet) 81 mg PO DAILY [facility] Last Admin: 10/19/20 09:49 Dose: 81 mg Documented by: Atorvastatin Calcium (Atorvastatin 40 Mg Tablet) 40 mg PO DAILY [facility] Last Admin: 10/19/20 09:49 Dose: 40 mg Documented by: Budesonide (Budesonide 0.5 Mg/2 Ml Neb) 0.5 mg INHALATION BID.RESPIRATORY [facility] Last Admin: 10/19/20 20:19 Dose: 0.5 mg Documented by: Bumetanide (Bumetanide 0.25 Mg/Ml Sdv 4 Ml) 1 mg IV Q12H [facility] Last Admin: 10/20/20 00:59 Dose: 1 mg Documented by: Clopidogrel Bisulfate (Clopidogrel 75 Mg Tablet) 75 mg PO DAILY [facility] Last Admin: 10/19/20 09:49 Dose: 75 mg Documented by: Dextrose (Dextrose 50% Syringe 50 Ml) 25 ml IVP ONCE PRN; Protocol PRN Reason: hypoglycemia protocol Dextrose (Dextrose 50% Syringe 50 Ml) 50 ml IVP PRN PRN; Protocol PRN Reason: hypoglycemia protocol Diltiazem HCl (Diltiazem 5 Mg/Ml Sdv 10 Ml) 10 mg IVP ONCE PRN PRN Reason: See instructions Last Admin: 10/18/20 21:15 Dose: 10 mg Documented by: Diltiazem HCl (Diltiazem 30 Mg Tablet) 60 mg PO Q6H [facility] Last Admin: 10/20/20 05:06 Dose: 60 mg Documented by: Glucagon (Glucagon 1 Mg/Ml Inj 1 Ml) 1 mg IM ONCE PRN; Protocol PRN Reason: Adult Acute Hypoglycemia Prot. Propofol (Diprivan) 1,000 mg in 100 mls @ 0 mls/hr IV .Q0M [facility]; Protocol Last Titration: 10/17/20 16:28 Dose: 0 mcg/kg/min, 0 mls/hr Documented by: Fentanyl 1,000 mcg/ Sodium (Chloride) 100 mls @ 0 mls/hr IV .Q0M [facility]; Protocol Last Titration: 10/17/20 16:28 Dose: Infused Documented by: Norepinephrine Bitartrate 4 mg (/ Dextrose) 254 mls @ 0 mls/hr IV .Q0M [facility]; Protocol Last Titration: 10/17/20 07:00 Dose: 0 mcg/min, 0 mls/hr Documented by: Dextrose (D5w) 500 mls @ 100 mls/hr IV ONCE PRN; Protocol PRN Reason: Adult Acute Hypoglycemia Prot Vancomycin/PEG/NADA/Lysine/Water (Vancocin) 1,500 mg in 300 mls @ 200 mls/hr IV Q24H [facility] Last Infusion: 10/19/20 14:55 Dose: Infused Documented by: Levofloxacin/Dextrose (Levaquin-D5w) 750 mg in 150 mls @ 100 mls/hr IV Q48H [facility]; Protocol Last Infusion: 10/19/20 14:01 Dose: Infused Documented by: Cefepime HCl 1,000 mg/ Sodium (Chloride) 50 mls @ 100 mls/hr IV Q24H [facility]; Protocol Last Infusion: 10/19/20 09:00 Dose: Infused Documented by: Diltiazem HCl 125 mg/ Sodium (Chloride) 125 mls @ 0 mls/hr IV .Q0M [facility]; Protocol Last Titration: 10/19/20 11:19 Dose: 0 mg/hr, 0 mls/hr Documented by: Dexmedetomidine HCl 400 mcg/ (Sodium Chloride) 104 mls @ 0 mls/hr IV .Q0M [facility]; Protocol Last Admin: 10/19/20 04:14 Dose: 0.1 mcg/kg/hr, 2.39 mls/hr Documented by: Insulin Aspart (Insulin Aspart 100 Unit/1 Ml) 0 unit SUBCUT TIDWM [facility]; Protocol Last Admin: 10/19/20 17:42 Dose: 2 unit Documented by: Lorazepam (Lorazepam 2 Mg/Ml Inj 1 Ml) 1 mg IVP Q4H PRN PRN Reason: ANXIETY Last Admin: 10/18/20 21:33 Dose: 1 mg Documented by: Morphine Sulfate (Morphine 4 Mg/Ml Sdv 1 Ml) 1 mg IVP Q4H PRN PRN Reason: SEVERE PAIN Last Admin: 10/19/20 00:59 Dose: 1 mg Documented by: Naloxone HCl (Naloxone 0.4 Mg/Ml Sdv) 0.1 mg IVP Q2M PRN PRN Reason: OPIATERV Ondansetron HCl (Ondansetron 2 Mg/Ml Sdv 2 Ml) 4 mg IVP Q8H PRN PRN Reason: vomiting, or N/V if npo Pantoprazole Sodium (Pantoprazole 40 Mg Sdv) 40 mg IVP Q12H [facility] Last Admin: 10/19/20 20:45 Dose: 40 mg Documented by: Potassium Bicarbonate (Potassium Bicarb 25 Meq Tablet) 25 meq PO BID [facility] Last Admin: 10/19/20 17:43 Dose: 25 meq Documented by: Sucralfate (Sucralfate 1 Gm Tablet) 1 gm PO BIDAC [facility] Last Admin: 10/20/20 06:00 Dose: 1 gm Documented by: Vitamin D (Cholecalciferol (Vitamin D3) 1,000 Unit Tablet) 1,000 unit PO DAILY [facility] Last Admin: 10/19/20 09:49 Dose: 1,000 unit Documented by: Zinc Gluconate (Zinc Gluconate 50 Mg Tablet) 50 mg PO DAILY [facility] Last Admin: 10/19/20 09:49 Dose: 50 mg Documented by: Vitals/I&O/Wt Last Vital Signs Temp 98 F 10/19/20 20:00 Pulse 88 10/20/20 03:00 Resp 27 H 10/20/20 03:00 BP 89/55 10/20/20 03:00 Pulse Ox 92 10/20/20 03:00 10/19/20 10/20/20 10/20/20 22:59 06:59 14:59 Intake Total 300 / 852.633 Balance 300 / 852.633 Weight last 48 hrs Weight 92.079 kg Physical Exam Narrative: EXAM NARRATIVE: Constitutional: Awake, alert , elderly man comfortable in ICU HEENT: nc/at, eomi, abicteric neck- no jvp. supple Lungs: improved air movement b/l. dull bases CVS: S1 S2, reg Abdo: Soft, BS +, nt, nd Ext 4: dec edema Neurological: a,a, o x2+, from x 4 not on pressers Urinary Catheter Management^: Kellogg: Cath Placed During This Visit: yes Reason for Continuing Indwelling Catheter: Accurate Measurement of Urinary Output in Critically Ill Patients Urinary Catheter Date of Insertion: 10/15/20 Urinary Catheter Time of Insertion: 17:06 Data : 10/20/20 05:30 10/20/20 05:30 Micro: Microbiology 10/17/20 10:20 Urine Culture - Final Urine,Clean Catch A&P Additional A&P Information 1. Acute nonoliguric kidney injury on stage III chronic kidney disease Differential here does include prerenal azotemia, hypotensive and hypoxic associated ischemic ATN, contrast nephropathy. Creatinine and uop improving -cont to monitor uop Daily renal panel Strict I's and O's -u/a w/ blood, LE, rbc, wbc- repeat ua in a few weeks 2. multifocal pneumonia -per medicine Currently on combination antibiotic therapy with vancomycin, Levaquin and cefepime Dose Vanco to keep trough levels less than 19 3. p a fib per medicine -keep k >4 4. anemia - ferritin 228, iron 12- consider iv iron course per medicine 5. chronic mixed systolic and diastolic CHF= -Echocardiogram September 26 showed ejection fraction 45 to 50% with abnormal diastolic dysfunction. Repeat ejection fraction 50% -per medicine -lasix as needed 6. hypotension- midodrine as needed dm control per medicine renal fxn is improving- renal will see PRN Patient seen and examined via telemedicine, with the assistance of the bedside R N > 25 min spent in evaluation and mgmt of patient Attestations Medical Necessity Statement*: pna, luz, a fib, chf per medicine Time Spent in Patient Care: 16 - 35 minutes Coding Level of Care Code Acute Hand Molder And Caster for Yolanda Morales
--- NOTE | 2020-10-20 07:21 | PC.NURSE ---
Shift Note Frequent safety and comfort rounds continue. Orders and/or nursing care completed as indicated. Patient monitored for response to intervention and treatment(s). Education provided includes[]. Patient and/or traffic representative [ResponseToTeaching]. Will continue to monitor. The patient had a great night, and not once dealt with an anxious episode that caused him to desaturate. There were no changes, and the patient remained alert and oriented to self, place, and situation. He struggled with telling me the date and the month.
--- NOTE | 2020-10-20 08:42 | PC.CHAP ---
Pastoral Care Encounter/Spiritual Assessment Type of Contact [] Declined library media technician visit [] Patient/Family/Request visit [] Outpatient visit [] Follow-up visit [] Physician referral [] Code/Alert [x] Routine visit [] Staff referral [] Actively dying [] Patient sleeping [] Family support [] [] Out of room [] Palliative care [] [] Receiving care in room [] Pre-surgical visit [] Trauma [] Long length of stay [x] ICU visit [] Other: Relational/Emotional Strength [] Patient feels connected with others/family/visitors/staff [] Distress [] Loneliness/isolation [] Abandonment Spirituality of Patient [] Person of Rhona [] Attends Scientology of their [place] [] Believes in Prayer [] Reads Bible or Hindu materials [] There are Spiritual issues to be addressed Plastic Manager Interventions [x] Prayer [] Active listening [] Non-anxious presence [] Spiritual/emotional support [] Crisis/trauma care [] Spiritual counseling [] Bereavement support [] Provided bereavement packet [] Provided Bible/devotional materials [] Provided toy/stuffed animal, coloring book to patient or family member [] Provided Communion [] Anointing/[place] [] Salvation [x] Completed spiritual assessment [] Other: Impact on Illness or Injury [] Angry [] Fearful [] Anxious [] Often cries [] Exhaustion [] Unable to work [] Unable to attend yazidi [] Unable to walk/stand [] Unable to read [] Unable to drive [] Unable to eat/drink [] Unable to sleep [] Unable to be with family [] Patient intubated [] Other: Summary Time spent with patient
[2020-10-20] MEDS: cefepime 1,000 MG in sodium chloride 0.9% (plus) 50 ML 100 MG IV (08:56)
[2020-10-20] MEDS: pantoprazole 40 mg SDV IVP ×2 (08:57→20:34)
[2020-10-20] MEDS: aspirin 81 mg EC Tablet PO (08:57)
[2020-10-20] MEDS: zinc gluconate 50 mg Tablet PO (08:57)
[2020-10-20] MEDS: atorvastatin 40 mg Tablet PO (08:57)
[2020-10-20] MEDS: ascorbic acid 500 mg Tablet PO ×2 (08:57→18:09)
[2020-10-20] MEDS: potassium bicarb 25 mEq Tablet PO ×2 (08:57→18:09)
[2020-10-20] MEDS: potassium chloride ER 20 mEq Tablet 40 MEQ PO (08:57)
[2020-10-20] MEDS: cholecalciferol (vitamin D3) 1,000 unit Tablet 1000 UNIT PO (08:57)
[2020-10-20] MEDS: clopidogrel 75 mg Tablet PO (08:57)
[2020-10-20] MEDS: midodrine 5 mg TABLET PO ×3 (08:58→20:35)
[2020-10-20] MEDS: budesonide 0.5 mg/2 mL Neb INHALATION ×2 (09:35→21:15)
[2020-10-20 09:39] LABS: Glucose Point of Care 202 mg/dL (70-110)
[2020-10-20 12:31] LABS: Glucose Point of Care 199 mg/dL (70-110)
[2020-10-20] MEDS: vancomycin 1,500 MG/300 ML PIGGYBACK 200 MG IV (13:36)
--- NOTE | 2020-10-20 14:47 | PC.SOCIAL ---
IMM update IMM updated with son, [place]. Verbalized an understanding. Initialled, dated, timed, and placed in chart.
--- NOTE | 2020-10-20 15:52 | P.PN_ITS ---
Subjective Subjective: Interval history: 85-year-old male with history of atrial fibrillation not on anticoagulation due to risk for bleeding, CKD, history of ischemic cardiomyopathy, coronary disease admitted for pneumonia. The patient was intubated and extubated on October 17. He has been placed on Cardizem drip due to A. fib. He has also required Levophed for blood pressure. Family discussion regarding goals of cares occurred over the week. His history is complicated with his history of anemia GI bleed as well as significant heart history. Cardizem drip was discontinued. He was also taken off Levophed. BP soft currently on 10L feels better denies cp, abd pain or dizziness Medications: Reviewed: Yes Vitals/I&O/Wt Last Vital Signs Temp 97.9 F 10/20/20 08:00 Pulse 100 10/20/20 09:42 Resp 20 H 10/20/20 09:35 BP 89/55 10/20/20 03:00 Pulse Ox 90 10/20/20 09:35 10/20/20 10/20/20 10/20/20 06:59 14:59 22:59 Intake Total 400 / 400 Balance 400 / 400 Weight last 48 hrs Weight 203 lb Physical Exam Const: COMMON NORMALS: no acute distress GENERAL APPEARANCE: frail appe aring Resp: COMMON NORMALS: normal respiratory effort and No retractions Cardio: COMMON NORMALS: regular rate and regular rhythm RATE: regular rate RHYTHM: regular rhythm GI: COMMON NORMALS: Soft to palpation and non-tender PALPATION: Yes Soft to palpation Extremity: COMMON NORMALS: no pedal edema Urinary Catheter Management^: Kellogg: Cath Placed During This Visit: yes Reason for Continuing Indwelling Catheter: Accurate Measurement of Urinary Output in Critically Ill Patients Urinary Catheter Date of Insertion: 10/15/20 Urinary Catheter Time of Insertion: 17:06 Data : 10/20/20 05:30 10/20/20 05:30 Micro: Microbiology 10/15/20 12:40 Blood Culture - Final Blood NO GROWTH AFTER 5 DAYS 10/15/20 11:20 Blood Culture - Final Blood NO GROWTH AFTER 5 DAYS A&P Assessment and plan (1) Acute kidney injury superimposed on CKD: Status: Acute (2) Systolic and diastolic CHF, acute on chronic: Status: Acute (3) Respiratory failure: Status: Acute (4) Acute hypoxemic respiratory failure: Status: Acute (5) NSTEMI (non-ST elevated myocardial infarction): Status: Acute (6) Chronic kidney disease: Status: Acute (7) Atrial fibrillation: Status: Acute (8) Diabetes mellitus: Status: Acute (9) Hypertension: Status: Acute Additional A&P Information #Acute respiratory failure #HCAP #septic shock --Required mechanical ventilation, now extubated and on 10L --Covid test negative, CTA negative for PE --Concern for possible flash pulmonary edema versus and fungal infection --Continue broad-spectrum antibiotics --Off Levophed --Echocardiogram September 26 showed ejection fraction 45 to 50% with abnormal diastolic dysfunction. Repeat ejection fraction 50% --continue Bumex --albuterol --continue maxepime, Levaquin #afib with RVR --Off Cardizem drip. --continue plavix --PO cardizem #NSTEMI --Due to bleeding history anticoagulation held off. Previous admission required blood transfusion. #anemia #GI bleed --Continue PPI monitor serial H&H --continue carafate #Diabetes -Fingerstick blood sugar sliding scale insulin #acute on chronic kidney disease --Renally dose medications, serial labs #hypotension --midodrine added DVT:SCD Attestations Medical Necessity Statement*: Kwaku Castorena's hospital stay will require greater than 2 midnights for respiratory failure Coding Level of Care Code Acute Him Specialists for [facility] Fwd Diagnoses Acute kidney injury superimposed on CKD N17.9; N18.9 Systolic and diastolic CHF, acute on chronic I50.43 Respiratory failure J96.90 Acute hypoxemic respiratory failure J96.01 NSTEMI (non-ST elevated myocardial infarction) I21.4 Chronic kidney disease N18.9 Atrial fibrillation I48.91 Diabetes mellitus E11.9 Hypertension I10
[2020-10-20 18:15] LABS: Glucose Point of Care 135 mg/dL (70-110)
--- NOTE | 2020-10-20 18:21 | PM.PN ---
Subjective Subjective: Interval history: Patient is feeling better. No chest pain. Plans for transfer out of the ICU today Vitals/I&O/Wt Last Vital Signs Temp 97.9 F 10/20/20 08:00 Pulse 100 10/20/20 09:42 Resp 20 H 10/20/20 09:35 BP 89/55 10/20/20 03:00 Pulse Ox 90 10/20/20 09:35 10/20/20 10/20/20 10/20/20 06:59 14:59 22:59 Intake Total 750 / 750 Balance 750 / 750 Weight last 48 hrs Weight 203 lb Physical Exam Narrative: EXAM NARRATIVE: GENERAL: Patient is alert NECK: No jugular vein distension. [] HEENT: No cyanosis. No icterus. No pallor. [] HEART: Regular S1 and S2. No murmur, rub or gallop. [] LUNGS: Clear to auscultate bilaterally. [] ABDOMEN: Soft, nontender and nondistended. Positive bowel sounds. No guarding, rebound or tenderness. [] CENTRAL NERVOUS SYSTEM: Grossly nonfocal. [] EXTREMITIES: Lower extremities with 1+ edema bilaterally. Pulses palpable in the lower extremities, both dorsalis pedis and posterior tibial. [] Urinary Catheter Management^: Kellogg: Cath Placed During This Visit: yes Reason for Continuing Indwelling Catheter: Accurate Measurement of Urinary Output in Critically Ill Patients Urinary Catheter Date of Insertion: 10/15/20 Urinary Catheter Time of Insertion: 17:06 Data : 10/21/20 02:45 10/21/20 02:45 Micro: Microbiology 10/15/20 12:40 Blood Culture - Final Blood NO GROWTH AFTER 5 DAYS 10/15/20 11:20 Blood Culture - Final Blood NO GROWTH AFTER 5 DAYS A&P Assessment and plan (1) Acute exacerbation of CHF (congestive heart failure): Status: Acute (2) Acute hypoxemic respiratory failure: Status: Acute (3) Chronic kidney disease: Status: Acute (4) Atrial fibrillation: Status: Acute (5) Acute respiratory failure with hypoxia: Status: Acute (6) Anemia: Status: Acute (7) Diabetes mellitus: Status: Acute (8) Hypertension: Status: Acute (9) Coronary artery disease: Status: Acute (10) Troponin level elevated: Status: Acute Patient is with acute respiratory failure likely secondary to pneumonia. He also has congestive heart failure. However EF has not dropped on echocardiogram. Troponin elevation is likely secondary to demand ischemia. He has known severe LAD stenosis however it is a medium sized vessel and heavily calcified artery, decision was to continue medical therapy. Continue medical therapy. No plan for invasive procedure at this time as no evidence of significant change on echo. Continue bumex. Creatinine has started improving and is 1.3 today. Patient has been having intermittent episodes of A. fib with RVR. Continue metoprolol once blood pressure stabilizes more can uptitrate metoprolol dose. Continue aspirin. Plans for transfer out of the ICU today Patient's family is contemplating hospice care. Thank you for involving us with care of this patient. We will continue to follow. Please call with questions. Attestations Medical Necessity Statement*: Care expected to cross 2 midnights. Coding Level of Care Code Acute Sap Crm Developer for Yolanda Morales Diagnoses Acute exacerbation of CHF (congestive heart failure) I50.9 Acute hypoxemic respiratory failure J96.01 Chronic kidney disease N18.9 Atrial fibrillation I48.91 Acute respiratory failure with hypoxia J96.01 Anemia D64.9 Diabetes mellitus E11.9 Hypertension I10 Coronary artery disease I25.10 Troponin level elevated R77.8
--- NOTE | 2020-10-20 19:44 | PC.NURSE ---
REPORT CALLED TO BARBARA HUMPHREY AT 1830. DENIES ANY QUESTIONS. PT GOING TO 269 ON MED SURG. PT TRANSFERRED VIA BED BY THIS RN AND PIPE STEM ALIGNER - 10L OXYGEN VIA NC ON PT. PT ALERT AND ORIENTED X 3. FEMORAL LINE - SALINE LOCKED. DENTURES, CLOTHES, SHOES ALL SENT WITH PATIENT.
[2020-10-20 20:47] LABS: Glucose Point of Care 149 mg/dL (70-110)
[2020-10-21] VITALS (12 sets, daily range): BP systolic 125–187; BP diastolic 67–88; PULSE 80–108; RESP 15–24; TEMP 36.9–37.3; O2SAT 91–95; BMI 28.0
[2020-10-21] MEDS: bumetanide 0.25 mg/mL SDV 4 mL 1 MG IV ×2 (01:01→14:20)
[2020-10-21 03:21] LABS: Basophils # 0.1 10^3/uL (0.0-0.1); Eosinophils # 0.5 10^3/uL (0.0-0.8); Eosinophils % 8.7 %; Hematocrit 29.8 % (42.0-52.0); Hemoglobin 9.1 g/dL (11.7-16.6); Lymphocytes # 0.6 10^3/uL (0.8-4.8); Lymphocytes % 9.2 %; Mean Corpuscular HGB Conc 30.5 g/dL (30.0-36.0); Mean Corpuscular Hemoglobin 23.2 pg (28.0-34.0); Mean Platelet Volume 10.4 fL (7.4-10.4); Monocytes # 0.6 10^3/uL (0.2-0.9); Monocytes % 9.2 %; Neutrophils # 4.32 10^3/uL (1.8-7.7); Neutrophils % 71.1 %; Nucleated Red Blood Cells % 0 %; Platelet Count 256 10^3/cmm (130-400); Red Blood Count 3.92 10^6/uL (4.1-5.3); Red Cell Distribution Width 22.6 % (12.1-15.1); White Blood Count 6.1 10^3/uL (4.0-10.0)
[2020-10-21 03:41] LABS: Alanine Aminotransferase 23 U/L (0-41); Albumin Level 2.7 g/dL (3.5-5.2); Alkaline Phosphatase 55 IU/L (40-130); Anion Gap 17.7 (5-19); Aspartate Amino Transferase 35 U/L (0-40); Blood Urea Nitrogen 30 mg/dL (8-23); Calcium 8.5 mg/dL (8.5-10.5); Carbon Dioxide 22 mmol/L (22-29); Chloride 104 mmol/L (98-107); Globulin 3.3 g/dL (1.3-4.6); Glucose 152 mg/dL (65-115); Magnesium 1.9 mg/dL (1.7-2.3); Osmolality Calculated 299 mOsm/kg (285-295); Phosphorus 2.2 mg/dL (2.5-4.5); Potassium 3.7 mmol/L (3.5-5.1); Sodium 140 mmol/L (136-145); Total Bilirubin 0.5 mg/dL (0.15-1.2)
[2020-10-21] MEDS: dilTIAZem 30 mg Tablet 60 MG PO ×4 (05:13→23:15)
[2020-10-21 06:18] LABS: Vancomycin Random 27.4 ug/mL (20.0-40.0)
[2020-10-21 06:44] LABS: Glucose Point of Care 176 mg/dL (70-110)
[2020-10-21] MEDS: sucralfate 1 gm Tablet PO ×2 (07:00→17:15)
[2020-10-21] MEDS: budesonide 0.5 mg/2 mL Neb INHALATION ×2 (08:02→21:17)
[2020-10-21] MEDS: aspirin 81 mg EC Tablet PO (08:31)
[2020-10-21] MEDS: atorvastatin 40 mg Tablet PO (08:31)
[2020-10-21] MEDS: pantoprazole 40 mg SDV IVP ×2 (08:31→20:40)
[2020-10-21] MEDS: zinc gluconate 50 mg Tablet PO (08:31)
[2020-10-21] MEDS: cholecalciferol (vitamin D3) 1,000 unit Tablet 1000 UNIT PO (08:31)
[2020-10-21] MEDS: clopidogrel 75 mg Tablet PO (08:31)
[2020-10-21] MEDS: midodrine 5 mg TABLET PO ×3 (08:31→20:40)
[2020-10-21] MEDS: ascorbic acid 500 mg Tablet PO ×2 (08:31→17:14)
[2020-10-21] MEDS: potassium bicarb 25 mEq Tablet PO ×2 (10:25→17:15)
[2020-10-21] MEDS: cefepime 1,000 MG in sodium chloride 0.9% (plus) 50 ML 100 MG IV (10:25)
[2020-10-21] MEDS: levofloxacin-dextrose 5 % 750 MG/150 ML PREMIX 100 MG IV (11:13)
--- NOTE | 2020-10-21 11:44 | P.PN_ITS ---
Vitals/I&O/Wt Last Vital Signs Temp 98.7 F 10/21/20 08:21 Pulse 88 10/21/20 08:21 Resp 18 10/21/20 08:21 BP 155/88 10/21/20 08:21 Pulse Ox 94 10/21/20 08:21 10/20/20 10/21/20 10/21/20 22:59 06:59 14:59 Intake Total 300 / 1050 684 / 684 Output Total 950 / 950 1700 / 2650 Balance -650 / 100 -1700 / -1600 684 / 684 Weight last 48 hrs Weight 195 lb 6.4 oz Weight 193 lb 8 oz Physical Exam Urinary Catheter Management^: Kellogg: Cath Placed During This Visit: yes Reason for Continuing Indwelling Catheter: Accurate Measurement of Urinary Output in Critically Ill Patients Urinary Catheter Date of Insertion: 10/15/20 Urinary Catheter Time of Insertion: 17:06 Data : 10/21/20 02:45 10/21/20 02:45 Micro: Microbiology 10/15/20 12:40 Blood Culture - Final Blood NO GROWTH AFTER 5 DAYS 10/15/20 11:20 Blood Culture - Final Blood NO GROWTH AFTER 5 DAYS Coding Level of Care Code Acute Phlebotomy Services Representative for Yolanda Morales
[2020-10-21 11:52] LABS: Glucose Point of Care 184 mg/dL (70-110)
[2020-10-21] MEDS: vancomycin 1,500 MG/300 ML PIGGYBACK 200 MG IV (12:30)
[2020-10-21 16:57] LABS: Glucose Point of Care 166 mg/dL (70-110)
--- NOTE | 2020-10-21 20:15 | PM.PN ---
Subjective Subjective: Interval history: 85-year-old male with history of atrial fibrillation not on anticoagulation due to risk for bleeding, CKD, history of ischemic cardiomyopathy, coronary disease admitted for pneumonia. The patient was intubated and extubated on October 17. He has been placed on Cardizem drip due to A. fib. He has also required Levophed for blood pressure. Family discussion regarding goals of cares occurred over the week. His history is complicated with his history of anemia GI bleed as well as significant heart history. Cardizem drip was discontinued. He was also taken off Levophed. BP soft currently on 8L reports feeling better denies chest pain, or palpiations Medications: Reviewed: Yes Vitals/I&O/Wt Last Vital Signs Temp 98.6 F 10/21/20 15:47 Pulse 103 H 10/21/20 15:47 Resp 18 10/21/20 15:47 BP 125/68 10/21/20 15:47 Pulse Ox 95 10/21/20 15:47 10/21/20 10/21/20 10/21/20 06:59 14:59 22:59 Intake Total 1624 / 1624 240 / 1864 Output Total 1700 / 2650 1000 / 1000 Balance -1700 / -1600 1624 / 1624 -760 / 864 Weight last 48 hrs Weight 195 lb 6.4 oz Weight 193 lb 8 oz Physical Exam Const: COMMON NORMALS: no acute distress Eye: COMMON NORMALS: EOMs intact bilaterally and conjunctivae normal CONJUNCTIVA: Yes conjunctivae normal Chest: COMMONS NORMALS: normal inspection of the chest Resp: COMMON NORMALS: No use of accessory muscles and clear to auscultation bilaterally AUSCULTATION: clear to auscultation bilaterally Cardio: COMMON NORMALS: regular rate RATE: regular rate and tachycardic GI: COMMON NORMALS: Soft to palpation and non-tender PALPATION: Yes Soft to palpation Extremity: COMMON NORMALS: no pedal edema Urinary Catheter Management^: Kellogg: Cath Placed During This Visit: yes Reason for Continuing Indwelling Catheter: Acute Urinary Retention or Obstruction Urinary Catheter Date of Insertion: 10/15/20 Urinary Catheter Time of Insertion: 17:06 Data : 10/21/20 02:45 10/21/20 02:45 A&P Assessment and plan (1) Acute kidney injury superimposed on CKD: Status: Acute (2) Systolic and diastolic CHF, acute on chronic: Status: Acute (3) Acute exacerbation of CHF (congestive heart failure): Status: Acute (4) Acute hypoxemic respiratory failure: Status: Acute (5) NSTEMI (non-ST elevated myocardial infarction): Status: Acute (6) Chronic kidney disease: Status: Acute (7) Atrial fibrillation: Status: Acute (8) Pneumonia: Status: Acute (9) Diabetes mellitus: Status: Acute Additional A&P Information #Acute respiratory failure #HCAP #septic shock --Required mechanical ventilation, now extubated and on 8L --Covid test negative, CTA negative for PE --Concern for possible flash pulmonary edema versus and fungal infection --Continue broad-spectrum antibiotics --Off Levophed --Echocardiogram September 26 showed ejection fraction 45 to 50% with abnormal diastolic dysfunction. Repeat ejection fraction 50% --continue Bumex --albuterol --continue maxepime, Levaquin --appreciate Cardiology recs --weight down from 10/19 203--> 195lb #afib with RVR --Off Cardizem drip. --continue plavix --PO cardizem #NSTEMI --Due to bleeding history anticoagulation held off. Previous admission required blood transfusion. #microcytic anemia #GI bleed --Continue PPI monitor serial H&H --continue carafate #Diabetes -Fingerstick blood sugar sliding scale insulin #acute on chronic kidney disease --Renally dose medications, serial labs #hypotension --stable --midodrine added DVT:SCD Attestations Medical Necessity Statement*: Kwaku Castorena's hospital stay will require greater than 2 midnights for respiratory failure Coding Level of Care Code Acute Donor Recruitment Manager for Chg Fwd Diagnoses Acute kidney injury superimposed on CKD N17.9; N18.9 Systolic and diastolic CHF, acute on chronic I50.43 Acute exacerbation of CHF (congestive heart failure) I50.9 Acute hypoxemic respiratory failure J96.01 NSTEMI (non-ST elevated myocardial infarction) I21.4 Chronic kidney disease N18.9 Atrial fibrillation I48.91 Pneumonia J18.9 Diabetes mellitus E11.9
[2020-10-22] VITALS (11 sets, daily range): BP systolic 109–162; BP diastolic 73–94; PULSE 78–112; RESP 16–24; TEMP 36.6–36.9; O2SAT 91–95
[2020-10-22] MEDS: bumetanide 0.25 mg/mL SDV 4 mL 1 MG IV ×2 (00:44→15:00)
[2020-10-22 03:16] LABS: Basophils # 0.1 10^3/uL (0.0-0.1); Basophils % 1.2 %; Eosinophils # 0.6 10^3/uL (0.0-0.8); Hematocrit 31.5 % (42.0-52.0); Hemoglobin 9.7 g/dL (11.7-16.6); Lymphocytes # 0.6 10^3/uL (0.8-4.8); Lymphocytes % 10.4 %; Mean Corpuscular HGB Conc 30.8 g/dL (30.0-36.0); Mean Corpuscular Volume 74.6 fl (80-94); Mean Platelet Volume 10.8 fL (7.4-10.4); Monocytes # 0.6 10^3/uL (0.2-0.9); Monocytes % 10.2 %; Neutrophils # 4.17 10^3/uL (1.8-7.7); Neutrophils % 68.5 %; Nucleated Red Blood Cells % 0 %; Platelet Count 281 10^3/cmm (130-400); Red Blood Count 4.22 10^6/uL (4.1-5.3); Red Cell Distribution Width 22.5 % (12.1-15.1); White Blood Count 6.1 10^3/uL (4.0-10.0)
[2020-10-22 03:43] LABS: Alanine Aminotransferase 56 U/L (0-41); Albumin Level 2.8 g/dL (3.5-5.2); Alkaline Phosphatase 71 IU/L (40-130); Anion Gap 16.6 (5-19); Aspartate Amino Transferase 75 U/L (0-40); Blood Urea Nitrogen 23 mg/dL (8-23); Carbon Dioxide 24 mmol/L (22-29); Chloride 100 mmol/L (98-107); Globulin 3.3 g/dL (1.3-4.6); Glucose 172 mg/dL (65-115); Magnesium 1.7 mg/dL (1.7-2.3); Osmolality Calculated 292 mOsm/kg (285-295); Phosphorus 2.5 mg/dL (2.5-4.5); Potassium 3.6 mmol/L (3.5-5.1); Sodium 137 mmol/L (136-145); Total Bilirubin 0.5 mg/dL (0.15-1.2); Total Protein 6.1 g/dL (6.6-8.7)
[2020-10-22 03:50] LABS: Vancomycin Random 27.5 ug/mL (20.0-40.0)
[2020-10-22 04:10] LABS: Slide Review Slide Review Perform
[2020-10-22] MEDS: sucralfate 1 gm Tablet PO ×2 (06:02→17:40)
[2020-10-22] MEDS: dilTIAZem 30 mg Tablet 60 MG PO ×4 (06:02→23:42)
[2020-10-22 06:17] LABS: Glucose Point of Care 166 mg/dL (70-110)
[2020-10-22] MEDS: cefepime 1,000 MG in sodium chloride 0.9% (plus) 50 ML 100 MG IV (08:16)
[2020-10-22] MEDS: clopidogrel 75 mg Tablet PO (08:17)
[2020-10-22] MEDS: pantoprazole 40 mg SDV IVP ×2 (08:17→20:52)
[2020-10-22] MEDS: potassium bicarb 25 mEq Tablet PO ×2 (08:17→17:40)
[2020-10-22] MEDS: cholecalciferol (vitamin D3) 1,000 unit Tablet 1000 UNIT PO (08:17)
[2020-10-22] MEDS: aspirin 81 mg EC Tablet PO (08:17)
[2020-10-22] MEDS: zinc gluconate 50 mg Tablet PO (08:17)
[2020-10-22] MEDS: atorvastatin 40 mg Tablet PO (08:17)
[2020-10-22] MEDS: ascorbic acid 500 mg Tablet PO ×2 (08:17→17:40)
[2020-10-22] MEDS: midodrine 5 mg TABLET PO ×3 (08:18→20:52)
[2020-10-22] MEDS: budesonide 0.5 mg/2 mL Neb INHALATION ×2 (08:30→20:05)
--- NOTE | 2020-10-22 11:19 | PC.SOCIAL ---
IMM Updated Page 2 of IMM updated. Pt is aware and left copy at bedside. Initialed, dated and timed.
--- NOTE | 2020-10-22 11:22 | P.PN_ITS ---
Subjective Subjective: Interval history: 85-year-old male with a past medical history significant for hypertension, insulin dependent diabetes mellitus, large hiatal hernia, paroxysmal atrial fibrillation, chronic kidney disease stage 2-3, coronary artery disease hx of LAD stent, chronic emphasema, chronic systolic heart failure with EF of 50%, who presented to ER with respiratory distress. Lab work up on arrival showed a WBC of 4.9, hemoglobin 8.8, hematocrit 28.6 and a platelet count of 322. Sodium 134, potassium 3.9, chloride 100, bicarb 20, BUN 23 and creatinine of 1.6. Glucose of 179. Imaging studies on arrival included a chest x-ray which showed diffuse groundless infiltrates R>L lung with small ride sided pleural effusion. Patient was intubated on placed on mechanical ventilation however extubated later on same day. Patient was found to be covid19 negative, Patient was stared on Bumex 1mg IV q24hr. Repeat ECHO showed Ef 50%. Empirically started on broad spectrum abx including vancomycin and cefepime. Procalcitonin was elevated at 1.80 however improved to 0.84. Briefly required levophed however this was also weaned off. Intermittently in afib with rvr however rate was currently controlled. Oxygen was weaned down to 5L of o2 via nc. Patient was not previously on home o2. Medications: Reviewed: Yes Medication Review Details: Current Medications Acetaminophen (Acetaminophen 325 Mg Tablet) 650 mg PO Q6H PRN PRN Reason: Mild/Mod Pain Or Temp >/= 101 Last Admin: 10/18/20 10:01 Dose: 650 mg Documented by: Albuterol Sulfate (Albuterol 8 Gm Mdi) 2 puff INHALATION Q4H.RESPIRATORY PRN PRN Reason: SHORTNESS OF BREATH Ascorbic Acid (Ascorbic Acid 500 Mg Tablet) 500 mg PO BID [facility] Last Admin: 10/19/20 17:42 Dose: 500 mg Documented by: Aspirin (Aspirin 81 Mg Ec Tablet) 81 mg PO DAILY [facility] Last Admin: 10/19/20 09:49 Dose: 81 mg Documented by: Atorvastatin Calcium (Atorvastatin 40 Mg Tablet) 40 mg PO DAILY [facility] Last Admin: 10/19/20 09:49 Dose: 40 mg Documented by: Budesonide (Budesonide 0.5 Mg/2 Ml Neb) 0.5 mg INHALATION BID.RESPIRATORY URIEL Last Admin: 10/19/20 20:19 Dose: 0.5 mg Documented by: Bumetanide (Bumetanide 0.25 Mg/Ml Sdv 4 Ml) 1 mg IV Q12H URIEL Last Admin: 10/20/20 00:59 Dose: 1 mg Documented by: Clopidogrel Bisulfate (Clopidogrel 75 Mg Tablet) 75 mg PO DAILY URIEL Last Admin: 10/19/20 09:49 Dose: 75 mg Documented by: Dextrose (Dextrose 50% Syringe 50 Ml) 25 ml IVP ONCE PRN; Protocol PRN Reason: hypoglycemia protocol Dextrose (Dextrose 50% Syringe 50 Ml) 50 ml IVP PRN PRN; Protocol PRN Reason: hypoglycemia protocol Diltiazem HCl (Diltiazem 5 Mg/Ml Sdv 10 Ml) 10 mg IVP ONCE PRN PRN Reason: See instructions Last Admin: 10/18/20 21:15 Dose: 10 mg Documented by: Diltiazem HCl (Diltiazem 30 Mg Tablet) 60 mg PO Q6H URIEL Last Admin: 10/20/20 05:06 Dose: 60 mg Documented by: Glucagon (Glucagon 1 Mg/Ml Inj 1 Ml) 1 mg IM ONCE PRN; Protocol PRN Reason: Adult Acute Hypoglycemia Prot. Propofol (Diprivan) 1,000 mg in 100 mls @ 0 mls/hr IV .Q0M URIEL; Protocol Last Titration: 10/17/20 16:28 Dose: 0 mcg/kg/min, 0 mls/hr Documented by: Fentanyl 1,000 mcg/ Sodium (Chloride) 100 mls @ 0 mls/hr IV .Q0M URIEL; Protocol Last Titration: 10/17/20 16:28 Dose: Infused Documented by: Norepinephrine Bitartrate 4 mg (/ Dextrose) 254 mls @ 0 mls/hr IV .Q0M URIEL; Protocol Last Titration: 10/17/20 07:00 Dose: 0 mcg/min, 0 mls/hr Documented by: Dextrose (D5w) 500 mls @ 100 mls/hr IV ONCE PRN; Protocol PRN Reason: Adult Acute Hypoglycemia Prot Vancomycin/PEG/NADA/Lysine/Water (Vancocin) 1,500 mg in 300 mls @ 200 mls/hr IV Q24H URIEL Last Infusion: 10/19/20 14:55 Dose: Infused Documented by: Levofloxacin/Dextrose (Levaquin-D5w) 750 mg in 150 mls @ 100 mls/hr IV Q48H URIEL; Protocol Last Infusion: 10/19/20 14:01 Dose: Infused Documented by: Cefepime HCl 1,000 mg/ Sodium (Chloride) 50 mls @ 100 mls/hr IV Q24H URIEL; Protocol Last Infusion: 10/19/20 09:00 Dose: Infused Documented by: Diltiazem HCl 125 mg/ Sodium (Chloride) 125 mls @ 0 mls/hr IV .Q0M URIEL; Protocol Last Titration: 10/19/20 11:19 Dose: 0 mg/hr, 0 mls/hr Documented by: Dexmedetomidine HCl 400 mcg/ (Sodium Chloride) 104 mls @ 0 mls/hr IV .Q0M URIEL; Protocol Last Admin: 10/19/20 04:14 Dose: 0.1 mcg/kg/hr, 2.39 mls/hr Documented by: Insulin Aspart (Insulin Aspart 100 Unit/1 Ml) 0 unit SUBCUT TIDWM URIEL; Protocol Last Admin: 10/19/20 17:42 Dose: 2 unit Documented by: Lorazepam (Lorazepam 2 Mg/Ml Inj 1 Ml) 1 mg IVP Q4H PRN PRN Reason: ANXIETY Last Admin: 10/18/20 21:33 Dose: 1 mg Documented by: Morphine Sulfate (Morphine 4 Mg/Ml Sdv 1 Ml) 1 mg IVP Q4H PRN PRN Reason: SEVERE PAIN Last Admin: 10/19/20 00:59 Dose: 1 mg Documented by: Naloxone HCl (Naloxone 0.4 Mg/Ml Sdv) 0.1 mg IVP Q2M PRN PRN Reason: OPIATERV Ondansetron HCl (Ondansetron 2 Mg/Ml Sdv 2 Ml) 4 mg IVP Q8H PRN PRN Reason: vomiting, or N/V if npo Pantoprazole Sodium (Pantoprazole 40 Mg Sdv) 40 mg IVP Q12H [facility] Last Admin: 10/19/20 20:45 Dose: 40 mg Documented by: Potassium Bicarbonate (Potassium Bicarb 25 Meq Tablet) 25 meq PO BID URIEL Last Admin: 10/19/20 17:43 Dose: 25 meq Documented by: Sucralfate (Sucralfate 1 Gm Tablet) 1 gm PO BIDAC [facility] Last Admin: 10/20/20 06:00 Dose: 1 gm Documented by: Vitamin D (Cholecalciferol (Vitamin D3) 1,000 Unit Tablet) 1,000 unit PO DAILY [facility] Last Admin: 10/19/20 09:49 Dose: 1,000 unit Documented by: Zinc Gluconate (Zinc Gluconate 50 Mg Tablet) 50 mg PO DAILY [facility] Last Admin: 10/19/20 09:49 Dose: 50 mg Documented by: Vitals/I&O/Wt Last Vital Signs Temp 98.5 F 10/22/20 11:06 Pulse 102 H 10/22/20 11:06 Resp 16 10/22/20 11:06 BP 138/94 10/22/20 11:06 Pulse Ox 95 10/22/20 11:06 10/21/20 10/22/20 10/22/20 22:59 06:59 14:59 Intake Total 300 / 1924 0 / 1924 170 / 170 Output Total 1000 / 1000 1000 / 2000 Balance -700 / 924 -1000 / -76 170 / 170 Weight last 48 hrs Weight 88.632 kg Physical Exam Narrative: EXAM NARRATIVE: General: Alert, awake on 5L via NC. No distress HEENT: Grossly unremarkable CVS: Irregularly irregular Chest : non-labored respiration Abd; Soft Ext : b/l le Edema Urinary Catheter Management^: Kellogg: Cath Placed During This Visit: yes Reason for Continuing Indwelling Catheter: Acute Urinary Retention or Obstruction Urinary Catheter Date of Insertion: 10/15/20 Urinary Catheter Time of Insertion: 17:06 Data : 10/22/20 02:19 10/22/20 02:19 A&P Assessment and plan (1) Acute kidney injury superimposed on CKD: Status: Acute (2) Systolic and diastolic CHF, acute on chronic: Status: Acute (3) Acute exacerbation of CHF (congestive heart failure): Status: Acute (4) Acute hypoxemic respiratory failure: Status: Acute (5) NSTEMI (non-ST elevated myocardial infarction): -Baseline troponin 103, 6-hour 126 improved from 3556 on 09/26 -EKG shows no acute ST-T wave changes, A. fib -No complaints of chest pain -Likely elevated troponin from prior cath, and not amenable lesion in LAD and left circumflex -No chest pain complaints -Continue aspirin, statin, Plavix, echo as above, cardiology on consult -Continue telemetry monitoring Status: Acute (6) Chronic kidney disease: Creatinine improved to 1.6 Status: Acute (7) Atrial fibrillation: Currently rate with maternal 25 twice daily, anticoagulation contraindicated given anemia, Status: Acute (8) Pneumonia: Status: Acute (9) Diabetes mellitus: Low-dose sliding scale Status: Acute Additional A&P Information #Acute respiratory failure #HCAP #septic shock --Required mechanical ventilation, now extubated and on 5L --Covid test negative, CTA negative for PE --Concern for possible flash pulmonary edema versus and fungal infection --Continue broad-spectrum antibiotics, Culture - Negative --Off Levophed --Echocardiogram September 26 showed ejection fraction 45 to 50% with abnormal diastolic dysfunction. Repeat ejection fraction 50% --continue Bumex 1 mg IV q12hr --albuterol q6hr --appreciate Cardiology recs --weight down from 10/19 203--> 195lb --monitor daily weight --repeat labs in am including pro-calcitonin #afib with RVR --Off Cardizem drip. --continue plavix --PO cardizem --Rate controled #NSTEMI --Due to bleeding history anticoagulation held off. Previous admission required blood transfusion. #microcytic anemia #GI bleed --Continue PPI monitor serial H&H --continue carafate #Diabetes -Fingerstick blood sugar sliding scale insulin #acute on chronic kidney disease --Renally dose medications, serial labs #Hypotension --stable --midodrine #Debility --Pt/OT on board --Will assess for discharge disposition DVT:SCD Attestations Medical Necessity Statement*: Will continue hospitalization for management of hcap, HF exacerbation and respiratory failure rq supplemental 02 Time Spent in Patient Care: Greater than 35 minutes (>than 50% of time spent in counselling and/or direct pt care on unit) . Coding Level of Care Code Acute Gis Mapping Technician for Yolanda Morales Diagnoses Acute kidney injury superimposed on CKD N17.9; N18.9 Systolic and diastolic CHF, acute on chronic I50.43 Acute exacerbation of CHF (congestive heart failure) I50.9 Acute hypoxemic respiratory failure J96.01 NSTEMI (non-ST elevated myocardial infarction) I21.4 Chronic kidney disease N18.9 Atrial fibrillation I48.91 Pneumonia J18.9 Diabetes mellitus E11.9
[2020-10-22 12:02] LABS: Glucose Point of Care 184 mg/dL (70-110)
[2020-10-22] MEDS: vancomycin 1,500 MG/300 ML PIGGYBACK 200 MG IV (12:14)
[2020-10-22 17:22] LABS: Glucose Point of Care 231 mg/dL (70-110)
[2020-10-22 20:13] LABS: Aspergillus AG,EIA,Serum NOT DETECTED; Aspergillus Galactomannan Inde <0.50
[2020-10-22 20:56] LABS: Glucose Point of Care 178 mg/dL (70-110)
[2020-10-23] VITALS (12 sets, daily range): BP systolic 95–138; BP diastolic 61–78; PULSE 68–106; RESP 14–20; TEMP 36.6–37.2; O2SAT 82–95
[2020-10-23] MEDS: bumetanide 0.25 mg/mL SDV 4 mL 1 MG IV ×2 (00:50→15:03)
[2020-10-23 06:02] LABS: Vancomycin Random 24.8 ug/mL (20.0-40.0)
[2020-10-23] MEDS: dilTIAZem 30 mg Tablet 60 MG PO ×4 (06:02→22:41)
[2020-10-23] MEDS: sucralfate 1 gm Tablet PO ×2 (06:02→17:39)
[2020-10-23 06:03] LABS: Magnesium 1.8 mg/dL (1.7-2.3); Phosphorus 2.7 mg/dL (2.5-4.5)
[2020-10-23 06:27] LABS: Glucose Point of Care 185 mg/dL (70-110)
[2020-10-23] MEDS: cefepime 1,000 MG in sodium chloride 0.9% (plus) 50 ML 100 MG IV (08:42)
[2020-10-23] MEDS: pantoprazole 40 mg SDV IVP ×2 (08:45→21:52)
[2020-10-23] MEDS: atorvastatin 40 mg Tablet PO (08:46)
[2020-10-23] MEDS: ascorbic acid 500 mg Tablet PO ×2 (08:46→17:39)
[2020-10-23] MEDS: zinc gluconate 50 mg Tablet PO (08:46)
[2020-10-23] MEDS: aspirin 81 mg EC Tablet PO (08:46)
[2020-10-23] MEDS: midodrine 5 mg TABLET PO ×3 (08:46→21:52)
[2020-10-23] MEDS: cholecalciferol (vitamin D3) 1,000 unit Tablet 1000 UNIT PO (08:46)
[2020-10-23] MEDS: clopidogrel 75 mg Tablet PO (08:46)
[2020-10-23] MEDS: budesonide 0.5 mg/2 mL Neb INHALATION (10:29)
[2020-10-23] MEDS: potassium bicarb 25 mEq Tablet PO ×2 (12:34→17:39)
[2020-10-23] MEDS: levofloxacin-dextrose 5 % 750 MG/150 ML PREMIX 100 MG IV (12:34)
[2020-10-23 14:55] LABS: Vancomycin Trough 22.5 ug/mL (10-15)
--- NOTE | 2020-10-23 15:23 | PC.CHAP ---
Pastoral Care Encounter/Spiritual Assessment Type of Contact [XX] Declined market analyst visit [] Patient/Family/Request visit [] Outpatient visit [XX] Follow-up visit [] Physician referral [] Code/Alert [XX] Routine visit [] Staff referral [] Actively dying [] Patient sleeping [] Family support [] [] Out of room [] Palliative care [] [] Receiving care in room [] Pre-surgical visit [] Trauma [XX] Long length of stay [] ICU visit [] Other: Relational/Emotional Strength [XX] Patient feels connected with others/family/visitors/staff [] Distress [] Loneliness/isolation [] Abandonment Spirituality of Patient [] Person of Rhona [] Attends Advent of their [place] [] Believes in Prayer [] Reads Bible or Worship materials [] There are Spiritual issues to be addressed Geopolitics Teacher Interventions [] Prayer [XX] Active listening [XX] Non-anxious presence [] Spiritual/emotional support [] Crisis/trauma care [] Spiritual counseling [] Bereavement support [] Provided bereavement packet [] Provided Bible/devotional materials [] Provided toy/stuffed animal, coloring book to patient or family member [] Provided Communion [] Anointing/Christine [] Salvation [XX] Completed spiritual assessment [] Other: Impact on Illness or Injury [] Angry [] Fearful [] Anxious [] Often cries [] Exhaustion [] Unable to work [] Unable to attend zoroastrianism [] Unable to walk/stand [] Unable to read [] Unable to drive [] Unable to eat/drink [] Unable to sleep [] Unable to be with family [] Patient intubated [] Other: Summary Patient didn't feel like market analyst visit today. Maybe later. Time spent with patient 3 minutes
--- NOTE | 2020-10-23 17:37 | P.PN_ITS ---
Subjective Subjective: Interval history: 85-year-old male with a past medical history significant for hypertension, insulin dependent diabetes mellitus, large hiatal hernia, paroxysmal atrial fibrillation, chronic kidney disease stage 2-3, coronary artery disease hx of LAD stent, chronic emphasema, chronic systolic heart failure with EF of 50%, who presented to ER with respiratory distress. Lab work up on arrival showed a WBC of 4.9, hemoglobin 8.8, hematocrit 28.6 and a platelet count of 322. Sodium 134, potassium 3.9, chloride 100, bicarb 20, BUN 23 and creatinine of 1.6. Glucose of 179. Imaging studies on arrival included a chest x-ray which showed diffuse groundless infiltrates R>L lung with small ride sided pleural effusion. Patient was intubated on placed on mechanical ventilation however extubated later on same day. Patient was found to be covid19 negative, Patient was stared on Bumex 1mg IV q24hr. Repeat ECHO showed Ef 50%. Empirically started on broad spectrum abx including vancomycin and cefepime. Procalcitonin was elevated at 1.80 however improved to 0.84. Briefly required levophed however this was also weaned off. Intermittently in afib with rvr however rate was currently controlled. Oxygen was weaned down to 5L of o2 via nc. Patient was not previously on home o2. No new clinical events overnight. Patients oxygen requirements continued to improve. Medications: Reviewed: Yes Medication Review Details: Current Medications Acetaminophen (Acetaminophen 325 Mg Tablet) 650 mg PO Q6H PRN PRN Reason: Mild/Mod Pain Or Temp >/= 101 Last Admin: 10/18/20 10:01 Dose: 650 mg Documented by: Albuterol Sulfate (Albuterol 8 Gm Mdi) 2 puff INHALATION Q4H.RESPIRATORY PRN PRN Reason: SHORTNESS OF BREATH Ascorbic Acid (Ascorbic Acid 500 Mg Tablet) 500 mg PO BID [facility] Last Admin: 10/19/20 17:42 Dose: 500 mg Documented by: Aspirin (Aspirin 81 Mg Ec Tablet) 81 mg PO DAILY [facility] Last Admin: 10/19/20 09:49 Dose: 81 mg Documented by: Atorvastatin Calcium (Atorvastatin 40 Mg Tablet) 40 mg PO DAILY [facility] Last Admin: 10/19/20 09:49 Dose: 40 mg Documented by: Budesonide (Budesonide 0.5 Mg/2 Ml Neb) 0.5 mg INHALATION BID.RESPIRATORY [facility] Last Admin: 10/19/20 20:19 Dose: 0.5 mg Documented by: Bumetanide (Bumetanide 0.25 Mg/Ml Sdv 4 Ml) 1 mg IV Q12H [facility] Last Admin: 10/20/20 00:59 Dose: 1 mg Documented by: Clopidogrel Bisulfate (Clopidogrel 75 Mg Tablet) 75 mg PO DAILY [facility] Last Admin: 10/19/20 09:49 Dose: 75 mg Documented by: Dextrose (Dextrose 50% Syringe 50 Ml) 25 ml IVP ONCE PRN; Protocol PRN Reason: hypoglycemia protocol Dextrose (Dextrose 50% Syringe 50 Ml) 50 ml IVP PRN PRN; Protocol PRN Reason: hypoglycemia protocol Diltiazem HCl (Diltiazem 5 Mg/Ml Sdv 10 Ml) 10 mg IVP ONCE PRN PRN Reason: See instructions Last Admin: 10/18/20 21:15 Dose: 10 mg Documented by: Diltiazem HCl (Diltiazem 30 Mg Tablet) 60 mg PO Q6H [facility] Last Admin: 10/20/20 05:06 Dose: 60 mg Documented by: Glucagon (Glucagon 1 Mg/Ml Inj 1 Ml) 1 mg IM ONCE PRN; Protocol PRN Reason: Adult Acute Hypoglycemia Prot. Propofol (Diprivan) 1,000 mg in 100 mls @ 0 mls/hr IV .Q0M [facility]; Protocol Last Titration: 10/17/20 16:28 Dose: 0 mcg/kg/min, 0 mls/hr Documented by: Fentanyl 1,000 mcg/ Sodium (Chloride) 100 mls @ 0 mls/hr IV .Q0M [facility]; Protocol Last Titration: 10/17/20 16:28 Dose: Infused Documented by: Norepinephrine Bitartrate 4 mg (/ Dextrose) 254 mls @ 0 mls/hr IV .Q0M [facility]; Protocol Last Titration: 10/17/20 07:00 Dose: 0 mcg/min, 0 mls/hr Documented by: Dextrose (D5w) 500 mls @ 100 mls/hr IV ONCE PRN; Protocol PRN Reason: Adult Acute Hypoglycemia Prot Vancomycin/PEG/[place]DA/Lysine/Water (Vancocin) 1,500 mg in 300 mls @ 200 mls/hr IV Q24H [facility] Last Infusion: 10/19/20 14:55 Dose: Infused Documented by: Levofloxacin/Dextrose (Levaquin-D5w) 750 mg in 150 mls @ 100 mls/hr IV Q48H [facility]; Protocol Last Infusion: 10/19/20 14:01 Dose: Infused Documented by: Cefepime HCl 1,000 mg/ Sodium (Chloride) 50 mls @ 100 mls/hr IV Q24H [facility]; Protocol Last Infusion: 10/19/20 09:00 Dose: Infused Documented by: Diltiazem HCl 125 mg/ Sodium (Chloride) 125 mls @ 0 mls/hr IV .Q0M [facility]; Protocol Last Titration: 10/19/20 11:19 Dose: 0 mg/hr, 0 mls/hr Documented by: Dexmedetomidine HCl 400 mcg/ (Sodium Chloride) 104 mls @ 0 mls/hr IV .Q0M [facility]; Protocol Last Admin: 10/19/20 04:14 Dose: 0.1 mcg/kg/hr, 2.39 mls/hr Documented by: Insulin Aspart (Insulin Aspart 100 Unit/1 Ml) 0 unit SUBCUT TIDWM [facility]; Protocol Last Admin: 10/19/20 17:42 Dose: 2 unit Documented by: Lorazepam (Lorazepam 2 Mg/Ml Inj 1 Ml) 1 mg IVP Q4H PRN PRN Reason: ANXIETY Last Admin: 10/18/20 21:33 Dose: 1 mg Documented by: Morphine Sulfate (Morphine 4 Mg/Ml Sdv 1 Ml) 1 mg IVP Q4H PRN PRN Reason: SEVERE PAIN Last Admin: 10/19/20 00:59 Dose: 1 mg Documented by: Naloxone HCl (Naloxone 0.4 Mg/Ml Sdv) 0.1 mg IVP Q2M PRN PRN Reason: OPIATERV Ondansetron HCl (Ondansetron 2 Mg/Ml Sdv 2 Ml) 4 mg IVP Q8H PRN PRN Reason: vomiting, or N/V if npo Pantoprazole Sodium (Pantoprazole 40 Mg Sdv) 40 mg IVP Q12H [facility] Last Admin: 10/19/20 20:45 Dose: 40 mg Documented by: Potassium Bicarbonate (Potassium Bicarb 25 Meq Tablet) 25 meq PO BID [facility] Last Admin: 10/19/20 17:43 Dose: 25 meq Documented by: Sucralfate (Sucralfate 1 Gm Tablet) 1 gm PO BIDAC [facility] Last Admin: 10/20/20 06:00 Dose: 1 gm Documented by: Vitamin D (Cholecalciferol (Vitamin D3) 1,000 Unit Tablet) 1,000 unit PO DAILY [facility] Last Admin: 10/19/20 09:49 Dose: 1,000 unit Documented by: Zinc Gluconate (Zinc Gluconate 50 Mg Tablet) 50 mg PO DAILY [facility] Last Admin: 10/19/20 09:49 Dose: 50 mg Documented by: Vitals/I&O/Wt Last Vital Signs Temp 98.2 F 10/23/20 16:00 Pulse 68 10/23/20 16:00 Resp 16 10/23/20 16:00 BP 111/74 10/23/20 16:00 Pulse Ox 92 10/23/20 16:00 10/23/20 10/23/20 10/23/20 06:59 14:59 22:59 Intake Total 320 / 320 Output Total 800 / 2400 Balance -800 / -1210 320 / 320 Weight last 48 hrs Weight 87.09 kg Weight 87.09 kg Physical Exam Narrative: EXAM NARRATIVE: General: Alert, awake on 5L via NC. No distress HEENT: Grossly unremarkable CVS: Irregularly irregular Chest : non-labored respiration Abd; Soft Ext : b/l le Edema Urinary Catheter Management^: Kellogg: Cath Placed During This Visit: yes Reason for Continuing Indwelling Catheter: Acute Urinary Retention or Obstruction Urinary Catheter Date of Insertion: 10/15/20 Urinary Catheter Time of Insertion: 17:06 Data : 10/22/20 02:19 10/22/20 02:19 A&P Assessment and plan (1) Acute kidney injury superimposed on CKD: Status: Acute (2) Systolic and diastolic CHF, acute on chronic: Status: Acute (3) Acute exacerbation of CHF (congestive heart failure): Status: Acute (4) Acute hypoxemic respiratory failure: Status: Acute (5) NSTEMI (non-ST elevated myocardial infarction): -Baseline troponin 103, 6-hour 126 improved from 3556 on 09/26 -EKG shows no acute ST-T wave changes, A. fib -No complaints of chest pain -Likely elevated troponin from prior cath, and not amenable lesion in LAD and left circumflex -No chest pain complaints -Continue aspirin, statin, Plavix, echo as above, cardiology on consult -Continue telemetry monitoring Status: Acute (6) Chronic kidney disease: Creatinine improved to 1.6 Status: Acute (7) Atrial fibrillation: Currently rate with maternal 25 twice daily, anticoagulation contr aindicated given anemia, Status: Acute (8) Pneumonia: Status: Acute (9) Diabetes mellitus: Low-dose sliding scale Status: Acute Additional A&P Information #Acute respiratory failure #HCAP #septic shock --Required mechanical ventilation, now extubated and on 4L --Covid test negative, CTA negative for PE --Concern for possible flash pulmonary edema versus and fungal infection --Continue broad-spectrum antibiotics, Culture - Negative --Off Levophed --Echocardiogram September 26 showed ejection fraction 45 to 50% with abnormal diastolic dysfunction. Repeat ejection fraction 50% --continue Bumex 1 mg IV q12hr - will transition to PO at discharge --albuterol q6hr --appreciate Cardiology recs --weight down from 10/19 203--> 195lb --monitor daily weight #afib with RVR - rate controlled --Off Cardizem drip. --continue plavix --PO cardizem --Rate controled #NSTEMI --Due to bleeding history anticoagulation held off. Previous admission required blood transfusion. #microcytic anemia #GI bleed --Continue PPI monitor serial H&H --continue carafate --Hb stable #Diabetes -Fingerstick blood sugar sliding scale insulin #acute on chronic kidney disease - resolved. --Renally dose medications, serial labs #Hypotension --stable --midodrine #Debility --Pt/OT on board --Will assess for discharge disposition DVT:SCD Attestations Medical Necessity Statement*: Will require further hospitalization for IV diuresis Time Spent in Patient Care: Greater than 35 minutes (>than 50% of time spent in counselling and/or direct pt care on unit) . Coding Level of Care Code Acute Environmental Lawyer for Yolanda Morales Diagnoses Acute kidney injury superimposed on CKD N17.9; N18.9 Systolic and diastolic CHF, acute on chronic I50.43 Acute exacerbation of CHF (congestive heart failure) I50.9 Acute hypoxemic respiratory failure J96.01 NSTEMI (non-ST elevated myocardial infarction) I21.4 Chronic kidney disease N18.9 Atrial fibrillation I48.91 Pneumonia J18.9 Diabetes mellitus E11.9
[2020-10-24] VITALS (11 sets, daily range): BP systolic 100–136; BP diastolic 65–82; PULSE 54–96; RESP 16–18; TEMP 36.5–36.9; O2SAT 89–94; BMI 27.5
[2020-10-24] MEDS: bumetanide 0.25 mg/mL SDV 4 mL 1 MG IV ×2 (01:40→15:20)
[2020-10-24] MEDS: dilTIAZem 30 mg Tablet 60 MG PO ×4 (04:47→23:58)
[2020-10-24] MEDS: sucralfate 1 gm Tablet PO ×2 (06:30→17:32)
[2020-10-24] MEDS: budesonide 0.5 mg/2 mL Neb INHALATION ×2 (08:15→22:28)
[2020-10-24] MEDS: aspirin 81 mg EC Tablet PO (09:27)
[2020-10-24] MEDS: zinc gluconate 50 mg Tablet PO (09:27)
[2020-10-24] MEDS: cholecalciferol (vitamin D3) 1,000 unit Tablet 1000 UNIT PO (09:27)
[2020-10-24] MEDS: midodrine 5 mg TABLET PO ×3 (09:27→21:39)
[2020-10-24] MEDS: clopidogrel 75 mg Tablet PO (09:27)
[2020-10-24] MEDS: potassium bicarb 25 mEq Tablet PO ×2 (09:27→17:32)
[2020-10-24] MEDS: pantoprazole 40 mg SDV IVP ×2 (09:27→21:15)
[2020-10-24] MEDS: atorvastatin 40 mg Tablet PO (09:27)
[2020-10-24] MEDS: cefepime 1,000 MG in sodium chloride 0.9% (plus) 50 ML 100 MG IV (09:29)
[2020-10-24] MEDS: ascorbic acid 500 mg Tablet PO ×2 (09:34→17:32)
--- NOTE | 2020-10-24 09:55 | ECG_ITS ---
[facility] Test Date: 2020-10-24 Pat Name: Kwaku Castorena Department: Room: 269 Gender: Male Tearoom Host/Hostess: : 1935 Requested By: Lina Hinton Order Number: [id number] Charbel MD: RADHA BURKETT Measurements Intervals [place] Rate: 105 P: 53 [place]: 173 QRS: -56 QRSD: 96 T: 66 QT: 351 QTc: 465 Interpretive Statements SINUS TACHYCARDIA WITH OCCASIONAL SUPRAVENTRICULAR PREMATURE COMPLEXES LEFT AXIS DEVIATION [QRS AXIS < -30] INCOMPLETE RIGHT BUNDLE BRANCH BLOCK [90+ ms QRS DURATION, TERMINAL R IN V1/V2, 40+ ms S IN I/aVL/V4/V5/V6] MINIMAL VOLTAGE CRITERIA FOR LVH, CONSIDER NORMAL VARIANT [MEETS CRITERIA IN ONE OF: R(aVL), S(V1), R(V5), R(V5/V6)+S(V1)] NONSPECIFIC T-WAVE ABNORMALITY Compared to ECG 10/17/2020 21:08:02 Left-axis deviation now present Incomplete right bundle-branch block now present Left anterior fascicular block no longer present T-wave abnormality still present Electronically Signed On 10-24-2020 20:17:51 CDT by RADHA BURKETT [id number]
[2020-10-24] MEDS: acetaminophen 325 mg Tablet 650 MG PO (10:17)
--- NOTE | 2020-10-24 11:30 | PC.SOCIAL ---
IMM Update Pg. 2of IMM Updated and reviewed with patient, who verbalized understanding. Copy provided.
[2020-10-24 11:47] LABS: Vancomycin Random 16.7 ug/mL (20.0-40.0)
[2020-10-24] MEDS: vancomycin 1,000 MG in sodium chloride 0.9% 250 ML 250 MG IV (15:20)
--- NOTE | 2020-10-24 15:34 | P.PN_ITS ---
Subjective Subjective: Interval history: 85-year-old male with a past medical history significant for hypertension, insulin dependent diabetes mellitus, large hiatal hernia, paroxysmal atrial fibrillation, chronic kidney disease stage 2-3, coronary artery disease hx of LAD stent, chronic emphasema, chronic systolic heart failure with EF of 50%, who presented to ER with respiratory distress. Lab work up on arrival showed a WBC of 4.9, hemoglobin 8.8, hematocrit 28.6 and a platelet count of 322. Sodium 134, potassium 3.9, chloride 100, bicarb 20, BUN 23 and creatinine of 1.6. Glucose of 179. Imaging studies on arrival included a chest x-ray which showed diffuse groundless infiltrates R>L lung with small ride sided pleural effusion. Patient was intubated on placed on mechanical ventilation however extubated later on same day. Patient was found to be covid19 negative, Patient was stared on Bumex 1mg IV q24hr. Repeat ECHO showed Ef 50%. Empirically started on broad spectrum abx including vancomycin and cefepime. Procalcitonin was elevated at 1.80 however improved to 0.84. Briefly required levophed however this was also weaned off. Intermittently in afib with rvr however rate was currently controlled. Oxygen was weaned down to 5L of o2 via nc. Patient was not previously on home o2. Patient was complaining of back pain in the thoracic spine. This resolved once patient was repositioned in bed. Tylenol was given as well. Medications: Reviewed: Yes Medication Review Details: Current Medications Acetaminophen (Acetaminophen 325 Mg Tablet) 650 mg PO Q6H PRN PRN Reason: Mild/Mod Pain Or Temp >/= 101 Last Admin: 10/18/20 10:01 Dose: 650 mg Documented by: Albuterol Sulfate (Albuterol 8 Gm Mdi) 2 puff INHALATION Q4H.RESPIRATORY PRN PRN Reason: SHORTNESS OF BREATH Ascorbic Acid (Ascorbic Acid 500 Mg Tablet) 500 mg PO BID [facility] Last Admin: 10/19/20 17:42 Dose: 500 mg Documented by: Aspirin (Aspirin 81 Mg Ec Tablet) 81 mg PO DAILY [facility] Last Admin: 10/19/20 09:49 Dose: 81 mg Documented by: Atorvastatin Calcium (Atorvastatin 40 Mg Tablet) 40 mg PO DAILY [facility] Last Admin: 10/19/20 09:49 Dose: 40 mg Documented by: Budesonide (Budesonide 0.5 Mg/2 Ml Neb) 0.5 mg INHALATION BID.RESPIRATORY [facility] Last Admin: 10/19/20 20:19 Dose: 0.5 mg Documented by: Bumetanide (Bumetanide 0.25 Mg/Ml Sdv 4 Ml) 1 mg IV Q12H [facility] Last Admin: 10/20/20 00:59 Dose: 1 mg Documented by: Clopidogrel Bisulfate (Clopidogrel 75 Mg Tablet) 75 mg PO DAILY [facility] Last Admin: 10/19/20 09:49 Dose: 75 mg Documented by: Dextrose (Dextrose 50% Syringe 50 Ml) 25 ml IVP ONCE PRN; Protocol PRN Reason: hypoglycemia protocol Dextrose (Dextrose 50% Syringe 50 Ml) 50 ml IVP PRN PRN; Protocol PRN Reason: hypoglycemia protocol Diltiazem HCl (Diltiazem 5 Mg/Ml Sdv 10 Ml) 10 mg IVP ONCE PRN PRN Reason: See instructions Last Admin: 10/18/20 21:15 Dose: 10 mg Documented by: Diltiazem HCl (Diltiazem 30 Mg Tablet) 60 mg PO Q6H [facility] Last Admin: 10/20/20 05:06 Dose: 60 mg Documented by: Glucagon (Glucagon 1 Mg/Ml Inj 1 Ml) 1 mg IM ONCE PRN; Protocol PRN Reason: Adult Acute Hypoglycemia Prot. Propofol (Diprivan) 1,000 mg in 100 mls @ 0 mls/hr IV .Q0M [facility]; Protocol Last Titration: 10/17/20 16:28 Dose: 0 mcg/kg/min, 0 mls/hr Documented by: Fentanyl 1,000 mcg/ Sodium (Chloride) 100 mls @ 0 mls/hr IV .Q0M [facility]; Protocol Last Titration: 10/17/20 16:28 Dose: Infused Documented by: Norepinephrine Bitartrate 4 mg (/ Dextrose) 254 mls @ 0 mls/hr IV .Q0M [facility]; Protocol Last Titration: 10/17/20 07:00 Dose: 0 mcg/min, 0 mls/hr Documented by: Dextrose (D5w) 500 mls @ 100 mls/hr IV ONCE PRN; Protocol PRN Reason: Adult Acute Hypoglycemia Prot Vancomycin/PEG/[place]/Lysine/Water (Vancocin) 1,500 mg in 300 mls @ 200 mls/hr IV Q24H [facility] Last Infusion: 10/19/20 14:55 Dose: Infused Documented by: Levofloxacin/Dextrose (Levaquin-D5w) 750 mg in 150 mls @ 100 mls/hr IV Q48H [facility]; Protocol Last Infusion: 10/19/20 14:01 Dose: Infused Documented by: Cefepime HCl 1,000 mg/ Sodium (Chloride) 50 mls @ 100 mls/hr IV Q24H [facility]; Protocol Last Infusion: 10/19/20 09:00 Dose: Infused Documented by: Diltiazem HCl 125 mg/ Sodium (Chloride) 125 mls @ 0 mls/hr IV .Q0M [facility]; Protocol Last Titration: 10/19/20 11:19 Dose: 0 mg/hr, 0 mls/hr Documented by: Dexmedetomidine HCl 400 mcg/ (Sodium Chloride) 104 mls @ 0 mls/hr IV .Q0M [facility]; Protocol Last Admin: 10/19/20 04:14 Dose: 0.1 mcg/kg/hr, 2.39 mls/hr Documented by: Insulin Aspart (Insulin Aspart 100 Unit/1 Ml) 0 unit SUBCUT TIDWM [facility]; Protocol Last Admin: 10/19/20 17:42 Dose: 2 unit Documented by: Lorazepam (Lorazepam 2 Mg/Ml Inj 1 Ml) 1 mg IVP Q4H PRN PRN Reason: ANXIETY Last Admin: 10/18/20 21:33 Dose: 1 mg Documented by: Morphine Sulfate (Morphine 4 Mg/Ml Sdv 1 Ml) 1 mg IVP Q4H PRN PRN Reason: SEVERE PAIN Last Admin: 10/19/20 00:59 Dose: 1 mg Documented by: Naloxone HCl (Naloxone 0.4 Mg/Ml Sdv) 0.1 mg IVP Q2M PRN PRN Reason: OPIATERV Ondansetron HCl (Ondansetron 2 Mg/Ml Sdv 2 Ml) 4 mg IVP Q8H PRN PRN Reason: vomiting, or N/V if npo Pantoprazole Sodium (Pantoprazole 40 Mg Sdv) 40 mg IVP Q12H [facility] Last Admin: 10/19/20 20:45 Dose: 40 mg Documented by: Potassium Bicarbonate (Potassium Bicarb 25 Meq Tablet) 25 meq PO BID [facility] Last Admin: 10/19/20 17:43 Dose: 25 meq Documented by: Sucralfate (Sucralfate 1 Gm Tablet) 1 gm PO BIDAC [facility] Last Admin: 10/20/20 06:00 Dose: 1 gm Documented by: Vitamin D (Cholecalciferol (Vitamin D3) 1,000 Unit Tablet) 1,000 unit PO DAILY [facility] Last Admin: 10/19/20 09:49 Dose: 1,000 unit Documented by: Zinc Gluconate (Zinc Gluconate 50 Mg Tablet) 50 mg PO DAILY [facility] Last Admin: 10/19/20 09:49 Dose: 50 mg Documented by: Vitals/I&O/Wt Last Vital Signs Temp 97.8 F 10/24/20 12:00 Pulse 96 10/24/20 12:00 Resp 16 10/24/20 12:00 BP 100/65 10/24/20 12:00 Pulse Ox 92 10/24/20 12:00 10/24/20 10/24/20 10/24/20 06:59 14:59 22:59 Intake Total 530 / 530 Output Total 600 / 1450 Balance -600 / -890 530 / 530 Weight last 48 hrs Weight 87.09 kg Physical Exam Narrative: EXAM NARRATIVE: General: Alert, awake on 5L via NC. No distress HEENT: Grossly unremarkable CVS: Irregularly irregular Chest : non-labored respiration Abd; Soft Ext : b/l le Edema Urinary Catheter Management^: Kellogg: Cath Placed During This Visit: yes Reason for Continuing Indwelling Catheter: Acute Urinary Retention or Obstruction Urinary Catheter Date of Insertion: 10/15/20 Urinary Catheter Time of Insertion: 17:06 Data : 10/22/20 02:19 10/22/20 02:19 A&P Assessment and plan (1) Acute kidney injury superimposed on CKD: Status: Acute (2) Systolic and diastolic CHF, acute on chronic: Status: Acute (3) Acute exacerbation of CHF (congestive heart failure): Status: Acute (4) Acute hypoxemic respiratory failure: Status: Acute (5) NSTEMI (non-ST elevated myocardial infarction): -Baseline troponin 103, 6-hour 126 improved from 3556 on 09/26 -EKG shows no acute ST-T wave changes, A. fib -No complaints of chest pain -Likely elevated troponin from prior cath, and not amenable lesion in LAD and left circumflex -No chest pain complaints -Continue aspirin, statin, Plavix, echo as above, cardiology on consult -Continue telemetry monitoring Status: Acute (6) Chronic kidney disease: Creatinine improved to 1.6 Status: Acute (7) Atrial fibrillation: Currently rate with maternal 25 twice daily, anticoagulation contraindicated given anemia, Status: Acute (8) Pneumonia: Status: Acute (9) Diabetes mellitus: Low-dose sliding scale Status: Acute Additional A&P Information #Acute respiratory failure #HCAP #septic shock --Required mechanical ventilation, now extubated and on 4-5L --Covid test negative, CTA negative for PE --Concern for possible flash pulmonary edema versus and fungal infection --On broad-spectrum antibiotics, Culture - Negative - will de-escalate abx --Off Levophed --Echocardiogram September 26 showed ejection fraction 45 to 50% with abnormal diastolic dysfunction. Repeat ejection fraction 50% --continue Bumex 1 mg IV q12hr - will transition to PO at discharge - check Stat BMP now --albuterol q6hr --appreciate Cardiology recs --weight down from 10/19 203--> 195lb --monitor daily weight --Replace K as needed #afib with RVR - rate controlled --Off Cardizem drip. --continue plavix --PO cardizem --Rate controled #NSTEMI --Due to bleeding history anticoagulation held off. Previous admission required blood transfusion. #microcytic anemia #GI bleed --Continue PPI monitor serial H&H --continue carafate --Hb stable #Diabetes -Fingerstick blood sugar sliding scale insulin #acute on chronic kidney disease - resolved. --Renally dose medications, serial labs #Hypotension --stable --midodrine #Debility --Pt/OT on board --Will assess for discharge disposition DVT:SCD Attestations Medical Necessity Statement*: Require further hospitalization for management of respiratory failure, hf exacerbation, and pnuemonia Time Spent in Patient Care: Greater than 35 minutes (>than 50% of time spent in counselling and/or direct pt care on unit) . Coding Level of Care Code Acute Line Crew Supervisor for Yolanda Morales Diagnoses Acute kidney injury superimposed on CKD N17.9; N18.9 Systolic and diastolic CHF, acute on chronic I50.43 Acute exacerbation of CHF (congestive heart failure) I50.9 Acute hypoxemic respiratory failure J96.01 NSTEMI (non-ST elevated myocardial infarction) I21.4 Chronic kidney disease N18.9 Atrial fibrillation I48.91 Pneumonia J18.9 Diabetes mellitus E11.9
[2020-10-24 17:04] LABS: Anion Gap 17.2 (5-19); Blood Urea Nitrogen 37 mg/dL (8-23); Calcium 9.1 mg/dL (8.5-10.5); Carbon Dioxide 27 mmol/L (22-29); Chloride 99 mmol/L (98-107); Creatinine Clr Calc Pharmacy 38.9084; Glucose 111 mg/dL (65-115); Osmolality Calculated 297 mOsm/kg (285-295); Potassium 4.2 mmol/L (3.5-5.1); Sodium 139 mmol/L (136-145)
[2020-10-25] VITALS (7 sets, daily range): BP systolic 110–154; BP diastolic 62–92; PULSE 58–89; RESP 16–20; TEMP 36.8–37; O2SAT 92–95; BMI 27.5
[2020-10-25] MEDS: dilTIAZem 30 mg Tablet 60 MG PO (06:19)
[2020-10-25] MEDS: sucralfate 1 gm Tablet PO (06:19)
--- NOTE | 2020-10-25 07:00 | XRR_ITS ---
PROCEDURE INFORMATION: Exam: XR Chest Exam date and time: 10/25/2020 7:00 AM Age: 85 years old Clinical indication: Shortness of breath; Additional info: Respiratory failure TECHNIQUE: Imaging protocol: XR of the chest. Views: 1 view. COMPARISON: CR XR chest 1V portable [id number] 10/19/2020 6:19 AM FINDINGS: Lungs: [id number] bilateral pulmonary opacities most consistent with pneumonia. Pleural spaces: Unremarkable. No pleural effusion. No pneumothorax. Heart/Mediastinum: Unremarkable. No cardiomegaly. Bones/joints: Moderate right primary glenohumeral osteoarthritis. XR/XR chest 1V portable [id number] IMPRESSION: [id number] bilateral pulmonary opacities most consistent with pneumonia.
[2020-10-25 07:57] LABS: Glucose Point of Care 193 mg/dL (70-110)
[2020-10-25 07:57] LABS: Glucose Point of Care 318 mg/dL (70-110)
[2020-10-25 07:57] LABS: Glucose Point of Care 191 mg/dL (70-110)
[2020-10-25 07:57] LABS: Glucose Point of Care 264 mg/dL (70-110)
[2020-10-25 07:58] LABS: Glucose Point of Care 290 mg/dL (70-110)
[2020-10-25 08:01] LABS: Basophils # 0.1 10^3/uL (0.0-0.1); Basophils % 1.1 %; Eosinophils # 0.4 10^3/uL (0.0-0.8); Eosinophils % 5.5 %; Hematocrit 33.1 % (42.0-52.0); Hemoglobin 10.1 g/dL (11.7-16.6); Lymphocytes # 0.8 10^3/uL (0.8-4.8); Mean Corpuscular HGB Conc 30.5 g/dL (30.0-36.0); Mean Corpuscular Volume 75.2 fl (80-94); Mean Platelet Volume 10.2 fL (7.4-10.4); Monocytes # 0.5 10^3/uL (0.2-0.9); Monocytes % 7.9 %; Neutrophils % 72.9 %; Nucleated Red Blood Cells % 0 %; Platelet Count 252 10^3/cmm (130-400); Red Cell Distribution Width 22.7 % (12.1-15.1); White Blood Count 6.6 10^3/uL (4.0-10.0)
[2020-10-25 08:06] LABS: Glucose Point of Care 215 mg/dL (70-110)
[2020-10-25 08:06] LABS: Glucose Point of Care 118 mg/dL (70-110)
[2020-10-25 08:08] LABS: Glucose Point of Care 166 mg/dL (70-110)
[2020-10-25] MEDS: potassium bicarb 25 mEq Tablet PO (08:15)
[2020-10-25] MEDS: midodrine 5 mg TABLET PO (08:15)
[2020-10-25] MEDS: clopidogrel 75 mg Tablet PO (08:15)
[2020-10-25] MEDS: cholecalciferol (vitamin D3) 1,000 unit Tablet 1000 UNIT PO (08:15)
[2020-10-25] MEDS: pantoprazole 40 mg SDV IVP (08:15)
[2020-10-25] MEDS: aspirin 81 mg EC Tablet PO (08:15)
[2020-10-25] MEDS: atorvastatin 40 mg Tablet PO (08:15)
[2020-10-25] MEDS: ascorbic acid 500 mg Tablet PO (08:16)
[2020-10-25] MEDS: zinc gluconate 50 mg Tablet PO (08:16)
[2020-10-25] MEDS: cefepime 1,000 MG in sodium chloride 0.9% (plus) 50 ML 100 MG IV (08:16)
[2020-10-25 08:29] LABS: Alanine Aminotransferase 45 U/L (0-41); Alkaline Phosphatase 72 IU/L (40-130); Anion Gap 15.9 (5-19); Aspartate Amino Transferase 33 U/L (0-40); Blood Urea Nitrogen 26 mg/dL (8-23); Calcium 8.9 mg/dL (8.5-10.5); Carbon Dioxide 27 mmol/L (22-29); Chloride 98 mmol/L (98-107); Globulin 2.9 g/dL (1.3-4.6); Glucose 177 mg/dL (65-115); Magnesium 1.6 mg/dL (1.7-2.3); Osmolality Calculated 293 mOsm/kg (285-295); Potassium 3.9 mmol/L (3.5-5.1); Sodium 137 mmol/L (136-145); Total Bilirubin 0.5 mg/dL (0.15-1.2); Total Protein 5.9 g/dL (6.6-8.7)
[2020-10-25 08:32] LABS: Procalcitonin 0.23 ng/mL (0-0.5)
[2020-10-25 11:06] LABS: Glucose Point of Care 171 mg/dL (70-110)
[2020-10-25] MEDS: dilTIAZem 60 mg Tablet PO (11:51)
[2020-10-25] MEDS: levofloxacin-dextrose 5 % 750 MG/150 ML PREMIX 100 MG IV (11:51)
--- NOTE | 2020-10-25 18:05 | PM.DCS ---
Discharge Providers Date of Admission: 10/15/20 19:53 Date of Discharge: October 25, 2020 Attending Provider at Admission: Jonathan Blake MD Attending Provider at Discharge: Lina Hinton Diagnoses at Discharge Discharge Diagnosis (1) Acute kidney injury superimposed on CKD: Status: Acute (2) Systolic and diastolic CHF, acute on chronic: Status: Acute (3) Acute exacerbation of CHF (congestive heart failure): Status: Acute (4) Acute hypoxemic respiratory failure: Status: Acute (5) NSTEMI (non-ST elevated myocardial infarction): Status: Acute (6) Chronic kidney disease: Status: Acute (7) Atrial fibrillation: Status: Acute (8) Pneumonia: Status: Acute (9) Diabetes mellitus: Status: Acute Reason for Visit Reason for Visit: PNEUMONIA Hospital Course Hospital Course 85-year-old male with a past medical history significant for hypertension, insulin dependent diabetes mellitus, large hiatal hernia, paroxysmal atrial fibrillation, chronic kidney disease stage 2-3, coronary artery disease hx of LAD stent, chronic emphysema, chronic systolic heart failure with EF of 50%, who presented to ER with respiratory distress. Lab work up on arrival showed a WBC of 4.9, hemoglobin 8.8, hematocrit 28.6 and a platelet count of 322. Sodium 134, potassium 3.9, chloride 100, bicarb 20, BUN 23 and creatinine of 1.6. Glucose of 179. Imaging studies on arrival included a chest x-ray which showed diffuse groundless infiltrates R>L lung with small ride sided pleural effusion. Patient was intubated on placed on mechanical ventilation however extubated later on same day. Patient was found to be covid19 negative, Patient was stared on Bumex 1mg IV q24hr. Repeat ECHO showed Ef 50%. Empirically started on broad spectrum abx including vancomycin and cefepime. Procalcitonin was elevated at 1.80 however improved to 0.84. Briefly required levophed however this was also weaned off. Intermittently in afib with rvr however rate was currently controlled. Oxygen was weaned down to 5L of o2 via nc. Patient was not previously on home o2. Antibiotics were de-escalated. Diuretics were changed to PO. Weight decreased from 203 -> 195lb. Patient was discharged in stable condition. Physical Exam Narrative: EXAM NARRATIVE: General: Alert, awake on 5L via NC. No distress HEENT: Grossly unremarkable CVS: Irregularly irregular Chest : non-labored respiration Abd; Soft Ext : b/l le Edema Urinary Catheter Management^: Kellogg: Cath Placed During This Visit: yes, but has since been removed by the nurse Reason for Continuing Indwelling Catheter: Decision to DC Catheter Urinary Catheter Date of Insertion: 10/15/20 Urinary Catheter Time of Insertion: 17:06 Date Urinary Catheter Removed: 10/24/20 Time Urinary Catheter Discontinued: 11:45 Discharge Data Data Completed and Pending: Completed Studies During Hospitalization Category Date Time Status CT angio chest PE protcl 16522 Urge nt Cat Scan 10/15/20 15:[address] chest wo con 7 1250 Urgent Cat Scan 10/15/20 11:[address] head wo con* 7 0450 Stat Cat Scan 10/17/20 00:00 Completed XR chest 1V irene ble 10839 Routine Exams 10/15/20 22:25 Completed XR chest 1V irene ble 96745 Routine Exams 10/19/20 07:00 Completed XR chest 1V irene ble 83735 Routine Exams 10/19/20 07:16 Completed XR chest 1V irene ble 23447 Routine Exams 10/25/20 07:00 Completed XR chest 1V irene ble 59031 Stat Exams 10/15/20 10:41 Completed XR chest 1V irene ble 95217 Stat Exams 10/15/20 15:18 Completed XR chest 1V irene ble 02054 Stat Exams 10/18/20 23:17 Completed XR chest 1V irene ble 13363 Urgent Exams 10/15/20 [place] [address] Urgent Ultrasound 10/15/20 17:03 Completed CV. echo limited 01186 Stat Ultrasound 10/16/20 06:00 Completed US renal BI* 7677 0 Routine Ultrasound 10/17/20 04:24 Completed Pending at discharge Category Date Time Status Arterial Blood Ga s W/O Coox AM LABS Lab 10/19/20 04:00 Ordered Vitals: Last Vital Signs Temp 98.2 F 10/25/20 14:01 Pulse 71 10/25/20 14:01 Resp 16 10/25/20 14:01 BP 135/80 10/25/20 14:01 Pulse Ox 95 10/25/20 14:01 Discharge Plan Discharge Patient Disposition: Home Condition: Stable Prescriptions: New sucralfate 1 gram Tablet 1 g PO BIDAC Qty: 60 RF: 0 midodrine 5 mg Tablet 5 mg PO TID Qty: 90 RF: 0 Cardizem CD 120 mg capsule,extended release 24hr 120 mg PO DAILY Qty: 30 RF: 0 Continued atorvastatin 40 mg Tablet 40 mg PO BEDTIME RF: 0 clopidogrel 75 mg Tablet 75 mg PO DAILY RF: 0 aspirin 81 mg Tablet,Delayed Release (Dr/Ec) 81 mg PO DAILY RF: 0 albuterol sulfate 90 mcg/actuation Hfa Aerosol Inhaler 2 puff INHALATION Q6H MDD SEE PHARMACY COMMENT PRN (Reason: Shortness Of Breath) RF: 0 glipizide 5 mg Tablet 5 mg PO BID RF: 0 insulin glulisine U-100 100 unit/mL Solution See Rx Instructions .ROUTE .COMPLEX RF: 0 acetaminophen [Tylenol] 325 mg Tablet 325 mg PO QID PRN (Reason: pain/headache) RF: 0 cilostazol 100 mg Tablet 100 mg PO BID RF: 0 pantoprazole [Protonix] 40 mg tablet,delayed release (DR/EC) 40 mg PO DAILY Qty: 30 RF: 0 Lasix 20 mg tablet 20 mg PO DAILY RF: 0 Discontinued metoprolol tartrate 50 mg Tablet 100 mg PO BID@0900,2100 Qty: 120 RF: 0 Discharge Orders: Discharge Order (Routine); Ordered 10/25/20 Ordered By: Lina Hinton Other Ambulatory Orders: DME: Oxygen (Order) Location: None Selected Ordered By: Lina Hinton Discharge Diet: Usual diet Discharge Activity: Increase activity as tolerated Patient Instructions: Myocardial Infarction (DC), Heart Failure (DC), Acute Kidney Injury (DC), Using Oxygen at Home (DC), Opioid Safety Discharge Attestations Time Spent in Discharge Care*: greater than 30 min Specific Discharge Activities: educating patient, educating and/or supporting family/caregiver, discussing with embedded case manager/social workers/dc planners, documenting/other paperwork and evaluating patient/reviewing data Status at Discharge: Cognitive status at discharge: cognitively intact, Functional status at discharge: independent ambulation Overall status at discharge: patient is progressing back to baseline Quality Metrics Clinical Quality Measures During this hospital stay, did patient experience: None Coding Level of Care Code Acute Chg FW DC note Diagnoses Acute kidney injury superimposed on CKD N17.9; N18.9 Systolic and diastolic CHF, acute on chronic I50.43 Acute exacerbation of CHF (congestive heart failure) I50.9 Acute hypoxemic respiratory failure J96.01 NSTEMI (non-ST elevated myocardial infarction) I21.4 Chronic kidney disease N18.9 Atrial fibrillation I48.91 Pneumonia J18.9 Diabetes mellitus E11.9
--- NOTE | 2020-10-27 13:37 | PC.SOCIAL ---
discharge follow up call made. patient taking new prescriptions as prescribed. [facility] unsure who he sees or when his appointment is but he thinks its sometime this week. patient is feeling good just weak.
== END 2020-10-25 14:02 | disposition home or self-care (01) | DRG 208 ==
LOC: ER 16:47 → ICU 10-16 05:37 → MEDSURG 10-20 19:35
PROVIDERS: Internal Medicine; Internal Medicine Nephrology; Physician Assistant; Admitting Provider Family Medicine; Emergency Provider Emergency Medicine; Visit Provider Hospitalist
DX: J96.01 Acute respiratory failure with hypoxia (principal); J18.9 Pneumonia, unspecified organism; I21.4 Non-ST elevation (NSTEMI) myocardial infarction; I50.43 Acute on chronic combined systolic (congestive) and diastolic (congestive) heart failure; A41.9 Sepsis, unspecified organism; R65.21 Severe sepsis with septic shock; N17.9 Acute kidney failure, unspecified; E87.2 Acidosis; I48.0 Paroxysmal atrial fibrillation; I25.10 Atherosclerotic heart disease of native coronary artery without angina pectoris; E11.22 Type 2 diabetes mellitus with diabetic chronic kidney disease; N18.30 Chronic kidney disease, stage 3 unspecified; D63.1 Anemia in chronic kidney disease; Z90.89 Acquired absence of other organs; Z84.89 Family history of other specified conditions; Z82.49 Family history of ischemic heart disease and other diseases of the circulatory system; Z87.891 Personal history of nicotine dependence; Z20.822 Contact with and (suspected) exposure to COVID-19; Z79.4 Long term (current) use of insulin; Z95.5 Presence of coronary angioplasty implant and graft; Z91.018 Allergy to other foods; Z88.2 Allergy status to sulfonamides; Z79.82 Long term (current) use of aspirin
CPT/HCPCS: 31500; 36415; 36416; 36430; 36556; 36592; 36600; 51702; 70450; 71045; 71250; 71275; 76770; 80048; 80051; 80053; 80202; 80500; 81001; 82044; 82330; 82436; 82550; 82570; 82728; 82803; 82805; 82962; 83540; 83605; 83735; 83880; 84100; 84133; 84145; 84300; 84443; 84484; 84550; 85014; 85018; 85025; 85045; 85378; 85610; 85999; 86140; 86403; 86850; 86900; 86920; 87040; 87070; 87086; 87205; 87305; 87426; 87635; 87641; 92523; 92526; 92610; 93005; 93308; 93970; 94002; 94003; 94640; 94660; 94799; 96365; 96367; 96372; 96375; 97110; 97162; 97165; 97530; 97535; 99291; C1751; C9113; J0692; J1100; J1815; J1940; J1956; J2060; J2270; J2704; J2930; J3010; J3370; J3490; J7030; J7050; J7626; P9016; Q3014; Q9967

== ENCOUNTER 2021-05-26 11:30 | Outpatient (CLI) | payer OTHER, MEDICARE, SELFPAY ==
[2021-05-26 12:12] LABS: Basophils # 0.1 10^3/uL (0.0-0.1); Basophils % 1.1 %; Eosinophils # 0.2 10^3/uL (0.0-0.8); Eosinophils % 5.1 %; Hematocrit 36.6 % (42.0-52.0); Hemoglobin 11.8 g/dL (11.7-16.6); Lymphocytes # 1.4 10^3/uL (0.8-4.8); Lymphocytes % 30.5 %; Mean Corpuscular HGB Conc 32.2 g/dL (30.0-36.0); Mean Corpuscular Hemoglobin 28.9 pg (28.0-34.0); Mean Corpuscular Volume 89.7 fl (80-94); Mean Platelet Volume 9.6 fL (7.4-10.4); Monocytes # 0.3 10^3/uL (0.2-0.9); Monocytes % 7.3 %; Neutrophils % 55.8 %; Nucleated Red Blood Cells % 0 %; Platelet Count 168 10^3/cmm (130-400); Red Blood Count 4.08 10^6/uL (4.1-5.3); White Blood Count 4.5 10^3/uL (4.0-10.0)
--- NOTE | 2021-05-26 14:12 | ONC CON_ITS ---
Dr. Jacob New Patient Note Patient: Kwaku Castorena Unit #: [id number]: 1935 Dicatated By: Marcela Jacob M.D.Date of Visit: May 26, 2021 Onc MED New Patient/Consult Referring Physician: Tita Cat A.P.N. History of Present Illness: Mr. Kwaku Castorena, is a 85-year-old gentleman history of chronic renal insufficiency, gout, coronary artery disease status post stenting, Covid infection in January 2021 causing significant weight loss, COPD with bilateral pulmonary fibrosis, was diagnosed with anemia in 2019, as per son, he was started on oral iron and in mid 2020, his hemoglobin went down to around 8 g, he was given blood transfusion., He is tolerating oral iron well and never required blood transfusion again, patient never had EGD or colonoscopy. Patient denies any melena or hematochezia, denies any hemoptysis or hematemesis, denies any dysuria or hematuria, denies any jaundice, denies any abdominal pain, denies any urine or stool color changes except dark-colored stools since he is on oral iron. Denies any night sweats denies any recurrent fever but weight loss since he was diagnosed with Covid infection in January 2021 but now regaining his body weight. Patient denies any smoking or alcohol use. Denies any fever chills denies any nausea or vomiting or abdominal fullness, Denies any chest pain, denies any shortness of breath or palpitation at rest but dyspnea on exertion Past Medical History: Mr. Castorena's medical history consists of abdominal aortic aneurysm, atrial fibrillation, chronic obstructive pulmonary disease, gout, hyperlipidemia, hypertension, irritable bowel syndrome, occlusion and stenosis of right carotid artery, peripheral neuropathy, stroke, type II diabetes, and vitamin D deficiency. Past Surgical History: There is no documented surgical history. Medications: Aspirin 1 Capsule (of 81 mg) Oral daily, Atorvastatin Calcium 1 Tablet (of 80 mg) Oral at bedtime, Clopidogrel Bisulfate 1 Tablet (of 75 mg) Oral daily, dilTIAZem HCl ER 1 Capsule (of 120 mg) Capsule SR 12 HR Oral daily, Ferrous Gluconate 1 Tablet (of 324 (37.5 fe) mg) Oral daily, Furosemide 1 Tablet (of 20 mg) Oral every am, Metoprolol Tartrate (100 mg) Tablet Oral b.i.d., Pantoprazole Sodium 1 Tablet (of 40 mg) Tablet, enteric coated Oral every am, Tamsulosin HCl 1 Capsule (of 0.4 mg) Oral at bedtime Allergies: Bactrim and Eggs. Social History: Mr. Castorena is . Mr. Castorena quit smoking 26 years ago but had smoked 2.0 packs/day for 45 years. He has no history of drinking. Family History: There is no documented family history. Review Of Symptoms: Review of Systems is not available for this patient. Vital Signs: Performed on May 26, 2021 12:57: 5, 4, 26.49, 2.02 sq.m, 70 in, 98 %, 52 /min (LOW), 17 /min, 152/66 mm(hg) (HIGH), 96.8 F (LOW), and 184.6 lbs (HIGH). Performance Status: 1 - No physically strenuous activity, but ambulatory and able to carry out light or sedentary work (e.g. office work, light house work). (ECOG) Physical Examination: ENMT - No mouth sores, no thrush, no jaundice, no cervical or axillary lymphadenopathy, Respiratory - Poor air entry otherwise clear, Cardiovascular - Regular rate and rhythm of heart, Abdomen - Soft, bowel sounds present, Extremities - No visible edema. Lab/Imaging: Most recent lab results are not available for this patient. Impression: Normocytic normochromic anemia, etiology unclear but could be multifactorial including combined iron/B12 deficiency, his lab work-up done in March 23, 2021 showed iron 30 normal being 65-175 and his hemoglobin was 9.6 hematocrit 31.1, white blood count 4.4 platelets 201,000, other possibilities including anemia of chronic disease due to history of gout, could be due to chronic renal insufficiency, considering his age underlying myelodysplasia cannot be ruled out. On oral iron since October 2020 COPD/pulmonary fibrosis Coronary artery disease status post stenting History of Covid infection in January 2021 Chronic renal insufficiency Plan: Discussed with patient regarding his labs white blood count 4.5 hemoglobin 11.8 hematocrit 36.6 platelets 168,000 with a normal differential MCV 89.7 Clinically, patient doing well with no new signs symptom, his follow-up CBC done today showed improvement in his hemoglobin now 11.8 g compared to 9.6 g on March 23, 2021, patient is on oral iron supplement, tolerating well, will continue with same and he will return to clinic in 1 month with CBC and iron studies Etiology of iron deficiency could be either chronic blood loss or iron malabsorption but less likely as he is responding well to oral iron, patient never had EGD or colonoscopy done so we will consider referral to gastroenterology, to rule out GI malignancy or peptic ulcer disease causing chronic blood loss thus iron deficiency anemia, At his son's request, will refer him to plastic extrusion operator in [place] Return to clinic in 1 month with CBC and iron studies Signed By: Marcela Jacob M.D. <<Signature on File>>
== END 2021-05-26 11:31 | disposition home or self-care (01) ==
LOC: ONCMED 11:40
PROVIDERS: PCP Nurse Practitioner; Visit Provider Internal Medicine Hematology & Oncology
DX: N18.9 Chronic kidney disease, unspecified (principal); I25.10 Atherosclerotic heart disease of native coronary artery without angina pectoris; M10.9 Gout, unspecified; J44.9 Chronic obstructive pulmonary disease, unspecified; J84.10 Pulmonary fibrosis, unspecified; Z98.61 Coronary angioplasty status; D64.9 Anemia, unspecified; Z86.16 Personal history of COVID-19
CPT/HCPCS: 36415; 85025; 99204

== ENCOUNTER 2021-07-13 08:30 | Oncology outpatient (recurring) (ONCR) | payer OTHER, MEDICARE, SELFPAY ==
[2021-06-25 08:03] LABS: Basophils # 0.1 10^3/uL (0.0-0.1); Basophils % 1.3 %; Eosinophils # 0.3 10^3/uL (0.0-0.8); Hematocrit 38.4 % (42.0-52.0); Hemoglobin 12.4 g/dL (11.7-16.6); Lymphocytes # 1.3 10^3/uL (0.8-4.8); Lymphocytes % 28.1 %; Mean Corpuscular HGB Conc 32.3 g/dL (30.0-36.0); Mean Corpuscular Volume 89.9 fl (80-94); Mean Platelet Volume 9.6 fL (7.4-10.4); Monocytes # 0.3 10^3/uL (0.2-0.9); Monocytes % 6.6 %; Neutrophils # 2.57 10^3/uL (1.8-7.7); Neutrophils % 56.9 %; Nucleated Red Blood Cells % 0 %; Platelet Count 161 10^3/cmm (130-400); Red Blood Count 4.27 10^6/uL (4.1-5.3); White Blood Count 4.5 10^3/uL (4.0-10.0)
[2021-06-25 08:22] LABS: Ferritin 61 ng/mL (30-400); Iron 140 ug/dL (59-158); Percent Saturation 59.5 % (20-50); Total Iron Binding Capacity 235 mcg/dl; Unsaturated Iron Binding 95 ug/dL (112-347)
[2021-06-25 08:36] LABS: Vitamin B12 216 pg/mL (232-1245)
[2021-06-29] MEDS: cyanocobalamin 1,000 mcg/mL SDV 1000 MCG IM (10:31)
[2021-07-06] MEDS: cyanocobalamin 1,000 mcg/mL SDV 1000 MCG IM (08:55)
[2021-07-06 08:58] VITALS: BP 187/89; PULSE 55; RESP 18; TEMP 36.1; O2SAT 99
[2021-07-13] MEDS: cyanocobalamin 1,000 mcg/mL SDV 1000 MCG IM (08:36)
== END 2021-07-20 23:59 | disposition home or self-care (01) ==
PROVIDERS: PCP Nurse Practitioner; Visit Provider Internal Medicine Hematology & Oncology
DX: D50.9 Iron deficiency anemia, unspecified (principal); D51.9 Vitamin B12 deficiency anemia, unspecified; Z79.899 Other long term (current) drug therapy
CPT/HCPCS: 82607; 82728; 83540; 83550; 85025; 96372; 99214; 99999; J3420

== ENCOUNTER 2021-07-21 08:17 | Oncology outpatient (recurring) (ONCR) | payer OTHER, MEDICARE, SELFPAY ==
[2021-07-21 08:25] VITALS: BP 187/84; PULSE 51; RESP 18; TEMP 36.9; O2SAT 99
[2021-07-21] MEDS: cyanocobalamin 1,000 mcg/mL SDV 1000 MCG IM (08:39)
[2021-07-21 08:44] VITALS: BP 167/78; PULSE 52; RESP 18; TEMP 37.1; O2SAT 98
== END 2021-08-19 23:59 | disposition home or self-care (01) ==
LOC: ONCMED 08:18
PROVIDERS: PCP Nurse Practitioner; Visit Provider Internal Medicine Hematology & Oncology
DX: Z79.899 Other long term (current) drug therapy (principal); E53.8 Deficiency of other specified B group vitamins
CPT/HCPCS: 96372; J3420

== ENCOUNTER 2021-08-24 08:46 | Oncology outpatient (recurring) (ONCR) | payer OTHER, MEDICARE, SELFPAY ==
[2021-08-24 09:32] LABS: Basophils # 0.1 10^3/uL (0.0-0.1); Basophils % 1.3 %; Eosinophils # 0.3 10^3/uL (0.0-0.8); Eosinophils % 5.8 %; Hematocrit 36.4 % (42.0-52.0); Hemoglobin 12.1 g/dL (11.7-16.6); Lymphocytes # 1.7 10^3/uL (0.8-4.8); Lymphocytes % 35.2 %; Mean Corpuscular HGB Conc 33.2 g/dL (30.0-36.0); Mean Corpuscular Hemoglobin 28.9 pg (28.0-34.0); Mean Corpuscular Volume 87.1 fl (80-94); Monocytes # 0.4 10^3/uL (0.2-0.9); Monocytes % 7.9 %; Neutrophils # 2.33 10^3/uL (1.8-7.7); Neutrophils % 49.6 %; Nucleated Red Blood Cells % 0 %; Platelet Count 149 10^3/cmm (130-400); Red Blood Count 4.18 10^6/uL (4.1-5.3); Red Cell Distribution Width 16.1 % (12.1-15.1); White Blood Count 4.7 10^3/uL (4.0-10.0)
[2021-08-24 10:53] LABS: Ferritin 73 ng/mL (30-400); Iron 78 ug/dL (59-158); Percent Saturation 32.2 % (20-50); Total Iron Binding Capacity 242 mcg/dl; Unsaturated Iron Binding 164 ug/dL (112-347)
[2021-08-24 11:09] LABS: Vitamin B12 385 pg/mL (232-1245)
[2021-08-24] MEDS: cyanocobalamin 1,000 mcg/mL SDV 1000 MCG IM (11:46)
== END 2021-09-19 23:59 | disposition home or self-care (01) ==
PROVIDERS: PCP Nurse Practitioner; Visit Provider Internal Medicine Hematology & Oncology
DX: D51.9 Vitamin B12 deficiency anemia, unspecified (principal); D50.9 Iron deficiency anemia, unspecified; E11.22 Type 2 diabetes mellitus with diabetic chronic kidney disease; I12.9 Hypertensive chronic kidney disease with stage 1 through stage 4 chronic kidney disease, or unspecified chronic kidney disease; N18.9 Chronic kidney disease, unspecified; I48.91 Unspecified atrial fibrillation; I25.10 Atherosclerotic heart disease of native coronary artery without angina pectoris; Z79.899 Other long term (current) drug therapy; Z87.891 Personal history of nicotine dependence
CPT/HCPCS: 36415; 82607; 82728; 83540; 83550; 85025; 96372; 96402; 99214; J3420

== ENCOUNTER 2021-12-02 10:37 | Oncology outpatient (recurring) (ONCR) | payer OTHER, SELFPAY ==
[2021-12-02 11:05] LABS: Basophils # 0.1 10^3/uL (0.0-0.1); Basophils % 1.4 %; Eosinophils # 0.4 10^3/uL (0.0-0.8); Eosinophils % 7.8 %; Hematocrit 40.7 % (42.0-52.0); Hemoglobin 13.6 g/dL (11.7-16.6); Lymphocytes # 1.3 10^3/uL (0.8-4.8); Lymphocytes % 27.2 %; Mean Corpuscular HGB Conc 33.4 g/dL (30.0-36.0); Mean Corpuscular Hemoglobin 30.3 pg (28.0-34.0); Mean Corpuscular Volume 90.6 fl (80-94); Mean Platelet Volume 10.2 fL (7.4-10.4); Monocytes # 0.3 10^3/uL (0.2-0.9); Neutrophils # 2.74 10^3/uL (1.8-7.7); Neutrophils % 56.4 %; Nucleated Red Blood Cells % 0 %; Platelet Count 203 10^3/cmm (130-400); Red Blood Count 4.49 10^6/uL (4.1-5.3); Red Cell Distribution Width 15.6 % (12.1-15.1); White Blood Count 4.9 10^3/uL (4.0-10.0)
[2021-12-02 11:32] LABS: Ferritin 143 ng/mL (30-400); Iron 88 ug/dL (59-158); Percent Saturation 38.9 % (20-50); Total Iron Binding Capacity 226 mcg/dl; Unsaturated Iron Binding 138 ug/dL (112-347)
[2021-12-02 11:46] LABS: Vitamin B12 398 pg/mL (232-1245)
== END 2021-12-20 23:59 | disposition home or self-care (01) ==
PROVIDERS: PCP Nurse Practitioner; Visit Provider Internal Medicine Hematology & Oncology
DX: D50.9 Iron deficiency anemia, unspecified (principal); D51.9 Vitamin B12 deficiency anemia, unspecified; Z79.899 Other long term (current) drug therapy; Z87.891 Personal history of nicotine dependence
CPT/HCPCS: 36415; 82607; 82728; 83540; 83550; 85025; 99214

== ENCOUNTER 2022-06-08 08:31 | Outpatient (CLI) | payer OTHER, SELFPAY ==
--- NOTE | 2022-06-08 08:44 | USCV_ITS ---
Kwaku Castorena Age: 86 Gender: M : 1935 Exam Date: 06/08/2022 09:02 Ordering Phys: Tita Cat Technologist: DB [place] [facility] [place]: AAA Screening. Has Ascending and Thoracic Descending aneurysms HISTORY: Diameter (cm) AP x Transverse x Length Velocity (cm/s) Waveform Prox Aorta: 1.85 x 2.18 x 77.70 Biphasic Mid Aorta: 4.25 x 3.72 x 7.92 31.00 Biphasic Distal Aorta: 6.14 x 6.30 x 6.54 15.10 Monophasic Right Iliac Prox: 1.41 x 1.42 x 46.50 Monophasic Left Iliac Prox: 0.92 x 1.28 x 104.10 Monophasic Stent Prox Landing x x Aneurysmal Sac Max x x Lt Lat Sac Dim Rt Lat Sac Dim Stent Dist Landing x x Right Iliac Stent x x Left Iliac Stent x x Right Renal Art Left Renal Art FINDINGS: Comparison: none available. A fusiform abdominal aortic aneurysm is noted with a maximal diameter of 6.3 cm. AAA extends over a length of 6.5 cm. Mild irregual, asymmetric thrombus in the AAA. Aorta is ectatic with normal tapering to the bifurcation. There is evidence of atherosclerotic plaque no significan stenosis in the right common iliac artery. There is evidence of atherosclerotic plaque no significan stenosis in the left common iliac artery. CONCLUSIONS Large AAA, maximum diameter of 6.[address] Augusta Liriano DO (Electronically Signed) Final Date: 08 June 2022 09:40 S
== END 2022-06-08 08:32 | disposition home or self-care (01) ==
LOC: RAD 08:37
PROVIDERS: PCP Nurse Practitioner; Visit Provider Nurse Practitioner
DX: I71.21 Aneurysm of the ascending aorta, without rupture (principal)
CPT/HCPCS: 93978

== ENCOUNTER 2022-08-16 07:41 | Outpatient (CLI) | payer OTHER, SELFPAY ==
--- NOTE | 2022-08-16 07:53 | CT_ITS ---
WS: [id number] CTA CHEST, ABDOMEN AND PELVIS, with and without contrast. HISTORY: Follow-up abdominal aortic aneurysm. TECHNIQUE: CT angiogram is performed through the chest, abdomen and pelvis with and without contrast. Sagittal and coronal reformats have been submitted. MIP imaging also reviewed. All CT scans at [facility] use at least one of these dose optimization techniques: automated exposure control; mA and/or kV adjustment per patient size (includes targeted exams where dose is matched to clinical ind ication); or iterative reconstruction. Contrast: Omnipaque 350; 95 cc IV. DLP: 1638.72 mGy.cm COMPARISON: 10/15/2020, 09/25/2020 Chest CTA: Moderate atherosclerotic plaque throughout the thoracic aorta. No aneurysmal dilatation. M aximum diameter ascending aorta 3.7 cm. No dissection. Heavy calcified plaque continues into the grea t vessels. Descending aorta is normal caliber. Mixture of calcified plaque and intimal thickening. Moderate cardiac enlargement. Heavy calcification in the main coronary arteries. There are probably c oronary stents present also in at least the LEFT anterior descending coronary artery. No pericardial or pleural effusion. Small mediastinal and hilar lymph nodes. These lymph nodes are not enlarged. Mar ked enlargement of the pulmonary artery to 4.2 cm. RIGHT and LEFT pulmonary arteries are also enlarge d but taper. No pulmonary emboli. Centrilobular emphysema. No mass or pneumonia. Large hiatal hernia. Large portion of the stomach is intrathoracic. Abdomen/pelvis CTA: Bilobed abdominal aortic aneurysm. Beginning just below the level of the SMA ther e is focal aneurysmal dilatation measuring up to 4.2 cm. There is slight tapering of this aneurysm wh ich extends 4.9 cm in length. There is a larger aneurysmal component distally extending over a length of 9.2 cm. Maximum diameter of 6.7 cm. Circumferential thrombus along the aneurysmal sac. Thrombus measures up to 1.6 cm in diameter. Heavy calcification continues into the common iliac arteries. Moderate stenosis origin of the LEFT common i liac artery. Mild aneurysmal dilatation RIGHT common iliac artery. Bilobed hepatic cyst LEFT lobe. There is additional blush-like area of enhancement in the inferior R IGHT lobe which is probably a small hemangioma. No bile duct dilatation. Gallbladder is negative. Num erous bilateral cortical renal cysts. Renal atrophy is mild. Negative pancreas and spleen. No adenopa thy or ascites. No GI tract obstruction. Moderate distal diverticular burden. No acute diverticulitis . Moderate to high-grade stenosis proximal celiac axis. Consistent with median arcuate ligament syndrom e. SMA is patent. No ischemic changes within the GI tract. Fat-containing umbilical hernia. CT/CT brandon reeves [id number] IMPRESSION: 1. Bilobed abdominal aortic aneurysm. Bilobed aneurysmal dilatation as increas ed in size since 2020. 2. Superior abdominal aortic aneurysmal dilatation with a maximum diameter 4.2 cm extends over a length of 4.9 cm. 3. Inferior abdominal aortic aneurysmal dilatation with a maximum diameter 6.7 cm extends over a length of 9.2 cm. 4. No thoracic aortic aneurysm. 5. Centrilobular emphysema. 6. Large portion of the stomach is intrathoracic. 7. 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 8. Bilateral renal atrophy and numerous acquired cysts. 9. Moderate cardiac enlargement. 10. Marked pulmonary artery enlargement consistent with pulmonary hypertension .
[2022-08-16 08:34] LABS: Blood Urea Nitrogen 30 mg/dL (8-23)
[2022-08-16] MEDS: iohexol 350 mg/mL 500 mL Btl (per mL) IV (09:02)
== END 2022-08-16 07:42 | disposition home or self-care (01) ==
PROVIDERS: PCP Nurse Practitioner; Visit Provider Surgery Vascular Surgery
DX: Z01.818 Encounter for other preprocedural examination (principal); I71.40 Abdominal aortic aneurysm, without rupture, unspecified; J43.2 Centrilobular emphysema; K31.89 Other diseases of stomach and duodenum; N26.1 Atrophy of kidney (terminal); N28.1 Cyst of kidney, acquired; I51.7 Cardiomegaly
CPT/HCPCS: 71275; 74174; 82565; 84520; Q9967

== ENCOUNTER 2022-08-24 13:08 | Outpatient (CLI) | payer OTHER, SELFPAY ==
--- NOTE | 2022-08-24 13:58 | USCV_ITS ---
Kwaku Castorena Age: 87 Gender: M : 1935 Exam Date: 08/24/2022 14:47 Ordering Phys: Eusebio Moreland MD Technologist: DB [place]am [place] [facility] [place]: Stenosis Rt carotid stent surg Risk Factors: Previous Vascular Surgery: Right Brachial BP: / Left Brachial BP: / Right Left Velocity (cm/s) Spectral Plaque Velocity (cm/s) Spectral Plaque Syst/Diast Broadening Syst/Diast Broadening 75.30/ 15.80 Prox CCA 115.00/ 24.90 75.10/ 18.30 Mid CCA 158.50/ 28.00 52.20/ 8.60 Distal CCA 149.00/ 28.40 78.90/ 15.80 Prox ICA 80.60 / 23.40 149.90/35.50 Mid ICA 74.60 / 21.80 103.40/17.10 Distal ICA 61.70 / 19.80 201.60 ECA 154.40 1.99 ICA/CCA 0.51 Antegrade Vertebral Antegrade 31.00/ 9.10 cm/s 49.70/ 13.70 cm/s Tri Subclavian Bi 121.2 88.20 0 FINDINGS Comparison: none available. Diffuse bilateral scattered calcified plaque and intimal thickening throughout the common carotid arteries and extending through the bifurcation. Mild elevation of systolic velocities. Bilateral antegrade vertebral arteries. CONCLUSIONS Bilateral ICA stenosis less than 50%. Diffuse carotid atherosclerotic plaque. Dr. Augusta Liriano DO (Electronically Signed) Final Date: 24 August 2022 15:42 S
--- NOTE | 2022-08-24 13:58 | USR_ITS ---
PROCEDURE INFORMATION: Exam: US Duplex Bilateral Lower Extremity Arteries Exam date and time: 08/24/2022 3:09 PM Age: 87 years old Clinical indication: Pain; Leg, lower; Bilateral; Additional info: Aaa without rupture/preprocedural examination TECHNIQUE: Imaging protocol: Real-time ultrasound scan of the arteries of the bilateral lower extremities with 2-D cochran scale, color Doppler flow and spectral waveform analysis. Images documented and saved. COMPARISON: CT ang ches abdpel [id number] 08/16/2022 8:45 AM FINDINGS: Right common femoral artery: No occlusion or significant stenosis. Monophasic waveform. Right superficial femoral artery: Areas of atherosclerotic plaque are evident particularly within the mid superficial femoral artery and to a lesser extent the distal superficial femoral artery with at least moderate stenosis in these regions. Monophasic waveform. Right popliteal artery: Areas of atherosclerotic plaque are evident with [id number] stenosis. Monophasic waveform. Right calf/foot arteries: No occlusion or significant stenosis in the visualized arteries. Monophasic waveforms. Dorsalis pedis artery is patent. Left common femoral artery: No occlusion or significant stenosis. Monophasic waveform. Left superficial femoral artery: Areas of atherosclerotic plaque are evident particularly within the mid superficial femoral artery with at least moderate stenosis in this region. Monophasic waveform. Left popliteal artery: No occlusion or significant stenosis. Biphasic waveform. Left calf/foot arteries: No occlusion or significant stenosis in the visualized arteries. Monophasic waveforms. Dorsalis pedis artery is patent. US/CV arterial duplex [facility] [id number] IMPRESSION: Diffuse monophasic and biphasic waveforms throughout the arterial supply of the lower extremities consistent with peripheral arterial disease and underlying areas of stenosis. This is most evident in the superficial femoral arteries containing areas of at least moderate stenosis. No occlusion.
== END 2022-08-24 13:09 | disposition home or self-care (01) ==
LOC: RAD 13:08
PROVIDERS: PCP Nurse Practitioner; Visit Provider Surgery Vascular Surgery
DX: Z01.818 Encounter for other preprocedural examination (principal); I71.40 Abdominal aortic aneurysm, without rupture, unspecified; I70.203 Unspecified atherosclerosis of native arteries of extremities, bilateral legs; I65.23 Occlusion and stenosis of bilateral carotid arteries
CPT/HCPCS: 93880; 93925

== ENCOUNTER 2022-10-10 07:21 | Outpatient (CLI) | payer OTHER, SELFPAY ==
--- NOTE | 2022-10-10 07:25 | CTR_ITS ---
PROCEDURE INFORMATION: Exam: CTA Chest With Contrast CTA Abdomen and Pelvis With Contrast Exam date and time: 10/10/2022 8:00 AM Age: 87 years old Clinical indication: Condition or disease; Arterial aneurysm; Without rupture; Additional info: Abdominal aortic aneurysm w/o rupture TECHNIQUE: Imaging protocol: Computed tomographic angiography of the chest with contrast. Exam focused on the arteries. Computed tomographic angiography of the abdomen and pelvis with contrast. Exam focused on the arteries. 3D rendering (Not supervised by radiologist): MIP and/or 3D reconstructed images were created by the technologist. Radiation optimization: All CT scans at this facility use at least one of these dose optimization techniques: automated exposure control; mA and/or kV adjustment per patient size (includes targeted exams where dose is matched to clinical indication); or iterative reconstruction. Contrast material: OMNI 350; Contrast volume: 100 ml; Contrast route: INTRAVENOUS (IV); REPORTING DATA: Count of CT and Cardiac NM exams in prior 12 months: This patient has received [address] and 0 known cardiac nuclear medicine studies in the 12 months prior to the current study. COMPARISON: 1. CT angio chest PE protcl [id number] 09/27/2020 8:[address] ang ches abdpel [id number] 08/16/2022 8:45 AM FINDINGS: VASCULATURE: Pulmonary arteries: Mild pulmonary arterial dilatation, stable. No pulmonary emboli. Aorta: Heavy systemic atherosclerosis. Stable appearance of ulcerated plaque at the aortic arch beyond the great vessel branches. Intervally stable bilobed abdominal aortic aneurysm with superior abdominal aortic aneurysm measuring 4.2 cm in diameter, 4.9 cm in length, and inferior abdominal aortic aneurysm measuring 6.7 cm in diameter, 9.2 cm in length. Circumferential thrombosis of the inferior abdominal aortic aneurysm with patent opacified channel to the iliac arteries. Celiac trunk and mesenteric arteries: Stable proximal celiac trunk stenosis. No occlusion. No occlusion or significant stenosis of the superior mesenteric artery. The inferior mesenteric artery appears to be fed by collateral vasculature. Renal arteries: Moderate to high-grade stenosis of bilateral proximal renal arteries. Right iliac arteries: No occlusion or significant stenosis of the common, external, and proximal internal iliac arteries. Distal internal iliac artery and branches difficult to confidently assess given contrast bolus timing. Left iliac arteries: No occlusion or significant stenosis of the common iliac artery. Moderate narrowing of the proximal external iliac artery. Proximalmost internal iliac artery is patent with poor assessment of subsequent internal iliac artery given contrast bolus timing, but concerning for stenosis versus occlusion. CHEST: Lungs: Mild upper lung predominant emphysematous changes. No consolidation. No masses. Calcified right lower lobe granuloma. Pleural spaces: Unremarkable. No pneumothorax. No pleural effusion. Heart: Unremarkable. No cardiomegaly. No pericardial effusion. Diaphragm: Intervally decreased size of large hiatal hernia. ABDOMEN AND PELVIS: Liver: No mass. Gallbladder and bile ducts: Unremarkable. No calcified stones. No ductal dilation. Pancreas: Unremarkable. No mass. No ductal dilation. Spleen: Unremarkable. No splenomegaly. Adrenal glands: Stable thickening. Kidneys and ureters: Bilateral renal cysts are present, as well as other subcentimeter hypodensities which are too small to characterize. Otherwise unremarkable. Stomach and bowel: Unremarkable. No obstruction. No mucosal thickening. Colonic diverticulosis without findings of diverticulitis. Appendix: Normal. Intraperitoneal space: Unremarkable. No free air. No significant fluid collection. Urinary bladder: Unremarkable. No mass. Reproductive: Unremarkable as visualized. Lymph nodes: No suspicious lymphadenopathy. Stable mildly prominent mediastinal lymph nodes, partially calcified. Bones/joints: No acute fracture. Degenerative changes along the imaged axial and proximal appendicular skeletal system. Soft tissues: Small fat containing umbilical and bilateral inguinal hernias. CT/CT [facility] [id number] IMPRESSION: 1. Heavy atherosclerosis with intervally stable bilobed abdominal aortic aneurysm. 2. Although suboptimal evaluation of the iliac arteries due to contrast bolus timing, concern for significant stenosis or possible occlusion of the left internal iliac artery. 3. Moderate to high-grade stenosis of the bilateral proximal renal arteries. 4. Stable proximal celiac artery stenosis. 5. Additional chronic and incidental findings as above.
[2022-10-10 07:53] LABS: Blood Urea Nitrogen 27 mg/dL (8-23)
[2022-10-10] MEDS: iohexol 350 mg/mL 500 mL Btl (per mL) IV (08:10)
== END 2022-10-10 07:22 | disposition home or self-care (01) ==
LOC: RAD 07:22
PROVIDERS: Radiology Diagnostic Radiology; PCP Nurse Practitioner; Visit Provider Surgery Vascular Surgery
DX: I71.40 Abdominal aortic aneurysm, without rupture, unspecified (principal)
CPT/HCPCS: 71275; 74174; 82565; 84520; Q9967

== ENCOUNTER 2022-10-17 07:48 | Outpatient (CLI) | payer OTHER, SELFPAY ==
--- NOTE | 2022-10-17 08:00 | USCV_ITS ---
Kwaku Castorena Age: 87 Gender: M : 1935 Exam Date: 10/17/2022 08:20 Ordering Phys: Eusebio Moreland MD Technologist: Laura Bliss [place] [facility] [place] cp, sob- pre op AAA BP: 138 / 90 HR: 54 Rhythm: Sinus Technical Quality: Adequate MEASUREMENTS (Male / Female) Normal Values 2D ECHO LV Diastolic Diameter PLAX 3.2 cm 4.2 - 5.9 / 3.9 - 5.3 cm LV Systolic Diameter PLAX 1.6 cm IVS Diastolic Thickness 1.3 cm 0.6 - 1.0 / 0.6 - 0.9 cm IVS Systolic Thickness 1.7 cm LVPW Diastolic Thickness 1.4 cm 0.6 - 1.0 / 0.6 - 0.9 cm LVPW Systolic Thickness 1.7 cm LVOT Diameter 2.0 cm LV Ejection Fraction 2D Teich 82.3 % LV Ejection Fraction MOD 2C 69.9 % LV Ejection Fraction 2C AL 68.4 % LA Diameter 4.0 cm LA Width 3.2 cm LA Height 6.3 cm RA Width 2.5 cm RA Height 5.2 cm Aorta at Sinotubular Diameter 3.1 cm IVC Diameter 1.4 cm M-MODE Aortic Annulus Diameter 3.2 cm LA Ao Ratio MM 1.1 DOPPLER AV Peak Velocity 114.0 cm/s LVOT Peak Velocity 97.0 cm/s AV Area Cont Eq vti 2.7 cm squared AV Area Cont Eq pk 2.6 cm squared MV Peak Velocity 142.0 cm/s MV Area PHT 3.9 cm squared Mitral E to A Ratio 0.5 MV E' Velocity 36.0 cm/s Mitral E to MV E' Ratio 15.1 Mitral E to LV E' Lateral Ratio 16.5 Mitral E to LV E' Septal Ratio 14.1 TR Peak Velocity 99.8 cm/s TR Peak Gradient 4.0 mmHg Right Atrial Pressure 5.0 mmHg Pulmonary Artery Systolic Pressu 9.0 mmHg PV Peak Velocity 82.0 cm/s RV Acceleration Time 0.1 s RV Ejection Time 0.3 s RV AcT/ET 0.4 FINDINGS Left Ventricle Possibly normal LV size and ejection fraction. No gross wall motion normalities noted.mild left ventricular hypertrophy. Grade I/IV diastolic dysfunction (abnormal relaxation filling pattern), normal to mildly elevated filling pressures. Right Ventricle Normal right ventricular systolic function. Right Atrium The right atrium is normal in size. Left Atrium Mildly increased left atrial size. Mitral Valve Mild mitral annular calcification. Mildly thickened mitral valve. Aortic Valve Thickened aortic valve. The aortic valve leaflet mobility appears to be somewhat restricted however the velocity across the valve was 1.14 m/s Tricuspid Valve No gross abnormalities noted Pulmonic Valve No gross abnormalities noted no gross abnormalities noted Pericardium Normal pericardium without effusion. Aorta Normal ascending aorta dimension. IVC Inferior vena cava not visualized. CONCLUSIONS Possibly normal LV size and ejection fraction. No gross wall motion normalities noted.mild left ventricular hypertrophy. Grade I/IV diastolic dysfunction (abnormal relaxation filling pattern), normal to mildly elevated filling pressures. Mildly increased left atrial size. Mild mitral annular calcification. Mildly thickened mitral valve. Thickened aortic valve. The aortic valve leaflet mobility appears to be somewhat restricted. No significant stenosis, based on the flow velocity. There is no pericardial effusion. There are no intracardiac masses. Technically somewhat limited study because of poor parasternal views Dr Stefanie Nelson MD FACC (Electronically Signed) Final Date: 19 October 2022 00:49 S
--- NOTE | 2022-10-17 09:03 | ECG_ITS ---
[facility] Test Date: 2022-10-17 Pat Name: Kwaku Castorena Department: Room: Gender: Male Passenger Representative: Anne Johnson : 1935 Requested By: Eusebio Moreland Order Number: [id number] Charbel MD: Jason Rivas M.D. Interpretive Statements NAME OF STUDY: LEXISCAN SESTAMIBI STRESS TEST INDICATION: [Chest Pain; Shortness of Breath] Procedure: At the baseline, the blood pressure was 228/91mmHg with a heart rate of 57 bpm. The electrocardiogram showed sinus bradycardia. The Lexiscan was infused over a period of 20 seconds. A total of 0.4 mg of Lexiscan was infused. The stress phase was continued for a total of 5 minutes. Heart rate was at the end of stress phase was 80 bpm and a blood pressure of 115/66mmHg. The EKG at the peak infusion revealed normal sinus rhythm with no significant ST-T wave changes. Sestamibi was injected 20 seconds after the Lexiscan infusion. Blood pressure at the end of recovery phase was 170/92mmHg with a heart rate of 80 bpm. PVCs seen in the recovery phase. Conclusion: 1. Normal EKG response to Lexiscan infusion 2. No Lexiscan induced chest pain or cardiac arrhythmia. 3. Normal blood pressure and heart rate response. 4. Sestamibi/sestamibi perfusion scan pending; see separate report. Electronically Signed On 10-31-2022 12:19:32 CDT by Jason Rivas M.D. [id number]
--- NOTE | 2022-10-17 09:04 | NMCV_ITS ---
NM jeremy perf SPECT r/s* [id number] RaffaeleKwaku Age: 87 Gender: M : 1935 Exam Date: 10/17/2022 10:09 Ordering Phys: Eusebio Moreland MD Technologist: ODESSA Cramer Exam Location: [facility] Indications: AORTIC ANEURYSM STRESS TEST Please see separate stress test report in [facility] for full findings IMAGE PROTOCOL Stress/Rest 1 Lexiscan Day Radiopharmaceutical Dose (mCi) Administration Site Administered by Rest: Tc-99m 10.9 IV ODESSA Rosado Sestamibi Stress:Tc-99m 33.0 IV ODESSA Rosado Sestamibi Rest: 17-Oct-2022 60 Discovery 630 Stress: 17-Oct-2022 30 Discovery 630 0.4mg Lexiscan. Supine position only as patient was unable to lay prone. (ribs and clavicle fx) SPECT RESULTS Technical Quality: Excellent Raw Data Analysis: Normal Image Corrections: No attenuation or motion correction applied Summed Stress Score: 7 Summed Rest Score: 7 Summed Difference Score: 2 PERFUSION FINDINGS There is large in size, partially reversible perfusion defect noted in inferior wall. 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 FUNCTIONAL RESULTS (calculated via Gated SPECT) Stress Image LV EF (%): 60 Stress EDV (mL):107 TID: 0.95 Stress ESV (mL):43 FUNCTIONAL FINDINGS: There is normal left ventricular systolic function. IMPRESSIONS 1. Abnormal myocardial perfusion imaging with large sized area of prior infarct with significant kanu-infarct ischemia seen in RCA territory. 2. LV systolic function is normal. Jason Rivas MD (Electronically Signed) Final Date: 20 October 2022 18:17 S
[2022-10-17 09:50] VITALS: BMI 25.8
[2022-10-17] MEDS: regadenoson 0.4 Mg/5 ml Syringe IVP (10:50)
[2022-10-17 11:05] VITALS: BP 170/92; PULSE 80
== END 2022-10-17 07:49 | disposition home or self-care (01) ==
LOC: RAD 08:10 → CDL 10:41
PROVIDERS: PCP Nurse Practitioner; Visit Provider Surgery Vascular Surgery
DX: I34.81 Nonrheumatic mitral (valve) annulus calcification (principal); R07.9 Chest pain, unspecified; R06.02 Shortness of breath; Z01.810 Encounter for preprocedural cardiovascular examination
CPT/HCPCS: 36415; 78452; 93017; 93306; 96374; A9500; J2785

== ENCOUNTER 2023-02-23 10:32 | Emergency (ER) | payer OTHER, SELFPAY ==
[2023-02-23 10:37] VITALS: BP 187/75; PULSE 63; RESP 16; TEMP 36.4; O2SAT 98; BMI 26.9
--- NOTE | 2023-02-23 11:26 | CT_ITS ---
WS: [id number] CT HEAD NONCONTRAST HISTORY: Vision changes, vision loss right eye. TECHNIQUE: Contiguous axial imaging performed through the brain in 2.5 mm imaging. Bone and soft tiss ue windows. Sagittal and coronal reformats reviewed. All CT scans at [facility] use at least one of these dose optimization techniques: automated exposure control; mA and/or kV adjustment per pa tient size (includes targeted exams where dose is matched to clinical indication); or iterative recon struction. DLP: 1089.78 mGy.cm COMPARISON: 10/17/2020 No acute intracranial hemorrhage, midline shift or mass effect. Moderate bilateral symmetric atrophy and small vessel ischemic disease. No significant progression of atrophy since 2020. Ventricles: Mildly dilated ventricles on the basis of atrophy. Mild bilateral cerebellar atrophy. There is extensive heavy calcification in the distal LEFT vertebra l artery and also in the intracranial carotid arteries. Paranasal sinuses: As visualized are clear. Mastoid air cells: Well pneumatized. Calvarium and scalp: Skull is intact with no soft tissue edema or swelling. IMPRESSION: 1. No acute intracranial hemorrhage or edema. 2. Moderate bilateral cerebral atrophy and mild cerebellar atrophy. 3. 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
--- NOTE | 2023-02-23 11:26 | W.ED.EYEPROB ---
HPI - Eye Problem General: Chief complaint: Eye Problems Stated complaint: off balance, blind right eye, dr christian stroke Time Seen by Provider: 02/23/23 10:54 History of Present Illness: 87-year-old male presents emergency department with complaints of acute vision loss patient states that he had a right eye cataract surgery yesterday and this morning when he woke up was unable to see out of his right eye. He states that he went to his mergers and acquisitions banker who did the initial surgery and was reevaluated and advised to come to the emergency department for additional evaluation. Patient states that December 2022 he did have a abdominal aortic aneurysm repair at [facility] in [place] and is currently taking Plavix and aspirin daily. He denies known injury or trauma. He states he has had several cardiac stents and also a carotid artery stent placed in 2019. He denies neck pain, headache, nausea or vomiting. He states he did feel slightly off balance this morning but states he thinks that was due to his difficulty with the vision in his right eye. Review of Systems General: Reports: 10 or more systems reviewed and unremarkable except in HPI and below Eyes: Reports: change in vision and blurry vision Neuro: Reports: difficulty walking [facility] ED PFSH: Medical History (Updated 02/24/23 @ 00:01 by KARTHIK Thibodeaux) B12 deficiency Iron (Fe) deficiency anemia Abdominal aortic aneurysm Salivary gland calculus Percutaneous transluminal coronary angioplasty (PTCA) within last 14 to 24 months Intermittent claudication Coronary artery disease CVA (cerebral vascular accident) Hypertension Diabetes mellitus Surgical History History of tonsillectomy History of right common carotid artery stent placement Family History Mother Polycystic kidney disease Chronic kidney disease (CKD) CAD (coronary artery disease) Stroke Brother CAD (coronary artery disease) Father Lung disease tuberculosis Denies family history of Diabetes Clotting disorder Dementia Psychiatric illness Suicide Anesthesia complication Bleeding disorder Cancer Hypertension Social History Smoking and tobacco/nicotine status: former use of tobacco/nicotine (smoked x 45 years) Alcohol intake: former 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 Substance/Drug Use: never Lives independently: Yes Household members: family Marital status: / Current occupational status: retired Physical Exam Narrative: EXAM NARRATIVE: Constitutional: the patient appears well nourished and with normal development. Vital signs reviewed as documented. HENMT: Normocephalic, atraumatic. Extermal ears with normal appearance without drainage. Nose without drainage, normal appearance. Mucus membranes moist. Neck is supple, No jugular venous distension, trachea is midline, no appreciable carotid bruits. No lymphadenopathy. No meningeal signs. Flexion, extension and lateral rotation is without pain. Eyes: Pupils are equal, round, reactive to light and accommodation. No scleral icterus. Extra-ocular movement are intact. Patient reports blurred vision and difficulty with sight to the right eye verified with visual acuity testing with approximately 20/200 to the right eye Thorax is symmetrical and with equal rise and fall with respirations. Resp: Lungs are clear to auscultation. No wheezes, rales, crackles or ronchi at present. Cardio: Regular rate and rhythm. Positive S1, S2. No appreciable murmurs, rubs or gallops. GI: Abdominal exam reveals normal bowel sounds to all quadrants. No organomegaly. No obvious palpable masses noted. No hepatomegally appreciated. Soft, nontender to palpation. Extremity: Extremities are non-edematous and both femoral and pedal pulses are 2+ and equal bilaterally. Moves all extremities well, sensation in all extremities. Neuro: Alert and oriented x4, person, place, time and situation. Cranial nerves II through XII are grossly intact, there is no focal neurological deficits that I can appreciate at present. Motor strength in the upper and lower extremities are equal and bilateral 5/5. Psych: Cooperative, calm, normal thought process, appropriate judgment. Skin: No lesions, rashes. No gross abnormalities noted. Back: Symmetrical, no obvious deformity, No CVA tenderness Course Vital Signs: Vital signs: Vital Signs Temperature 97.6 F 02/23/23 10:37 Pulse Rate 84 02/23/23 14:17 Respiratory Rate 18 02/23/23 14:17 Blood Pressure 148/68 02/23/23 14:55 Pulse Oximetry 96 02/23/23 14:17 Oxygen Delivery Me thod Room Air 02/23/23 14:17 MDM - Eye Problem Medical Decision Making Physical exam completed and documented, I will obtain serial cardiac enzymes as well as a CT scan of the head without contrast consult neurology and consult the patient's mergers and acquisitions banker to discuss the patient's plan of care. I did discuss extensively with both the patient and his DURABLE POWER OF WATER ENGINEER the potential risk benefits and complications of obtaining a CTA of the head and neck given the patient's chronic renal insufficiency and both the patient and the DPOA advised that they would except and did understand the risk and possible complications of contrast nephropathy as well as ultimately renal failure and need for both temporary and permanent dialysis and they requested to continue to receive the procedure. I advised him I would provide IV fluid hydration prior to the administration of the IV contrast dye for the CT scan. I did speak with the radiologist Dr. Liriano as well as the mergers and acquisitions banker Dr. Alberto Finley and Dr. Brayan Finley regarding the patient's presentation as well as the CT scan findings. The patient remained hypertensive while in the emergency department and after completion of the CT scans I did provide the patient with IV hydralazine with significant improvement in control of the patient's hypertension. At this time I have discussed with the patient and the DURABLE POWER OF WATER ENGINEER the recommended follow-up versus admission to the hospital as well as an MRI/MRA for additional evaluation and the patient and the DPOA-his son have requested the patient be discharged home and would follow-up with the patient's mergers and acquisitions banker and respiratory physician. Medical Records I reviewed the patient's medical records. Lab Data I reviewed the patient's lab results. 02/23/23 11:53 02/23/23 11:53 Laboratory Results WBC 3.84 10^3/uL (3.29-11.43) 02/23/23 11:53 RBC 3.54 10^6/uL (3.85-5.65) L 02/23/23 11:53 Hgb 10.50 g/dL (11.27-16.99) L 02/23/23 11:53 Hct 31.5 % (37-53) L 02/23/23 11:53 MCV 89.0 fl (82-101) 02/23/23 11:53 MCH 29.7 pg (27-33) 02/23/23 11:53 MCHC 33.3 g/dL (30-55) 02/23/23 11:53 RDW 16.3 % (12.1-15.1) H 02/23/23 11:53 Plt Count 132 10^3/cmm (157-399) L 02/23/23 11:53 MPV 9.9 fL (7.4-10.4) 02/23/23 11:53 Neut % (Auto) 66.1 % 02/23/23 11:53 Lymph % (Auto) 19.3 % 02/23/23 11:53 [place] % (Auto) 7.8 % 02/23/23 11:53 Eos % (Auto) 5.5 % 02/23/23 11:53 Baso % (Auto) 1.0 % 02/23/23 11:53 Neut # (Auto) 2.54 10^3/uL (1.8-7.7) 02/23/23 11:53 Lymph # (Auto) 0.7 10^3/uL (0.8-4.8) L 02/23/23 11:53 [place] # (Auto) 0.3 10^3/uL (0.2-0.9) 02/23/23 11:53 Eos # (Auto) 0.2 10^3/uL (0.0-0.8) 02/23/23 11:53 Baso # (Auto) 0.0 10^3/uL (0.0-0.1) 02/23/23 11:53 Nucleated RBC % (auto) 0 % 02/23/23 11:53 Nucleated RBCs # 0.0 /100WBC 02/23/23 11:53 Sodium 132 mmol/L (136-145) L 02/23/23 11:53 Potassium 4.8 mmol/L (3.5-5.1) 02/23/23 11:53 Chloride 101 mmol/L (98-107) 02/23/23 11:53 Carbon Dioxide 19 mmol/L (22-29) L 02/23/23 11:53 Anion Gap 16.8 (5-19) 02/23/23 11:53 BUN 39 mg/dL (8-23) H 02/23/23 11:53 Creatinine 2.1 mg/dL (0.7-1.2) H 02/23/23 11:53 GFR Calculation Not Reportable 02/23/23 11:53 Glucose 149 mg/dL (65-115) H 02/23/23 11:53 Calculated Osmolality 286 mOsm/kg (285-295) 02/23/23 11:53 Calcium 9.7 mg/dL (8.5-10.5) 02/23/23 11:53 Total Bilirubin 0.7 mg/dL (0.15-1.2) 02/23/23 11:53 AST 8 U/L (0-40) 02/23/23 11:53 ALT 7 U/L (0-41) 02/23/23 11:53 Alkaline Phosphatase 85 U/L (40-130) 02/23/23 11:53 Total Protein 7.1 g/dL (6.6-8.7) 02/23/23 11:53 Albumin 4.0 g/dL (3.5-5.2) 02/23/23 11:53 Globulin 3.1 g/dL (1.3-4.6) 02/23/23 11:53 All radiology interpretation(s) finalized by discharge ED provider radiology interpretation(s): CT HEAD NONCONTRAST HISTORY: Vision changes, vision loss right eye. TECHNIQUE: Contiguous axial imaging performed through the brain in 2.5 mm imaging. Bone and soft tissue windows. Sagittal and coronal reformats reviewed. All CT scans at [facility] use at least one of these dose optimization techniques: automated exposure control; mA and/or kV adjustment per patient size (includes targeted exams where dose is matched to clinical indication); or iterative reconstruction. DLP: 1089.78 mGy.cm COMPARISON: 10/17/2020 No acute intracranial hemorrhage, midline shift or mass effect. Moderate bilateral symmetric atrophy and small vessel ischemic disease. No significant progression of atrophy since 2020. Ventricles: Mildly dilated ventricles on the basis of atrophy. Mild bilateral cerebellar atrophy. There is extensive heavy calcification in the distal LEFT vertebral artery and also in the intracranial carotid arteries. Paranasal sinuses: As visualized are clear. Mastoid air cells: Well pneumatized. Calvarium and scalp: Skull is intact with no soft tissue edema or swelling. IMPRESSION: 1. No acute intracranial hemorrhage or edema. 2. Moderate bilateral cerebral atrophy and mild cerebellar atrophy. 3. 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 Date of Service: 02/23/23 Procedure(s): CT angio headneck* [id number] Accession Number(s): [id number] Report Number: [id number] WS: [id number] CT ANGIOGRAM CEREBRAL AND CAROTID ARTERIES HISTORY: Acute right vision loss TECHNIQUE: CT angiogram is performed of the carotid and cerebral arteries. During arterial injection imaging is obtained from the skull vertex to the aortic arch in 1.25 mm imaging. Coronal and sagittal reformats are submitted. Additional multi planar reformats of the carotid and cerebral arteries are submitted, MIP imaging also reviewed. NASCET criteria utilized. All CT scans at [facility] use at least one of these dose optimization techniques: automated exposure control; mA and/or kV adjustment per patient size (includes targeted exams where dose is matched to clinical indication); or iterative reconstruction. CONTRAST: Omnipaque 350; 100 mL IV. DLP: 476.12 mGy.cm COMPARISON: CT head 02/23/2023 Carotid Angiogram: Right carotid: Common carotid artery: Extensive calcified plaque with no occlusion. RIGHT cervical carotid stent is patent. Small caliber distal stent but it is patent. Internal carotid artery: RIGHT ICA stent is patent. External carotid artery: Patent. Left carotid: Common carotid artery: Scattered plaque. No stenosis. Internal carotid artery: Increasing plaque and intimal thickening towards the bifurcation. Stenosis estimated at 50 to 60%. External carotid artery: Patent. Right vertebral artery: Small caliber RIGHT vertebral artery. Very small caliber distal RIGHT vertebral artery may be occluded. Left vertebral artery: Dominant LEFT vertebral artery. Scattered calcified plaque. Subclavian arteries: Moderate calcified plaque. RIGHT subclavian artery is obscured by the contrast bolus injection. Upper thorax: Chronic emphysema. Thyroid gland: Normal. Osseous structures: Unremarkable. CEREBRAL ANGIOGRAM: Intracranial vertebral arteries: Distal RIGHT vertebral artery is very small caliber may be occluded versus normal variant. Increasing plaque in the distal LEFT vertebral artery but it is patent. Basilar artery: No significant stenosis or occlusion. No aneurysm. Intracranial Internal carotid arteries: Increasing plaque along the petrous portions in the cavernous portions of the carotid artery. Dense calcified plaque extending to the supraclinoid carotid arteries with stenoses greater on the LEFT approaching 70%. Middle cerebral arteries: Normal. Anterior cerebral arteries and ACOM: Normal. Posterior cerebral arteries and PCOM's: Normal. Ophthalmic arteries are small caliber but they do appear to be patent at least 4 the proximal course. The RIGHT ophthalmic artery is smaller than the LEFT and slightly irregular but no thrombus is identified. Extraocular muscles appear symmetric. Dural venous sinuses are normally enhancing. Mastoid air cells: Normal. Paranasal sinuses: Normal. Calvarium: Normal. IMPRESSION: 1. There is extensive calcified plaque involving the cervical and intracranial carotid arteries and the vertebral arteries. 2. Patent RIGHT cervical carotid artery stent. 3. Both ophthalmic arteries are identified. The RIGHT ophthalmic is small and slightly irregular in shape. This could be congenital and due to atherosclerotic disease. Mild vasculitis may appear similar. 4. LEFT cervical ICA stenosis 50 to 60%. 5. 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 There is dense calcified plaque at the origins of the ophthalmic arteries. Discharge Plan Discharge Patient Disposition: Home Clinical Impression: Hypertension, uncontrolled, Blurred vision, right eye Condition: Stable Prescriptions: No Action ferrous sulfate 324 mg (65 mg iron) tablet,delayed release (DR/EC) 324 mg PO DAILY tamsulosin 0.4 mg capsule 0.4 mg PO DAILY atorvastatin 40 mg Tablet 40 mg PO BEDTIME clopidogrel 75 mg Tablet 75 mg PO DAILY aspirin 81 mg Tablet,Delayed Release (Dr/Ec) 81 mg PO DAILY acetaminophen [Tylenol] 325 mg Tablet 325 mg PO QID PRN (Reason: pain/headache) cilostazol 100 mg Tablet 100 mg PO BID hydralazine 25 mg tablet 25 mg PO BID PRN (Reason: Hypertension) Rx Instructions: pressure above 160 valsartan 160 mg tablet 160 mg PO DAILY Lactobacillus acidoph-L.bulgar 1 million cell Tablet 2 tab PO DAILY potassium chloride 20 mEq Tablet Extended Release 20 meq PO DAILY Discharge Orders: Discharge ED (Routine); Ordered 02/23/23 Ordered By: Luis Enrique Nath Referrals: Tita Cat FNP [Primary Care Provider] - Discharge Diet: Advance as tolerated Discharge Activity: Resume usual activity Patient Instructions: Opioid Safety, Pain Management Activity Restrictions/Additional Instructions: Activity Restrictions/Additional Instructions: Thank you for choosing [facility] for your healthcare needs today. Please realize that you were seen in the Emergency Department and that we are providing you with an emergency medical screening exam and this may not be a complete and all inclusive of all the testing and or medical work-up that you may need to determine your ailment or severity of your illness. It is very important that you follow-up as instructed with your Primary care provider or Specialist for additional evaluation and to discuss your medical treatment plan. You may return to the Emergency Department should you have concerns or if your condition changes or worsens in any way. Coding Level of Care Code ED Turret Lathe Operator for Yolanda Morales
[2023-02-23 12:03] LABS: Eosinophils # 0.2 10^3/uL (0.0-0.8); Eosinophils % 5.5 %; Hematocrit 31.5 % (37-53); Lymphocytes # 0.7 10^3/uL (0.8-4.8); Lymphocytes % 19.3 %; Mean Corpuscular HGB Conc 33.3 g/dL (30-55); Mean Corpuscular Hemoglobin 29.7 pg (27-33); Mean Platelet Volume 9.9 fL (7.4-10.4); Monocytes # 0.3 10^3/uL (0.2-0.9); Monocytes % 7.8 %; Neutrophils # 2.54 10^3/uL (1.8-7.7); Neutrophils % 66.1 %; Nucleated Red Blood Cells % 0 %; Platelet Count 132 10^3/cmm (157-399); Red Blood Count 3.54 10^6/uL (3.85-5.65); Red Cell Distribution Width 16.3 % (12.1-15.1); White Blood Count 3.84 10^3/uL (3.29-11.43)
--- NOTE | 2023-02-23 12:13 | CT_ITS ---
WS: [id number] CT ANGIOGRAM CEREBRAL AND CAROTID ARTERIES HISTORY: Acute right vision loss TECHNIQUE: CT angiogram is performed of the carotid and cerebral arteries. During arterial injection imaging is obtained from the skull vertex to the aortic arch in 1.25 mm imaging. Coronal and sagittal reformats are submitted. Additional multi planar reformats of the carotid and cerebral arteries are submitted, MIP imaging also reviewed. NASCET criteria utilized. [facility] at least one of these dose optimization techniques: automated exposure control; mA and/or kV adjust ment per patient size (includes targeted exams where dose is matched to clinical indication); or iter ative reconstruction. CONTRAST: Omnipaque 350; 100 mL IV. DLP: 476.12 mGy.cm COMPARISON: CT head 02/23/2023 Carotid Angiogram: Right carotid: Common carotid artery: Extensive calcified plaque with no occlusion. RIGHT cervical carotid stent is patent. Small caliber distal stent but it is patent. Internal carotid artery: RIGHT ICA stent is patent. External carotid artery: Patent. Left carotid: Common carotid artery: Scattered plaque. No stenosis. Internal carotid artery: Increasing plaque and intimal thickening towards the bifurcation. Stenosis e stimated at 50 to 60%. External carotid artery: Patent. Right vertebral artery: Small caliber RIGHT vertebral artery. Very small caliber distal RIGHT vertebr al artery may be occluded. Left vertebral artery: Dominant LEFT vertebral artery. Scattered calcified plaque. Subclavian arteries: Moderate calcified plaque. RIGHT subclavian artery is obscured by the contrast b olus injection. Upper thorax: Chronic emphysema. Thyroid gland: Normal. Osseous structures: Unremarkable. CEREBRAL ANGIOGRAM: Intracranial vertebral arteries: Distal RIGHT vertebral artery is very small caliber may be occluded versus normal variant. Increasing plaque in the distal LEFT vertebral artery but it is patent. Basilar artery: No significant stenosis or occlusion. No aneurysm. Intracranial Internal carotid arteries: Increasing plaque along the petrous portions in the cavernous portions of the carotid artery. Dense calcified plaque extending to the supraclinoid carotid arterie s with stenoses greater on the LEFT approaching 70%. Middle cerebral arteries: Normal. Anterior cerebral arteries and ACOM: Normal. Posterior cerebral arteries and PCOM's: Normal. Ophthalmic arteries are small caliber but they do appear to be patent at least 4 the proximal course. The RIGHT ophthalmic artery is smaller than the LEFT and slightly irregular but no thrombus is ident ified. Extraocular muscles appear symmetric. Dural venous sinuses are normally enhancing. Mastoid air cells: Normal. Paranasal sinuses: Normal. Calvarium: Normal. IMPRESSION: 1. There is extensive calcified plaque involving the cervical and intracranial carotid arteries and the vertebral arteries. 2. Patent RIGHT cervical carotid artery stent. 3. Both ophthalmic arteries are identified. The RIGHT ophthalmic is small and slightly irregular in shape. This could be congenital and due to atherosclerotic disease. Mild vasculitis may appear simila r. 4. LEFT cervical ICA stenosis 50 to 60%. 5. 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 There is dense calcified plaque at the origins of the ophthalmic arteries. Notified Luis Enrique Nath MD at 02/23/2023 2:25 PM.
[2023-02-23 12:16] VITALS: BP 166/106; RESP 18; O2SAT 95
[2023-02-23] MEDS: sodium chloride 0.9% 1,000 ML 999 ML IV (12:20)
[2023-02-23 12:21] LABS: Alanine Aminotransferase 7 U/L (0-41); Alkaline Phosphatase 85 U/L (40-130); Anion Gap 16.8 (5-19); Aspartate Amino Transferase 8 U/L (0-40); Blood Urea Nitrogen 39 mg/dL (8-23); Calcium 9.7 mg/dL (8.5-10.5); Carbon Dioxide 19 mmol/L (22-29); Chloride 101 mmol/L (98-107); Globulin 3.1 g/dL (1.3-4.6); Glucose 149 mg/dL (65-115); Osmolality Calculated 286 mOsm/kg (285-295); Potassium 4.8 mmol/L (3.5-5.1); Sodium 132 mmol/L (136-145); Total Bilirubin 0.7 mg/dL (0.15-1.2); Total Protein 7.1 g/dL (6.6-8.7)
[2023-02-23] MEDS: iohexol 350 mg/mL 500 mL Btl (per mL) IV (13:56)
[2023-02-23] MEDS: hyDRALAzine 20 mg/mL INJ 1 mL IVP (14:16)
[2023-02-23 14:17] VITALS: BP 220/110; PULSE 84; RESP 18; O2SAT 96
--- NOTE | 2023-02-23 14:19 | P.CONIM_ITS ---
Providers/Reason For Consult 2 Consulting Physician/Specialty*: Rahat Cruz MD neurology and epilepsy Reason for Consult*: Acute on onset of loss of vision in the right eye after awakening from sleep on 02/23/2023 Primary Care Provider: NILDA Camacho History of Present Illness History of Present Illness Kwaku Castorena is a 87 year old male with a history of right carotid stenosis with right carotid artery stenting in March 2018. Repeat carotid artery stenting was attempted but was aborted. The patient also has a history of left cerebral infarction in 2018 manifested as right-sided weakness requiring tPA administration. The patient also has history of abdominal aortic aneurysm measuring 6.3 cm and extending all the length of 6.5 cm with reported mildly irregular asymmetric thrombus status post stenting December 2022, chronic kidney disease, congestive heart failure, atrial fibrillation, non-ST segment elevation myocardial infarction, anemia, type 2 diabetes mellitus, hypertension, and coronary atherosclerotic heart disease status post angioplasty. The patient was reported to undergo cataract surgery on 02/22/2023. The patient was reported to go to bed around 8 PM on 02/22/2023 and when he woke up on 02/23/2023 around 7 AM he could not see out of his right eye. The patient was taken to the website developer and reevaluated. The patient family stated the patient had most likely experienced a stroke in the right eye and recommends the patient present to the [facility] emergency room. As a result and neurology consult was also obtained. Noncontrast head CT was obtained and revealed extensive atherosclerotic disease in the intracranial carotid arteries and vertebral arteries bilaterally. Noncontrast head CT was reported to be negative. The patient has been scheduled for CT angiogram of the head and neck with attention to the right internal carotid artery and right ophthalmic artery/central retinal artery. The patient has also been scheduled for head MRI with attention to the right optic nerve. I spoke with the attending ER physician and instructed them to contact website developer to determine if the patient was a candidate for intra-arterial ophthalmic artery thrombolytics. The ER physician informing that he spoke with the website developer who informed him that the patient was not a candidate for intra-arterial ophthalmic artery thrombolytics and the patient would have to be treated conservatively with conservative management for the right eye vision loss. Note: Since the patient's last known well could not be determined, the patient was not a candidate for intravenous thrombolytics and no thrombolytics were administered. NIH score = 2 secondary to loss of vision in the right eye. Drug allergies: Eggs which resulted in flatulence Bactrim type reaction unknown Current home medications: Aspirin 81 mg p.o. every morning Plavix 75 mg p.o. every morning Tylenol 325 mg p.o. 4 times daily as needed Lipitor 40 mg p.o. nightly Cilostazol 100 mg p.o. twice daily Iron sulfate 325 mg p.o. daily Hydralazine 25 mg p.o. twice daily, as needed hypertension Potassium chloride 20 mEq p.o. daily Tamsulosin 0.4 mg p.o. daily Valsartan 160 mg p.o. daily Past medical history: Extensive atherosclerotic disease involving the intracranial carotid arteries and vertebral arteries bilateral Right carotid artery stenosis status post stent placement in March 2018 Abdominal aortic aneurysm measuring 6.3 cm in diameter and extending over 6.5 cm, status post aneurysm stenting December 2022 Left cerebral infarction 2018 status post tPA administration Bilateral cataract surgery 02/22/2023 B12 deficiency Iron deficiency anemia Chronic renal disease Congestive heart failure Respiratory failure Non-ST segment elevation myocardial infarction Atrial fibrillation Type 2 diabetes mellitus Hypertension Coronary artery disease Percutaneous transluminal coronary artery angioplasty Habits: None Review of Systems 2 General: Reports: 10 or more systems reviewed and unremarkable except in HPI and below Medications/Allergies Home Medications Medication Instructions Recorded Confirmed Last Taken Type acetaminophen 325 mg tablet 325 mg PO QID PRN pain/headache 08/10/19 02/23/23 Unknown History (Tylenol) aspirin 81 mg tablet,delayed 81 mg PO DAILY 08/10/19 02/23/23 02/23/23 History release atorvastatin 40 mg tablet 40 mg PO BEDTIME 08/10/19 02/23/23 02/22/23 History clopidogrel 75 mg tablet 75 mg PO DAILY 08/10/19 02/23/23 02/23/23 History cilostazol 100 mg tablet 100 mg PO BID 09/25/20 02/23/23 02/23/23 History ferrous sulfate 324 mg (65 mg 324 mg PO DAILY 06/25/21 02/23/23 02/23/23 History iron) tablet,delayed release tamsulosin 0.4 mg capsule 0.4 mg PO DAILY 06/25/21 02/23/23 02/23/23 History Lactobacillus acidoph-L.bulgaricus 2 tab PO DAILY 02/23/23 02/23/23 02/23/23 History 1 million cell tablet hydralazine 25 mg tablet 25 mg PO BID PRN Hypertension 02/23/23 02/23/23 Unknown History potassium chloride 20 mEq 20 meq PO DAILY 02/23/23 02/23/23 02/23/23 History tablet,extended release valsartan 160 mg tablet 160 mg PO DAILY 02/23/23 02/23/23 02/23/23 History Allergies Allergy/AdvReac Type Severity Reaction Status Date / Time egg Allergy ADR-Flatule Verified 02/23/23 10:37 nce sulfamethoxazole Allergy Unknown Verified 02/23/23 10:37 [From Bactrim] trimethoprim [From Bactrim] Allergy Unknown Verified 02/23/23 10:37 PFSH Acute 2 PFSH: Medical History (Updated 02/23/23 @ 14:45 by Luis Enrique Nath MD) B12 deficiency Iron (Fe) deficiency anemia Abdominal aortic aneurysm Salivary gland calculus Percutaneous transluminal coronary angioplasty (PTCA) within last 14 to 24 months Intermittent claudication Coronary artery disease CVA (cerebral vascular accident) Hypertension Diabetes mellitus Surgical History History of tonsillectomy History of right common carotid artery stent placement Family History Mother Polycystic kidney disease Chronic kidney disease (CKD) CAD (coronary artery disease) Stroke Brother CAD (coronary artery disease) Father Lung disease tuberculosis Denies family history of Diabetes Clotting disorder Dementia Psychiatric illness Suicide Anesthesia complication Bleeding disorder Cancer Hypertension Social History Smoking and tobacco/nicotine status: former use of tobacco/nicotine (smoked x 45 years) Alcohol intake: former 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 Patient able to detect light but cannot count fingers) The patient is currently alert and oriented x 3. Speech fluent. Head normocephalic. Neck supple. Cranial nerves II through XII revealed loss of vision in the right eye other cranial nerves were intact. Pupils right pupil dilated secondary to recent ophthalmology evaluation by the website developer. Left pupil 4 mm and reactive to light. Extraocular movements intact. Visual white reveals complete loss of visual white in the right eye. Visual white intact in the left eye. Extraocular movements intact. There were no nystagmus. Motor testing 5/5 bilaterally. There was no drift. Deep tendon reflexes 2+ bilaterally. Plantar responses flexor bilaterally. There was no clonus. Sensory examination was intact to gross modalities. There was no obvious extinction on double sensory stimulation. Throat clear. Lungs clear. Heart regular rhythm and rate extremities were negative for clubbing or cyanosis or obvious edema. Data 02/23/23 11:53 02/23/23 11:53 A&P Assessment and plan (1) Vision loss, right eye: Impression: 1. Acute vision loss in the right eye observed upon awakening. Note: Since the patient last known well could not be determined, patient was not a candidate for intravenous thrombolytics and no thrombolytics were administered. Note: The attending ER physician spoke with ophthalmology to determine if patient was candidate for intra-arterial thrombolytics. The attending ER physician informed me that the website developer stated patient was not a candidate for intra- arterial thrombolytics and that his right eye vision loss would have to be treated with conservative management 2. Abnormal head CT scan on 02/23/2023 secondary to reports of extensive atherosclerotic disease involving the intracranial carotid arteries and vertebral arteries bilaterally 3. History of right carotid artery stenosis status post stent placement March 2018, repeat carotid stenting attempted in April 2022 was not successful 4. History of left cerebral infarction status post tPA administration in 2018 5. History of abdominal aortic aneurysm status post stenting December 2022 6. Coronary atherosclerotic heart disease 7. Congestive heart failure 8. Chronic renal disease 9. Hypertension 10. Hyperlipidemia 11. Bilateral cataract surgery 02/22/2023 12. Atrial fibrillation Plan: 1. Agree with obtaining CT angiogram of the head and neck with attention to the right internal carotid artery, right ophthalmic artery and right central retinal artery to assess for right ophthalmic artery versus right central retinal artery occlusion 2. Agree with obtaining head MRI with attention to the right optic nerve to assess for stroke 3. Continue Plavix 75 mg p.o. every morning with aspirin 81 mg p.o. every morning with food for now 4. Continue cholesterol lowering agent 5. Consider cardiac evaluation since patient has reported history of atrial fibrillation 6. Consider Brilinta for stroke prophylaxis and cardiac prophylaxis if needed if patient is not a candidate for anticoagulation, especially if patient experiences any further symptoms suggestive of strokes or TIA 7. Consider Watchman procedure for atrial fibrillation if needed if the patient is not a candidate for anticoagulation 8. Refer to ophthalmology's recommendations regarding right vision loss Consult Attestations 2 Medical Necessity Statement: The patient was evaluated by neurology for acute vision loss in the right eye Coding Level of Care Code 61565 Diagnoses Vision loss, right eye H54.61
[2023-02-23 14:39] VITALS: BP 148/68
[2023-02-23 14:55] VITALS: BP 148/68
== END 2023-02-23 14:56 | disposition home or self-care (01) ==
PROVIDERS: Emergency Provider Internal Medicine; PCP Nurse Practitioner
DX: H53.8 Other visual disturbances (principal); I10 Essential (primary) hypertension; Z79.02 Long term (current) use of antithrombotics/antiplatelets; Z79.82 Long term (current) use of aspirin; Z87.891 Personal history of nicotine dependence; I25.10 Atherosclerotic heart disease of native coronary artery without angina pectoris; E11.9 Type 2 diabetes mellitus without complications; Z86.73 Personal history of transient ischemic attack (TIA), and cerebral infarction without residual deficits
CPT/HCPCS: 70450; 70496; 70498; 80053; 85025; 96361; 96374; 99285; J0360; J7030; Q9967

== ENCOUNTER 2023-05-22 17:35 | Emergency (ER) | payer OTHER, SELFPAY ==
[2023-05-22] VITALS (7 sets, daily range): BP systolic 103–243; BP diastolic 63–117; PULSE 67–91; RESP 16; TEMP 36.4–36.6; O2SAT 96–97
--- NOTE | 2023-05-22 17:39 | ECG_ITS ---
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 Measurements Intervals [place] Rate: 79 P: -34 NC: 152 QRS: -44 QRSD: 103 T: 77 QT: 354 QTc: 408 Interpretive Statements SINUS RHYTHM WITH SINUS ARRHYTHMIA LEFT AXIS DEVIATION [QRS AXIS < -30] INCOMPLETE RIGHT BUNDLE BRANCH BLOCK [90+ ms QRS DURATION, TERMINAL R IN V1/V2, 40+ ms S IN I/aVL/V4/V5/V6] SEPTAL MYOCARDIAL INFARCTION , OF INDETERMINATE AGE [40+ ms Q WAVE IN V1/V2] Compared to ECG 10/24/2020 10:10:03 Myocardial infarct finding now present Sinus tachycardia no longer present T-wave abnormality no longer present Electronically Signed On 05-22-2023 18:31:04 CDT by Stefanie Nelson M.D. [email or web address]
--- NOTE | 2023-05-22 17:39 | XRR_ITS ---
PROCEDURE INFORMATION: Exam: XR Chest Exam date and time: 05/22/2023 5:46 PM Age: 87 years old Clinical indication: Other: HTN; Additional info: Dyspnea/cough TECHNIQUE: Imaging protocol: Radiologic exam of the chest. Views: 1 view. COMPARISON: CR XR chest 1V portable [id number] 10/25/2020 10:46 AM FINDINGS: Lungs: No consolidation. Mild interstitial prominence, likely chronic. Pleural spaces: Unremarkable. No pleural effusion. No pneumothorax. Heart/Mediastinum: Heart size is within normal limits. Moderate hiatal hernia. Vasculature: Atherosclerotic calcifications of the aorta are noted. Bones/joints: No acute osseous pathology. Mild increased density in the right lateral mid lung zone, possibly artifactual due to overlying osseous structures. XR/XR chest 1V portable [id number] IMPRESSION: 1. Mild increased density in the right lateral mid lung zone, possibly artifactual due to overlying osseous structures. Recommend short interval follow-up versus CT chest as clinically indicated. 2. No definitive evidence of acute cardiopulmonary disease.
[2023-05-22 18:31] LABS: Basophils # 0.1 10^3/uL (0.0-0.1); Basophils % 1.5 %; Eosinophils # 0.4 10^3/uL (0.0-0.8); Eosinophils % 10.5 %; Hematocrit 31.3 % (37-53); Lymphocytes % 28.9 %; Mean Corpuscular HGB Conc 33.5 g/dL (30-55); Mean Corpuscular Hemoglobin 30.3 pg (27-33); Mean Corpuscular Volume 90.2 fl (82-101); Mean Platelet Volume 9.9 fL (7.4-10.4); Monocytes # 0.4 10^3/uL (0.2-0.9); Monocytes % 11.4 %; Neutrophils # 1.63 10^3/uL (1.8-7.7); Neutrophils % 47.4 %; Nucleated Red Blood Cells % 0 %; Platelet Count 138 10^3/cmm (157-399); Red Blood Count 3.47 10^6/uL (3.85-5.65); Red Cell Distribution Width 15.9 % (12.1-15.1); White Blood Count 3.43 10^3/uL (3.29-11.43)
--- NOTE | 2023-05-22 18:41 | W.ED.GENADLT ---
HPI - General Adult General: Chief complaint: General Medical Stated complaint: hypertension Time Seen by Provider: 05/22/23 17:39 History of Present Illness: Patient presents to the ER with complaints of high blood pressure. Patient blood pressure at home systolic was over 250. Patient was given 25 mg hydralazine once waited 1 hour and given 25 mg of hydralazine then proceeded to come in with his blood pressure did not improve. Upon arrival patient's blood pressure was 243/117. Patient is also on 160 mg of valsartan daily and an unknown dose of Bystolic. Patient says seen a carbon lamp cleaner for these multiple times but the [facility] carbon lamp cleaner does not know what to do as his blood pressure wildly fluctuates sometimes in the morning it is in the 60s to 80s other times is 180 there is no known rational reason for the wild swings in his blood pressure. Patient is not having chest pain shortness of breath nausea or vomiting at this time. Review of Systems General: Reports: 10 or more systems reviewed and unremarkable except in HPI and below PFSH ED PFSH: Medical History B12 deficiency Iron (Fe) deficiency anemia Abdominal aortic aneurysm Salivary gland calculus Percutaneous transluminal coronary angioplasty (PTCA) within last 14 to 24 months Intermittent claudication Coronary artery disease CVA (cerebral vascular accident) Hypertension Diabetes mellitus Surgical History History of tonsillectomy History of right common carotid artery stent placement Family History Mother Polycystic kidney disease Chronic kidney disease (CKD) CAD (coronary artery disease) Stroke Brother CAD (coronary artery disease) Father Lung disease tuberculosis Denies family history of Diabetes Clotting disorder Dementia Psychiatric illness Suicide Anesthesia complication Bleeding disorder Cancer Hypertension Social History Smoking and tobacco/nicotine status: former use of tobacco/nicotine (smoked x 45 years) Alcohol intake: former 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 Substance/Drug Use: never Lives independently: Yes Household members: family Marital status: / Current occupational status: retired Physical Exam Const: COMMON NORMALS: no acute distress, average body habitus, patient oriented x3, no limitations, healthy appearing, alert and well nourished HENMT: COMMON NORMALS: normocephalic, atraumatic, hearing grossly normal bilaterally, external ears normal, Normal external nose present, moist oral mucous membranes and oropharynx normal HEAD & SCALP: normocephalic and atraumatic NOSE: Normal external nose present EXTERNAL EAR: Yes external ears normal Neck/C-Spine: COMMON NORMALS: no JVD Chest: COMMONS NORMALS: normal inspection of the chest and normal palpation of entire chest wall Resp: COMMON NORMALS: normal respiratory effort, No retractions, No use of accessory muscles and clear to auscultation bilaterally AUSCULTATION: clear to auscultation bilaterally Cardio: COMMON NORMALS: no JVD, regular rate, regular rhythm, S1 normal heart sound present, S2 normal heart sound present, No gallops present (Cardio), No clicks present (Cardio), No murmurs present (Cardio) and No rub (Cardio) RATE: regular rate RHYTHM: regular rhythm HEART SOUNDS: S1 normal heart sound present and S2 normal heart sound present GI: COMMON NORMALS: Normal to inspection, nondistended, normoactive bowel sounds present, Soft to palpation, non-tender, No hepatosplenomegaly present and no masses PALPATION: Yes Soft to palpation and Yes No hepatosplenomegaly present Neuro: COMMON NORMALS: patient oriented x3 SENSORIUM/ORIENTATION: Yes alert Course Vital Signs: Vital signs: Vital Signs Temperature 97.6 F 05/22/23 20:54 Pulse Rate 91 05/22/23 20:54 Respiratory Rate 16 05/22/23 20:54 Blood Pressure 152/86 05/22/23 20:54 Pulse Oximetry 97 05/22/23 20:54 [facility] - General Adult Medical Decision Making Patient was given 20 mg hydralazine IV while getting blood work chest x-ray and head neck CTA. All of these was essentially stable for the patient. Patient's blood pressure vastly improved down to the low 100s. Patient was also bolused 1 L of fluid due to chronic kidney disease and diet for the CTA. Patient was instructed to take 1 to 2 pills of his hydralazine every 1 hour as needed up to a maximum of 8 pills for his blood pressure. Upon further discussion with the patient he started describing history of right ophthalmic CVA approximately 3 months ago and led to the conclusion that he had another 1 in his left eye approximately 2 days ago where his vision went all of a sudden blurry but it is slowly improving. Patient asked if we can get another CT a which we did within there is no significant change. Lab Data 05/22/23 18:10 05/22/23 18:10 Radiology Impressions Chest X-Ray 05/22/23 17:39 IMPRESSION: 1. Mild increased density in the right lateral mid lung zone, possibly artifactual due to overlying osseous structures. Recommend short interval follow-up versus CT chest as clinically indicated. 2. No definitive evidence of acute cardiopulmonary disease. Head/Neck CTA 05/22/23 18:44 IMPRESSION: Stable CT angiographic appearance of the brain compared to 02/23/2023 and without evidence of acute arterial pathology. IMPRESSION: 1. Stable patent right carotid arterial stent with apparent [id number] stenosis of the midportion. This can be further evaluated with conventional angiography if indicated. Evaluation limited by artifact from stent. 2. Stable [id number] stenosis of the origin of the left internal carotid artery. 3. No acute arterial pathology in the neck which appears grossly stable compared to 02/23/2023. REFERENCES: NASCET CRITERIA. The degree of stenosis in the cervical segment of the internal carotid artery is based on NASCET criteria. Normal is no stenosis. Mild is less than 50% stenosis. Moderate is 50-69% stenosis. Severe is 70% to 99% stenosis. Total occlusion is no detectable patent lumen. Laboratory Results WBC 3.43 10^3/uL (3.29-11.43) 05/22/23 18:10 RBC 3.47 10^6/uL (3.85-5.65) L 05/22/23 18:10 Hgb 10.50 g/dL (11.27-16.99) L 05/22/23 18:10 Hct 31.3 % (37-53) L 05/22/23 18:10 MCV 90.2 fl (82-101) 05/22/23 18:10 MCH 30.3 pg (27-33) 05/22/23 18:10 MCHC 33.5 g/dL (30-55) 05/22/23 18:10 RDW 15.9 % (12.1-15.1) H 05/22/23 18:10 Plt Count 138 10^3/cmm (157-399) L 05/22/23 18:10 MPV 9.9 fL (7.4-10.4) 05/22/23 18:10 Neut % (Auto) 47.4 % 05/22/23 18:10 Lymph % (Auto) 28.9 % 05/22/23 18:10 [place] % (Auto) 11.4 % 05/22/23 18:10 Eos % (Auto) 10.5 % 05/22/23 18:10 Baso % (Auto) 1.5 % 05/22/23 18:10 Neut # (Auto) 1.63 10^3/uL (1.8-7.7) L 05/22/23 18:10 Lymph # (Auto) 1.0 10^3/uL (0.8-4.8) 05/22/23 18:10 [place] # (Auto) 0.4 10^3/uL (0.2-0.9) 05/22/23 18:10 Eos # (Auto) 0.4 10^3/uL (0.0-0.8) 05/22/23 18:10 Baso # (Auto) 0.1 10^3/uL (0.0-0.1) 05/22/23 18:10 Nucleated RBC % (auto) 0 % 05/22/23 18:10 Nucleated RBCs # 0.0 /100WBC 05/22/23 18:10 Sodium 134 mmol/L (136-145) L 05/22/23 18:10 Potassium 4.6 mmol/L (3.5-5.1) 05/22/23 18:10 Chloride 100 mmol/L (98-107) 05/22/23 18:10 Carbon Dioxide 22 mmol/L (22-29) 05/22/23 18:10 Anion Gap 16.6 (5-19) 05/22/23 18:10 BUN 35 mg/dL (8-23) H 05/22/23 18:10 Creatinine 1.9 mg/dL (0.7-1.2) H 05/22/23 18:10 GFR Calculation Not Reportable 05/22/23 18:10 Glucose 120 mg/dL (65-115) H 05/22/23 18:10 Calculated Osmolality 287 mOsm/kg (285-295) 05/22/23 18:10 Calcium 9.6 mg/dL (8.5-10.5) 05/22/23 18:10 Total Bilirubin 0.4 mg/dL (0.15-1.2) 05/22/23 18:10 AST 11 U/L (0-40) 05/22/23 18:10 ALT 8 U/L (0-41) 05/22/23 18:10 Alkaline Phosphatase 76 U/L (40-130) 05/22/23 18:10 Total Protein 7.0 g/dL (6.6-8.7) 05/22/23 18:10 Albumin 4.1 g/dL (3.5-5.2) 05/22/23 18:10 Globulin 2.9 g/dL (1.3-4.6) 05/22/23 18:10 All radiology interpretation(s) finalized by discharge Discharge Plan Discharge Patient Disposition: Home Clinical Impression: Labile hypertension Condition: Stable Prescriptions: No Action ferrous sulfate 324 mg (65 mg iron) tablet,delayed release (DR/EC) 324 mg PO DAILY tamsulosin 0.4 mg capsule 0.4 mg PO DAILY atorvastatin 40 mg Tablet 40 mg PO BEDTIME clopidogrel 75 mg Tablet 75 mg PO DAILY aspirin 81 mg Tablet,Delayed Release (Dr/Ec) 81 mg PO DAILY acetaminophen [Tylenol] 325 mg Tablet 325 mg PO QID PRN (Reason: pain/headache) cilostazol 100 mg Tablet 100 mg PO BID hydralazine 25 mg tablet 25 mg PO BID PRN (Reason: Hypertension) Rx Instructions: pressure above 160 valsartan 160 mg tablet 160 mg PO DAILY Lactobacillus acidoph-L.bulgar 1 million cell Tablet 2 tab PO DAILY potassium chloride 20 mEq Tablet Extended Release 20 meq PO DAILY Discharge Orders: Discharge ED (Routine); Ordered 05/22/23 Ordered By: Sy Linda Referrals: Tita Cat FNP [Primary Care Provider] - 1 week Patient Instructions: Hypertension (ED) Activity Restrictions/Additional Instructions: All of your evaluation including lab work and imaging in the ER was essentially benign or stable for you. Please feel free to increase your hydralazine from 1 tablet to every hour for blood pressure greater than 160 to 1 to 2 tablets every hour for blood pressure greater than 160 with a maximum of 8 tablets in the 4-hour. If you take all 8 tablets and your blood pressure still not under 160 please feel free to return to the ER as needed. Coding Level of Care Code ED Welding Process Engineer for Yolanda Morales
--- NOTE | 2023-05-22 18:44 | CTR_ITS ---
PROCEDURE INFORMATION: Exam: CTA Head With Contrast, Arteriography Exam date and time: 05/22/2023 7:08 PM Age: 87 years old Clinical indication: Visual disturbance; Prior surgery; Surgery date: 6+ months; Surgery type: Right carotid stent; Additional info: Left visual changes, HTN, HX of RT opthalmic CVA 3 months ag TECHNIQUE: Imaging protocol: Computed tomographic angiography of the head with contrast. Exam focused on the arteries. 3D rendering (Not supervised by radiologist): MIP and/or 3D reconstructed images were created by the technologist. Radiation optimization: All CT scans at this facility use at least one of these dose optimization techniques: automated exposure control; mA and/or kV adjustment per patient size (includes targeted exams where dose is matched to clinical indication); or iterative reconstruction. Contrast material: OMNI 350; Contrast volume: 100 ml; Contrast route: INTRAVENOUS (IV); COMPARISON: CT angio headneck* [id number] 02/23/2023 1:40 PM RADIATION DOSE METRICS: Total DLP (mGy-cm): 1026.12 FINDINGS: ANTERIOR CIRCULATION: Right internal carotid artery: Calcified though patent. No aneurysm. No stenosis. Right middle cerebral artery: No occlusion or significant stenosis. No aneurysm. Right anterior cerebral artery: No occlusion or significant stenosis. No aneurysm. Left internal carotid artery: Calcified though patent. No significant stenosis. No aneurysm. Left middle cerebral artery: No occlusion or significant stenosis. No aneurysm. Left anterior cerebral artery: No occlusion or significant stenosis. No aneurysm. POSTERIOR CIRCULATION: Right vertebral artery: Diminutive. Stable. Left vertebral artery: Dominant. Stable. Basilar artery: No occlusion or significant stenosis. No aneurysm. Right posterior cerebral artery: No occlusion or significant stenosis. No aneurysm. Left posterior cerebral artery: No occlusion or significant stenosis. No aneurysm. Other arteries: Bilateral ophthalmic arteries are adequately visualized and appears stable compared to prior study. No ophthalmic artery occlusions are seen. Brain: No definite mass, mass effect, or midline shift. Cerebral ventricles: No ventriculomegaly. Bones/joints: Unremarkable. No acute fracture. Soft tissues: Unremarkable. Other findings: Basilar arter pocket y: No occlusion or significant stenosis. No aneurysm. PROCEDURE INFORMATION: Exam: CTA Neck With Contrast Exam date and time: 05/22/2023 7:08 PM Age: 87 years old Clinical indication: Visual disturbance; Prior surgery; Surgery date: 6+ months; Surgery type: Right carotid stent; Additional info: Left visual changes, HTN, HX of RT opthalmic CVA 3 months ag TECHNIQUE: Imaging protocol: Computed tomographic angiography of the neck with contrast. Exam focused on the cervical segments of the vasculature. 3D rendering (Not supervised by radiologist): MIP and/or 3D reconstructed images were created by the technologist. Radiation optimization: All CT scans at this facility use at least one of these dose optimization techniques: automated exposure control; mA and/or kV adjustment per patient size (includes targeted exams where dose is matched to clinical indication); or iterative reconstruction. Contrast material: OMNI 350; Contrast volume: 100 ml; Contrast route: INTRAVENOUS (IV); COMPARISON: CT angio headneck* [id number] 02/23/2023 1:40 PM RADIATION DOSE METRICS: Total DLP (mGy-cm): 1026.12 FINDINGS: Right common carotid artery: Moderately calcified right common carotid artery. Right internal carotid artery: No stenosis of the extracranial segment. No dissection or occlusion. Right external carotid artery: No occlusion or stenosis of the origin. Left common carotid artery: Moderately calcified left common carotid artery. Patent right carotid arterial stent which appears riulnewz-nd-kgnmciln stenotic in the midportions, not well assessed due to artifact from stent. NASCET criteria poorly assessed due to artifact from stent, though 70-80% is suggested. Left internal carotid artery: 50-60% stenosis of the left internal carotid artery per NASCET criteria, stable. Left external carotid artery: No occlusion or stenosis of the origin. Right vertebral artery: Diminutive right vertebral artery, stable. No occlusions. Left vertebral artery: Left vertebral artery arises directly from the aorta. Dominant left vertebral artery which is patent. Aorta: Moderate atherosclerotic calcifications of the aorta and great vessels are stable. Soft tissues: Normal. No significant soft tissue swelling. Bones/joints: No acute fracture. CT/CT angio headneck* [id number] IMPRESSION: Stable CT angiographic appearance of the brain compared to 02/23/2023 and without evidence of acute arterial pathology. IMPRESSION: 1. Stable patent right carotid arterial stent with apparent htwrkeco-lh-kvzmia stenosis of the midportion. This can be further evaluated with conventional angiography if indicated. Evaluation limited by artifact from stent. 2. Stable egie-fn-rgaptnby stenosis of the origin of the left internal carotid artery. 3. No acute arterial pathology in the neck which appears grossly stable compared to 02/23/2023. REFERENCES: NASCET CRITERIA. The degree of stenosis in the cervical segment of the internal carotid artery is based on NASCET criteria. Normal is no stenosis. Mild is less than 50% stenosis. Moderate is 50-69% stenosis. Severe is 70% to 99% stenosis. Total occlusion is no detectable patent lumen.
[2023-05-22 18:48] LABS: Alanine Aminotransferase 8 U/L (0-41); Albumin Level 4.1 g/dL (3.5-5.2); Alkaline Phosphatase 76 U/L (40-130); Anion Gap 16.6 (5-19); Aspartate Amino Transferase 11 U/L (0-40); Blood Urea Nitrogen 35 mg/dL (8-23); Calcium 9.6 mg/dL (8.5-10.5); Carbon Dioxide 22 mmol/L (22-29); Chloride 100 mmol/L (98-107); Creatinine Clr Calc Pharmacy 31.9946; Globulin 2.9 g/dL (1.3-4.6); Glucose 120 mg/dL (65-115); Osmolality Calculated 287 mOsm/kg (285-295); Potassium 4.6 mmol/L (3.5-5.1); Sodium 134 mmol/L (136-145); Total Bilirubin 0.4 mg/dL (0.15-1.2)
[2023-05-22] MEDS: hyDRALAzine 20 mg/mL INJ 1 mL IVP (18:48)
[2023-05-22] MEDS: iohexol 350 mg/mL 500 mL Btl (per mL) IV (19:20)
[2023-05-22] MEDS: sodium chloride 0.9% 1,000 ML 999 ML IV (19:33)
== END 2023-05-22 20:30 | disposition home or self-care (01) ==
PROVIDERS: Family Medicine; Emergency Provider Emergency Medicine; PCP Nurse Practitioner
DX: I10 Essential (primary) hypertension (principal); Z79.02 Long term (current) use of antithrombotics/antiplatelets; Z79.82 Long term (current) use of aspirin; I25.10 Atherosclerotic heart disease of native coronary artery without angina pectoris; Z86.73 Personal history of transient ischemic attack (TIA), and cerebral infarction without residual deficits; E11.9 Type 2 diabetes mellitus without complications; Z87.891 Personal history of nicotine dependence
CPT/HCPCS: 70496; 70498; 71045; 80053; 85025; 93005; 96374; 99285; J0360; J7030; Q9967

== ENCOUNTER 2023-07-24 09:50 | Observation (INO) | payer OTHER, SELFPAY ==
[2023-07-24] VITALS (11 sets, daily range): BP systolic 98–221; BP diastolic 49–97; PULSE 48–75; RESP 10–18; TEMP 36.4–36.8; O2SAT 91–97; BMI 28.7
--- NOTE | 2023-07-24 09:58 | ECG_ITS ---
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 Measurements Intervals [place] Rate: 57 P: 29 TN: 221 QRS: -47 QRSD: 101 T: 82 QT: 406 QTc: 398 Interpretive Statements SINUS BRADYCARDIA WITH FIRST DEGREE AV BLOCK WITH FREQUENT VENTRICULAR PREMATURE COMPLEXES LEFT AXIS DEVIATION [QRS AXIS < -30] NONSPECIFIC T-WAVE ABNORMALITY Compared to ECG 05/22/2023 17:45:28 First degree AV block now present T-wave abnormality now present Sinus rhythm no longer present Sinus arrhythmia no longer present Incomplete right bundle-branch block no longer present Myocardial infarct finding no longer present Electronically Signed On 07-24-2023 14:30:51 CDT by Sunil Boateng M.D. [id number]
--- NOTE | 2023-07-24 09:59 | XRR_ITS ---
PROCEDURE INFORMATION: Exam: XR Chest Exam date and time: 07/24/2023 10:09 AM Age: 88 years old Clinical indication: Cough and dyspnea; Additional info: Dyspnea/cough TECHNIQUE: Imaging protocol: Radiologic exam of the chest. Views: 1 view. COMPARISON: CR XR chest 1V portable [id number] 05/22/2023 5:46 PM FINDINGS: Lungs: Unremarkable. No consolidation or mass. Pleural spaces: Unremarkable. No pleural effusion. No pneumothorax. Heart/Mediastinum: A hiatal hernia is noted in the lower mediastinum. Bones/joints: Unremarkable. XR/XR chest 1V portable [id number] IMPRESSION: No acute findings.
--- NOTE | 2023-07-24 10:34 | PC.PHAR ---
IVON L[facility] FAXIN MED LIST 10:30AM
[2023-07-24] MEDS: sodium chloride 0.9% 500 ML 999 ML IV (10:45)
[2023-07-24 10:58] LABS: Basophils % 0.7 %; Eosinophils # 0.2 10^3/uL (0.0-0.8); Eosinophils % 8.1 %; Hematocrit 31.9 % (37-53); Lymphocytes # 0.8 10^3/uL (0.8-4.8); Lymphocytes % 25.7 %; Mean Corpuscular HGB Conc 32.6 g/dL (30-55); Mean Corpuscular Hemoglobin 29.9 pg (27-33); Mean Corpuscular Volume 91.7 fl (82-101); Mean Platelet Volume 10.3 fL (7.4-10.4); Monocytes # 0.3 10^3/uL (0.2-0.9); Monocytes % 10.5 %; Neutrophils # 1.62 10^3/uL (1.8-7.7); Neutrophils % 54.7 %; Nucleated Red Blood Cells % 0 %; Platelet Count 119 10^3/cmm (157-399); Red Blood Count 3.48 10^6/uL (3.85-5.65); Red Cell Distribution Width 15.3 % (12.1-15.1); White Blood Count 2.96 10^3/uL (3.29-11.43)
[2023-07-24 11:16] LABS: Alanine Aminotransferase 7 U/L (0-41); Albumin Level 3.7 g/dL (3.5-5.2); Alkaline Phosphatase 67 U/L (40-130); Aspartate Amino Transferase 7 U/L (0-40); Blood Urea Nitrogen 39 mg/dL (8-23); Carbon Dioxide 21 mmol/L (22-29); Chloride 104 mmol/L (98-107); Creatinine Clr Calc Pharmacy 21.4519; Globulin 2.4 g/dL (1.3-4.6); Glucose 248 mg/dL (65-115); Osmolality Calculated 302 mOsm/kg (285-295); Sodium 137 mmol/L (136-145); Total Bilirubin 0.4 mg/dL (0.15-1.2); Total Protein 6.1 g/dL (6.6-8.7)
[2023-07-24 11:18] LABS: Troponin(5th) Baseline 35 ng/L (0-15)
--- NOTE | 2023-07-24 12:13 | ECG_ITS ---
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 Measurements Intervals [place] Rate: 52 P: 36 IN: 218 QRS: -38 QRSD: 108 T: 79 QT: 420 QTc: 394 Interpretive Statements SINUS BRADYCARDIA WITH FIRST DEGREE AV BLOCK LEFT AXIS DEVIATION [QRS AXIS < -30] NONSPECIFIC T-WAVE ABNORMALITY Compared to ECG 07/24/2023 09:58:05 No significant changes Electronically Signed On 07-24-2023 14:35:28 CDT by Sunil Boateng M.D. [id number]
[2023-07-24] MEDS: hyDRALAzine 20 mg/mL INJ 1 mL 10 MG IVP (12:19)
--- NOTE | 2023-07-24 12:47 | ED_ITS ---
HPI - General Adult 2 General: Chief complaint: General Medical Stated complaint: hypotension Time Seen by Provider: 07/24/23 09:50 Source: patient Mode of arrival: ambulatory History of Present Illness: 88-year-old male presents emergency room from the retirement with complaints of bradycardia and hypotension. Patient states he otherwise feels fine as he denies chest pain or abdominal pain or any shortness of breath. He did take all of his blood pressure medications this morning. He has a history of some chronic kidney disease and hypertension. We contacted the retirement they confirm be taken everything with hydralazine this morning and has been no recent changes in his blood pressure medicines Associated symptoms: Deny chest pain, confusion, cough, diaphoresis, decreased appetite, dyspnea, fevers/chills, headache(s), malaise, nausea, rash, palpitations, seizures, short of breath, syncope, vomiting or weakness Review of Systems 2 Const: Denies: fever(s), chills, malaise or diaphoresis Card: Denies: chest pain, palpitations or syncope Resp: Denies: dyspnea GI: Denies: abdominal pain, nausea or vomiting : Denies: dysuria, urinary frequency or urinary urgency Musc: Denies: neck pain or back pain Skin/Breast: Denies: rash Neuro: Denies: headache(s) or confusion PFSH ED 2 PFSH: Medical History B12 deficiency Iron (Fe) deficiency anemia Abdominal aortic aneurysm Salivary gland calculus Percutaneous transluminal coronary angioplasty (PTCA) within last 14 to 24 months Intermittent claudication Coronary artery disease CVA (cerebral vascular accident) Hypertension Diabetes mellitus Surgical History History of tonsillectomy History of right common carotid artery stent placement Family History Mother Polycystic kidney disease Chronic kidney disease (CKD) CAD (coronary artery disease) Stroke Brother CAD (coronary artery disease) Father Lung disease tuberculosis Denies family history of Diabetes Clotting disorder Dementia Psychiatric illness Suicide Anesthesia complication Bleeding disorder Cancer Hypertension Social History Smoking and tobacco/nicotine status: former use of tobacco/nicotine (smoked x 45 years) Alcohol intake: former 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 Substance/Drug Use: never Lives independently: Yes Household members: family Marital status: / Current occupational status: retired Physical Exam 2 Const: COMMON NORMALS: no acute distress GENERAL APPEARANCE: cooperative and comfortable ORIENTATION/CONSCIOUSNESS: Yes awake, Yes oriented to person, Yes oriented to place and Yes oriented to time HENMT: COMMON NORMALS: normocephalic, atraumatic and hearing grossly normal bilaterally HEAD & SCALP: normocephalic and atraumatic Resp: COMMON NORMALS: normal respiratory effort, No retractions, No use of accessory muscles and clear to auscultation bilaterally AUSCULTATION: clear to auscultation bilaterally Cardio: COMMON NORMALS: regular rate, regular rhythm and No murmurs present (Cardio) RATE: regular rate RHYTHM: regular rhythm GI: COMMON NORMALS: Soft to palpation and No hepatosplenomegaly present A USCULTATION: Yes normoactive bowel sounds PALPATION: Yes Soft to palpation, No Tenderness to palpation present (GI), No Guarding due to palpation present (GI) and Yes No hepatosplenomegaly present Extremity: COMMON NORMALS: normal to inspection, capillary refill normal, no clubbing, cyanosis or edema, no calf tenderness and no pedal edema Neuro: SENSORIUM/ORIENTATION: Yes oriented to person, Yes oriented to place and Yes oriented to time Skin: COMMON NORMALS: no rashes or lesions noted GENERAL SKIN EXAM: no rashes or lesions noted Course 2 Vital Signs: Vital signs: Vital Signs Temperature 97.6 F 07/24/23 09:53 Pulse Rate 56 L 07/24/23 12:00 Respiratory Rate 18 07/24/23 09:53 Blood Pressure 212/97 07/24/23 12:00 Pulse Oximetry 95 07/24/23 12:00 Oxygen Delivery Me thod Room Air 07/24/23 12:00 [facility] - General Adult Medical Decision Making Blood pressure actually rapidly increased. Patient has some mild leukocytopenia anemia though however this is chronic. Also mild thrombocytosis. He has chronic kidney disease which has been worsening and is acutely worsened today. Blood pressure actually rapidly increased when he first arrived he was hypotensive pressures in the 80s and 90s. Blood pressure subsequently increased into the 200s systolic range. She was given hydralazine. Will admit for labile hypertension bradycardia and acute on chronic renal failure. Medical Records I reviewed the patient's medical records. Lab Data I reviewed the patient's lab results. 07/24/23 10:36 07/24/23 10:36 Radiology Impressions Chest X-Ray 07/24/23 09:59 IMPRESSION: No acute findings. Laboratory Results WBC 2.96 10^3/uL (3.29-11.43) L 07/24/23 10:36 RBC 3.48 10^6/uL (3.85-5.65) L 07/24/23 10:36 Hgb 10.40 g/dL (11.27-16.99) L 07/24/23 10:36 Hct 31.9 % (37-53) L 07/24/23 10:36 MCV 91.7 fl (82-101) 07/24/23 10:36 MCH 29.9 pg (27-33) 07/24/23 10:36 MCHC 32.6 g/dL (30-55) 07/24/23 10:36 RDW 15.3 % (12.1-15.1) H 07/24/23 10:36 Plt Count 119 10^3/cmm (157-399) L 07/24/23 10:36 MPV 10.3 fL (7.4-10.4) 07/24/23 10:36 Neut % (Auto) 54.7 % 07/24/23 10:36 Lymph % (Auto) 25.7 % 07/24/23 10:36 Haines % (Auto) 10.5 % 07/24/23 10:36 Eos % (Auto) 8.1 % 07/24/23 10:36 Baso % (Auto) 0.7 % 07/24/23 10:36 Neut # (Auto) 1.62 10^3/uL (1.8-7.7) L 07/24/23 10:36 Lymph # (Auto) 0.8 10^3/uL (0.8-4.8) 07/24/23 10:36 Haines # (Auto) 0.3 10^3/uL (0.2-0.9) 07/24/23 10:36 Eos # (Auto) 0.2 10^3/uL (0.0-0.8) 07/24/23 10:36 Baso # (Auto) 0.0 10^3/uL (0.0-0.1) 07/24/23 10:36 Nucleated RBC % (auto) 0 % 07/24/23 10:36 Nucleated RBCs # 0.0 /100WBC 07/24/23 10:36 Sodium 137 mmol/L (136-145) 07/24/23 10:36 Potassium 4.0 mmol/L (3.5-5.1) 07/24/23 10:36 Chloride 104 mmol/L (98-107) 07/24/23 10:36 Carbon Dioxide 21 mmol/L (22-29) L 07/24/23 10:36 Anion Gap 16.0 (5-19) 07/24/23 10:36 BUN 39 mg/dL (8-23) H 07/24/23 10:36 Creatinine 2.8 mg/dL (0.7-1.2) H 07/24/23 10:36 GFR Calculation Not Reportable 07/24/23 10:36 Glucose 248 mg/dL (65-115) H 07/24/23 10:36 Calculated Osmolality 302 mOsm/kg (285-295) H 07/24/23 10:36 Calcium 9.0 mg/dL (8.5-10.5) 07/24/23 10:36 Total Bilirubin 0.4 mg/dL (0.15-1.2) 07/24/23 10:36 AST 7 U/L (0-40) 07/24/23 10:36 ALT 7 U/L (0-41) 07/24/23 10:36 Alkaline Phosphatase 67 U/L (40-130) 07/24/23 10:36 Troponin T Baseline 35 ng/L (0-15) H 07/24/23 10:36 Total Protein 6.1 g/dL (6.6-8.7) L 07/24/23 10:36 Albumin 3.7 g/dL (3.5-5.2) 07/24/23 10:36 Globulin 2.4 g/dL (1.3-4.6) 07/24/23 10:36 All radiology interpretation(s) finalized by discharge Discharge Plan Discharge Patient Disposition: Placed in Observation Admit Provider: Lux Harkins Clinical Impression: Labile hypertension, Bradycardia, sinus Condition: Stable Coding Level of Care Code ED Copy Center Operator for Yolanda Morales
--- NOTE | 2023-07-24 13:28 | PC.NURSE ---
Informed Dr Harkins of patient's blood pressures. BP are elevated to left arm. Received instruction to not obtain BP in right arm.
[2023-07-24 13:44] LABS: Troponin 5 2HR 32.51 ng/L (0-15)
[2023-07-24 13:45] LABS: Troponin 5 2HR Delta -2.49 ABS# (0-10)
--- NOTE | 2023-07-24 14:52 | P.HP_ITS ---
Providers/Chief Complaint 2 Admitting Physician: Lux Harkins MD Primary Care Provider: NILDA Camacho Chief Complaint: hypotension History of Present Illness Kwaku Castorena is a 88 year old male nursing facility resident with chronic kidney disease, coronary disease, history of CVA and diabetes who presents to the emergency department after blood pressure was found to be low at the nursing facility. Son is present with him, reporting he is his power of litigation attorney when his father can no longer make decisions for himself. He relates that at home when he was caring for him blood pressure could frequently be low in the morning,And he usually does not start his medications and feels blood pressure rises. There has been some concern with his renal function as well lately, and cardiology had referred him back to nephrology for medication adjustment. He is currently on a fairly large dose of valsartan. Patient himself denies any chest pain, dizziness, or other symptoms. Review of Systems 2 General: Reports: 10 or more systems reviewed and unremarkable except in HPI and below Card: Denies: chest pain Resp: Denies: dyspnea GI: Denies: abdominal pain, nausea, vomiting, hematochezia or melena Medications/Allergies Home Medications Medication Instructions Recorded Confirmed Last Taken Type acetaminophen 325 mg tablet 650 mg PO QID PRN pain/headache 08/10/19 07/24/23 Unknown History (Tylenol) clopidogrel 75 mg tablet 75 mg PO DAILY 08/10/19 07/24/23 07/24/23 History cilostazol 100 mg tablet 100 mg PO BID 09/25/20 07/24/23 07/24/23 History tamsulosin 0.4 mg capsule 0.4 mg PO BEDTIME 06/25/21 07/24/23 07/23/23 History Lactobacillus acidoph-L.bulgaricus 2 tab PO QPM 02/23/23 07/24/23 07/23/23 History 1 million cell tablet hydralazine 25 mg tablet 25 mg PO BID PRN Hypertension 02/23/23 07/24/23 Unknown History valsartan 160 mg tablet 160 mg PO QPM 02/23/23 07/24/23 07/23/23 History atorvastatin 20 mg tablet 20 mg PO BEDTIME 07/24/23 07/24/23 07/23/23 History carvedilol 12.5 mg tablet 12.5 mg PO BID 07/24/23 07/24/23 07/24/23 History cholecalciferol (vitamin D3) 50 50 mcg PO DAILY 07/24/23 07/24/23 07/24/23 History mcg (2,000 unit) tablet (Vitamin D3) ferrous gluconate 324 mg (37.5 mg 324 mg PO DAILY 07/24/23 07/24/23 07/24/23 History iron) tablet montelukast 10 mg tablet 10 mg PO QPM 07/24/23 07/24/23 07/23/23 History (Singulair) nifedipine 30 mg tablet,extended 30 mg PO DAILY 07/24/23 07/24/23 07/24/23 History release 24 hr potassium chloride 10 mEq 10 meq PO .QOD 07/24/23 07/24/23 Unknown History tablet,extended release(part/cryst) torsemide 20 mg tablet 20 mg PO .QOD 07/24/23 07/24/23 Unknown History valsartan 80 mg tablet 80 mg PO QAM 07/24/23 07/24/23 07/24/23 History Allergies Allergy/AdvReac Type Severity Reaction Status Date / Time egg Allergy ADR-Flatule Verified 02/23/23 10:37 nce sulfamethoxazole Allergy Unknown Verified 02/23/23 10:37 [From Bactrim] trimethoprim [From Bactrim] Allergy Unknown Verified 02/23/23 10:37 PFSH Acute 2 PFSH: Medical History B12 deficiency Iron (Fe) deficiency anemia Abdominal aortic aneurysm Salivary gland calculus Percutaneous transluminal coronary angioplasty (PTCA) within last 14 to 24 months Intermittent claudication Coronary artery disease CVA (cerebral vascular accident) Hypertension Diabetes mellitus Surgical History History of tonsillectomy History of right common carotid artery stent placement Family History Mother Polycystic kidney disease Chronic kidney disease (CKD) CAD (coronary artery disease) Stroke Brother CAD (coronary artery disease) Father Lung disease tuberculosis Denies family history of Diabetes Clotting disorder Dementia Psychiatric illness Suicide Anesthesia complication Bleeding disorder Cancer Hypertension Social History Smoking and tobacco/nicotine status: former use of tobacco/nicotine (smoked x 45 years) Alcohol intake: former 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 I am not for sure where his blood pressure was taken in the ER or nursing facility. HEENT: Atraumatic normocephalic. Oropharynx is clear Neck is supple no lymphadenopathy thyromegaly Cardiovascular regular rate and rhythm with a 2/6 systolic murmur Lungs clear Abdomen is soft with positive bowel sounds Extremities no cyanosis clubbing or edema, cap refill brisk Skin no rash Neuro no obvious focal deficits. Data 07/24/23 10:36 07/24/23 10:36 Other Labs: LFTs normal Troponin is 35 with repeat of 32 Calcium and albumin are normal Urinalysis ordered Chest x-ray by my read no infiltrate EKG by my read demonstrates sinus rhythm, left axis deviation, few PVCs. Heart rate around 55. Poor R wave progression. A&P Assessment and plan (1) OCTAVIA (acute kidney injury): Patient with acute kidney injury Hold valsartan IV fluids Urinalysis Has known high-grade renal artery stenosis Urinated a fair quantity in the emergency department. Will go ahead and bladder scan. Overall doubt obstruction. Also has a known element of chronic kidney disease. Hold diuretics tonight Recheck renal function and CBC tomorrow (2) Hypotension: Initial concern is near emergency department with hypotension and bradycardia. Heart rate in the mid 50s, it is relatively normal for the patient according to son. I am not for sure which arm his blood pressure was taken and earlier. 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 Will take all blood pressure on the left and use this as his correct blood pressure. No blood pressures on the right. (3) Labile hypertension: As we will be discontinuing his ARB for now we will give him his hydralazine scheduled 25 mg 3 times daily. Will discontinue his nifedipine and give 5 mg of Norvasc now and 10 mg daily Continue carvedilol at current dose Hold diuretics Plan Other medical problems as outlined in past medical history Allow natural Heparin for DVT prophylaxis Attestations 2 Medical Necessity Statement*: Will need less than 2 midnight stay for evaluation and treatment of acute kidney injury and labile blood pressure. Diagnoses OCTAVIA (acute kidney injury) N17.9 Hypotension I95.9 Labile hypertension R09.89 Time Spent (min) 64
[2023-07-24] MEDS: amlodipine 5 mg Tablet PO (15:28)
[2023-07-24] MEDS: hyDRALAzine 25 mg Tablet PO ×2 (15:28→22:13)
[2023-07-24] MEDS: sodium chloride 0.9% 1,000 ML 75 ML IV (15:28)
[2023-07-24] MEDS: heparin 5,000 unit/mL INJ 1 mL 5000 UNIT SUBCUT (15:28)
--- NOTE | 2023-07-24 15:59 | ECG_ITS ---
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 Measurements Intervals [place] Rate: 58 P: 0 VT: 0 QRS: -53 QRSD: 98 T: 84 QT: 387 QTc: 380 Interpretive Statements SINUS BRADYCARDIA WITH OCCASIONAL PVC LEFT AXIS DEVIATION [QRS AXIS < -30] INCOMPLETE RIGHT BUNDLE BRANCH BLOCK [90+ ms QRS DURATION, TERMINAL R IN V1/V2, 40+ ms S IN I/aVL/V4/V5/V6] NONSPECIFIC T-WAVE ABNORMALITY Compared to ECG 07/24/2023 12:13:17 Ventricular premature complex(es) now present Aberrant conduction of supraventricular beat(s) now present Incomplete right bundle-branch block now present First degree AV block no longer present T-wave abnormality still present Electronically Signed On 07-25-2023 7:33:17 CDT by Jason Rivas M.D. [id number]
[2023-07-24 17:48] LABS: Troponin 5 6HR 31.68 ng/L (0-15)
[2023-07-24 17:49] LABS: Troponin 5 6HR Delta -3.32 ng/L (0-12)
[2023-07-24] MEDS: carvedilol 12.5 mg Tablet PO (17:50)
[2023-07-24] MEDS: cilostazol 100 mg Tablet PO (17:50)
[2023-07-24 18:35] LABS: Add Urine Culture? No; Bacteria Urine TRACE /hpf; Bilirubin Urine Neg (Negative); Blood Urine Neg (Negative); Glucose Urine UA 2+ (Normal); Ketones Urine Negative (Negative); Leukocyte Esterase Urine Negative (Negative); Nitrate Urine Negative (Negative); Protein Urine Neg (Negative); Specific Gravity, Urine 1.005 (1.005-1.030); Urine Appearance Clear (CLEAR); Urine Color Yellow (Yellow); Urobilinogen Urine Norm (Negative); pH Urine 7 (5-7)
[2023-07-24] MEDS: atorvastatin 40 mg Tablet PO (22:13)
[2023-07-24] MEDS: tamsulosin 0.4 mg Capsule 0.400000000000000022 MG PO (22:13)
[2023-07-25] VITALS: BP 162/70; PULSE 67; RESP 22; TEMP 36.6; O2SAT 94
[2023-07-25 04:00] VITALS: BP 167/58; PULSE 67; RESP 14; TEMP 36.9; O2SAT 97
[2023-07-25] MEDS: heparin 5,000 unit/mL INJ 1 mL 5000 UNIT SUBCUT (04:10)
[2023-07-25 04:14] LABS: Basophils % 1.3 %; Eosinophils # 0.3 10^3/uL (0.0-0.8); Eosinophils % 8.5 %; Hematocrit 31.8 % (37-53); Lymphocytes % 33.2 %; Mean Corpuscular HGB Conc 32.4 g/dL (30-55); Mean Corpuscular Hemoglobin 29.4 pg (27-33); Mean Corpuscular Volume 90.9 fl (82-101); Mean Platelet Volume 10.4 fL (7.4-10.4); Monocytes # 0.3 10^3/uL (0.2-0.9); Monocytes % 9.8 %; Neutrophils # 1.45 10^3/uL (1.8-7.7); Neutrophils % 47.2 %; Nucleated Red Blood Cells % 0 %; Platelet Count 117 10^3/cmm (157-399); Red Cell Distribution Width 15.5 % (12.1-15.1); White Blood Count 3.07 10^3/uL (3.29-11.43)
[2023-07-25] MEDS: sodium chloride 0.9% 1,000 ML 75 ML IV (04:23)
[2023-07-25 04:33] LABS: Alanine Aminotransferase 6 U/L (0-41); Albumin Level 3.4 g/dL (3.5-5.2); Alkaline Phosphatase 61 U/L (40-130); Anion Gap 14.9 (5-19); Aspartate Amino Transferase 8 U/L (0-40); Blood Urea Nitrogen 36 mg/dL (8-23); Calcium 8.9 mg/dL (8.5-10.5); Carbon Dioxide 19 mmol/L (22-29); Chloride 109 mmol/L (98-107); Creatinine Clr Calc Pharmacy 28.6026; Globulin 2.7 g/dL (1.3-4.6); Glucose 112 mg/dL (65-115); Magnesium 2.1 mg/dL (1.7-2.3); Osmolality Calculated 297 mOsm/kg (285-295); Potassium 3.9 mmol/L (3.5-5.1); Sodium 139 mmol/L (136-145); Total Bilirubin 0.3 mg/dL (0.15-1.2); Total Protein 6.1 g/dL (6.6-8.7)
[2023-07-25 06:00] VITALS: PULSE 67
[2023-07-25 07:23] VITALS: BP 160/88; PULSE 67; RESP 22; TEMP 37.2; O2SAT 92
--- NOTE | 2023-07-25 08:48 | PM.DCS ---
Discharge Providers Date of Admission: 07/24/23 11:49 Date of Discharge: July 25, 2023 Attending Provider at Admission: Lux Harkins MD Attending Provider at Discharge: Lux Harkins MD Primary Care Provider: NILDA Camacho Diagnoses at Discharge Discharge Diagnosis (1) OCTAVIA (acute kidney injury): Status: Acute (2) Hypotension: Status: Acute (3) Labile hypertension: Status: Acute Reason for Visit Reason for Visit: hypotension Hospital Course Hospital Course Patient is an 88-year-old white male who presented from the nursing facility with low blood pressure initially and elevated creatinine. He was placed under observation. Baseline creatinine was thought to be around 1.7-1.9 and creatinine on admission was 2.8. Blood pressure in the ER eventually went up to a degree that they gave hydralazine. He was placed in the hospital on low level of IV fluids. His ARB was held. His diuretics were held. Hydralazine that he was on as needed was changed to 25 3 times daily and ultimately nifedipine that he was on at home was increased. Carvedilol was continued. The following day his blood pressure was 160/90. I discussed his case briefly with nephrology provider in [place] who he sees on a regular basis. He will be discharged on nifedipine 60 mg a day, hydralazine 25 3 times daily. His torsemide will be discontinued. His carvedilol will be continued. His valsartan will be discontinued but may be readded later. 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 He will be on a cardiac diet. I discussed this with him, his son, and nephrology provider in [place]. They were able to ask questions and agreed with the plan. Physical Exam Narrative: General exam no distress Neck is supple Cardiovascular regular rate rhythm, 2/6 systolic murmur Lungs clear Abdomen is soft, positive bowel sounds Extremities no cyanosis clubbing edema Discharge Data Studies Completed and Pending Completed Studies During Hospitalization Category Date Time Status XR chest 1V portable [id number] Stat Exams 07/24/23 09:59 Completed Radiology Impressions Chest X-Ray 07/24/23 09:59 IMPRESSION: No acute findings. Laboratory Results WBC 3.07 10^3/uL (3.29-11.43) L 07/25/23 03:30 RBC 3.50 10^6/uL (3.85-5.65) L 07/25/23 03:30 Hgb 10.30 g/dL (11.27-16.99) L 07/25/23 03:30 Hct 31.8 % (37-53) L 07/25/23 03:30 MCV 90.9 fl (82-101) 07/25/23 03:30 MCH 29.4 pg (27-33) 07/25/23 03:30 MCHC 32.4 g/dL (30-55) 07/25/23 03:30 RDW 15.5 % (12.1-15.1) H 07/25/23 03:30 Plt Count 117 10^3/cmm (157-399) L 07/25/23 03:30 MPV 10.4 fL (7.4-10.4) 07/25/23 03:30 Neut % (Auto) 47.2 % 07/25/23 03:30 Lymph % (Auto) 33.2 % 07/25/23 03:30 [place] % (Auto) 9.8 % 07/25/23 03:30 Eos % (Auto) 8.5 % 07/25/23 03:30 Baso % (Auto) 1.3 % 07/25/23 03:30 Neut # (Auto) 1.45 10^3/uL (1.8-7.7) L 07/25/23 03:30 Lymph # (Auto) 1.0 10^3/uL (0.8-4.8) 07/25/23 03:30 [place] # (Auto) 0.3 10^3/uL (0.2-0.9) 07/25/23 03:30 Eos # (Auto) 0.3 10^3/uL (0.0-0.8) 07/25/23 03:30 Baso # (Auto) 0.0 10^3/uL (0.0-0.1) 07/25/23 03:30 Nucleated RBC % (auto) 0 % 07/25/23 03:30 Nucleated RBCs # 0.0 /100WBC 07/25/23 03:30 Sodium 139 mmol/L (136-145) 07/25/23 03:30 Potassium 3.9 mmol/L (3.5-5.1) 07/25/23 03:30 Chloride 109 mmol/L (98-107) H 07/25/23 03:30 Carbon Dioxide 19 mmol/L (22-29) L 07/25/23 03:30 Anion Gap 14.9 (5-19) 07/25/23 03:30 BUN 36 mg/dL (8-23) H 07/25/23 03:30 Creatinine 2.1 mg/dL (0.7-1.2) H 07/25/23 03:30 GFR Calculation Not Reportable 07/25/23 03:30 Glucose 112 mg/dL (65-115) 07/25/23 03:30 Calculated Osmolality 297 mOsm/kg (285-295) H 07/25/23 03:30 Calcium 8.9 mg/dL (8.5-10.5) 07/25/23 03:30 Magnesium 2.1 mg/dL (1.7-2.3) 07/25/23 03:30 Total Bilirubin 0.3 mg/dL (0.15-1.2) 07/25/23 03:30 AST 8 U/L (0-40) 07/25/23 03:30 ALT 6 U/L (0-41) 07/25/23 03:30 Alkaline Phosphatase 61 U/L (40-130) 07/25/23 03:30 Troponin T Baseline 35 ng/L (0-15) H 07/24/23 10:36 Troponin T 120 Minute 32.51 ng/L (0-15) H 07/24/23 13:18 Delta Troponin T -2.49 ABS# (0-10) L 07/24/23 13:18 Troponin T Hi Sens 6Hr 31.68 ng/L (0-15) H 07/24/23 17:05 Troponin T Hi Sens 6Hr Delta -3.32 ng/L (0-12) L 07/24/23 17:05 Total Protein 6.1 g/dL (6.6-8.7) L 07/25/23 03:30 Albumin 3.4 g/dL (3.5-5.2) L 07/25/23 03:30 Globulin 2.7 g/dL (1.3-4.6) 07/25/23 03:30 Urine Color Yellow (Yellow) 07/24/23 17:47 Urine Appearance Clear (CLEAR) 07/24/23 17:47 Urine pH 7 (5-7) 07/24/23 17:47 Ur Specific [place] 1.005 (1.005-1.030) 07/24/23 17:47 Urine Protein Neg (Negative) 07/24/23 17:47 Urine Glucose (UA) 2+ (Normal) H 07/24/23 17:47 Urine Ketones Negative (Negative) 07/24/23 17:47 Urine Blood Neg (Negative) 07/24/23 17:47 Urine Nitrate Negative (Negative) 07/24/23 17:47 Urine Bilirubin Neg (Negative) 07/24/23 17:47 Urine Urobilinogen Norm mg/dL (Negative) 07/24/23 17:47 Ur Leukocyte Esterase Negative (Negative) 07/24/23 17:47 Urine RBC None /hpf (0-2) 07/24/23 17:47 Urine WBC None /hpf (0-5) 07/24/23 17:47 Ur Squamous Epith Cells None /hpf (0-5) 07/24/23 17:47 Amorphous Sediment Not Reportable 07/24/23 17:47 Urine Bacteria Trace /hpf (NONE) 07/24/23 17:47 Vitals Last Vital Signs Temp 98.9 F 07/25/23 07:23 Pulse 67 07/25/23 07:23 Resp 22 H 07/25/23 07:23 BP 160/88 07/25/23 07:23 Pulse Ox 92 07/25/23 07:23 O2 Del Method Room Air 07/25/23 07:23 Discharge Plan Discharge Patient Disposition: Xfer SNF Condition: Stable Prescriptions: New hydralazine 25 mg Tablet 25 mg PO TID Qty: 90 0RF nifedipine 30 mg Tablet Extended Release 24hr 60 mg PO DAILY Qty: 60 0RF Continued tamsulosin 0.4 mg capsule 0.4 mg PO BEDTIME clopidogrel 75 mg Tablet 75 mg PO DAILY acetaminophen [Tylenol] 325 mg Tablet 650 mg PO QID PRN (Reason: pain/headache) cilostazol 100 mg Tablet 100 mg PO BID hydralazine 25 mg tablet 25 mg PO BID PRN (Reason: Hypertension) Rx Instructions: pressure above 160 Lactobacillus acidoph-L.bulgar 1 million cell Tablet 2 tab PO QPM atorvastatin 20 mg tablet 20 mg PO BEDTIME carvedilol 12.5 mg tablet 12.5 mg PO BID Singulair 10 mg Tablet 10 mg PO QPM Vitamin D3 50 mcg (2,000 unit) Tablet 50 mcg PO DAILY ferrous gluconate 324 mg (37.5 mg iron) Tablet 324 mg PO DAILY Discontinued valsartan 160 mg tablet 160 mg PO QPM nifedipine 30 mg tablet extended release 24hr 30 mg PO DAILY torsemide 20 mg tablet 20 mg PO .QOD valsartan 80 mg Tablet 80 mg PO QAM potassium chloride 10 mEq tablet,ER particles/crystals 10 meq PO .QOD Discharge Orders: Discharge Order (Routine); Ordered 07/25/23 Ordered By: Lux Harkins Referrals: Boris Patino MD [Physician] - 4-7 days Discharge Diet: Cardiac Discharge Activity: Increase activity as tolerated Patient Instructions: Nifedipine (By mouth) (Adalat CC, Nifedical XL, Procardia, Procardia XL), Hydralazine (By mouth), Acute Kidney Injury (DC), Hypotension (DC), Bradycardia (DC) Activity Restrictions/Additional Instructions: Follow-up with your physician at the nursing facility Dr. Palma creatinine 3 to 5 days. BMP , faxed to Dr. Patino and nephrology Return for any concerns Weight daily for 1 week, notifying physician if significant weight gain Take blood pressures only in left arm. Discharge Attestations Time Spent in Discharge Care*: greater than 30 min Status at Discharge: Cognitive status at discharge: cognitively intact, Quality Metrics Clinical Quality Measures [ No reported AMI, CVA or VTE this stay] Coding Level of Care Code 68647 Total time (in minutes) for Discharge: 47 Diagnoses OCTAVIA (acute kidney injury) N17.9 Hypotension I95.9 Labile hypertension R09.89
[2023-07-25] MEDS: clopidogrel 75 mg Tablet PO (08:53)
[2023-07-25] MEDS: carvedilol 12.5 mg Tablet PO (08:53)
[2023-07-25] MEDS: cilostazol 100 mg Tablet PO (08:53)
[2023-07-25] MEDS: NIFEdipine ER (24 hr) 30 mg Tablet 60 MG PO (08:53)
[2023-07-25] MEDS: hyDRALAzine 25 mg Tablet PO (08:53)
[2023-07-25 09:37] VITALS: BP 142/80
--- NOTE | 2023-07-25 09:44 | PC.NURSE ---
report called to snf talked to [facility] staff of [facility]. hand off report provided in regards to pt's recent BP that is taken manually w/c is 142/80 on left arm. discharge instructions provided to staff. discharge packet printed. waiting for transportation.
--- NOTE | 2023-07-25 09:59 | PC.CHAP ---
Pastoral Care Encounter/Spiritual Assessment Type of Contact [] Declined measurement supervisor visit [] Patient/Family/Request visit [] Outpatient visit [] Follow-up visit [] Physician referral [] Code/Alert [x] Routine visit [] Staff referral [] Actively dying [] Patient sleeping [] Family support [] [] Out of room [] Palliative care [] [] Receiving care in room [] Pre-surgical visit [] Trauma [] Long length of stay [] ICU visit [] Other: Relational/Emotional Strength [x] Patient feels connected with others/family/visitors/staff [] Distress [] Loneliness/isolation [] Abandonment Spirituality of Patient [x] Person of [place] [] Attends Mu-Ism of their [place] [x] Believes in Prayer [] Reads Bible or Church materials [] There are Spiritual issues to be addressed Direct Marketing Intern Interventions [x] Prayer [] Active listening [] Non-anxious presence [x] Spiritual/emotional support [] Crisis/trauma care [] Spiritual counseling [] Bereavement support [] Provided bereavement packet [] Provided Bible/devotional materials [] Provided toy/stuffed animal, coloring book to patient or family member [] Provided Communion [] Anointing/[place] [] Salvation [x] Completed spiritual assessment [] Other: Impact on Illness or Injury [] Angry [] Fearful [] Anxious [] Often cries [] Exhaustion [] Unable to work [] Unable to attend christianity [] Unable to walk/stand [] Unable to read [] Unable to drive [] Unable to eat/drink [] Unable to sleep [] Unable to be with family [] Patient intubated [] Other: Summary Time spent with patient 5 min
--- NOTE | 2023-07-25 10:08 | PC.NURSE ---
transportation here now from [employer]
--- NOTE | 2023-07-25 10:09 | PC.NURSE ---
family update updated family. talked to dgtr Lilian about pt's discharge plan and medication adjustments.
== END 2023-07-25 10:08 | disposition skilled nursing facility (03) ==
LOC: ER 10:27 → CSU 12:56
PROVIDERS: Admitting Provider Internal Medicine; Emergency Provider Family Medicine; PCP Nurse Practitioner; Visit Provider Internal Medicine
DX: N17.9 Acute kidney failure, unspecified (principal); I95.9 Hypotension, unspecified; R09.89 Other specified symptoms and signs involving the circulatory and respiratory systems; I25.10 Atherosclerotic heart disease of native coronary artery without angina pectoris; Z86.73 Personal history of transient ischemic attack (TIA), and cerebral infarction without residual deficits; E11.22 Type 2 diabetes mellitus with diabetic chronic kidney disease; I12.9 Hypertensive chronic kidney disease with stage 1 through stage 4 chronic kidney disease, or unspecified chronic kidney disease; N18.9 Chronic kidney disease, unspecified; Z87.891 Personal history of nicotine dependence
CPT/HCPCS: 36415; 51798; 71045; 80053; 81001; 83735; 84484; 85025; 93005; 96372; 96374; 99285; A9270; G0378; J0360; J1644; J7030; J7040

== ENCOUNTER → 2024-11-20 14:46 | Outpatient (BNVA) | payer MEDICARE, MEDICAID, SELFPAY | PROVIDERS: PCP Nurse Practitioner; Referring Provider Internal Medicine; Visit Provider Internal Medicine Cardiovascular Disease | DX: R07.9 Chest pain, unspecified (principal) | CPT/HCPCS: 93005 ==

== ENCOUNTER 2025-01-27 13:53 | Outpatient (CLI) | payer MEDICARE, MEDICAID, SELFPAY ==
[2025-01-27 14:53] LABS: Hematocrit 35.0 % (37-53); Hemoglobin 11.30 g/dL (11.27-16.99); Mean Corpuscular HGB Conc 32.3 g/dL (30-55); Mean Corpuscular Hemoglobin 28.1 pg (27-33); Mean Corpuscular Volume 87.1 fl (82-101); Nucleated Red Blood Cells % 0 %; Platelet Count 115 10^3/cmm (157-399); Red Blood Count 4.02 10^6/uL (3.85-5.65); White Blood Count 2.77 10^3/uL (3.29-11.43)
[2025-01-27 15:25] LABS: Albumin Level 4.3 g/dL (3.5-5.2); Anion Gap 11.9 (5-19); Blood Urea Nitrogen 25 mg/dL (8-23); Calcium 9.7 mg/dL (8.5-10.5); Carbon Dioxide 25 mmol/L (22-29); Chloride 105 mmol/L (98-107); Glucose 182 mg/dL (65-115); Potassium 4.9 mmol/L (3.5-5.1); Sodium 137 mmol/L (136-145)
== END 2025-01-27 13:54 | disposition home or self-care (01) ==
PROVIDERS: PCP Nurse Practitioner; Visit Provider Registered Nurse
DX: N18.4 Chronic kidney disease, stage 4 (severe) (principal)
CPT/HCPCS: 36415; 80069; 85025

== ENCOUNTER 2025-01-28 10:06 | Outpatient (CLI) | payer MEDICARE, MEDICAID, SELFPAY ==
[2025-01-28 11:02] LABS: Creatinine Urine, Random 118 mg/dL (39-259)
[2025-01-28 11:04] LABS: Microalbum Creatinine Ratio Ur 59 mg/dL (0-20)
== END 2025-01-28 10:07 | disposition home or self-care (01) ==
LOC: LAB 10:07
PROVIDERS: PCP Nurse Practitioner; Visit Provider Registered Nurse
DX: Z01.89 Encounter for other specified special examinations (principal)
CPT/HCPCS: 82044